=== PATIENT | female | born 1960 | race Caucasian/White ===

== ENCOUNTER 2019-10-27 13:19 | Outpatient (CLI) | payer MEDICARE, MEDICAID, SELFPAY ==
--- NOTE | ~2019-10-27 | XR_ITS ---
XR cervical spine 4-5V 10/27/2019 13:48 Indication: Radiculopathy Procedure: 4 view cervical spine Comparison: 03/01/2015 Findings: There is disc narrowing at C5-6 and C6-7. No fracture or traumatic malalignment. No prevert ebral soft tissue abnormality. Lung apices are unremarkable. There is uncinate degenerative changes a t C5-6 and C6-7. Impression: 1: Progression of mild-moderate cervical spondylosis. Reviewed, dictated and finalized at location B. Impression: 1: Progression of mild-moderate cervical spondylosis.
--- NOTE | ~2019-10-27 | XR_ITS ---
EXAMINATION: XR lumbar spine 2-3V DATE: 10/27/2019 13:48 INDICATION: Lumbar radiculopathy. TECHNIQUE: 3 views of lumbar spine were obtained. COMPARISON: Lumbar spine radiographs 11/06/2017 FINDINGS: There is 3 mm retrolisthesis of L4 on L5. There are changes of anterior fusion procedure at L5-S1 with interbody devices. Vertebral body heights are normal. There is moderately decreased disc height at L4-L5. There is multilevel mild facet joint osteoarthritis. Surgical clips overlie the pelv is. IMPRESSION: 1. Stable moderate lumbar spondylosis. 2. Anterior fusion procedure at L5-S1. Reviewed, dictated and finalized at location A.
== END 2019-10-27 13:20 | disposition home or self-care (01) ==
LOC: ANHIMG 13:25
PROVIDERS: PCP Internal Medicine; Visit Provider Pain Medicine Interventional Pain Medicine
DX: M47.26 Other spondylosis with radiculopathy, lumbar region (principal); Z98.1 Arthrodesis status; M47.22 Other spondylosis with radiculopathy, cervical region
CPT/HCPCS: 72050; 72100

== ENCOUNTER 2020-02-17 12:30 | Outpatient (RCR) | payer MEDICARE, MEDICAID, SELFPAY ==
--- NOTE | 2020-01-04 15:28 | PTOPEVAL ---
Thank you for referring Leslee Arreguin to [facility].? The patient is scheduled to be seen for therapy? 2 x/week for 4 weeks. Please review, sign, date and return this plan of care MARJORIE. I agree with and certify that the following plan of care is medically necessary. Referring Physician Date Admitting Provider: Attending Provider: José Miguel Turcios MD Referring Provider: *PT Outpatient Evaluation Start: 01/04/20 14:02 Freq: Status: Active Protocol: Document 01/04/20 14:02 TL (Rec: 01/04/20 15:09 [facility] [id number]) Therapy Assessment Status Assessment Status Assessment Status Evaluation Outpatient Past Medical History Past Medical History Source of Past Medical History None:Pt/Family Unable to Provide, No Data Recalled from Previous Visit Evaluation Information Problem Diagnosis Chronic pain syndrome Additional Evaluation Detail Takes care of grand daughter who has CP and 160 pounds. Grand kids help out with lifting grand daughter, doing laundry, etc. 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 Patient does not drive. Patient denies current or past knee pain. Subjective Information Low back: Query Text:As Reported By Patient/ Reports 20 years ago had Family spinal fusion. 3 years later they had to go back in for a revision. Her back pain has gotten rogressively worse the past few months. Has been using a heating pad to decrease pain, however it only helps while it 's on. Reports increased tightness with walking that prevents her from doing most activities. Bilateral LE radiculopathy down to all toes. Reports difficulty breathing when the pain is bad. Reports she only sleeps 2-3 hours per night
--- NOTE | 2020-01-19 13:04 | PCPTNOTE ---
Pt No-showed for appointment this date at 12:30. Called Pt to remind them of upcoming appointment on Saturday, however was unable to leave a message due to the voice mailbox being full.
--- NOTE | 2020-01-22 16:59 | PCPTNOTE ---
Patient called & cancelled scheduled appointment this date due to daughter still being in hospital
--- NOTE | 2020-02-01 11:14 | PCPTNOTE ---
Patient called & cancelled scheduled appointment this date due to hurting all over, and is unable to get out of bed.
--- NOTE | 2020-02-03 12:39 | PTOPEVAL ---
Thank you for referring Leslee Arreguin to [facility].? The patient is scheduled to be seen for therapy? 2x/week for 4-6 weeks. Please review, sign, date and return this plan of care MARJORIE. I agree with and certify that the following plan of care is medically necessary. Referring Physician Date Admitting Provider: Attending Provider: José Miguel Turcios MD Referring Provider: *PT Outpatient Evaluation Start: 01/04/20 14:02 Freq: Status: Active Protocol: Document 02/03/20 10:58 CAP (Rec: 02/03/20 11:50 CAP [id number]) Therapy Assessment Status Assessment Status Assessment Status Re-evaluation Outpatient Past Medical History Past Medical History Source of Past Medical History None:Pt/Family Unable to Provide, No Data Recalled from Previous Visit Evaluation Information Problem Diagnosis Chronic pain syndrome Additional Evaluation Detail Takes care of grand daughter who has CP and 160 pounds. She does not have to perform any lifting of her grand daughter. She will performing diaper changes. Has director personal that comes 5 days/week for 9-10 hours. 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 Patient does not drive. Subjective Information Low back: Query Text:As Reported By Patient/ Has been using a heating pad Family multiple times a day to decrease pain, however it only helps while it's on. She reports increased muscle pain with leaning forward to perform task. She questions the skin changes on her back. 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 Reports increased tightness with walking that prevents her from doing most activities. C/o Bilateral LE and UE radiculopathy down to all toes or hands. Cervical: She requires assistance with managing her hair, but is able
--- NOTE | 2020-02-08 12:42 | PCPTNOTE ---
Patient showed up early for appointment, unable to be seen at that time due to having another Pt. Pt then cancelled scheduled appointment this date and stated she would be at her Saturday appointment.
--- NOTE | 2020-02-15 12:34 | PCPTNOTE ---
Patient called & cancelled scheduled appointment this date but will plan to attend her appt on 02/16.
--- NOTE | 2020-02-22 10:40 | PCPTNOTE ---
Patient called & cancelled scheduled appointment this date due to pain and not sleeping over the weekend.
--- NOTE | 2020-02-24 10:43 | PCPTNOTE ---
Patient called & cancelled scheduled appointment this date due to no transportation.
--- NOTE | 2020-02-29 10:56 | PCPTNOTE ---
Patient called & cancelled scheduled appointment this date due to required isolation for possible COVID. Pt to reschedule her re-eval after the 2 wk period.
--- NOTE | 2020-03-16 11:12 | PCPTNOTE ---
Patient did not show up for scheduled appointment this date. Attempted to leave message on voicemail, but it was full. Will keep chart open for 2 wk then DC if re-eval is not rescheduled.
--- NOTE | 2020-03-28 11:37 | PCPTNOTE ---
Admitting Provider: Attending Provider: José Miguel Turcios MD Patient:Leslee Arreguin Date of :1960 Discharge Note Patient has not returned for any further treatments since 02/17/2020, therefore she will be discharged at this time. Patient?s initial visit was on 01/04/2020 14:00 and she had a total of 9 visits. She cancelled or was a show no for 9 visits. The goals have been partially met. Thank you for referring this patient to [facility]. Please review, sign, date and return this discharge summary MARJORIE. I have been updated about the patient's current status and I agree with discharge from the above service at this time. Referring Physician Date
== END 2020-03-28 13:43 | disposition home or self-care (01) ==
LOC: ANHPT 12:30
PROVIDERS: PCP Internal Medicine; Visit Provider Pain Medicine Interventional Pain Medicine
DX: M25.569 Pain in unspecified knee (principal); M17.9 Osteoarthritis of knee, unspecified; G89.4 Chronic pain syndrome
CPT/HCPCS: 97014; 97110; 97140; 97162; G0283

== ENCOUNTER 2020-03-14 10:41 | Outpatient (CLI) | payer MEDICARE, MEDICAID, SELFPAY ==
--- NOTE | ~2020-03-14 | XR_ITS ---
XR abdomen/kub 1V 03/14/2020 11:06 INDICATION: Abdomen pain TECHNIQUE: KUB COMPARISON: 03/13/2005 FINDINGS: Bowel gas pattern is normal. There are surgical changes at L5-S1. There is postoperative ch anges in the pelvis. No acute osseous abnormality. There is no evidence of free air, mass, organomega ly, ascites or obstruction. No abnormal calculi are seen. The bones appear intact. IMPRESSION: 1: No acute abdominal abnormality identified. Reviewed, dictated and finalized at location B. LE PRESS OPERATOR
== END 2020-03-14 10:42 | disposition home or self-care (01) ==
PROVIDERS: PCP Internal Medicine; Visit Provider Internal Medicine
DX: R10.9 Unspecified abdominal pain (principal)
CPT/HCPCS: 74018

== ENCOUNTER 2020-05-23 15:02 | Outpatient (CLI) | payer MEDICARE, MEDICAID, SELFPAY ==
--- NOTE | ~2020-05-23 | CT_ITS ---
EXAMINATION: CT lung screening DATE: 05/23/2020 15:33 INDICATION: Personal history of nicotine dependence, current smoker with 90 pack year history TECHNIQUE: Computed tomography (CT) of the chest was performed without intravenous contrast. The dose -length product (DLP) was 71.24 mGy-cm. Automated exposure control and iterative reconstruction techn [employer] were employed. COMPARISON: 03/31/2019 FINDINGS: There is mild emphysema. There are scattered 1 to 2 mm nodules in the upper lobes without s ignificant change. No new or suspicious pulmonary nodule is identified. No pathologically enlarged th oracic lymph nodes are identified. The heart size is normal. There is no pleural effusion or pneumoth orax. A stone is present in the nondistended gallbladder. Calcified coronary artery atherosclerosis i s noted. IMPRESSION: 1. Lung-RADS category 2: Benign appearance or behavior. Continue annual screening with noncontrast lo w-dose chest CT in 12 months. Reviewed, dictated and finalized at location A. UMER CREDIT COUNSELOR IMPRESSION: 1. Lung-RADS category 2: Benign appearance or behavior. Continue annual screeni ng with noncontrast low-dose chest CT in 12 months.
--- NOTE | ~2020-05-23 | MM_ITS ---
EXAMINATION: MM screening dieudonne BI w neyda HISTORY: Screening mammogram TECHNIQUE: Craniocaudal and mediolateral oblique 3-D tomosynthesis images were obtained and synthetic 2-D images were generated. CAD analysis was submitted and interpreted. COMPARISON: No prior mammogram is available for comparison at this institution. BREAST PARENCHYMAL COMPOSITION: The breasts are almost entirely fatty. FINDINGS: There is no evidence of suspicious mass, calcification, or architectural distortion to sugg est malignancy in either breast. There has been no suspicious interval change. IMPRESSION: 1. No mammographic evidence of malignancy. 2. Recommend routine screening mammography in one year. BI-RADS Category 1: Negative Reviewed, dictated and finalized at location A. T ROLLER WINDER
== END 2020-05-23 15:03 | disposition home or self-care (01) ==
PROVIDERS: PCP Internal Medicine; Visit Provider Nurse Practitioner
DX: Z12.2 Encounter for screening for malignant neoplasm of respiratory organs (principal); Z87.891 Personal history of nicotine dependence; Z12.31 Encounter for screening mammogram for malignant neoplasm of breast
CPT/HCPCS: 71271; 77063; 77067

== ENCOUNTER 2020-08-15 11:59 | Outpatient (CLI) | payer MEDICARE, MEDICAID, SELFPAY ==
--- NOTE | ~2020-08-15 | XR_ITS ---
EXAMINATION: XR chest 2V 08/15/2020 12:14 INDICATION: Dyspnea. Cough. Shortness of breath. PROCEDURE: 2 view chest COMPARISON: Comparison to multiple prior studies sequentially, with oldest reviewed study dated 12/26. FINDINGS: The lungs are clear. The cardiomediastinal silhouette is within normal limits. There are no pleural effusions. There is no pneumothorax suspected. IMPRESSION: 1: NO ACUTE CARDIOPULMONARY DISEASE. Reviewed, dictated and finalized at location A.
== END 2020-08-15 12:00 | disposition home or self-care (01) ==
LOC: ANHIMG 12:02
PROVIDERS: PCP Internal Medicine; Visit Provider Internal Medicine
DX: R06.00 Dyspnea, unspecified (principal)
CPT/HCPCS: 71046

== ENCOUNTER 2020-09-05 09:25 | Outpatient (CLI) | payer MEDICARE, MEDICAID, SELFPAY ==
--- NOTE | ~2020-09-05 | NM_ITS ---
EXAMINATION: NM chandler stress w perfusion DATE: 09/05/2020 11:55 INDICATION: Dyspnea TECHNIQUE: Rest images were obtained following intravenous administration of 10.4 mCi Tc99m tetrofosm in (Myoview). The patient was infused intravenously with Lexiscan (Regadenoson). Then, 32.7 mCi Tc99m tetrofosmin (Myoview) was administered intravenously, and stress images were obtained. Data was wade nstructed into short axis and horizontal and vertical long axis SPECT images. Gated SPECT images were also obtained. COMPARISON: None. FINDINGS: Moderate-sized region of mild decreased perfusion along the septal and inferior fernandez on th e supine stress and rest images which normalizes on the prone images. No definitive reversible or fix ed perfusion abnormality to suggest ischemia or infarction. There is normal left ventricular chamber size, wall motion and ejection fraction. Left ventricular ejection fraction measures >70%. IMPRESSION: 1. Normal myocardial perfusion at rest and during stress. 2. Left ventricular ejection fraction measuring >70%. Reviewed, dictated and finalized at location A.
--- NOTE | 2020-09-05 10:02 | EST_ITS ---
Patient Info Name: Leslee Arreguin Age: 59 years : 1960 Gender: Female Ht: 69 in Wt: 159 lbs BSA: 1.88 m2 Exam Date: 09/05/2020 10:15 AM Exam Location: [facility] Stress Patient Status: Outpatient Admit Date: 09/05/2020 Staff Ordering Physician: Saul Fitch DO Attending Provider: Saul Fitch DO Exercise Technologist: Shelli Goldsmith RDCS Exercise Physician: Thomas Stevens DO Exam Type: CA stress chandler w NM Study Info A regadenoson stress test was performed. Summary 1. 1. Negative lexiscan stress test for ischemic ST changes by ECG criteria. 2. 2. Stable hemodynamics throughout the test. 3. 3. Nuclear scan to follow and will be reported separately. Please correlate with it. 4. 4. Patient informed of the above results. Protocol: Lexiscan Stress ECG Details Stage: REST Duration (min): 7 min : 50 sec HR (bpm): 73 SBP (mmHg): 125 DBP (mmHg): 75 Stage: REST Duration (min): 16 min : 2 sec HR (bpm): 73 SBP (mmHg): 125 DBP (mmHg): 75 Stage: STAGE 1 Duration (min): 1 min : 0 sec HR (bpm): 92 SBP (mmHg): 121 DBP (mmHg): 45 Stage: RECOVERY Duration (min): 1 min : 0 sec HR (bpm): 91 SBP (mmHg): 116 DBP (mmHg): 52 Stage: RECOVERY Duration (min): 2 min : 0 sec HR (bpm): 81 SBP (mmHg): 116 DBP (mmHg): 52 Stage: RECOVERY Duration (min): 3 min : 0 sec HR (bpm): 88 SBP (mmHg): 102 DBP (mmHg): 57 Stage: RECOVERY Duration (min): 4 min : 0 sec HR (bpm): 84 SBP (mmHg): 102 DBP (mmHg): 57 Stage: RECOVERY Duration (min): 5 min : 0 sec HR (bpm): 78 SBP (mmHg): 109 DBP (mmHg): 62 Stage: RECOVERY Duration (min): 6 min : 0 sec HR (bpm): 78 SBP (mmHg): 109 DBP (mmHg): 62 Stage: RECOVERY Duration (min): 7 min : 0 sec HR (bpm): 76 SBP (mmHg): 106 DBP (mmHg): 64 Stage: RECOVERY Duration (min): 8 min : 0 sec HR (bpm): 78 SBP (mmHg): 106 DBP (mmHg): 64 Stage: RECOVERY Duration (min): 9 min : 0 sec HR (bpm): 74 SBP (mmHg): 110 DBP (mmHg): 70 Stage: RECOVERY Duration (min): 10 min : 0 sec HR (bpm): 70 SBP (mmHg): 110 DBP (mmHg): 70 Stage: RECOVERY Duration (min): 11 min : 0 sec HR (bpm): 74 SBP (mmHg): 108 DBP (mmHg): 71 Stage: RECOVERY Duration (min): 11 min : 20 sec HR (bpm): 78 SBP (mmHg): 108 DBP (mmHg): 71 Rest HR: 73 bpm Peak HR: 101 bpm Rest Sys BP: 125 mmHg Peak Sys BP: 121 mmHg Max Pred HR: 162 bpm % Max Pred HR: 62 % Target HR: 138 bpm Max RPP: 12,221 bpm*mmHg Termination Reason: Completed protocol Cardiac Symptoms: Shortness of breath, Dizziness Total Time: 1 min : 0 sec Rest Oconnor BP: 75 mmHg Peak Oconnor BP: 45 mmHg Total Dose: 0.4 mg Resting ECG Sinus rhythm, IRBBB. Stress ECG No ST changes.
--- NOTE | 2020-09-05 14:35 | WPDPFTINT ---
PFT Procedure Performed PFT Procedure Performed Spirometry with Pre/Post Bronchodilator Plethysmography (Lung Vol) Diffusing Cap (DLCO) Flow Vol Loop PFT Interpretation This is a pulmonary function test with pre and post-bronchodilator spirometry, plethysmography and diffusing capacity. The test was performed and results interpreted in accordance with the 2019 and 2005 ATS/ERS Task Force guidelines respectively using the Global Lung Function Initiative-2012 reference equations. Patient demonstrated good effort and cooperation. Reproducibility criteria were met. The quality of the pre bronchodilator spirometry maneuver was Grade A and post bronchodilator spirometry maneuver was Grade A. Findings: Spirometry: There is decreased maximal expiratory airflow at all lung volumes with concave expiratory flow tracing. The pre bronchodilator FVC is 3.22 L, 84% predicted. The pre bronchodilator FEV1 is 1.83 L, 61% predicted. The FEV1: FVC ratio is 57%. The post bronchodilator FVC is 3.71 L, representing a 15% increase. The post bronchodilator FEV1 is 2.16 L, representing an 18% increase. Plethysmography: Total lung capacity is 6.91 L, 119% predicted. The functional residual capacity is 4.23 L, 128% predicted. The residual volume is 3.59 L, 164% predicted. Diffusing capacity: The absolute diffusion capacity is 17.6, 74% predicted. The diffusing capacity corrected for alveolar volume is 3.29, 78% predicted. Impression: There is a moderate obstructive abnormality with significant improvement after inhaling a single dose of albuterol. The increase in residual volume is consistent with air trapping from an obstructive abnormality. Hyperinflation is present is demonstrated by the increase in total lung capacity and is consistent with an obstructive abnormality. The diffusing capacity is normal. There are no prior studies for comparison
== END 2020-09-05 09:26 | disposition home or self-care (01) ==
PROVIDERS: PCP Internal Medicine; Visit Provider Internal Medicine
DX: R06.00 Dyspnea, unspecified (principal); J44.9 Chronic obstructive pulmonary disease, unspecified
CPT/HCPCS: 78452; 93017; 94060; 94726; 94729; A9502; J2785

== ENCOUNTER 2021-01-02 12:31 | Outpatient (CLI) | payer MEDICARE, MEDICAID, SELFPAY ==
--- NOTE | ~2021-01-02 | XR_ITS ---
EXAMINATION: XR lumbar spine 2-3V EXAM DATE: 01/02/2021 13:05 INDICATION: Lumbar radiculopathy. TECHNIQUE: Lumber spine frontal, lateral, lateral L5-S1 projections for interpretation. Comparison is made to prior examination from 10/27/2019. FINDINGS: Interbody devices L5-S1 without subsidence. L5 laminectomies. There is moderate loss of th e L4-5 disc height with 3 mm retrolisthesis. The vertebral bodies are otherwise aligned. The vertebra l body and disc heights are otherwise well maintained. There is mild to moderate lumbar facet arthrop athy, lower levels more affected. No spondylolysis suspected. There is aortic arteriosclerosis. Sacru m, sacroiliac joints, sacral arcuate lines are intact. Paraspinal soft tissue is unremarkable. Accoun ting for differences in technique, there is no significant interval change. IMPRESSION: 1. L5-S1 interbody fusion. 2. L4-5 grade 1 retrolisthesis, moderate disc disease. 3. Mild to moderate facet arthropathy. Reviewed, dictated and finalized at location B.
--- NOTE | ~2021-01-02 | XR_ITS ---
EXAMINATION: XR cervical spine 4-5V EXAM DATE: 01/02/2021 13:05 INDICATION: Cervical radiculopathy. TECHNIQUE: Cervical spine frontal, lateral, lateral swimmers, and open-mouth odontoid projections. C omparison is made to prior examination from 10/27/2019. FINDINGS: Moderate disc disease C5-6 and 6-7. There is 2 to 3 mm retrolisthesis C5 on C6. The verteb ral bodies are otherwise aligned. The odontoid process is intact. The lateral masses of C1 line up w ith C2. Prevertebral soft tissue and pre-dens space are within normal limits. Overall moderate cervic al arthropathy. There is aortic arteriosclerosis. Lung apices are clear. Accounting for differences i n technique, there is no significant interval change. IMPRESSION: 1. Moderate cervical spondylosis unchanged. Reviewed, dictated and finalized at location B.
== END 2021-01-02 12:32 | disposition home or self-care (01) ==
LOC: ANHIMG 12:36
PROVIDERS: PCP Internal Medicine
DX: Z79.891 Long term (current) use of opiate analgesic (principal); Z13.89 Encounter for screening for other disorder; M47.22 Other spondylosis with radiculopathy, cervical region; M51.36 Other intervertebral disc degeneration, lumbar region; Z98.1 Arthrodesis status
CPT/HCPCS: 72050; 72100

== ENCOUNTER 2021-03-15 08:47 | Outpatient (CLI) | payer MEDICARE, MEDICAID, SELFPAY ==
--- NOTE | ~2021-03-15 | DEXA_ITS ---
Bone Density Report Name: Leslee Arreguin Age: 60 Sex: Female Ethnicity: White Date of : 1960 Indication: postmenopausal; height loss; prior fracture; asthma or emphysema; Referring Provider: FLORENCIO GRAYSON Study: Bone densitometry was performed. Exam Date: March 15, 2021 Accession number: [id number] Bone Density: Region BMD T-score Z-score Classification AP Spine (L1, L2, L3) 0.935 -0.8 0.6 Normal Femoral Neck (Left) 0.704 -1.3 -0.1 Osteopenia Total Hip (Left) 0.913 -0.2 0.7 Normal Total Hip Bilateral Avg 0.890 -0.4 0.5 Normal Femoral Neck (Right) 0.736 -1.0 0.2 Normal Total Hip (Right) 0.867 -0.6 0.3 Normal World Health Organization criteria for BMD impression classify patients as: Normal (T-score at or above -1.0), Osteopenia (T-score between -1.0 and -2.5), or Osteoporosis (T-score at or below -2.5). 10-year Fracture Risk: FRAX not reported because: Prior hip or vertebral fracture Previous Exams: Region Exam Age BMD T-score BMD Change BMD Change Date g/cm2 vs Baseline vs Previous AP Spine(L1, L2, L3) 03/15/2021 60 0.935 -0.8 -0.223(-19.2%) -0.223(-19.2%) 01/29/2005 44 1.157 1.3 Total Hip(Left) 03/15/2021 60 0.913 -0.2 -0.100(-9.8%)# -0.100(-9.8%)# 01/29/2005 44 1.012 0.6 Total Hip(Right) 03/15/2021 60 0.867 -0.6 -0.143(-14.2%) -0.143(-14.2%) 01/29/2005 44 1.011 0.6 *Denotes significance at 95% confidence level, LSC for AP Spine = 0.022 g/cm2, LSC for Total Hip = 0.027 g/cm2 Clinical Information Provided by Patient: Have had a previous hip or vertebral fracture Has had a low trauma fracture Smokes Has the following medical conditions: Asthma or Emphysema Patient maximum height was 71 Menopause Age: 43 No regular weight bearing exercise Drinks caffeinated beverages Onset of menses at age 14 Number of children 3 Impression: The patient has low bone mass, based on the Left Femoral Neck T-score. The patient has risk factors, including: smoking, previous fracture. No significant bone loss was observed. Discussion: INCREASED RISK OF FRACTURE DUE TO HISTORY OF FRACTURE. The patient's previous fracture puts the patient at high risk of a future fracture. In untreated patients, the risk of osteoporotic fracture increases approximately two-fold for each 1.0 SD decrease in T-score. Low bone density is not the only risk factor for fracture; also consider factors such as patient's age, frailty or poor health, risk of fal
== END 2021-03-15 08:48 | disposition home or self-care (01) ==
LOC: ANHIMG 08:49
PROVIDERS: PCP Internal Medicine; Visit Provider Internal Medicine
DX: Z78.0 Asymptomatic menopausal state (principal); M85.852 Other specified disorders of bone density and structure, left thigh
CPT/HCPCS: 77080

== ENCOUNTER 2021-03-17 12:20 | Outpatient (CLI) | payer MEDICARE, MEDICAID, SELFPAY ==
--- NOTE | 2021-03-20 09:59 | WPDSIXMINUTE ---
Six Minute Walk Procedure Procedure Performed Pulmonary Stress Test (6 min walk) Six Minute Walk This 6 minute walk test was carried out with the patient breathing ambient air. The pre walk oxyhemoglobin saturation was 97%. The patient was able to walk over 365 m with no stops during the testing. During the walk the oxyhemoglobin saturation remained over 95%. Impression: No evidence of oxyhemoglobin desaturation on this testing.
== END 2021-03-17 12:21 | disposition home or self-care (01) ==
PROVIDERS: PCP Internal Medicine; Visit Provider Internal Medicine Pulmonary Disease
DX: J40 Bronchitis, not specified as acute or chronic (principal); Z72.0 Tobacco use
CPT/HCPCS: 94618

== ENCOUNTER 2021-08-12 10:12 | Outpatient (CLI) | payer MEDICARE, MEDICAID, SELFPAY ==
--- NOTE | ~2021-08-12 | MR_ITS ---
EXAMINATION: MR lumbar spine wo con DATE: 08/12/2021 11:23 INDICATION: Lumbar radiculopathy. TECHNIQUE: Magnetic resonance imaging (MRI) of the lumbar spine was performed without intravenous con trast. Sequences included sagittal T2-weighted FSE, sagittal T2-weighted FS FSE, sagittal T1-weighted FSE, and axial T2-weighted FSE. COMPARISON: Lumbar spine MRI 01/12/2016 FINDINGS: There is 4 mm retrolisthesis of L4 on L5. There are changes of anterior fusion procedure at L5-S1 with interbody devices. Vertebral body heights are normal. There is moderately decreased disc height at L4-L5 with endplate remodeling. The distal spinal cord signal intensity is normal. The conu s medullaris is at L1-L2. The following disc levels are specifically discussed: L1-L2: The disc does not extend beyond the endplate margin. There is mild bilateral facet joint osteo arthritis. There is no neural foraminal stenosis. There is no central canal stenosis. L2-L3: The disc is bulging and has an annular fissure. There is severe bilateral facet joint osteoart hritis. There is mild right and moderate left neural foraminal stenosis. There is mild central canal stenosis. L3-L4: The disc is bulging. There is severe bilateral facet joint osteoarthritis. There is mild bilat eral neural foraminal stenosis. There is no central canal stenosis. L4-L5: The disc is bulging with superimposed left central extrusion. There is mild bilateral facet zahra int osteoarthritis. There is moderate bilateral neural foraminal stenosis. There is mild central bernard l stenosis. L5-S1: There is no facet joint hypertrophy. There is mild left neural foraminal stenosis. There is no central canal stenosis. There is posterior decompression. IMPRESSION: 1. Moderate lumbar spondylosis with mild worsening. 2. Anterior fusion procedure at L5-S1. Reviewed, dictated and finalized at location B.
--- NOTE | ~2021-08-12 | MR_ITS ---
EXAMINATION: MR cervical spine wo con DATE: 08/12/2021 11:23 INDICATION: Cervical radiculopathy. TECHNIQUE: Magnetic resonance imaging (MRI) of the cervical spine was performed without intravenous c ontrast. Sequences included sagittal T2-weighted FSE, sagittal T2-weighted FS FSE, sagittal T1-weight ed FSE, axial MERGE, and axial T2-weighted FSE. COMPARISON: Cervical spine MRI 12/02/2018 FINDINGS: There is 2 mm retrolisthesis of C5 and C6 and C6 on C7. Vertebral body heights are normal. There is severely decreased disc height at C5-C6 and C6-C7 with endplate remodeling. There is mildly decreased disc height at C4-C5. The spinal cord signal intensity is normal. The following disc levels are specifically discussed: C2-C3: There is a central extrusion. There is no uncovertebral joint osteoarthritis. There is mild bi lateral facet joint osteoarthritis. There is no neural foraminal stenosis. There is mild central bernard l stenosis. C3-C4: There is a central protrusion. There is mild bilateral uncovertebral joint osteoarthritis. The re is no facet joint osteoarthritis. There is no neural foraminal stenosis. There is no central canal stenosis. C4-C5: There is a central protrusion. There is mild bilateral uncovertebral joint osteoarthritis. The re is no facet joint osteoarthritis. There is no neural foraminal stenosis. There is no central canal stenosis. C5-C6: The disc is bulging. There is severe bilateral uncovertebral joint osteoarthritis. There is mo derate bilateral facet joint osteoarthritis. There is severe bilateral neural foraminal stenosis. The re is mild central canal stenosis. C6-C7: The disc is bulging. There is severe bilateral uncovertebral joint osteoarthritis. There is mi ld bilateral facet joint osteoarthritis. There is moderate bilateral neural foraminal stenosis. There is mild central canal stenosis. C7-T1: The disc does not extend beyond the endplate margin. There is no uncovertebral joint osteoarth ritis. There is moderate right and mild left facet joint osteoarthritis. There is no neural foraminal stenosis. There is no central canal stenosis. IMPRESSION: 1. Severe cervical spondylosis, stable from 12/02/2018. Reviewed, dictated and finalized at location B.
== END 2021-08-12 10:13 | disposition home or self-care (01) ==
PROVIDERS: PCP Internal Medicine; Visit Provider Pain Medicine Interventional Pain Medicine
DX: M47.22 Other spondylosis with radiculopathy, cervical region (principal); M47.26 Other spondylosis with radiculopathy, lumbar region; Z98.1 Arthrodesis status
CPT/HCPCS: 72141; 72148

== ENCOUNTER 2021-08-25 07:46 | Outpatient (CLI) | payer MEDICARE, MEDICAID, SELFPAY ==
--- NOTE | 2021-09-04 13:00 | WPDSLEEPSTUD ---
Sleep Study Date of Study: 08/25/21 Ordering Provider: Eb Cardoso MD Interpreting Physician: Felisa Clay DO Sleep Study Type: Polysomnogram Height: 1.75 m Weight: 68.946 kg Body Mass Index: 22.4 Neck Circumference (inches): 14 [place]: 3 Reason for Sleep Study Snoring, daytime hypersomnia. Previous diagnosis of JOSE and used to be on CPAP. Sleep History The patient is a 60-year-old female with COPD hypertension, hyperlipidemia, hypothyroidism, chronic back pain, tobacco use disorder, restless leg syndrome and previously diagnosed sleep apnea that had a sleep study ordered by her lye bath operator for evaluation sleep apnea. The patient moved to the area 3 years ago and she lost her CPAP machine at this time. She occasionally awakens from sleep short of breath. She rarely awakens at night with heartburn, belching or cough. She frequently snores loud enough that others complain. She occasionally has trouble sleeping when she has a cold. She rarely wakes up gasping for air throughout the night. She occasionally has breathing problems at night observed by herself or others. She occasionally sweats excessively at night. She rarely notices heart palpitations or irregular heartbeats during the night. She occasionally falls asleep during the day but never while driving. She occasionally experiences loss of muscle tone when extremely emotional. She denies sleep paralysis. She rarely experiences vivid dreamlike scenes upon awakening or falling asleep. She denies having nightmares. She denies remembering her dreams. She occasionally has thoughts racing through her mind. She occasionally feels sad or depressed. She frequently has anxiety. She frequently has muscular tension. He denies noticing parts of her body jerk. She denies kicking during the night. She frequently has crawling and aching feelings in her legs and occasionally has leg pain during the night. She denies grinding her teeth during sleep and awakening with morning jaw pain. She is constantly bothered by pain during the day and constantly awakened by pain during the night. She constantly wakes up feeling stiff in the morning. She constantly wakes up with sore achy muscles. She constantly wakes up with pain in the neck, spine and other joints. She goes to bed at 10:30 p.m. on weekdays and between 11:00 p.m. and 2:00 a.m. on the weekends. She is unsure how long it takes her to fall asleep. She wakes up a few times throughout the night. When she awakens, she will toss and turn. He can take her up to an hour to fall back asleep. She wakes up at 6:00 a.m. on weekdays and between 6 and 7:00 a.m. on the weekends. She typically gets 5 hours of sleep per night. The patient will go back to bed after waking up for an hour. She currently lives with her 14-year-old special needs child, 16-year-old and 20-year-old. she not consume any caffeinated beverages within 2 hours of med. She does not engage in physical exercise before bedtime. She denies reading falling asleep. She will occasionally take a nap in the afternoon or evening but it isn't refreshening. She drinks 2 cups of coffee day. She smokes 3/4 pack of cigarettes per day. She will smoke marijuana in the evenings. She denies alcohol use. FORMERLY [facility] Past Medical History Medical History Adult hypothyroidism Anxiety Benign essential hypertension Chronic low back pain Chronic obstructive pulmonary disease, unspecified Tobacco abuse Family History Family History Grandparent Family history of malignant neoplasm Other Cerebrovascular accident Family history of arthritis Social History Social History Years smoked: 45 Smoking status: Current every day smoker Second hand tobacco smoke exposure: Yes Alcohol intake: never Substance use: c
[2021-09-04 15:52] VITALS: BMI 22.4
== END 2021-08-26 06:56 | disposition home or self-care (01) ==
LOC: ANHCSM 07:52
PROVIDERS: PCP Internal Medicine; Visit Provider Internal Medicine Pulmonary Disease
DX: G47.10 Hypersomnia, unspecified (principal)
CPT/HCPCS: 95810

== ENCOUNTER 2021-10-09 13:59 | Outpatient (CLI) | payer MEDICARE, MEDICAID, SELFPAY ==
--- NOTE | ~2021-10-09 | CT_ITS ---
EXAMINATION: CT lung screening DATE: 10/09/2021 14:16 INDICATION: Personal history of nicotine dependence, current smoker with 90 pack year history TECHNIQUE: Computed tomography (CT) of the chest was performed without intravenous contrast. The dose -length product (DLP) was 81.58 mGy-cm. Automated exposure control and iterative reconstruction techn ique were employed. COMPARISON: 05/23/2020 FINDINGS: There is a 2.8 x 2.1 perihilar nodule of the left lower lobe. There are scattered 1 to 2 mm nodules throughout the lungs. There is mild dependent atelectasis. No pleural effusion or pneumothor ax. Calcified thyroid nodules are noted. No pathologically enlarged thoracic lymph nodes are identifi ed. The heart size is normal. There is calcified coronary artery atherosclerosis is noted is present in the nondistended gallbladder. There is mild thoracic spondylosis. IMPRESSION: 1. Lung-RADS category 4B: Very suspicious. Findings for which additional diagnostic testing and/or ti ssue sampling is recommended. Bronchoscopy and/or PET/CT are recommended for evaluation of the left p erihilar lower lobe nodule. Reviewed, dictated and finalized at location A. IMPRESSION: 1. Lung-RADS category 4B: Very suspicious. Findings for which additional diagno stic testing and/or tissue sampling is recommended. Bronchoscopy and/or PET/CT are recommended for evaluation of the left perihilar lower lobe nodule.
== END 2021-10-09 14:00 | disposition home or self-care (01) ==
PROVIDERS: PCP Internal Medicine; Visit Provider Internal Medicine Pulmonary Disease
DX: Z12.2 Encounter for screening for malignant neoplasm of respiratory organs (principal); Z87.891 Personal history of nicotine dependence; R91.8 Other nonspecific abnormal finding of lung field
CPT/HCPCS: 71271

== ENCOUNTER 2021-10-19 08:56 | Outpatient (CLI) | payer MEDICARE, MEDICAID, SELFPAY ==
--- NOTE | ~2021-10-19 | PE_ITS ---
EXAMINATION: PET skull to mid thigh DATE: 10/19/2021 10:39 INDICATION: Lung nodule TECHNIQUE: Blood glucose level was 121 mg/dL. 10.12 mCi of 18-fluorodeoxyglucose (18-FDG) was adminis tered i.v. Low dose computed tomography (CT) images were acquired from the base of the brain to the p roximal thighs for attenuation correction and anatomic localization. Positron emission tomography (PE T) images were acquired in the same distribution beginning 50 minutes after injection. The dose-lengt h product (DLP) was 371.92 mGy-cm. COMPARISON: CT, 10/09/2021 FINDINGS: Head/neck: No abnormal FDG uptake is identified. FDG uptake in the oral cavity and vocal cords withou t suspicious CT correlate is likely physiologic. Chest: There is a 2.8 x 2.3 cm perihilar nodule of the left lower lobe with abnormal FDG uptake and S UV max of 12.5. Additional 1 to 2 mm nodule scattered throughout the lungs are stable and below thres hold for metabolic assessment. No pathologically enlarged thoracic lymph nodes are identified. The he art size is normal. There is mild atelectasis. No pleural effusion or pneumothorax. Abdomen/pelvis/proximal thighs: Physiologic FDG activity is present in the bowel and urinary tract. N o abnormal FDG uptake is identified. The liver, spleen, pancreas, and adrenal glands are normal. A st one is present in the nondistended gallbladder. The kidneys are unremarkable. No pathologically enlar ged abdominal or pelvic lymph nodes are identified. There is no free intraperitoneal gas or evidence of bowel obstruction. Colonic diverticulosis is present without evidence of diverticulitis. Musculoskeletal: No abnormal FDG uptake is identified. There is moderate cervical spondylosis. There are changes of anterior fusion at L5-S1. A sclerotic focus in the left proximal humerus likely repres ents an enchondroma. IMPRESSION: 1. Left perihilar lower lobe nodule with abnormal FDG uptake, consistent with primary bronchogenic ca rcinoma. No evidence of metastatic disease. Reviewed, dictated and finalized at location B. IMPRESSION: 1. Left perihilar lower lobe nodule with abnormal FDG uptake, consistent with p rimary bronchogenic carcinoma. No evidence of metastatic disease.
[2021-10-19 09:17] LABS: Glucose Point of Care 121 mg/dl (65-105)
== END 2021-10-19 08:57 | disposition home or self-care (01) ==
PROVIDERS: PCP Internal Medicine; Visit Provider Internal Medicine Pulmonary Disease
DX: R91.8 Other nonspecific abnormal finding of lung field (principal)
CPT/HCPCS: 78815; A9552

== ENCOUNTER 2021-11-13 07:39 | Outpatient (CLI) | payer MEDICARE, MEDICAID, SELFPAY ==
--- NOTE | ~2021-11-13 | CT_ITS ---
EXAMINATION: CT brain w con DATE: 11/13/2021 08:12 INDICATION: Episodic headaches TECHNIQUE: Computed tomography (CT) of the head was performed with 100 CC Omnipaque 350 intravenous c ontrast. The mA was adjusted according to patient size. Iterative reconstruction technique was employ ed. Exam dose: 529.67 mGy-cm total exam DLP. COMPARISON: 10/15/2012 MRI brain, reported normal CT brain of 12/26/2009 FINDINGS: There is atherosclerotic calcification of the carotid siphon internal carotid arteries. No intracranial mass lesion or hemorrhage or cerebrovascular accident, midline shift or mass effect e ffect. Normal ventricular size. No subdural or epidural hematoma is detected. The included mastoid air cells and paranasal sinuses are normally developed and aerated. No fracture or bone destruction of the cranial vault. IMPRESSION: Cerebral atherosclerosis; no acute intracranial finding Reviewed, dictated and finalized at Location A. Reviewed, dictated and finalized at location B.
[2021-11-13 08:05] LABS: Estimated Glomerular Filt Rate > 60
== END 2021-11-13 07:40 | disposition home or self-care (01) ==
PROVIDERS: PCP Internal Medicine; Visit Provider Internal Medicine Hematology & Oncology
DX: R51.9 Headache, unspecified (principal); I67.2 Cerebral atherosclerosis
CPT/HCPCS: 70460; Q9967

== ENCOUNTER 2021-11-21 14:07 | Outpatient (CLI) | payer MEDICARE, MEDICAID, SELFPAY ==
[2021-11-21 14:25] LABS: Basophils Percent Auto 0.5 % (0.2-1.2); Eosinophils Absolute Auto 0.1 K/mm3 (0-0.3); Hematocrit 41.3 % (37.0-47.0); Hemoglobin 13.1 g/dL (12.0-15.0); Immature Granulocyte Absolute 0.02 K/mm3 (0.00-0.031); Immature Granulocyte Percent A 0.3 % (0-0.5); Lymphocytes Absolute Auto 2.59 K/mm3 (0.9-3.2); Lymphocytes Percent Auto 32.4 % (18.3-44.2); Mean Corpuscular HGB Conc 31.7 g/dl (32-36); Mean Corpuscular Hemoglobin 30.8 pg (26-34); Mean Corpuscular Volume 97.2 fl (80-100); Mean Platelet Volume 11.4 fl (7.4-10.4); Monocytes Absolute Auto 0.6 K/mm3 (0.1-0.6); Monocytes Percent Auto 7.1 % (2.6-8.5); Neutrophils Absolute Auto 4.7 K/mm3 (1.3-6.7); Neutrophils Percent Auto 58.7 % (45.5-73.1); Platelet Count Result 193 k/mm3 (150-375); Red Blood Count 4.25 M/mm3 (4.2-5.4)
[2021-11-21 16:15] LABS: INR 1.1; Partial Thromboplastin Time 30.4 SECONDS (22.3-36.8); Prothrombin Time 13.4 Seconds (11.1-14.7)
== END 2021-11-21 14:08 | disposition home or self-care (01) ==
LOC: ANHLAB 14:08
PROVIDERS: PCP Internal Medicine; Visit Provider Internal Medicine Hematology & Oncology
DX: C34.92 Malignant neoplasm of unspecified part of left bronchus or lung (principal); R04.2 Hemoptysis
CPT/HCPCS: 36415; 85025; 85610; 85730

== ENCOUNTER 2021-11-23 10:24 | Outpatient (CLI) | payer MEDICARE, MEDICAID, SELFPAY ==
--- NOTE | 2021-11-23 14:21 | P.PCNPFT_ITS ---
PFT Procedure Performed PFT Procedure Performed Plethysmography (Lung Vol) Diffusing Cap (DLCO) Flow Vol Loop Spirometry w/o Bronchodil PFT Interpretation Lung volumes were measured with the body plethysmography method. Lung volumes are unremarkable. Spirometry showed normal FVC and FEV1 but diminished mid e xpiratory flow rates at 45% predicted. No post bronchodilator study was carried out. Lung diffusion capacity is within the normal range at 99% predicted. The flow volume loop is consistent with obstructive airway disease. In comparison to previous study in August of 2020, the forced vital capacity is now greater by approximately 1.1 L and the FEV1 is also greater by approximately 0.7 L. Impression: Mild obstructive airway disease significantly improved from previous study in August of 2020. Lung diffusion capacity within the normal range.
== END 2021-11-23 10:25 | disposition home or self-care (01) ==
PROVIDERS: PCP Internal Medicine; Visit Provider Internal Medicine Hematology & Oncology
DX: C34.32 Malignant neoplasm of lower lobe, left bronchus or lung (principal); R94.2 Abnormal results of pulmonary function studies
CPT/HCPCS: 94375; 94726; 94729

== ENCOUNTER 2021-12-03 20:01 | Emergency (ER) | payer MEDICARE, MEDICAID, SELFPAY ==
[2021-12-03 20:10] VITALS: BP 157/89; PULSE 85; RESP 16; TEMP 37.1; O2SAT 98
[2021-12-03 20:13] VITALS: BP 157/89; PULSE 85; RESP 16; TEMP 37.1; O2SAT 98
--- NOTE | 2021-12-03 20:15 | ED.EAR ---
HPI - Ear Problem General Chief complaint: Ear Stated complaint: left ear pressure, ringing Time Seen by Provider: 12/03/21 20:02 Source: patient, RN notes reviewed and old records reviewed Mode of arrival: ambulatory Limitations: no limitations History of Present Illness HPI Narrative: 61 year old female who presents to [facility] care with complaints of 3 day history of left ear pain with increased symptoms today.. She reports that she thinks she got water in her ear. Patient reports that she has decreased hearing to her left ear and also some ringing in her ear, denies any drainage from her lef ear. Patient rates her pain 6/10 with feelings of pressure and ache to left ear MD Complaint: ear pain and decreased hearing Location: left ear Duration: constant Severity: moderate Discharge from ear: Reports no Treatment prior to arrival: none Related Data Home Medications Medication Instructions Recorded Confirmed morphine 15 mg tablet,extended 15 mg PO Q12H 03/06/19 12/03/21 release oxycodone-acetaminophen 10 mg-325 1 tablet PO Q4H PRN Pain 03/06/19 12/03/21 mg tablet (Percocet) tizanidine 4 mg tablet 4 mg PO DAILY PRN Pain 01/26/21 12/03/21 multivitamin-ferrous 1 tablet PO DAILY 02/28/21 12/03/21 fumarate-folic acid 18 mg-400 mcg tablet (Centrum Women) celecoxib 100 mg capsule 100 mg PO DAILY 12/03/21 12/03/21 Allergies Allergy/AdvReac Type Severity Reaction Status Date / Time Sulfa (Sulfonamide Allergy Unknown Hives Verified 12/03/21 20:08 Antibiotics) sulfamethoxazole AdvReac Hives Verified 12/03/21 20:08 [From Bactrim] trimethoprim [From Bactrim] AdvReac Hives Verified 12/03/21 20:08 Review of Systems Review of Systems: CONSTITUTIONAL: Denies fever, chills, or sweats. EYES: Denies visual changes, redness, or discharge. ENT: Denies rhinorrhea, congestion, sore throat, positive for left ear otalgia. CARDIOVASCULAR: Denies chest pain, palpitations, or edema. RESPIRATORY: Dry cough noted denies acute dyspnea. GASTROINTESTINAL: Denies abdominal pain, nausea, vomiting, or diarrhea. GENITOURINARY: Denies dysuria or hematuria. SKIN: Denies rash or itching. MUSCULOSKELETAL: Chronic neck and back pain, joint pain, or myalgia. NEUROLOGIC: Denies headache, numbness, or weakness. PSYCHIATRIC: Positive for history of anxiety and depression. All systems reviewed & are unremarkable except as noted in HPI and below PMFSH Past Medical History Medical History (Updated 12/04/21 @ 01:24 by Radha Ball NP) Adenocarcinoma, lung Adult hypothyroidism Anxiety Benign essential hypertension Chronic constipation Chronic low back pain Chronic obstructive pulmonary disease, unspecified JOSE on CPAP Tobacco abuse Surgical History Surgical History (Updated 12/04/21 @ 01:22 by Radha Ball NP) H/O Spinal surgery x2 H/O: hysterectomy History of bladder surgery sling tie up Family History Family History Grandparent Family history of malignant neoplasm Other Cerebrovascular accident Family history of arthritis Social History Social History (Updated 12/04/21 @ 01:18 by Radha Ball NP) Smoking packs per day: 1 Smoking cigarettes per day: 20.0 Years smoked: 45 Smoking pack-years: 45.00 Smoking status: Current every day smoker Second hand tobacco smoke exposure: Yes Alcohol intake: never Substance use: current Substance use type: marijuana and opiates Other substance usage details: opiates for pain mangement of chronic neck and back pain Comments At time of signature, agree with nursing past medical, surgical, social and family history. There is no relevant family history pertinent to the presenting complaint Exam Narrative: GENERAL: Frail appearing, adequate-nourished, and in no acute distress. HEAD: Normocephalic, atraumatic. EYES: PERRLA and EOMI. ENT: Nares clear, no rhinorrhea or epistaxis. Mucous
== END 2021-12-03 20:25 | disposition home or self-care (01) ==
PROVIDERS: Emergency Provider Registered Nurse
DX: H60.92 Unspecified otitis externa, left ear (principal); F17.210 Nicotine dependence, cigarettes, uncomplicated; I10 Essential (primary) hypertension; J44.9 Chronic obstructive pulmonary disease, unspecified; G47.33 Obstructive sleep apnea (adult) (pediatric); E03.9 Hypothyroidism, unspecified; Z85.118 Personal history of other malignant neoplasm of bronchus and lung
CPT/HCPCS: 99213; G0463

== ENCOUNTER 2022-01-12 11:10 | Outpatient (CLI) | payer MEDICARE, MEDICAID, SELFPAY ==
--- NOTE | ~2022-01-12 | XR_ITS ---
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 Small left pleural effusion versus pleural thicke cheryl. Heart size normal. There is atherosclerosis. Right lung clear. No acute osseous abnormality. No edema or pneumothorax. Impression: 1: No acute cardiopulmonary disease identified. Postsurgical changes consistent with partial left low er lobectomy. Reviewed, dictated and finalized at location B. Impression: 1: No acute cardiopulmonary disease identified. Postsurgical changes consistent with partial left lower lobectomy.
== END 2022-01-12 11:11 | disposition home or self-care (01) ==
PROVIDERS: PCP Internal Medicine
DX: C34.92 Malignant neoplasm of unspecified part of left bronchus or lung (principal); Z98.890 Other specified postprocedural states
CPT/HCPCS: 71046

== ENCOUNTER 2022-01-25 09:51 | Outpatient (CLI) | payer MEDICARE, MEDICAID, SELFPAY ==
[2022-01-25 10:24] LABS: Basophils Percent Auto 0.5 % (0.2-1.2); Eosinophils Absolute Auto 0.2 K/mm3 (0-0.3); Eosinophils Percent Auto 2.3 % (0-4.4); Hematocrit 43.5 % (37.0-47.0); Hemoglobin 13.8 g/dL (12.0-15.0); Immature Granulocyte Absolute 0.04 K/mm3 (0.00-0.031); Immature Granulocyte Percent A 0.5 % (0-0.5); Lymphocytes Absolute Auto 1.81 K/mm3 (0.9-3.2); Lymphocytes Percent Auto 24.5 % (18.3-44.2); Mean Corpuscular HGB Conc 31.7 g/dl (32-36); Mean Corpuscular Hemoglobin 31.1 pg (26-34); Mean Platelet Volume 10.5 fl (7.4-10.4); Monocytes Absolute Auto 0.6 K/mm3 (0.1-0.6); Monocytes Percent Auto 7.8 % (2.6-8.5); Neutrophils Absolute Auto 4.8 K/mm3 (1.3-6.7); Neutrophils Percent Auto 64.4 % (45.5-73.1); Platelet Count Result 340 k/mm3 (150-375); Red Blood Count 4.44 M/mm3 (4.2-5.4); Red Cell Distribution Width 13.8 % (11.5-14.5); White Blood Count 7.4 K/mm3 (4.5-10.0)
[2022-01-25 10:35] LABS: Prothrombin Time 12.7 Seconds (11.1-14.7)
[2022-01-25 10:36] LABS: Partial Thromboplastin Time 27.8 SECONDS (22.3-36.8)
[2022-01-25 11:00] LABS: Anion Gap 9 mmol/L (8-16); Blood Urea Nitrogen 16 mg/dL (7-17); Calcium 9.5 mg/dL (8.4-10.2); Carbon Dioxide 33 mmol/L (22-30); Chloride 100 mmol/L (98-107); Estimated Glomerular Filt Rate > 60; Glucose 82 mg/dL (65-110); Potassium 4.4 mmol/L (3.4-5.0); Sodium 142 mmol/L (137-145)
== END 2022-01-25 09:52 | disposition home or self-care (01) ==
LOC: ANHSURGERY 09:56
PROVIDERS: Anesthesiology; PCP Internal Medicine; Visit Provider Surgery
DX: C34.92 Malignant neoplasm of unspecified part of left bronchus or lung (principal); Z51.81 Encounter for therapeutic drug level monitoring; Z79.899 Other long term (current) drug therapy
CPT/HCPCS: 36415; 80048; 85025; 85610; 85730

== ENCOUNTER 2022-02-01 11:23 | Emergency (ER) | payer MEDICARE, MEDICAID, SELFPAY ==
--- NOTE | ~2022-02-01 | XR_ITS ---
EXAMINATION: XR chest 2V DATE: 02/01/2022 11:48 INDICATION: Shortness of breath and chest pain TECHNIQUE: PA and lateral views of the chest are obtained. COMPARISON: 01/12/2022 FINDINGS: The lungs are free of acute opacities. No pleural effusion or pneumothorax. The cardiomedia stinal silhouette is normal. There is mild thoracic spondylosis. There is volume loss in the left hem ithorax, consistent with partial pneumonectomy. IMPRESSION: 1. No acute cardiopulmonary abnormality. Reviewed, dictated and finalized at location B.
--- NOTE | ~2022-02-01 | US_ITS ---
EXAMINATION: US right upper quadrant DATE: 02/01/2022 13:47 INDICATION: Right upper quadrant abdominal pain. TECHNIQUE: Multiple grayscale and Doppler ultrasound images of the abdomen were obtained. COMPARISON: Chest CT 02/01/2022 FINDINGS: The visualized portions of the head and body of the pancreas are normal. The liver is helen l without focal lesion. There is antegrade flow in main portal vein. The gallbladder is normal in siz e and contains a gallstone. No gallbladder wall thickening or sonographic Osorio sign. The common veronica t is normal and measures 6 mm. IMPRESSION: 1. Cholelithiasis. No evidence of acute cholecystitis. Reviewed, dictated and finalized at location A.
--- NOTE | ~2022-02-01 | CT_ITS ---
EXAMINATION: CTA chest PE protocol DATE: 02/01/2022 13:31 INDICATION: Shortness of breath. Right abdominal pain. TECHNIQUE: Computed tomography angiography (CTA) of the chest was performed with 100 mL Omnipaque-350 intravenous contrast timed to evaluate the pulmonary arteries. Coronal maximum intensity projection 3D-reconstructions were created by the technologist. Automated exposure control and iterative reconst ruction technique were employed. The dose-length product was 177.37 mGy-cm. COMPARISON: Chest CT 10/09/2021 FINDINGS: There is mild emphysema. There is mild atelectasis bilaterally. There are changes of left l ower lobectomy. There is a 6 mm nodule in left upper lobe. Again seen are multiple scattered pulmonar y nodules measuring up to 3 mm. There is a trace left pleural effusion. There is a new 11 mm nodule i n right thyroid lobe, likely not clinically significant. The heart size is normal. No pericardial eff usion. There is no pulmonary embolus. There is a gallstone in the gallbladder, which is distended. Th ere is moderate thoracic spondylosis and severe cervical spondylosis. IMPRESSION: 1. No pulmonary embolus. 2. New 6 mm pulmonary nodule, which is indeterminate for metastatic disease. 3. Mild emphysema. 4. Distended gallbladder with gallstone suspicious for acute cholecystitis. Correlation with ultrasou nd is recommended. Reviewed, dictated and finalized at location A. IMPRESSION: 1. No pulmonary embolus. 2. New 6 mm pulmonary nodule, which is indeterminate for metastatic disease. 3. Mild emphysema. 4. Distended gallbladder with gallstone suspicious for acute cholecystitis. Cor relation with ultrasound is recommended.
[2022-02-01 11:26] VITALS: BP 153/78; PULSE 90; RESP 20; TEMP 36.5; O2SAT 97
--- NOTE | 2022-02-01 11:30 | ECG_ITS ---
Measurements Intervals [place] Rate: 85 P: 81 AL: 125 QRS: 51 QRSD: 85 T: 53 QT: 354 QTc: 423 Interpretive Statements SINUS RHYTHM NORMAL ECG NO PREVIOUS ECG AVAILABLE FOR COMPARISON Electronically Signed On 02-01-2022 14:59:12 CDT by Evans Gallegos M.D.
[2022-02-01 11:53] LABS: Basophils Percent Auto 0.4 % (0.2-1.2); Eosinophils Absolute Auto 0.2 K/mm3 (0-0.3); Hematocrit 42.6 % (37.0-47.0); Hemoglobin 13.9 g/dL (12.0-15.0); Immature Granulocyte Absolute 0.04 K/mm3 (0.00-0.031); Immature Granulocyte Percent A 0.4 % (0-0.5); Lymphocytes Absolute Auto 2.07 K/mm3 (0.9-3.2); Lymphocytes Percent Auto 18.5 % (18.3-44.2); Mean Corpuscular HGB Conc 32.6 g/dl (32-36); Mean Corpuscular Hemoglobin 31.4 pg (26-34); Mean Corpuscular Volume 96.4 fl (80-100); Mean Platelet Volume 10.5 fl (7.4-10.4); Monocytes Absolute Auto 0.7 K/mm3 (0.1-0.6); Monocytes Percent Auto 6.4 % (2.6-8.5); Neutrophils Absolute Auto 8.1 K/mm3 (1.3-6.7); Neutrophils Percent Auto 72.3 % (45.5-73.1); Platelet Count Result 326 k/mm3 (150-375); Red Blood Count 4.42 M/mm3 (4.2-5.4); Red Cell Distribution Width 13.6 % (11.5-14.5); White Blood Count 11.2 K/mm3 (4.5-10.0)
[2022-02-01 12:04] LABS: Prothrombin Time 12.6 Seconds (11.1-14.7)
[2022-02-01 12:05] LABS: Partial Thromboplastin Time 28.1 SECONDS (22.3-36.8)
[2022-02-01 12:08] LABS: Alanine Aminotransferase 16 U/L (6-35); Albumin Level 4.6 g/dL (3.5-5.1); Alkaline Phosphatase 90 U/L (38-126); Anion Gap 13 mmol/L (8-16); Aspartate Amino Transferase 19 U/L (14-36); Bilirubin,Total 0.4 mg/dL (0.2-1.3); Blood Urea Nitrogen 20 mg/dL (7-17); Calcium 9.3 mg/dL (8.4-10.2); Carbon Dioxide 27 mmol/L (22-30); Chloride 100 mmol/L (98-107); Estimated CRCL calculation 77 ml/min; Estimated Glomerular Filt Rate > 60; Glucose 138 mg/dL (65-110); Lipase 25 U/L (23-300); Potassium 4.2 mmol/L (3.4-5.0); Sodium 140 mmol/L (137-145)
[2022-02-01 12:19] LABS: Troponin I < 0.012 ng/mL (0.000-0.034)
[2022-02-01 12:49] VITALS: BP 105/78; PULSE 76; RESP 18; O2SAT 98
--- NOTE | 2022-02-01 13:44 | ED.ABDPAIN ---
HPI - Abdominal Pain General Chief Complaint: Abdominal Pain Stated Complaint: R abd pain radiates to neck Time Seen by Provider: 02/01/22 12:32 History of Present Illness HPI narrative: Patient is a 61-year-old female who presents ER with abdominal pain. Right upper quadrant. Worse with deep breath. Radiates into her back and upper neck. No dyspnea. No associated with eating and drinking. No fevers or chills or sweats. Recently diagnosed with lung cancer and partial pneumonectomy. She is scheduled to start radiation and chemotherapy at [facility]. No hemoptysis. No productive cough. No dyspnea. Related Data Home Medications Medication Instructions Recorded Confirmed morphine 15 mg tablet,extended 15 mg PO Q12H 03/06/19 01/24/22 release oxycodone-acetaminophen 10 mg-325 1 tablet PO Q4H PRN Pain 03/06/19 01/24/22 mg tablet (Percocet) tizanidine 4 mg tablet 4 mg PO DAILY PRN Pain 01/26/21 01/24/22 multivitamin-ferrous 1 tablet PO DAILY 02/28/21 01/24/22 fumarate-folic acid 18 mg-400 mcg tablet (Centrum Women) gabapentin 100 mg tablet 200 mg PO TID 01/23/22 01/24/22 prochlorperazine maleate 5 mg 5 mg PO BID 01/24/22 01/24/22 tablet sennosides 8.6 mg tablet (senna) 8.6 mg PO HS 01/24/22 01/24/22 Allergies Allergy/AdvReac Type Severity Reaction Status Date / Time Sulfa (Sulfonamide Allergy Unknown Hives Verified 02/01/22 11:31 Antibiotics) sulfamethoxazole AdvReac Hives Verified 02/01/22 11:31 [From Bactrim] trimethoprim [From Bactrim] AdvReac Hives Verified 02/01/22 11:31 Review of Systems Review of Systems: All systems reviewed & are unremarkable except as noted in HPI and below Constitutional: Constitutional: Denies chills, Denies fatigue and Denies fever(s) ENT: Denies nasal congestion and Denies sore throat Cardiovascular: Cardiovascular: Denies chest pain, Denies rapid heart rate and Denies radiating jaw, neck or arm pain Respiratory: Respiratory: Denies cough and Denies dyspnea Comments: Pain with inspiration Gastrointestinal: Gastrointestinal: Reports abdominal pain, Denies nausea and Denies vomiting Integumentary/Breasts: Skin/Breast: Denies erythema and Denies rash Neurologic: Denies syncope, Denies numbness and Denies weakness PMFSH Past Medical History Medical History Adenocarcinoma, lung Adult hypothyroidism Anxiety Benign essential hypertension Chronic constipation Chronic low back pain Chronic obstructive pulmonary disease, unspecified JOSE on CPAP Tobacco abuse Surgical History Surgical History H/O Spinal surgery x2 H/O: hysterectomy History of bladder surgery sling tie up S/P lobectomy of lung Family History Family History Grandparent Family history of malignant neoplasm Other Cerebrovascular accident Family history of arthritis Social History Social History Smoking packs per day: 2 Smoking cigarettes per day: 40.0 Years smoked: 47 Smoking pack-years: 94.00 Smoking status: Current every day smoker Tobacco type: cigarettes Second hand tobacco smoke exposure: Yes Additional smoking assessment comments: 2 PPD X 20 YRS, DOWN TO 10 CIGARETTES/DAY NOW Alcohol intake: current Alcohol use details: 1-2/YEAR Substance use: current Substance use type: marijuana Other substance usage details: SMOKE AND GUMMIES Spiritual care concerns: No Exam Narrative: GENERAL: Well-appearing, well-nourished, and in no acute distress. HEAD: Normocephalic, atraumatic. EYES: PERRL and EOMI. CHEST: Clear to auscultation. No respiratory distress. Well-healing scars from previous surgery left chest wall. HEART: Regular rate and rhythm. Normal peripheral pulses. ABDOMEN: Soft, mildly tender right upper quadrant without guarding
[2022-02-01 14:03] LABS: Add Urine Microscopic? YES; Appearance Urine Cloudy (Clear); Bilirubin Urine Negative (Negative); Blood Urine Negative (Negative); Color Urine Yellow (Yellow); Glucose Urine UA Negative (Negative); Ketones Urine Negative (Negative); Leukocyte Esterase Ur Trace LEU/UL (Negative); Mucus Urine Rare /lpf; Nitrate Urine Negative (Negative); Protein Urine Negative (Negative); Specific Grav Ur 1.021 (1.001-1.035); Squamous Epithelial Cell Urine Moderate /hpf (Few); Urobilinogen Urine Negative mg/dL (<2.0)
[2022-02-01 14:30] VITALS: BP 122/74; PULSE 84; RESP 16; O2SAT 98
[2022-02-01] MEDS: MORPHINE SULFATE (*CRX) 2 MG/ML INJ IV PUSH (15:58)
[2022-02-01 16:03] VITALS: BP 142/86; PULSE 80; RESP 16; O2SAT 98
--- NOTE | 2022-02-01 16:49 | PM.CNGS ---
Assessment and Plan Assessment and plan (1) Biliary colic: Code(s): K80.50 - Calculus of bile duct without cholangitis or cholecystitis without obstruction Status: Acute Assessment and Plan: Exam benign, feels better after IV analgesia, home with p.o. antibiotics and analgesia, low-fat diet, follow-up as outpatient, may be candidate for interval cholecystectomy dependent on oncology and Pulmonary clearance (2) Adenocarcinoma of left lung: Code(s): C34.92 - Malignant neoplasm of unspecified part of left bronchus or lung Status: Acute Assessment and Plan: plan for adjuvant radiation, timing of possible cholecystectomy will be discussed as outpatient History of Present Illness Consult details Consult date: 02/01/22 Reason for consult: gallstones Requesting physician: Evan Bonner MD Narrative: The patient is a 61-year-old female presenting to the emergency department complaining of severe upper abdominal pain. Patient reports the pain is mostly in her right upper quadrant and radiates to her back and right chest /neck. The patient reports associated nausea, bloating, and poor appetite. The patient reports that the pain has been present over the last day or so. The patient does describe intermittent symptoms in the past, however, not as severe. Of note, the patient has a history of left lung cancer status post left lower lobe lobectomy. Patient is currently being set up for radiation therapy. Review of Systems Constitutional: Constitutional: Reports as per HPI, Denies anorexia, Denies chills, Reports fatigue, Denies fever(s), Reports lethargy, Reports malaise, Reports poor appetite, Denies weakness, Denies weight gain and Denies weight loss Eyes: Eyes: Reports no additional eye complaints ENT: Reports system reviewed and no additional complaints, except as documented Cardiovascular: Cardiovascular: Reports no additional cardiovascular complaints Respiratory: Respiratory: Reports pain on inspiration, Reports dyspnea and Reports dyspnea on exertion Gastrointestinal: Gastrointestinal: Reports as per HPI, Reports abdominal pain, Reports bloating, Reports GI cramping, Reports early satiety, Reports nausea and Denies vomiting Genitourinary: Genitourinary: Reports no additional female genitourinary complaints Musculoskeletal: Musculoskeletal: Reports no additional musculoskeletal complaints Integumentary/Breasts: Skin/Breast: Reports system reviewed and no additional complaints, except as docu Neurologic: Reports system reviewed and no additional complaints, except as documented Psychiatric: Psychiatric: Reports no additional psychiatric complaints Endocrine: Endocrine: Reports no additional endocrine complaints Hematologic/Lymphatic: Hematologic/Lymphatic: Reports no additional hematologic/lymphatic complaints Allergic/Immunologic: Allergic/Immunologic: Reports no additional allergic/immunologic complaints [facility] Past Medical History Medical History Adenocarcinoma, lung Adult hypothyroidism Anxiety Benign essential hypertension Chronic constipation Chronic low back pain Chronic obstructive pulmonary disease, unspecified JOSE on CPAP Tobacco abuse Surgical History Surgical History H/O Spinal surgery x2 H/O: hysterectomy History of bladder surgery sling tie up S/P lobectomy of lung Family History Family History Grandparent Family history of malignant neoplasm Other Cerebrovascular accident Family history of arthritis Social History Social History Smoking packs per day: 2 Smoking cigarettes per day: 40.0 Years smoked: 47 Smoking pack-years: 94.00 Smoking status: Current every day smoker Tobacco type: cigarettes Second hand tobacco smoke exposur
== END 2022-02-01 16:50 | disposition home or self-care (01) ==
PROVIDERS: Emergency Medicine; Emergency Provider Emergency Medicine; PCP Internal Medicine
DX: K80.20 Calculus of gallbladder without cholecystitis without obstruction (principal); R91.1 Solitary pulmonary nodule; C34.90 Malignant neoplasm of unspecified part of unspecified bronchus or lung; E03.9 Hypothyroidism, unspecified; I10 Essential (primary) hypertension; J44.9 Chronic obstructive pulmonary disease, unspecified; G47.33 Obstructive sleep apnea (adult) (pediatric); F41.9 Anxiety disorder, unspecified; F17.210 Nicotine dependence, cigarettes, uncomplicated; Z90.2 Acquired absence of lung [part of]; Z90.710 Acquired absence of both cervix and uterus
CPT/HCPCS: 36415; 71046; 71275; 76705; 80053; 81001; 83690; 84484; 85025; 85610; 85730; 93005; 96374; 99284; J2270; Q9967

== ENCOUNTER 2022-06-04 09:27 | Outpatient (CLI) | payer MEDICARE, MEDICAID, SELFPAY ==
[2022-06-06 12:27] LABS: PCP NEGATIVE ng/mL (<25)
[2022-06-08 08:20] LABS: Amphetamines Positive; Benzodiazepines Positive; Marijuana Metabolites Positive
[2022-06-08 08:21] LABS: Barbiturates Negative; Cocaine Metabolites Negative
== END 2022-06-04 09:28 | disposition home or self-care (01) ==
LOC: ANHLAB 09:29
PROVIDERS: PCP Internal Medicine; Visit Provider Internal Medicine
DX: Z51.81 Encounter for therapeutic drug level monitoring (principal); Z79.899 Other long term (current) drug therapy
CPT/HCPCS: 80307

== ENCOUNTER 2022-09-24 14:47 | Outpatient (CLI) | payer MEDICARE, MEDICAID, SELFPAY ==
--- NOTE | ~2022-09-24 | XR_ITS ---
XR lumbar spine 2-3V 09/24/2022 15:28 Indication: Low back pain Procedure: 3 views lumbar spine Comparison: 01/02/2021 Findings: There is severe disc narrowing at L4-5. There are are prosthetic disc devices at L5-S1. The re is multilevel facet hypertrophy. No acute fracture, subluxation or spondylolisthesis. Normal lumba r lordosis. Pedicles intact. Sacral foramen are symmetric. Bowel pattern nonobstructive. There are becerra rgical clips in the pelvis. Impression: 1: Progression of moderate lumbar spondylosis with interval loss of disc height at L4-5. Reviewed, dictated and finalized at location L. Impression: 1: Progression of moderate lumbar spondylosis with interval loss of disc height at L4-5.
--- NOTE | ~2022-09-24 | XR_ITS ---
EXAM: XR shoulder LT min 2V, XR shoulder RT min 2V DATE: 09/24/2022 15:29 (accession [id number]), 09/24/2022 15:28 (accession [id number]) HISTORY: Pain in unspecified shoulder, radiculopathy Lumbar, Cervical . COMPARISON: None available. FINDINGS: Normal mineralization. No fracture or dislocation. No lytic or blastic lesion. Large bone island in the left humeral head. Bilateral AC joint and glenohumeral joint degenerative change, moder ate in the right AC joint, mild in the left AC joint and bilateral glenohumeral joints. No erosion or periosteal change. Soft tissues within normal limits. IMPRESSION: Mild-moderate polyarticular osteoarthritis. Reviewed, dictated and finalized at location K. IMPRESSION: Mild-moderate polyarticular osteoarthritis.
--- NOTE | ~2022-09-24 | XR_ITS ---
XR_CERV2-3V_CR 09/24/2022 15:29 Indication: Neck pain Procedure: 3 views cervical spine Comparison: Comparison to multiple prior studies sequentially, with oldest reviewed study dated 02/13. Findings: There is disc narrowing at C5-6 and C6-7. No prevertebral soft tissue swelling. There is mi ld multilevel uncinate hypertrophy. Lung apices are normal. Odontoid process is unremarkable. Lateral masses normally aligned. No fracture or traumatic malalignment. There are subtle retrolisthesis at C 5-6, unchanged. There is carotid atherosclerosis. Impression: 1: Stable moderate cervical spondylosis. Reviewed, dictated and finalized at location L. Impression: 1: Stable moderate cervical spondylosis.
== END 2022-09-24 14:48 | disposition home or self-care (01) ==
PROVIDERS: PCP Internal Medicine; Visit Provider Pain Medicine Interventional Pain Medicine
DX: M25.569 Pain in unspecified knee (principal); M48.062 Spinal stenosis, lumbar region with neurogenic claudication; Z13.89 Encounter for screening for other disorder; G89.4 Chronic pain syndrome; M47.26 Other spondylosis with radiculopathy, lumbar region; M47.22 Other spondylosis with radiculopathy, cervical region; M19.011 Primary osteoarthritis, right shoulder; M19.012 Primary osteoarthritis, left shoulder
CPT/HCPCS: 72040; 72100; 73030

== ENCOUNTER 2022-12-03 01:01 | Day surgery (SDC) | payer MEDICARE, MEDICAID, SELFPAY ==
[2022-11-26 10:26] VITALS: BMI 23.4
[2022-12-03 09:02] VITALS: BP 125/61; PULSE 72; RESP 18; TEMP 36.2; O2SAT 98
[2022-12-03] MEDS: LACTATED RINGERS 1,000 ML 150 ML IV CONT (09:16)
--- NOTE | 2022-12-03 09:29 | WPDANESEPPF ---
Anes - Initial Pre Proc Eval Procedure: Operation Date: 12/03/22 10:00 Proposed Procedures p Colonoscopy - Alverto Biggs MD Date/Time: 12/03/22 09:29 Surgeon: Alverto Biggs MD Pre Op Diagnosis: hx colon polyps, constipation Patient Data Age: 62 Gender: F Height: 1.75 m Weight: 70.14 kg Last Vital Signs Temp 36.2 C L 12/03/22 09:02 Pulse 72 12/03/22 09:02 Resp 18 12/03/22 09:02 BP 125/61 12/03/22 09:02 Pulse Ox 98 12/03/22 09:02 O2 Del Method Room Air 12/03/22 09:02 Allergies Allergy/AdvReac Type Severity Reaction Status Date / Time Sulfa (Sulfonamide Allergy Unknown Hives Verified 12/03/22 09:00 Antibiotics) sulfamethoxazole AdvReac Hives Verified 12/03/22 09:00 [From Bactrim] trimethoprim [From Bactrim] AdvReac Hives Verified 12/03/22 09:00 Home Medications Medication Instructions Recorded Confirmed Type morphine 15 mg tablet,extended 15 mg PO Q12H 03/06/19 11/26/22 History release oxycodone-acetaminophen 10 mg-325 1 tablet PO Q4H PRN Pain 03/06/19 11/26/22 History mg tablet (Percocet) tizanidine 4 mg tablet 4 mg PO BID PRN Pain 01/26/21 11/26/22 History ondansetron 4 mg disintegrating 4 mg PO Q6H PRN nausea and 02/01/22 11/26/22 Rx tablet vomiting #10 tabs budesonide 160 mcg-glycopyr 9 See Rx Instructions .Route 04/23/22 11/26/22 Rx mcg-formot 4.8 mcg/actuation HFA .COMPLEX #10.7 grams inhaler (Breztri Aerosphere) levothyroxine 50 mcg tablet See Rx Instructions .Route 05/28/22 11/26/22 Rx .COMPLEX #90 tabs linaclotide 145 mcg capsule 145 mcg PO DAILY #30 caps 06/06/22 11/26/22 Rx (Linzess) lisinopril 10 See Rx Instructions .Route 06/18/22 11/26/22 Rx mg-hydrochlorothiazide 12.5 mg .COMPLEX #90 tabs tablet potassium chloride 20 mEq See Rx Instructions .Route 06/18/22 11/26/22 Rx tablet,extended release .COMPLEX #90 tabs rosuvastatin 10 mg tablet See Rx Instructions .Route 06/18/22 11/26/22 Rx .COMPLEX #90 tabs ropinirole 2 mg tablet See Rx Instructions .Route 06/26/22 11/26/22 Rx .COMPLEX #180 tabs albuterol sulfate 0.63 mg/3 mL See Rx Instructions .Route 08/29/22 11/26/22 Rx solution for nebulization .COMPLEX #75 mL albuterol sulfate 90 mcg/actuation See Rx Instructions .Route 08/29/22 11/26/22 Rx aerosol inhaler .COMPLEX #51 grams prochlorperazine maleate 5 mg 5 mg PO BID PRN Nausea 09/18/22 11/26/22 History tablet naloxone 4 mg/actuation nasal 4 mg intranasal Q2-3M PRN opioid 10/04/22 11/26/22 Rx spray (Narcan) overdose #2 ea zolpidem 10 mg tablet (Ambien) 10 mg PO QHS PRN insomnia #30 tabs 10/15/22 11/26/22 Rx sodium,potassium,mag sulfates 17.5 See Rx Instructions PO .COMPLEX 10/18/22 11/26/22 Rx gram-3.13 gram-1.6 gram oral soln #354 mL (Suprep Bowel Prep Kit) dextroamphetamine-amphetamine ER 30 mg PO QAM #30 caps 10/31/22 11/26/22 Rx 30 mg 24hr capsule,extend release (Adderall XR) alprazolam 1 mg tablet 1 mg PO TID PRN anxiety #80 tabs 11/09/22 11/26/22 Rx Patient hx anesthesia problems: none Family hx anesthesia problems: none Results Review: All pre-operative results and documents have been reviewed as part of the pre-operative evaluation. [facility] Past Medical History Medical History ADD (attention deficit disorder) Adenocarcinoma, lung Adult hypothyroidism Anxiety Benign essential hypertension Chronic constipation Chronic low back pain Chronic obstructive pulmonary disease, unspecified Degenerative lumbar disc JOSE on CPAP Tobacco abuse Surgical History Surgical History H/O Spinal surgery x2 H/O: hysterectomy History of bladder surgery sling tie up S/P lobectomy of lung Family History Family History Grandparent Family history of malignant neoplasm Other Cerebrovascular accident Family history of arthriti
--- NOTE | 2022-12-03 09:35 | PM.HPGS ---
History of Present Illness History of Present Illness Consent: Risks, benefits, and alternatives have been discussed and questions answered. Patient agrees to proceed with procedure. Chief complaint: hx colon polyps, constipation Narrative: Leslee Arreguin is a 62 year old female Presents for screening colonoscopy. Patient reports her current weight appetite bowel movements are normal. She denies abdominal pain. She has had no bleeding. Patient has a history of adenomatous colon polyp in 2005. Most recent colonoscopy 2018 revealed hyperplastic colon polyps. Patient states 1 year ago she had left lung lobectomy for lung cancer. Patient presents today for screening colonoscopy. Review of Systems Review of Systems: Review of systems noncontributory. [facility] Past Medical History Medical History ADD (attention deficit disorder) Adenocarcinoma, lung Adult hypothyroidism Anxiety Benign essential hypertension Chronic constipation Chronic low back pain Chronic obstructive pulmonary disease, unspecified Degenerative lumbar disc JOSE on CPAP Tobacco abuse Surgical History Surgical History H/O Spinal surgery x2 H/O: hysterectomy History of bladder surgery sling tie up S/P lobectomy of lung Family History Family History Grandparent Family history of malignant neoplasm Other Cerebrovascular accident Family history of arthritis Social History Social History Smoking packs per day: 1 Smoking cigarettes per day: 20.0 Years smoked: 48 Smoking pack-years: 48.00 Smoking status: Current every day smoker Tobacco type: cigarettes Second hand tobacco smoke exposure: Yes Additional smoking assessment comments: 2 PPD X 20 YRS, DOWN TO 10 CIGARETTES/DAY NOW Alcohol intake: former Substance use: current Substance use type: marijuana Other substance usage details: Daily Lack of Transportation: No Lack of Food: Never True Current Housing: I Do Not Have Housing Concerned About Future Housing: No Difficulty Paying Gas/Electric Bills: No Difficulty Paying for Meds: No Currently Unemployed: No Education: High School Diploma/GED Difficulty w/ Childcare or Family Care: YES Living arrangements: with family Spiritual care concerns: No Meds Home Medications and Allergies Home Medications Medication Instructions Recorded Confirmed Type morphine 15 mg tablet,extended 15 mg PO Q12H 03/06/19 11/26/22 History release oxycodone-acetaminophen 10 mg-325 1 tablet PO Q4H PRN Pain 03/06/19 11/26/22 History mg tablet (Percocet) tizanidine 4 mg tablet 4 mg PO BID PRN Pain 01/26/21 11/26/22 History ondansetron 4 mg disintegrating 4 mg PO Q6H PRN nausea and 02/01/22 11/26/22 Rx tablet vomiting #10 tabs budesonide 160 mcg-glycopyr 9 See Rx Instructions .Route 04/23/22 11/26/22 Rx mcg-formot 4.8 mcg/actuation HFA .COMPLEX #10.7 grams inhaler (Breztri Aerosphere) levothyroxine 50 mcg tablet See Rx Instructions .Route 05/28/22 11/26/22 Rx .COMPLEX #90 tabs linaclotide 145 mcg capsule 145 mcg PO DAILY #30 caps 06/06/22 11/26/22 Rx (Linzess) lisinopril 10 See Rx Instructions .Route 06/18/22 11/26/22 Rx mg-hydrochlorothiazide 12.5 mg .COMPLEX #90 tabs tablet potassium chloride 20 mEq See Rx Instructions .Route 06/18/22 11/26/22 Rx tablet,extended release .COMPLEX #90 tabs rosuvastatin 10 mg tablet See Rx Instructions .Route 06/18/22 11/26/22 Rx .COMPLEX #90 tabs ropinirole 2 mg tablet See Rx Instructions .Route 06/26/22 11/26/22 Rx .COMPLEX #180 tabs albuterol sulfate 0.63 mg/3 mL See Rx Instructions .Route 08/29/22 11/26/22 Rx solution for nebulization .COMPLEX #75 mL albuterol sulfate 90 mcg/actuation See Rx Instructions .Route 08/29/22
[2022-12-03 10:07] VITALS: BP 86/52; PULSE 61; RESP 19; O2SAT 100
[2022-12-03 10:17] VITALS: BP 107/64; PULSE 63; RESP 18; O2SAT 100
[2022-12-03 10:27] VITALS: BP 132/81; PULSE 60; RESP 22; O2SAT 99
== END 2022-12-03 10:35 | disposition home or self-care (01) ==
PROVIDERS: PCP Family Medicine; Visit Provider Internal Medicine Gastroenterology
PROC: 0DJD8ZZ Inspection of Lower Intestinal Tract, Via Natural or Artificial Opening Endoscopic (ICD-10-PCS; CPT 45378; principal; 2022-12-03 10:00)
DX: Z12.11 Encounter for screening for malignant neoplasm of colon (principal); K64.8 Other hemorrhoids; K57.30 Diverticulosis of large intestine without perforation or abscess without bleeding; K59.09 Other constipation; Z86.010 Personal history of colon polyps; F98.8 Other specified behavioral and emotional disorders with onset usually occurring in childhood and adolescence; I10 Essential (primary) hypertension; E03.9 Hypothyroidism, unspecified; G47.33 Obstructive sleep apnea (adult) (pediatric); F41.9 Anxiety disorder, unspecified; Z79.51 Long term (current) use of inhaled steroids; Z85.118 Personal history of other malignant neoplasm of bronchus and lung; Z90.2 Acquired absence of lung [part of]; Z87.891 Personal history of nicotine dependence
CPT/HCPCS: G0105; J2704; J7120

== ENCOUNTER 2023-01-03 16:56 | Emergency (ER) | payer MEDICARE, MEDICAID, SELFPAY ==
[2023-01-03 17:19] VITALS: BP 127/88; PULSE 84; RESP 14; TEMP 36.9; O2SAT 97
--- NOTE | 2023-01-03 17:52 | ED.URI ---
HPI - URI/Sore Throat General Chief Complaint: Upper Respiratory Infection Stated Complaint: Cough/Sinus Time Seen by Provider: 01/03/23 17:40 Source: patient, RN notes reviewed and old records reviewed Mode of arrival: ambulatory Limitations: no limitations History of Present Illness HPI Narrative: 62 year old female accompanied by friend with complaints of dry cough since last night, reports dry hacking cough, history of COPD, lobectomy left lower lobe 1 year ago for cancer with chemo and radiation treatment. Patient reports that she was told she was cancer free in April and is to see them again in January. Patient had been caring for boyfriend who just passed on hospice recently. Patient states that she has had 2 hour long coughing fits X2 today has used her inhaler with not much improvement. Patient reports mac she has some sinus congestion also, denies any fevers or any body aches, reports that she is fatigued. Patient continues to use tobacco daily. MD elicited complaint: cough, rhinorrhea and nasal congestion Onset (ago): day(s) (since last evening) Severity: mild Able to tolerate fluids by mouth: Yes Treatments prior to arrival: other (inhaler) Related Data Home Medications Medication Instructions Recorded Confirmed morphine 15 mg tablet,extended 15 mg PO Q12H 03/06/19 01/03/23 release oxycodone-acetaminophen 10 mg-325 1 tablet PO Q4H PRN Pain 03/06/19 01/03/23 mg tablet (Percocet) tizanidine 4 mg tablet 4 mg PO BID PRN Pain 01/26/21 01/03/23 prochlorperazine maleate 5 mg 5 mg PO BID PRN Nausea 09/18/22 01/03/23 tablet Allergies Allergy/AdvReac Type Severity Reaction Status Date / Time Sulfa (Sulfonamide Allergy Unknown Hives Verified 01/03/23 17:25 Antibiotics) sulfamethoxazole AdvReac Hives Verified 01/03/23 17:25 [From Bactrim] trimethoprim [From Bactrim] AdvReac Hives Verified 01/03/23 17:25 Review of Systems Review of Systems: CONSTITUTIONAL: Denies malaise, chills, sweats, or fever.reports fatigue EYES: Denies visual changes, redness, or discharge. ENT: Reports rhinorrhea, congestion, sinus pain, no otalgia and sore throat. CARDIOVASCULAR: Denies chest pain, palpitations, or edema. RESPIRATORY: Reports cough.? Denies acute dyspnea. GASTROINTESTINAL: Denies abdominal pain, nausea, vomiting, diarrhea SKIN: Denies rash or itching. MUSCULOSKELETAL: Denies myalgia. NEUROLOGIC: Denies headache. All systems reviewed & are unremarkable except as noted in HPI and below PMFSH Past Medical History Medical History ADD (attention deficit disorder) Adenocarcinoma, lung Adult hypothyroidism Anxiety Benign essential hypertension Chronic constipation Chronic low back pain Chronic obstructive pulmonary disease, unspecified Degenerative lumbar disc JOSE on CPAP Tobacco abuse Surgical History Surgical History H/O Spinal surgery x2 H/O: hysterectomy History of bladder surgery sling tie up S/P lobectomy of lung Family History Family History Grandparent Family history of malignant neoplasm Other Cerebrovascular accident Family history of arthritis Social History Social History Smoking packs per day: 1 Smoking cigarettes per day: 20.0 Years smoked: 48 Smoking pack-years: 48.00 Smoking status: Current every day smoker Tobacco type: cigarettes Second hand tobacco smoke exposure: Yes Additional smoking assessment comments: 2 PPD X 20 YRS, DOWN TO 10 CIGARETTES/DAY NOW Alcohol intake: former Substance use: current Substance use type: marijuana Other substance usage details: Daily Lack of Transportation: No Lack of Food: Never True Current Housing: I Do Not Have Housing Concerned About Future Housing: No Difficulty P
== END 2023-01-03 18:10 | disposition home or self-care (01) ==
PROVIDERS: Emergency Provider Registered Nurse; PCP Family Medicine
DX: J06.9 Acute upper respiratory infection, unspecified (principal); E03.9 Hypothyroidism, unspecified; J44.9 Chronic obstructive pulmonary disease, unspecified; I10 Essential (primary) hypertension; F17.210 Nicotine dependence, cigarettes, uncomplicated; Z79.891 Long term (current) use of opiate analgesic; Z79.899 Other long term (current) drug therapy
CPT/HCPCS: 99213; G0463

== ENCOUNTER 2023-05-24 12:45 | Outpatient (CLI) | payer MEDICARE, MEDICAID, SELFPAY ==
--- NOTE | ~2023-05-24 | XR_ITS ---
XR shoulder LT min 2V DATE: 05/24/2023 13:21 INDICATION: Bilateral shoulder pain. History of surgery. TECHNIQUE: 4 views COMPARISON: 09/24/2022 left shoulder FINDINGS: There is right glenohumeral joint space narrowing and mild spurring of the right humeral he ad, consistent with mild to moderate osteoarthritis. No fracture, dislocation, periosteal reaction or bone destruction. Again noted is a stable bone island of the humeral head, unchanged since 09/24/2022 IMPRESSION: Left glenohumeral osteoarthritis Reviewed, dictated and finalized at location A. KJACK PIT BOSS
--- NOTE | ~2023-05-24 | XR_ITS ---
XR shoulder RT min 2V DATE: 05/24/2023 13:21 INDICATION: Bilateral shoulder pain. No injury. TECHNIQUE: 4 views COMPARISON: 09/24/2022 right shoulder FINDINGS: There is minimal glenohumeral osteoarthritic spurring. No fracture or dislocation, perioste al reaction or bone destruction or abnormal soft tissue calcification of the right shoulder. IMPRESSION: Mild right glenohumeral osteoarthritis Reviewed, dictated and finalized at location A. E COMPOSITE TECHNICIAN
--- NOTE | ~2023-05-24 | XR_ITS ---
EXAMINATION: XR lumbar spine 2-3V DATE: 05/24/2023 13:21 INDICATION: Low back pain, lumbar radiculopathy TECHNIQUE: Anteroposterior and lateral views of the lumbar spine, and cone-down lateral view of the l umbosacral junction were obtained. COMPARISON: 09/24/2022 FINDINGS: There are changes of anterior fusion procedure at L5-S1 with interbody devices. There are 4 mm of unchanged retrolisthesis of L4 on L5. The vertebral body heights are maintained. There is no f racture. There is moderate loss of intervertebral disc space height at L4-5. There is severe bilatera l facet joint osteoarthritis at L3-4 calcified atherosclerosis is noted. IMPRESSION: 1. Moderate lumbar spondylosis without acute findings or significant interval change. Reviewed, dictated and finalized at location B. CAL CHEMIST IMPRESSION: 1. Moderate lumbar spondylosis without acute findings or significant interval rishabh mcdonough
--- NOTE | ~2023-05-24 | XR_ITS ---
EXAMINATION:XR_CERV2-3V_CR DATE: 05/24/2023 13:20 INDICATION: Cervical radiculopathy TECHNIQUE: AP, lateral, and odontoid views of the cervical spine are provided. COMPARISON: 09/24/2022 FINDINGS: There are 3 mm of retrolisthesis of C5 on C6. The odontoid process is intact. No fracture i s identified. There is unchanged moderate to severe loss of intervertebral disc space height at C5-6 and C6-7. The prevertebral soft tissues are normal. There is severe facet and uncovertebral joint ost eoarthritis at C5-6 and C6-7. IMPRESSION: 1. Moderate cervical spondylosis at C5-6 and C6-7 without acute findings or significant interval flores ge. Reviewed, dictated and finalized at location B. SPRING CUTTER IMPRESSION: 1. Moderate cervical spondylosis at C5-6 and C6-7 without acute findings or sig nificant interval change.
== END 2023-05-24 12:46 | disposition home or self-care (01) ==
PROVIDERS: PCP Family Medicine
DX: M48.062 Spinal stenosis, lumbar region with neurogenic claudication (principal); Z13.89 Encounter for screening for other disorder; M17.9 Osteoarthritis of knee, unspecified; M47.26 Other spondylosis with radiculopathy, lumbar region; M47.22 Other spondylosis with radiculopathy, cervical region; M19.011 Primary osteoarthritis, right shoulder; M19.012 Primary osteoarthritis, left shoulder
CPT/HCPCS: 72040; 72100; 73030

== ENCOUNTER 2023-07-26 11:24 | Outpatient (CLI) | payer MEDICARE, MEDICAID, SELFPAY | END 2023-07-26 11:25 | disposition home or self-care (01) | LOC: ANHLAB 11:28 | PROVIDERS: PCP Family Medicine; Visit Provider Family Medicine | DX: R25.2 Cramp and spasm (principal) | CPT/HCPCS: 36415; 86038; 86039 ==

== ENCOUNTER 2023-09-20 09:19 | Outpatient (CLI) | payer MEDICARE, MEDICAID, SELFPAY ==
[2023-09-20 09:55] LABS: Hematocrit 42.2 % (37.0-47.0); Hemoglobin 13.6 g/dL (12.0-15.0); Mean Corpuscular HGB Conc 32.2 g/dl (32-36); Mean Corpuscular Hemoglobin 31.9 pg (26-34); Mean Corpuscular Volume 98.8 fl (80-100); Mean Platelet Volume 10.5 fl (7.4-10.4); Platelet Count Result 311 k/mm3 (150-375); Red Blood Count 4.27 M/mm3 (4.2-5.4); Red Cell Distribution Width 13.2 % (11.5-14.5); White Blood Count 7.6 K/mm3 (4.5-10.0)
[2023-09-20 11:04] LABS: Erythrocyte Sedimentation Rate 13 mm/hr (0-20)
[2023-09-20 11:33] LABS: Alanine Aminotransferase 14 U/L (6-35); Albumin Level 4.5 g/dL (3.5-5.1); Alkaline Phosphatase 71 U/L (38-126); Anion Gap 6 mmol/L (4-12); Aspartate Amino Transferase 20 U/L (14-36); Bilirubin,Total 0.4 mg/dL (0.2-1.3); Blood Urea Nitrogen 17 mg/dL (7-17); CRP 0.5 mg/dL (<1.0); Calcium 9.3 mg/dL (8.4-10.2); Carbon Dioxide 28 mmol/L (22-30); Chloride 106 mmol/L (98-107); Cholesterol 179 mg/dL (0-200); Estimated Glomerular Filt Rate > 60; Glucose 96 mg/dL (65-110); HDL Direct 68 mg/dL; Potassium 4.7 mmol/L (3.4-5.0); Sodium 140 mmol/L (137-145); Triglycerides 110 mg/dL (<150)
[2023-09-20 11:42] LABS: Rheumatoid Factor < 12.0 IU/ML (<12)
[2023-09-20 11:43] LABS: LDL Cholesterol Direct 90 mg/dL
[2023-09-23 13:14] LABS: Anti Cyclic Citrullinated Pept <16 UNITS
[2023-09-26 13:47] LABS: ANA Cascade Screen NEGATIVE (NEGATIVE)
== END 2023-09-20 09:20 | disposition home or self-care (01) ==
LOC: ANHLAB 09:25
PROVIDERS: PCP Family Medicine; Visit Provider Family Medicine
DX: R76.8 Other specified abnormal immunological findings in serum (principal); G89.29 Other chronic pain; C34.92 Malignant neoplasm of unspecified part of left bronchus or lung; E03.9 Hypothyroidism, unspecified; F41.9 Anxiety disorder, unspecified; F98.8 Other specified behavioral and emotional disorders with onset usually occurring in childhood and adolescence; G25.81 Restless legs syndrome; I10 Essential (primary) hypertension; J44.9 Chronic obstructive pulmonary disease, unspecified; K59.09 Other constipation; R53.83 Other fatigue; Z86.010 Personal history of colon polyps; M54.50 Low back pain, unspecified
CPT/HCPCS: 36415; 80053; 80061; 84443; 85027; 85652; 86038; 86140; 86200; 86225; 86235; 86364; 86430

== ENCOUNTER 2023-11-25 15:10 | Outpatient (CLI) | payer MEDICARE, MEDICAID, SELFPAY ==
--- NOTE | ~2023-11-25 | MM_ITS ---
EXAMINATION: MM screening dieudonne BI w neyda HISTORY: Screening TECHNIQUE: Craniocaudal and mediolateral oblique 3-D tomosynthesis images were obtained and synthetic 2-D images were generated. CAD analysis was submitted and interpreted. COMPARISON: Comparison to multiple prior studies sequentially, with oldest reviewed study dated 07/24. BREAST PARENCHYMAL COMPOSITION: Not dense: There are scattered areas of fibroglandular density. FINDINGS: There is no evidence of suspicious mass, calcification, or architectural distortion to sugg est malignancy in either breast. There has been no suspicious interval change. IMPRESSION: 1. No mammographic evidence of malignancy. 2. Recommend routine screening mammography in one year. BI-RADS Category 1: Negative Reviewed, dictated and finalized at location B.
== END 2023-11-25 15:11 | disposition home or self-care (01) ==
LOC: ANHIMG 15:11
PROVIDERS: PCP Family Medicine; Visit Provider Family Medicine
DX: Z12.31 Encounter for screening mammogram for malignant neoplasm of breast (principal)
CPT/HCPCS: 77063; 77067

== ENCOUNTER 2024-02-25 12:53 | Outpatient (CLI) | payer MEDICARE, OTHER, SELFPAY ==
[2024-02-25 13:24] LABS: Hemoglobin 13.5 g/dL (12.0-15.0); Mean Corpuscular HGB Conc 32.9 g/dl (32-36); Mean Corpuscular Hemoglobin 32.1 pg (26-34); Mean Corpuscular Volume 97.4 fl (80-100); Mean Platelet Volume 10.4 fl (7.4-10.4); Platelet Count Result 330 k/mm3 (150-375); Red Blood Count 4.21 M/mm3 (4.2-5.4); Red Cell Distribution Width 13.2 % (11.5-14.5); White Blood Count 7.4 K/mm3 (4.5-10.0)
[2024-02-25 13:36] LABS: Alanine Aminotransferase 19 U/L (6-35); Albumin Level 4.5 g/dL (3.5-5.1); Alkaline Phosphatase 71 U/L (38-126); Anion Gap 6 mmol/L (4-12); Aspartate Amino Transferase 26 U/L (14-36); Bilirubin,Total 0.5 mg/dL (0.2-1.3); Blood Urea Nitrogen 18 mg/dL (7-17); Calcium 9.3 mg/dL (8.4-10.2); Carbon Dioxide 29 mmol/L (22-30); Chloride 101 mmol/L (98-107); Estimated Glomerular Filt Rate > 60; Glucose 88 mg/dL (65-110); Potassium 4.4 mmol/L (3.4-5.0); Sodium 136 mmol/L (137-145)
== END 2024-02-25 12:54 | disposition home or self-care (01) ==
PROVIDERS: PCP Family Medicine; Visit Provider Family Medicine
DX: E03.9 Hypothyroidism, unspecified (principal); F41.9 Anxiety disorder, unspecified; I10 Essential (primary) hypertension; R53.83 Other fatigue; Z86.39 Personal history of other endocrine, nutritional and metabolic disease
CPT/HCPCS: 36415; 80053; 82607; 84443; 85027

== ENCOUNTER 2024-05-14 09:42 | Emergency (ER) | payer MEDICARE, MEDICAID, SELFPAY ==
--- NOTE | ~2024-05-14 | XR_ITS ---
EXAMINATION: XR chest 2V DATE: 05/14/2024 11:26 INDICATION: Cough. Pleuritic chest pain. TECHNIQUE: Frontal and lateral views of the chest were obtained. COMPARISON: Chest 2 view 02/01/22 FINDINGS: There is no pneumonia, pleural effusion, or pneumothorax. The heart size is normal. There i s a chronic sclerotic lesion in proximal left humerus, likely a benign bone island. IMPRESSION: 1. No acute cardiopulmonary disease. Reviewed, dictated and finalized at location A. [facility]
[2024-05-14 09:43] VITALS: BP 156/97; PULSE 93; RESP 17; TEMP 36.8; O2SAT 98
--- OUTSIDE RECORDS SUMMARY | 2024-05-14 10:18 | XMS_ITS | Encounter Summary ---
Author Organization [facility] Address [address] 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 Name Role Phone Dieudonne Maxwell MD Primary Care Provider [phone] Reason for Visit * Reason Comments Medication Refill Encounter Details Date Type Department Care Team (Late st Contact Info) Description 05/24/2019 Refill [facility] - Gastroenterology [facility] [address] [place] [address] Alexia Roper, FOUNDRY TECHNICIAN, AFFIRMATIVE ACTION SPECIALIST [address] [place] [address] Medication Refill Social History Tobacco Use Types Packs/Day Years Used Date Smoking Tobacco: Every Day Cigarettes 1 40 Smokeless Tobacco: Never Alcohol Use Standard Drinks/Week Comments Not Currently 0 (1 standard drink = 0.6 oz pur e alcohol) Comments Unknown Sex and Gender Information Value Date Recorded Sex Assigned at Not on file Legal Sex Female 10:21 PM CDT Gender Identity Not on file Sexual Orientation Not on file Occupation Industry Job Start Date Job End Date disabled Not on file Not on file Not on file documented as of this encounter Miscellaneous Notes * Telephone Encounter - Wily Sanchez CMA - 05/25/2019 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 LINZESS 145 MCG Capsule [Pharmacy Med Name: LINZESS 145MCG CAPSULES] 30 Cap 3 Sig: TAKE 1 CAPSULE BY MOUTH EVERY MORNING BEFORE BREAKFAST Last fill: 05/24/2019 Patients last OV with GI: 09/16/18 Next Office Visit with GI: None scheduled FITTER SOFT COPPER documented in this encounter Plan of Treatment Not on file documented as of this encounter Visit Diagnoses Not on filedocumented in this encounter Care Teams Agriculture Laborer Relationship Specialty Start Date End Date Dieudonne Maxwell MD [address] [place] [address] PCP - General Internal Medicine 11/19/17 documented as of this encounter
--- OUTSIDE RECORDS SUMMARY | 2024-05-14 10:18 | XMS_ITS | Clinical Summary ---
Author Organization [facility] Address [address], [facility] [address] [place] [address] Phone Care Team Providers Care Quality Review Specialist Name Role Phone Dieudonne Maxwell MD Primary Care Provider [phone] Allergies Active Allergy Reactions Criticality Noted Date Comments Sulfamethoxazole-Trimethoprim Unknown 2018 Sulfa Antibiotics Unknown 09/16/2018 Medications VENTOLIN HFA 108 (90 Base) MCG/ACT Aerosol Solution 9 Active ALPRAZolam (XANAX) 1 MG Tablet 9 Active amphetamine-dex troamphetamine (ADDERALL XR) 30 MG CAPSULE SR 24 HR 9 Active fluticasone (FLONASE) 50 MCG/ACT Suspension 9 Active ADVAIR DISKUS 100-50 MCG/DOSE AEROSOL POWDER, BREATH ACTIVATED INL 1 PUFF PO BID 12 H APART 0 9 Active levothyroxine (SYNTHROID) 50 MCG Tablet 9 Active lisinopril-hydr oCHLOROthiazide (PRINZIDE, ZESTORETIC) 10-12.5 MG Tablet 9 Active morphine IMMEDIATE RELEASE (MS IR) 15 MG Tablet 9 Active PERCOCET 10-325 MG Tablet 9 Active potassium chloride SA (KLORCON M) 20 MEQ Tablet Controlled Release 9 Active rOPINIRole (REQUIP) 2 MG Tablet TK 1 T PO BID 1 9 Active rosuvastatin (CRESTOR) 10 MG Tablet 9 Active tiZANidine (ZANAFLEX) 4 MG Tablet 9 Active zolpidem (AMBIEN) 10 MG Tablet 9 Active SENNA CO by Combination route. Active Linzess 145 MCG Capsule TAKE 1 CAPSULE BY MOUTH EVERY MORNING BEFORE BREAKFAST 90 Capsule 3 1 Active Family History Medical History Relation Name Comments Heart Attack Father Heart Attack Sister fatal MD Heart Disease Sister Relation Name Status Comments Father Sister Social History Tobacco Use Types Packs/Day Years Used Date Smoking Tobacco: Every Day Cigarettes 1 40 Smokeless Tobacco: Never Tobacco Cessation:Ready to Q uit: No; Counseling Given: Yes Alcohol Use Standard Drinks/Week Comments Not Currently [...] file Not on file Not on file Last Filed Vital Signs Vital Sign Reading Time Taken Comments Blood Pressure 114/80 09/16/2018 2:44 PM CDT Pulse 81 09/16/2018 2:44 PM CDT Temperature 37.1 ??C (98.7 ??F) 09/16/2018 2:44 PM CD T Respiratory Rate 16 09/16/2018 2:44 PM CDT Oxygen Saturation 96% 09/16/2018 2:44 PM CDT Inhaled Oxygen Concentration - - Weight 66.5 kg (146 lb 9.6 oz) 09/16/2018 2:44 P M CDT Height 175.3 cm (5' 9 ) 09/16/2018 2:44 PM CDT Body Mass Index 21.65 09/16/2018 2:44 PM CDT Plan of Treatment Health Maintenance Due Date Last Done Comments Hepatitis C Virus (HCV) Screening 1961 TdaP Immunization 1961 Pap Smear 1982 Cervical Cancer Screening (CCS) 09/28/1991 HPV/Cotest 09/28/1991 Cologuard 09/28/2011 Immunochemical Fecal Occult Blood 09/28/2011 Mammogram 09/28/2011 Pneumococcal Immunization (5 0+ years) (1 of 1 - PCV) 09/28/2011 Zoster Immunization (1 of 2) 09/28/2011 Colonoscopy 05/15/2023 05/15/2018 Colorectal Cancer Screening 05/15/2023 Influenza Immunization (#1) 12/15/202305/2013, 02/24/2014 SARS-COV-2 Immunization ( season) 2023 11/18/2020, 10/28/2020 Respiratory Syncytial Virus (RSV) Immunization (Adult) (1 - 1-dose 75+ series) 2036 05/15/2018 Hepatitis B Immunization Aged Out No longer eligible based on patient's age to complete this topic Meningococcal Immunization (ACWY) Aged Out No longer eligible b ased on patient's age to complete this topic Pneumococcal Immunization Combined Aged Out No longer eligible b ased on patient's age to complete this topic Rotavirus Immunization Aged Out No lo nger eligible based on patient's age to complete this topic Procedures Procedure Name Priority Date/Time Associated Diagnosis Comments COLONOSCOPY Routine 05/15/2018 from Last 3 Months or Most Recently Relevant to Health Maintenance Results * COLONOSCOPY (05/15/2018) Alverto Perry DO PROCEDURE/MINOR SURGICAL ORDERA BLES Final Result from Last 3 Months or Most Recently Relevant to Health Maintenance Insurance MEDICARE Care Teams Quality Review Specialist Relationship Specialty Start Date End Date Dieudonne Maxwell MD [address] [place], [place] [id number] PCP - General Internal Medicine 11/19/17
--- OUTSIDE RECORDS SUMMARY | 2024-05-14 10:18 | XMS_ITS | Encounter Summary ---
Author Organization [facility] Address [address] [place] [address] Phone Care Team Providers Care Etl Consultant Name Role Phone Saul Fitch Primary Care Provider [phone] Harvey Wilson MD Unavailable [phone] Wily Bassett MD Unavailable [phone] Paulie Lai MD Unavailable Eb Cardoso MD Unavailable [phone] Ernesto Reddy MD Unavailable [phone] Naomi Bay MD Unavailable [phone] Paula Jarvis NP Unavailable [phone] Unknown, Notinfile Primary Care Provider Unavail able Encounter Details Date Type Department Care Team (Latest Contact Info) Description 11/13/2021 Orders Only [facility] Scanning, Provider Social History Tobacco Use Types Packs/Day Years Used Date Smoking Tobacco: Never Assessed Comments Unknown Sex and Gender Information Value Date Recorded Sex Assigned at Not on file Legal Sex Female 2:06 PM CUT OUT STITCHER Gender Identity Not on file Sexual Orientation Not on file documented as of this encounter Plan of Treatment Not on file documented as of this encounter Procedures Procedure Name Priority Date/Time Associated Diagnosis Comments SCAN - LABS 11/13/2021 documented in this encounter Results * SCAN - LABS (11/13/2021) us Provider Scanning Final Result documented in this encounter Visit Diagnoses Not on filedocumented in this encounter Care Teams Etl Consultant Relationship Specialty Start Date End Date Saul Fitch DO PCP - General Internal Medicine 01/18/22 01/21/24 Unknown, Notinfile PCP - General 01/22/24 Harvey Wilson MD Medical Oncologist Hematology 01/25/22 Wily Bassett MD [address] [facility] [address] [place] [address] Surgeon Cardiothoracic Surgery 01/25/22 Paulie Lai MD [address] [facility] [address] [place] [address] Bulk Sugar Handler Critical Care Med 01/25/22 Eb Cardoso MD [address] [place] [address] Bulk Sugar Handler Critical Care Med 01/25/22 Ernesto Reddy MD [address] DIV MEDICAL ONCOLOGY, [address], [address] [place] [address] Medical Oncologist/Nail Kegger Medical Oncology 01/25/22 Naomi Bay MD [address] [place] [address] Radiation Oncologist Radiation Oncology 01/31/22 Paula Jarvis NP [address] [facility] [address] [place] [address] Nurse Practitioner Radiation Oncology 07/18/22 documented as of this encounter
--- OUTSIDE RECORDS SUMMARY | 2024-05-14 10:18 | XMS_ITS | Encounter Summary ---
Author Organization [facility] Address [address] [place] [address] Phone Care Team Providers Care Milk Route Supervisor Name Role Phone Saul Ficth Primary Care Provider [phone] Harvey Wilson MD Unavailable [phone] Wily Bassett MD Unavailable [phone] Paulie Lai MD Unavailable [phone] Eb Cardoso MD Unavailable Ernesto Reddy MD Unavailable [phone] Naomi Bya MD Unavailable [phone] Paula Jarvis NP Unavailable [phone] Unknown, Notinfile Primary Care Provider Unavail able Encounter Details Date Type Department Care Team (Latest Contact Info) Description 11/22/2021 Orders Only [facility] Scanning, Provider Social History Tobacco Use Types Packs/Day Years Used Date Smoking Tobacco: Never Assessed Comments Unknown Sex and Gender Information Value Date Recorded Sex Assigned at Not on file Legal Sex Female 2:06 PM MANAGER STRATEGY & ACCOUNT Gender Identity Not on file Sexual Orientation Not on file documented as of this encounter Plan of Treatment Not on file documented as of this encounter Procedures Procedure Name Priority Date/Time Associated Diagnosis Comments SCAN - LABS 11/22/2021 documented in this encounter Results * SCAN - LABS (11/22/2021) us Provider Scanning Final Result documented in this encounter Visit Diagnoses Not on filedocumented in this encounter Care Teams Milk Route Supervisor Relationship Specialty Start Date End Date Saul Fitch DO PCP - General Internal Medicine 01/18/22 01/21/24 Unknown, Notinfile PCP - General 01/22/24 Harvey Wilson MD Medical Oncologist Hematology 01/25/22 Wily Bassett MD [address] [facility] [address] [place] [address] Surgeon Cardiothoracic Surgery 01/25/22 Paulie Lai MD [address] [facility] [address] [place] [address] X Ray Electronics Wiring Technician Critical Care Med 01/25/22 Eb Cardoso MD [address] [place] [address] X Ray Electronics Wiring Technician Critical Care Med 01/25/22 Ernesto Reddy MD [address] DIV MEDICAL ONCOLOGY, [address]A, [address] [place] [address] Medical Oncologist/Hammer Mill Operator Medical Oncology 01/25/22 Naomi Bay MD [address] [place] [address] Radiation Oncologist Radiation Oncology 01/31/22 Paula Jarvis NP [address] [facility] [address] [place] [address] Nurse Practitioner Radiation Oncology 07/18/22 documented as of this encounter
--- OUTSIDE RECORDS SUMMARY | 2024-05-14 10:18 | XMS_ITS | Encounter Summary ---
Author Organization [facility] Address [address] [place] [address] Phone Care Team Providers Care Pie Bakery Laborer Name Role Phone Saul Fitch Primary Care Provider [phone] Harvey Wilson MD Unavailable [phone] Wily Bassett MD Unavailable [phone] Paulie Lai MD Unavailable [phone] Eb Cardoso MD Unavailable [phone] Ernesto Reddy MD Unavailable [phone] Naomi Bay MD Unavailable [phone] Paula Jarvis NP Unavailable [phone] Unknown, Notinfile Primary Care Provider Unavail able Encounter Details Date Type Department Care Team (Latest Contact Info) Description 10/26/2021 Orders Only [facility] Scanning, Provider Social History Tobacco Use Types Packs/Day Years Used Date Smoking Tobacco: Never Assessed Comments Unknown Sex and Gender Information Value Date Recorded Sex Assigned at Not on file Legal Sex Female 2:06 PM AUCTIONEER TOBACCO Gender Identity Not on file Sexual Orientation Not on file documented as of this encounter Plan of Treatment Not on file documented as of this encounter Procedures Procedure Name Priority Date/Time Associated Diagnosis Comments SCAN - LABS 10/26/2021 documented in this encounter Results * SCAN - LABS (10/26/2021) us Provider Scanning Final Result documented in this encounter Visit Diagnoses Not on filedocumented in this encounter Care Teams Pie Bakery Laborer Relationship Specialty Start Date End Date Saul Fitch DO PCP - General Internal Medicine 01/18/22 01/21/24 Unknown, Notinfile PCP - General 01/22/24 Harvey Wilson MD Medical Oncologist Hematology 01/25/22 Wily Bassett MD [address] [facility] [address] [place] [address] Surgeon Cardiothoracic Surgery 01/25/22 Paulie Lai MD [address] [facility] [address] [place] [address] Junior Web Designer Critical Care Med 01/25/22 Eb Cardoso MD [address] [place] [address] Junior Web Designer Critical Care Med 01/25/22 Ernesto Reddy MD [address] DIV MEDICAL ONCOLOGY, [address]A, [address] [place] [address] Medical Oncologist/Embossing Toolsetter Medical Oncology 01/25/22 Naomi Bay MD [address] [place] [address] Radiation Oncologist Radiation Oncology 01/31/22 Paula Jarvis NP [address] [facility] [address] [place] [address] Nurse Practitioner Radiation Oncology 07/18/22 documented as of this encounter
--- OUTSIDE RECORDS SUMMARY | 2024-05-14 10:18 | XMS_ITS | Encounter Summary ---
Author Organization [facility] Address [address] [place] [address] Phone Care Team Providers Care Toe Former Name Role Phone Saul Fitch Primary Care Provider [phone] Harvey Wilson MD Unavailable [phone] Wily Bassett MD Unavailable [phone] Paulie Lai MD Unavailable [phone] Eb Cardoso MD Unavailable [phone] Ernesto Reddy MD Unavailable [phone] Naomi Bay MD Unavailable [phone] Paula Jarvis NP Unavailable [phone] Unknown, Notinfile Primary Care Provider Unavail able Encounter Details Date Type Department Care Team (Latest Contact Info) Description 12/14/2021 Orders Only [facility] Scanning, Provider Social History Tobacco Use Types Packs/Day Years Used Date Smoking Tobacco: Never Assessed Comments Unknown Sex and Gender Information Value Date Recorded Sex Assigned at Not on file Legal Sex Female 2:06 PM FLAT LOCK OPERATOR Gender Identity Not on file Sexual Orientation Not on file documented as of this encounter Plan of Treatment Not on file documented as of this encounter Procedures Procedure Name Priority Date/Time Associated Diagnosis Comments SCAN - LABS 12/14/2021 documented in this encounter Results * SCAN - LABS (12/14/2021) us Provider Scanning Final Result documented in this encounter Visit Diagnoses Not on filedocumented in this encounter Care Teams Toe Former Relationship Specialty Start Date End Date Saul Fitch DO PCP - General Internal Medicine 01/18/22 01/21/24 Unknown, Notinfile PCP - General 01/22/24 Harvey Wilson MD Medical Oncologist Hematology 01/25/22 Wily Bassett MD [address] [facility] [address] [place] [address] Surgeon Cardiothoracic Surgery 01/25/22 Paulie Lai MD [address] [facility] [address] [place] [address] Tissue Recovery Technician Critical Care Med 01/25/22 Eb Cardoso MD [address] [place] [address] Tissue Recovery Technician Critical Care Med 01/25/22 Ernesto Reddy MD [address] DIV MEDICAL ONCOLOGY, [address]A, [address]B, [address] [place] [address] Medical Oncologist/Figurine Maker Medical Oncology 01/25/22 Naomi Bay MD [address] [place] [address] Radiation Oncologist Radiation Oncology 01/31/22 Paula Jarvis NP [address] [facility] [address] [place] [address] Nurse Practitioner Radiation Oncology 07/18/22 documented as of this encounter
--- OUTSIDE RECORDS SUMMARY | 2024-05-14 10:19 | XMS_ITS | Continuity of Care Document ---
Author Organization [facility] Address [address] [place] [address] [address] [place] [address] Phone Care Team Providers Care Diffusion Furnace Operator Name Role Phone Sanford OD, Alverto Unavailable Unavailable Advance Directives Directive Yes / No Effective Date File Name No Information Encounters Encounter Description Practice Location Reason(s) For Visit Diagnoses Date Provider Providers Copied on Encounter [facility], [address], [place], [place], [id number], [place] tel:[phone] [facility] No Information Apr-1 5-200 5 Sanford OD Alverto. [address], [place], [address], [place]. tel:[phone] Family History Family Member Type Diagnosis Age At Onset No Information Payers Payer name Insurance type Covered constitution party ID Authoriza tion(s) No Information Social History Type Description Quantity Date Captured Comments Sex Female Smoking Status No Information Chief Complaint And Reason For Visit No Information Reason For Referral Reason For Referral No Information History Of Present Illness Encounter Date Complaint History Of Prese nt Illness No Information Functional Status Date Functional Assessmen t No Information Instructions Date Instruction Additional Infor mation No Information Assessments Type Assessment Date No Information Patient Care Teams Name Effective Dates (start - stop) Status Members No Information
--- OUTSIDE RECORDS SUMMARY | 2024-05-14 10:19 | XMS_ITS | Clinical Summary ---
Author Organization [facility] Address [address] [place] [address] Care Team Providers Care Apprenticeship Training Representative Name Role Phone Dieudonne Maxwell MD Primary Care Provider [phone] Source Comments [facility],non-[facility] Affiliates and Associated Physician Practices is amultiple site organization consisting of ambulatory clinics and hospital sitesin [place], [place], [place] and [place]. This disclosure is being madepursuant to the Care Everywhere program and may not contain all information available regarding this patient. Last updated 18.[facility] Social History Tobacco Use Types Packs/Day Years Used Date Smoking Tobacco: Never Assessed Sex and Gender Information Value Date Recorded Sex Assigned at Not on file Gender Identity Not on file Sexual Orientation Not on file Last Filed Vital Signs Vital Sign Reading Time Taken Comments Blood Pressure 110/69 06/10/2015 12:31 PM STEAM TURBINE ASSEMBLER Pulse 84 06/10/2015 12:31 PM STEAM TURBINE ASSEMBLER Temperature 36.9 ??C (98.4 ??F) 06/10/2015 12:[address] Respiratory Rate 14 06/10/2015 12:31 PM STEAM TURBINE ASSEMBLER Oxygen Saturation 97% 06/10/2015 12:31 PM STEAM TURBINE ASSEMBLER Inhaled Oxygen Concentration - - Weight 65.8 kg (145 lb) 06/10/2015 12:31 PM STEAM TURBINE ASSEMBLER Height 175.3 cm (5' 9 ) 06/10/2015 12:31 PM STEAM TURBINE ASSEMBLER Body Mass Index 21.41 06/10/2015 12:31 PM STEAM TURBINE ASSEMBLER Plan of Treatment Health Maintenance Due Date Last Done Comments COLOGUARD (AGES 45-75) - COL ON CA SCREENING 1961 COLON MONITORING 1961 COLONOSCOPY - COLON CA SCREENING 1961 CT COLONOGRAPHY - COLON CA SCREENING 1961 Colorectal Cancer Screening 1961 FIT - COLON CA SCREENING 1961 FLEX SIG - COLON CA SCREENING 1961 LIPID TESTING 1961 MAMMOGRAM 1961 MEDICARE AWV ? 12 MONTHS 1961 PAP SMEAR 1961 HIV SCREENING 1976 HEPATITIS C SCREENING 09/23/1979 DTAP/TDAP/TD VACCINES (1 - Tdap) 1980 PNEUMOCOCCAL VACCINE 50+ (1 of 1 - PCV) 09/28/2011 ZOSTER VACCINE (1 of 2) 09/28/2011 COVID-19 VACCINE (1 - 2023-2 5 season) 2023 INFLUENZA VACCINE (#1) 2023 DEPRESSION SCREENING 04/15/2024 Respiratory Syncytial Virus (RSV) Vaccine Pt: or over 60 yrs (1 - 1-dose 75+ series) 2036 HEPATITIS B VACCINE Aged Out No longe r eligible based on patient's age to complete this topic HIB VACCINE Aged Out No longer eligi ble based on patient's age to complete this topic HPV VACCINE Aged Out No longer eligi ble based on patient's age to complete this topic MENINGOCOCCAL (Group B) VACCINE Aged Out No longer eligible based on patient's age to complete this topic MENINGOCOCCAL VACCINE Aged Out No zana veronica eligible based on patient's age to complete this topic PNEUMOCOCCAL VACCINE Aged Out No long er eligible based on patient's age to complete this topic Care Teams Apprenticeship Training Representative Relationship Specialty Start Date End Date Dieudonne Maxwell MD [address] [place] [address] PCP - General 05/20/18
--- OUTSIDE RECORDS SUMMARY | 2024-05-14 10:19 | XMS_ITS | Clinical Summary ---
Author Organization [facility] Address [address] [place] [address] Phone Care Team Providers Care Ssas Developer Name Role Phone Saul Fitch Primary Care Provider [phone] Allergies Active Allergy Reactions Criticality Noted Date Comments Iodine Unknown 11/03/2021 Patient denies Sulfa (Sulfonamide Antibiotics) Unknown 07/2018 Sulfamethoxazole-Trimethoprim Unknown 2021 Medications ALPRAZolam (XANAX) 1 mg tablet Take 1 mg by mouth 3 times daily. Active levothyroxine 50 mcg tablet Take 50 mcg by mouth daily in the morning. Active lisinopril-hydr oCHLOROthiazide (ZESTORETIC) 10-12.5 mg tablet Take 1 Tablet by mouth daily. Active amphetamine-dex troamphetamine (ADDERALL XR) 30 mg Extended Release 24 hour capsule Take 30 mg by mouth daily in the morning. Active rosuvastatin (CRESTOR) 10 mg tablet Take 10 mg by mouth daily. Active zolpidem (AMBIEN) 10 mg tablet Take 10 mg by mouth nightly as needed for Insomnia. Active linaCLOtide (LINZESS) 145 mcg capsule Take 145 mcg by mouth daily before breakfast. Active morphine (MS CONTIN) 15 mg Controlled Release tablet Take 15 mg by mouth every 12 hours. Active Breztri Aerosphere 160-9-4.8 mcg/actuation HFA Aerosol Inhaler Take 2 Puffs by inhalation 2 times daily. 2 Active FeroSuL 325 mg (65 mg iron) tablet Take 325 mg by mouth daily. 2 Active rOPINIRole (REQUIP) 2 mg Tablet Take 2 mg by mouth 2 times daily. 2 Active potassium chloride (K-TAB) 20 mEq Extended Release tablet Take 20 mEq by mouth daily. 2 Active Stimulant Laxative Plus 8.6-50 mg tablet TAKE 1 TO 2 TABLETS BY MOUTH DAILY NEEDED 2 Active tiZANidine (ZANAFLEX) 4 mg Tablet TAKE 1 TABLET BY MOUTH EVERY 8 TO 12 HOURS NEEDED 2 Active ofloxacin (FLOXIN) 0.3 % Drops PLACE 5 DROPS INTO LEFT EAR TWICE A DAY FOR 7 DAYS 2 Active oxyCODONE-aceta minophen (PERCOCET) 5-325 mg tabletIndicatio ns:Post-op pain Take 1-2 Tablets by mouth every 4 hours as needed for Pain, Moderate. Max Daily Amount: 12 Tablets 40 Tablet 2 Active naloxone (NARCAN) 4 mg/spray [place], Non-Aerosol EMERGENCY USE ONLY: Administer 1 spray (4 mg) in one nostril one time. May repeat in alternating nostrils every 2-3 min until responsive or EMS arrives. 2 Each 3 2 Active gabapentin (NEURONTIN) 100 mg capsule Take 2 Capsules (200 mg) by mouth 3 times daily. 180 Capsule 2 Active prochlorperazin e maleate (COMPAZINE) 5 mg tablet Take 1 Tablet (5 mg) by mouth every 6 hours as needed for Nausea/Emesis. 20 Tablet 2 Active Active Problems Problem Noted Date Diagnosed Date Chronic obstructive pulmonary disease 12/17/2021 Acute respiratory failure with hypoxia 2 Pneumothorax on left 12/16/2021 Atelectasis of left lung 12/16/2021 Non-small cell cancer of left lung 11/03/2021 Immunizations Immunization Administration Dates Next Due ([employer])(12 YR UP) COVID-19 VACCINE - EMERGENCY USE AUTHORIZATION, MRNA, [id number]) 30 MCG/0.3 ML IM SUSP 11/18/2020,10/27/2020 Influenza Seasonal Unspecified Formulation IM Family History Medical History Relation Name Comments Heart Disease Father Cancer Mother Heart Disease Sister Relation Name Status Comments Father Mother Alive Sister Alive Social History Tobacco Use Types Packs/Day Years Used Date Smoking Tobacco: Every Day Cigarettes 1 47 Smokeless Tobacco: Never Tobacco Cessation:Ready to Q uit: Not Asked; Counseling Given: Not Answered Alcohol Use Standard Drinks/Week Comments Yes 0 (1 standard drink = 0.6 oz pur e alcohol) Comments No Sex and Gender Information Value Date Recorded Sex Assigned at Not on file Legal Sex Female 1:51 PM CDT Gender Identity Not on file Sexual Orientation Not on file Last Filed Vital Signs Vital Sign Reading Time Taken Comments Blood Pressure 109/77 01/16/2022 3:13 PM CDT Pulse 89 01/16/2022 3:13 PM CDT Temperature 36.6 ??C (97.8 ??F) 01/16/2022 3:13 PM CD T Respiratory Rate 16 12/21/2021 12:45 PM CDT Oxygen Saturation 97% 01/16/2022 3:13 PM CDT Inhaled Oxygen Concentration - - Weight 68.5 kg (151 lb) 01/16/2022 3:13 PM CDT Height 175.3 cm (5' 9 ) 01/16/2022 3:13 PM CDT Body Mass Index 22.3 01/16/2022 3:13 PM CDT Plan of Treatment Health Maintenance Due Date Last Done Comments Pre-Diabetes and Diabetes Screening 1961 DTAP/TDAP/TD VACCINES (1 - Tdap) 1980 CERVICAL CANCER SCREENING 09/28/1991 BREAST CANCER SCREENING 2001 FIT-DNA Q 3 years 2006 FIT/FOBT Q 1 year 2006 Flex Sig/CT Colonography Q 5 years 2006 ZOSTER VACCINE (1 of 2) 09/28/2011 RSV VACCINE (60+ or ) (1 - Risk 60-74 years 1-dose series) 2021 COLORECTAL SCREENING 12/03/2022 12/03/2012 Colorectal Cancer Screening 12/03/2022 INFLUENZA VACCINE (#1) 2023 , 02/20/2022, 04/24/2021, Additional history exists COVID-19 Vaccine (3 - 2023-2 5 season) 2023 11/18/2020, 10/27/2020 Medical Devices Implanted Type Area Head Sulfide Operator Device Identifier Shelf Expiration Date Model / Serial / Lot Sealant Progel Pleural 4ml [id number] - [id number] Implanted:Qty: 1 on 12/14/2021 by Wily Bassett MD at [facility] Tissue Left: Chest BARD DAVOL [id number] 06/16/2023 [id number] / / [id number] Lumbar Fusion Hardware Insurance MEDICARE PART A AND B [place] Paradigm Spine [facility] MEDICAID MEDICARE PART A AND B [employer] [facility] MEDICAID Advance Directives For more information, please contact: [phone] * Full Code (Latest Code Status on File) Date Activated Date Inactivated Comments 12/14/2021 5:21 PM 12/21/2021 6:25 PM * Full Code Date Activated Date Inactivated Comments 12/14/2021 8:36 AM 12/14/2021 5:21 PM Care Teams Ssas Developer Relationship Specialty Start Date End Date Saul Fitch DO [address] [facility] [address] [place] [address] PCP - General Internal Medicine 10/26/21
--- OUTSIDE RECORDS SUMMARY | 2024-05-14 10:19 | XMS_ITS | Encounter Summary ---
Author Organization [facility] Address [address] [place] [address] Care Team Providers Care Automotive Light Mechanic Name Role Phone Saul Fitch DO Primary Care Provider [phone] Harvey Wilson MD Unavailable [phone] Wily Bassett MD Unavailable [phone] Paulie Lai MD Unavailable [phone] Eb Cardoso MD Unavailable [phone] Ernesto Reddy MD Unavailable [phone] Naomi Bay MD Unavailable [phone] Paula Jarvis NP Unavailable [phone] Unknown, Notinfile Primary Care Provider Unavail able Encounter Details Date Type Department Care Team (Late st Contact Info) Description 01/23/2023 Telephone [facility] [address] [place] [address] Shaina Huynh RN Social History Tobacco Use Types Packs/Day Years Used Date Smoking Tobacco: Every Day Cigarettes AUDIT-C Answer Date Recorded Q1: How often do you have a drink containing alc ohol? Monthly or less 01/26/2022 Average Number of Drinks Not on file 022 Frequency of Binge Drinking Not on file 01/13 [facility] - Occupational Stress Questionnaire Answer Date Recorded Do you feel stress - tense, restless, nervous, or anxious, or unable to sleep at night because your mind is troubled all the time - these days? 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 Gender Identity Not on file Sexual Orientation Not on file documented as of this encounter Plan of Treatment Not on file documented as of this encounter Visit Diagnoses Not on filedocumented in this encounter Care Teams Automotive Light Mechanic Relationship Specialty Start Date End Date Saul Fitch DO PCP - General Internal Medicine 01/18/22 01/21/24 Unknown, Notinfile PCP - General 01/22/24 Harvey Wilson MD Medical Oncologist Hematology 01/25/22 Wily Bassett MD [address] [facility] [address] [place] [address] Surgeon Cardiothoracic Surgery 01/25/22 Paulie Lai MD [address] [facility] [address] [place] [address] Network Field Engineer Critical Care Med 01/25/22 Eb Cardoso MD [address] [place] [address] Network Field Engineer Critical Care Med 01/25/22 Ernesto Reddy MD [address] [facility] [place] [address] Medical Oncologist/Press Service Reader Medical Oncology 01/25/22 Naomi Bay MD [address] [facility] [address] [place] [address] Radiation Oncologist Radiation Oncology 01/31/22 Paula Jarvis NP [address] [facility] [address] [place] [address] Nurse Practitioner Radiation Oncology 07/18/22 documented as of this encounter
--- OUTSIDE RECORDS SUMMARY | 2024-05-14 10:19 | XMS_ITS | Referral Summary ---
Author Organization [facility] [address] Address [address] [place] [address] Care Team Providers Care Backend Java Developer Name Role Phone Harvey Wilson MD Unavailable [phone] Wily Bassett MD Unavailable [phone] Paulie Lai MD Unavailable [phone] Eb Cardoso MD Unavailable [phone] Ernesto eRddy MD Unavailable [phone] Naomi Bay MD Unavailable [phone] Paula Jarvis NP Unavailable [phone] Unknown, Notinfile Primary Care Provider Unavail able Encounters Date Type Department Care Team Description 05/01/2024 Documentation [facility] Oncology [address] [facility] Floor 1, [address] [place] [address] Karen Sylvester 05/01/2024 11:05 AM COACH PROFESSIONAL ATHLETES - 05/01/2024 11:59 PM COACH PROFESSIONAL ATHLETES Hospital Encounter [facility]) [address] [place] [address] Ernesto Reddy MD Primary cancer of left lower lobe of lung (HCC); 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) Discharge Disposition: Discharge to home or self care from Last 3 Months Allergies Active Allergy Reactions Criticality Noted Date Comments Sulfa (Sulfonamide Antibiotics) Unknown,Swelling Medium 10/31/2013 Swelling Sulfamethoxazole-Tri methoprim Flushing (skin),Unknown,Hives Medium 10/31/2013 Eyes close and well, 104 fever, welts and bumps all bulk pigment reducer Hives Medications ALPRAZolam (XANAX) 1 mg tablet as needed 2 01/20/20 22 Active budesonide-glycop yr-formoterol (Breztri Aerosphere) 160-9-4.8 mcg/actuation HFA aerosol inhaler Inhale 2 puffs 2 (two) times a day 10/28/19 22 Active dextroamphetamine -amphetamine XR (ADDERALL XR) 30 mg 24 hr capsule every morning 0 01/16/20 22 Active zolpidem (AMBIEN) 10 mg tablet nightly as needed 2 12/27/19 22 Active tiZANidine (ZANAFLEX) 4 mg tablet TAKE 1 TABLET BY MOUTH EVERY 8 TO 12 HOURS NEEDED 09/06/19 19 Active rosuvastatin (CRESTOR) 10 mg tablet Take 1 tablet (10 mg total) by mouth daily 08/23/19 19 Active rOPINIRole (REQUIP) 2 mg tablet Take 1 tablet (2 mg total) by mouth 2 (two) times a day 06/25/19 19 Active potassium chloride ER (KLOR-CON) 20 mEq CR tablet Take 1 tablet (20 mEq total) by mouth daily 09/14/19 22 Active lisinopril-hydroC HLOROthiazide (ZESTORETIC) 10-12.5 mg per tablet Take 1 tablet by mouth daily 08/20/19 19 Active linaCLOtide (LINZESS) 145 mcg capsule Take 1 capsule (145 mcg total) by mouth daily before breakfast 07/23/19 21 Active levothyroxine (SYNTHROID) 50 mcg tablet Take 1 tablet (50 mcg total) by mouth 07/23/19 19 Active senna-docusate (PERICOLACE) 8.6-50 mg TAKE 1 TO 2 TABLETS BY MOUTH DAILY NEEDED 10/03/19 22 Active albuterol HFA (PROVENTIL HFA,VENTOLIN HFA,PROAIR HFA) 90 mcg/actuation inhaler Inhale 2 puffs every 6 (six) hours as needed for wheezing Active naloxone (NARCAN) 4 mg/actuation spray,non-aerosol 12/23/19 Active ondansetron ODT (ZOFRAN-ODT) 4 mg disintegrating tablet Take 2 tablets (8 mg total) by mouth every 8 (eight) hours as needed for nausea or vomiting 20 tablet 02/21/20 22 Active omeprazole (PriLOSEC) 20 mg capsuleIndication s:Cancer Chemotherapy-Avis myrna Nausea and Vomiting Take 1 capsule (20 mg total) by mouth daily 30 capsule 11 02/22/20 22 Active morphine (MSIR) 15 mg tablet every 4 (four) hours as needed 03/01/20 22 Active oxyCODONE-acetami nophen (PERCOCET) 10-325 mg per tablet TAKE 1 TABLET BY MOUTH EVERY 8-12 HOURS NEEDED 02/28/20 22 Active Relistor 150 mg tablet Take 1 tablet by mouth daily as needed 03/27/[address] (CYMBALTA) 30 mg capsule Take 1 capsule (30 mg total) by mouth daily 07/06/19 23 Active predniSONE (DELTASONE) 10 mg tablet TAKE 6 TABLETS BY MOUTH FOR 1 DAY THEN DECREASE BY 1 TABLET DAILY UNTIL ALL TAKEN 01/04/20 23 Active montelukast (SINGULAIR) 10 mg tablet Take 1 tablet (10 mg total) by mouth daily 09/12/19 24 Active fluticasone propionate (FLONASE) 50 mcg/actuation nasal spray 2 sprays daily 09/13/19 24 Active prochlorperazine (Compazine) 10 mg tabletIndications :Primary cancer of left lower lobe of lung (HCC) Take 1 tablet (10 mg total) by mouth every 6 (six) hours as needed for nausea or vomiting Use first for nausea 120 tablet 3 02/21/20 22 022 Discontinued Active Problems Problem Noted Date Diagnosed Date Need for prophylactic vaccin ation and inoculation against influenza 05/07/2023 Pain at surgical site 11/20/2022 Smoking history 10/30/[address] nodules [address] 10/30/2022 Chronic nonintractable headache 10/30/2022 Pruritus 05/23/2022 Other fatigue 05/23/2022 Dehydration 03/27/2022 Encounter for smoking cessation counseling 02/23 Malignant neoplasm metastatic to intrathoracic l ymph node 01/26/2022 Situational anxiety 01/26/2022 Primary cancer of left lower lobe of lung 2021 Cancer Staging:Pathologic stage from 12/14/2021:Stage IIIA(pT2b, pN2, cM0) - Unsigned Chronic obstructive pulmonary disease 12/17/2021 Acute respiratory failure with hypoxia (CMS/HCC) 12/16/2021 Atelectasis of left lung 12/16/2021 Pneumothorax on left 12/16/2021 Immunizations Name Administration Dates Next Due Influenza, Quadrivalent, Latrice l Culture-based MDCK, Preservative Free, Antibiotic Free, Intramuscular 05/07/2023,02/20/2022,06/30/2019 Influenza, Quadrivalent, Spl it, Preservative Free, Intramuscular 03/15/2021 Influenza, Trivalent, IM (MDV) 04/24/2021 Influenza, Trivalent, Preser vative Free, Intramuscular 03/16/2014 Influenza, Unspecified 02/24/2014 Pneumococcal Polysaccharide PPV23 06/30/2019 Social History Tobacco Use Types Packs/Day Years Used Date Smoking Tobacco: Every Day Cigarettes Tobacco Cessation:Ready to Q uit: Yes; Counseling Given: Yes AUDIT-C Answer Date Recorded Q1: How often do you have a drink containing alc ohol? Monthly or less 01/26/2022 Average Number of Drinks Not on file 022 Frequency of Binge Drinking Not on file 01/13 [facility] of Occupat ional Health - Occupational Stress Questionnaire Answer Date Recorded Do you feel stress - tense, restless, nervous, or anxious, or unable to sleep at night because your mind is troubled all the time - these days? 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 Gender Identity Not on file Sexual Orientation Not on file Last Filed Vital Signs Vital Sign Reading Time Taken Comments Blood Pressure 137/84 01/28/2024 9:49 AM CDT Pulse 71 01/28/2024 9:49 AM CDT Temperature 36.8 ??C (98.3 ??F) 01/28/2024 9:49 AM CD T Respiratory Rate 17 01/28/2024 9:49 AM CDT Oxygen Saturation 97% 01/28/2024 9:49 AM CDT Inhaled Oxygen Concentration - - Weight 76.8 kg (169 lb 6.4 oz) 01/28/2024 9:49 A M CDT Height 171 cm (5' 7.32 ) 11/20/2022 1:26 PM CDT Body Mass Index 26.28 11/20/2022 1:26 PM CDT Plan of Treatment Not on file Procedures Procedure Name Priority Date/Time Associated Diagnosis Comments CT CHEST ABDOMEN W CONTRAST Schedule Routine, Read Routine (OP Routine) 05/01/2024 11:42 AM COACH PROFESSIONAL ATHLETES Primary cancer of left lower lobe of lung (HCC) 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 ??Postoperative changes of left lower lobectomy. ??Stable subcentimeter pulmonary nodules. 2. ??No evidence of disease progression in the chest and abdomen. Electronically signed by: Anna Urena M.D. Narrative 05/01/2024 12:17 PM COACH PROFESSIONAL ATHLETES EXAMINATION: ??Computed tomography of the chest and abdomen with intravenous contrast HISTORY: Lung cancer. TECHNIQUE: ??Transaxial computed tomographic images of the chest and abdomen were obtained with intravenous contrast according to the standard protocol after the uneventful administration of 70 mL Opti-Ray 350 intravenous contrast. COMPARISON: 01/24/2024 FINDINGS: ?? Chest: There is no axillary, supraclavicular, mediastinal, or hilar enlarged lymph nodes. ??A few calcified mediastinal lymph nodes are seen. The heart is normal. ??There is no pericardial effusion. ??Mild atherosclerotic calcification of the coronary arteries are seen. Thoracic aorta is normal in caliber. Redemonstrated postoperative changes of left lower lobectomy. ??There is background of lung emphysema. Multiple small subcentimeter groundglass nodules are not significantly changed compared to the prior study predominates in the upper lobes for reference a 3 mm nodule in the left upper lobe (series 3 image 55) and a 2 mm nodule in the right upper lobe (image 48). ??There is no suspicious new nodule. ??There is no pleural effusion or pneumothorax. Abdomen: The liver is normal without suspicious hepatic lesion. ??Gallstone is seen without evidence of acute cholecystitis. ??There is no intra or extrahepatic biliary dilatation. The spleen, pancreas, and both adrenal glands are normal. ??There is no hydronephrosis or nephrolithiasis. The stomach is normal. ??There is no evidence of bowel obstruction. Partially imaged colon diverticulosis without evidence of diverticulitis. There is no abdominal enlarged lymph node. ??There is no free fluid or free air. Abdominal aorta is normal in caliber with scattered atherosclerotic ossifications. There is no suspicious osseous lesion. ??Partially imaged posterior decompression with viscous pacer device is seen at L5-S1. ??A sclerotic lesion in the proximal left humerus is likely a bone island. Procedure Note Anna Quintanilla MD - 05/01/2024 EXAMINATION: Computed tomography of the chest and abdomen with intravenous contrast HISTORY: Lung cancer. TECHNIQUE: Transaxial computed tomographic images of the chest and abdomen were obtained with intravenous contrast according to the standard protocol after the uneventful administration of 70 mL Opti-Ray 350 intravenous contrast. COMPARISON: 01/24/2024 FINDINGS: Chest: There is no axillary, supraclavicular, mediastinal, or hilar enlarged lymph nodes. A few calcified mediastinal lymph nodes are seen. The heart is normal. There is no pericardial effusion. Mild atherosclerotic calcification of the coronary arteries are seen. Thoracic aorta is normal in caliber. Redemonstrated postoperative changes of left lower lobectomy. There is background of lung emphysema. Multiple small subcentimeter groundglass nodules are not significantly changed compared to the prior study predominates in the upper lobes for reference a 3 mm nodule in the left upper lobe (series 3 image 55) and a 2 mm nodule in the right upper lobe (image 48). There is no suspicious new nodule. There is no pleural effusion or pneumothorax. Abdomen: The liver is normal without suspicious hepatic lesion. Gallstone is seen without evidence of acute cholecystitis. There is no intra or extrahepatic biliary dilatation. The spleen, pancreas, and both adrenal glands are normal. There is no hydronephrosis or nephrolithiasis. The stomach is normal. There is no evidence of bowel obstruction. Partially imaged colon diverticulosis without evidence of diverticulitis. There is no abdominal enlarged lymph node. There is no free fluid or free air. Abdominal aorta is normal in caliber with scattered atherosclerotic ossifications. There is no suspicious osseous lesion. Partially imaged posterior decompression with viscous pacer device is seen at L5-S1. A sclerotic lesion in the proximal left humerus is likely a bone island. IMPRESSION: 1. Postoperative changes of left lower lobectomy. Stable subcentimeter pulmonary nodules. 2. No evidence of disease progression in the chest and abdomen. Electronically signed by: Anna Urena M.D. Ernesto Reddy MD IMG CT PROCEDURES Final R esult * POCT creatinine (05/01/2024 11:20 AM COACH PROFESSIONAL ATHLETES) Creatinine POC 0.7 0.6 - 1.1 mg/dL Blood 05/01/2024 11:2 0 AM COACH PROFESSIONAL ATHLETES 05/01/2024 11:20 AM COACH PROFESSIONAL ATHLETES Ernesto Reddy MD LAB POCT ORDERABLES - DEV ICE Final Result [facility] Department of Laboratories [place], [place] [id number] * COLONOSCOPY (12/03/2012 12:00 AM CDT) Anatomical Region Laterality Modality Other Narrative 12/03/2012 12:00 AM CDT Ordered by an unspecified provider. Procedure Note ProviderReginaldo MD - 12/03/2012 12:00 AM CDT PROCEDURE REPORT Patient: LESLEE OLIVIER Account: [id number] Room No: : 1960 Patient Type: SDS Attend.: Alverto Perry D.O. Admit Date: Dict.: Alverto Perry D.O. Disch. Date: 12/03/2012 DATE 12/03/2012 HISTORY This very pleasant lady is being evaluated for colon cancer and polyp surveillance. She has a history of polyps. POSTOPERATIVE DIAGNOSIS 1. Polyp at the proximal descending colon. 2. Left-sided diverticulitis coli. 3. Polys x 2 of the sigmoid colon. 4. Internal hemorrhoidal tissue. ANESTHESIA MAC. COMPLICATIONS None. PROCEDURE PERFORMED Colonoscopy with biopsy x 3. INSTRUMENT Olympus video colonoscopy. REFERRING PHYSICIAN Dr. Maxwell ENDOSCOPIST Alverto Perry D.O. RECOMMENDATIONS 1. Postop sedation. 2. Fiber. 3. Would recheck colonoscopy in five years with preparation. If thepatient would develop any significant symptoms, would certainly check herearlier. PROCEDURE The benefits, risks, complications and alternatives were explained indetail to the patient. These were understood and written consent was obtained. Therisks and complications included but were not limited to hemorrhage,perforation, infection, blood transfusion, surgery or missed lesion. We explained therisk of sedation including allergic reaction, cardiopulmonary arrest, heartattack, stroke, and pneumonia. The patient understood the procedure, and allquestions were answered. The patient was placed in the left lateral decubitus position, sedated bythe Department of Anesthesiology. Digital rectal examination was performed andwas unremarkable. Using the Olympus videocolonoscope, it was inserted intothe rectum and advanced to the cecum with extreme ease. The cecum wasidentified by the appendiceal opening and the ileocecal valve. On withdrawal of the colonoscope, the mucosa was examined in acircumferential manner. The preparation was fair. Solid and liquid debris obscuredmucosal detail. No ulcers, masses or inflammation were visualized. A polyp inthe descending colon and two small ones in the sigmoid colon were biopsiedto extension. Left-sided diverticulosis coli was noted. The rectum wasexamined in forward and retroflexed views. Internal hemorrhoidal tissue was noted. The scope was withdrawn from the patient. The patient tolerated theprocedure well without any immediate complications. Lexii Stuart TD: 12/04/2012 03:42 CC: Dr. Maxwell Authenticated by Alverto Perry DO On 12/06/2012 09:56:26 AM Historical Provider ENDOSCOPY PROCEDURES Cyndi l Result from Last 3 Months or Most Recently Relevant to Health Maintenance Insurance MEDICARE [facility] MEDICARE [employer] Care Teams Backend Java Developer Relationship Specialty Start Date End Date Unknown, Notinfile PCP - General 01/22/24 Harvey Wilson MD Medical Oncologist Hematology 01/25/22 Wily Bassett MD [id number] [place] [address] Surgeon Cardiothoracic Surgery 01/25/22 Paulie Lai MD [address] 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 [address] [place] [address] Construction Trades Contractor Critical Care Med 01/25/22 Eb Cardoso MD [address] [place] [address] Construction Trades Contractor Critical Care Med 01/25/22 Ernesto Reddy MD [address] [facility] MEDICAL ONCOLOGY, [address] [place] [address] Medical Oncologist/Test Cell Technician Medical Oncology 01/25/22 Naomi Bay MD [address] [facility] [address] [place] [address] Radiation Oncologist Radiation Oncology 01/31/22 Paula Jarvis NP [address] [facility] [address] [place] [address] Nurse Practitioner Radiation Oncology 07/18/22
--- OUTSIDE RECORDS SUMMARY | 2024-05-14 10:19 | XMS_ITS | Clinical Summary ---
Author Organization [facility] 2 Address [address] [facility] [place] [address] Care Team Providers Care Ticker Maintainer Name Role Phone Harvey Wilson MD Unavailable [phone] Wily Bassett MD Unavailable [phone] Paulie Lai MD Unavailable [phone] Eb Cardoso MD Unavailable [phone] BarryErnesto hernandez MD Unavailable [phone] Naomi Bay MD Unavailable [phone] Paula Jarvis NP Unavailable [phone] Unknown, Notinfile Primary Care Provider Unavail able Allergies Active Allergy Reactions Criticality Noted Date Comments Sulfa (Sulfonamide Antibiotics) Unknown,Swelling Medium 10/31/2013 Swelling Sulfamethoxazole-Tri methoprim Flushing (skin),Unknown,Hives Medium 10/31/2013 Eyes close and well, 104 fever, welts and bumps all 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 bi developer Hives Medications ALPRAZolam (XANAX) 1 mg tablet [...] Active naloxone (NARCAN) 4 mg/actuation spray,non-aerosol 12/23/19 22 Active ondansetron ODT (ZOFRAN-ODT) 4 mg disintegrating [...] left lung 12/16/2021 Pneumothorax on left 12/16/2021 Encounters Date Type Department Care Team Description 05/01/2024 11:05 AM SENIOR GAMEMASTER - 05/01/2024 11:59 PM SENIOR GAMEMASTER Hospital Encounter [facility]) [address] [place] [address] Ernesto Reddy MD Primary cancer of left lower lobe of lung (HCC); 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) Discharge Disposition: Discharge to home or self care 05/01/2024 Documentation [facility] Oncology [address] [facility] Floor 1, [address] [place] [id number] Karen Sylvester from Last 3 Months Immunizations Name Administration Dates Next Due Influenza, Quadrivalent, Latrice l Culture-based MDCK, Preservative Free, Antibiotic Free, Intramuscular 05/07/2023,02/20/2022,06/30/2019 Influenza, Quadrivalent, Spl it, Preservative Free, Intramuscular 03/15/2021 Influenza, Trivalent, IM (MDV) 04/24/2021 Influenza, Trivalent, Preser vative Free, Intramuscular 03/16/2014 Influenza, Unspecified 02/24/2014 Pneumococcal Polysaccharide PPV23 06/30/2019 Surgical History Surgery Date Site/Laterality Comments BACK SURGERY BRONCHOSCOPY LUNG SURGERY COLONOSCOPY TUBAL LIGATION UPPER GASTROINTESTINAL ENDOSCOPY MULTIPLE TOOTH EXTRACTIONS Bilateral all removed Medical History Medical History Date Comments Colon cancer (CMS/HCC) (HCC) Family History Medical History Relation Name Comments Breast cancer Maternal Grandmother Skin cancer Maternal Grandmother Skin cancer Mother Lung cancer Mother's Brother 1 Colon cancer Mother's Brother 2 Colon cancer Paternal Grandmother Relation Name Status Comments Maternal Grandmother Alive Mother Alive Mother's Brother 1 Mother's Brother 2 Alive Paternal Grandmother Social History Tobacco Use Types Packs/Day Years Used Date Smoking Tobacco: Every Day Cigarettes Tobacco Cessation:Ready to Q uit: Yes; Counseling Given: Yes AUDIT-C Answer Date Recorded Q1: How often do you have a drink containing alc ohol? Monthly or less 01/26/2022 Average Number of Drinks Not on file 022 Frequency of Binge Drinking Not on file 01/13 [place] of Occupat ional Health - Occupational Stress Questionnaire Answer Date Recorded Do you feel stress - tense, restless, nervous, or anxious, or unable to sleep at night because your mind is troubled all the time - these days? Very much 01/26/2022 Comments No Sex and Gender Information Value Date Recorded Sex Assigned at Not on file Legal Sex Female 2:06 PM SENIOR GAMEMASTER Gender Identity Not on file Sexual Orientation Not on file Obstetrics History Last Filed Vital Signs Vital Sign Reading [...] 11/20/2022 1:26 PM CDT Plan of Treatment Health Maintenance Due Date Last Done Comments Breast Cancer Screening-Mammogram 1960 Cervical Cancer Screening 1960 Depression Screening 1960 Hepatitis C Screening 1960 DTaP/Tdap/Td Vaccine (1 - Tdap) 1972 Hepatitis B Screening 09/28/1979 Regular Well Visit/Exam 18-64 09/28/1979 Zoster Vaccine (1 of 2) 1980 Pneumococcal vaccine <65 (2 of 2 - PCV) 06/29/2020 06/30/2019 Covid-19 Vaccine (3 - Pfizer risk series) 12/16/2020 11/18/2020, 10/28/2020 Colon Cancer Screening-Colonoscopy 12/03/20222012 Influenza Vaccine (#1) 2023 4, 02/20/2022, 04/24/2021, Additional history exists Procedures Procedure Name Priority Date/Time Associated Diagnosis Comments CT CHEST ABDOMEN W CONTRAST Schedule Routine, Read Routine (OP Routine) 05/01/2024 11:42 AM SENIOR GAMEMASTER Primary cancer of left lower lobe of lung (HCC) 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 ??Postoperative changes of left lower lobectomy. ??Stable subcentimeter pulmonary nodules. 2. ??No evidence of disease progression in the chest and abdomen. Electronically signed by: Anna Urena M.D. Narrative 05/01/2024 12:17 PM SENIOR GAMEMASTER EXAMINATION: ??Computed tomography of the chest and [...] abdomen. Electronically signed by: Anna Urena M.D. us Ernesto Reddy MD IMG CT PROCEDURES Final R esult * POCT creatinine (05/01/2024 11:20 AM SENIOR GAMEMASTER) Creatinine POC 0.7 0.6 - 1.1 mg/dL Blood 05/01/2024 11:2 0 AM SENIOR GAMEMASTER 05/01/2024 11:20 AM SENIOR GAMEMASTER us Ernesto Reddy MD LAB POCT ORDERABLES - DEV ICE Final Result [facility] Department [place] [address] * COLONOSCOPY (12/03/2012 12:00 AM CDT) Anatomical Region Laterality Modality Other Narrative 12/03/2012 12:00 AM CDT Ordered by an unspecified provider. Procedure Note ProviderReginaldo MD - 12/03/2012 12:00 AM CDT PROCEDURE REPORT Patient: LESLEE OLIVIER Account: [id number] Room No: : 1960 Patient Type: [facility] Attend.: Alverto Perry D.O. Admit Date: Dict.: [...] in the left lateral decubitus position, [facility] Department of Anesthesiology. Digital rectal examination was [...] 09:56:26 AM Historical Provider ENDOSCOPY PROCEDURES Cyndi abad Result from Last 3 Months or Most Recently Relevant to Health Maintenance Insurance MEDICARE [employer] MEDICARE [facility] Care Teams Ticker Maintainer Relationship Specialty Start Date End Date Unknown, Notinfile PCP - General 01/22/24 Harvey Wilson MD Medical Oncologist Hematology 01/25/22 Wily Bassett MD [address] [facility] [address] [place] [address] Surgeon Cardiothoracic Surgery 01/25/22 Paulie Lai MD [address] [facility] [address] [place] [address] Lapping Machine Operator Critical Care Med 01/25/22 Eb Cardoso MD [address] [place] [address] Lapping Machine Operator Critical Care Med 01/25/22 Ernesto Reddy MD [address] MEDICAL ONCOLOGY, [address] [place] [address] Medical Oncologist/Contracts Attorney Medical Oncology 01/25/22 Naomi Bay MD [address] [place] [address] Radiation Oncologist Radiation Oncology 01/31/22 Paula Jarvis NP [address] [place] [address] Nurse Practitioner Radiation Oncology 07/18/22
--- OUTSIDE RECORDS SUMMARY | 2024-05-14 10:19 | XMS_ITS | Referral Summary ---
Author Organization [facility] Address [address] [place] [address] Care Team Providers Care Workers Compensation Claims Analyst Name Role Phone Dieudonne Maxwell MD Primary Care Provider [phone] Source Comments [facility],non-[facility] Affiliates and Associated Physician Practices is amultiple site organization consisting of ambulatory clinics and hospital sitesin [place], [place], [place] and [place]. This disclosure is being madepursuant to the Care Everywhere program and may not contain all information available regarding this patient. Last updated 18.[facility] [employer] Social History Tobacco Use Types Packs/Day Years Used Date Smoking Tobacco: Never Assessed Sex and Gender Information Value Date Recorded Sex Assigned at Not on file Gender Identity Not on file Sexual Orientation Not on file Last Filed Vital Signs Vital Sign Reading Time Taken Comments Blood Pressure 110/69 06/10/2015 12:31 PM [employer]ETING DIRECT[employer] Pulse 84 06/10/2015 12:31 PM [employer] MARKETING DIRECT[employer] Temperature 36.9 ??C (98.4 ??F) 06/10/2015 12:[address] Respiratory Rate 14 06/10/2015 12:31 PM [employer] MARKETING DIRECTOR Oxygen Saturation 97% 06/10/2015 12:31 PM [employer] MARKETING DIRECTOR Inhaled Oxygen Concentration - - Weight 65.8 kg (145 lb) 06/10/2015 12:31 PM [employer] MARKETING DIRECTOR Height 175.3 cm (5' 9 ) 06/10/2015 12:31 PM [employer] MARKETING DIRECT[employer] Body Mass Index 21.41 06/10/2015 12:31 PM [employer] MARKETING DIRECT[employer] Plan of Treatment Not on file Care Teams Workers Compensation Claims Analyst Relationship Specialty Start Date End Date Dieudonne Maxwell MD [address] [place] [id number] PCP - General 05/20/18
--- OUTSIDE RECORDS SUMMARY | 2024-05-14 10:19 | XMS_ITS | Patient Health Summary ---
Author Organization [facility] Address [address] [place] [address] Care Team Providers Care Command And Control Officer Name Role Phone Dieudonne Maxwell MD Primary Care Provider [phone] Note from [facility],non-owned Affiliates and Associated Physician Practices is amultiple site organization consisting of ambulatory clinics and hospital sitesin [place], [place], [place] and [place]. This disclosure is being madepursuant to the Care Everywhere program and may not contain all information available regarding this patient. Last updated 18.[facility] [email or web address] Social History Tobacco Use Types Packs/Day Years Used Date Smoking Tobacco: Never Assessed Sex and Gender Information Value Date Recorded Sex Assigned at Not on file Gender Identity Not on file Sexual Orientation Not on file Last Filed Vital Signs Vital Sign Reading Time Taken Comments Blood Pressure 110/69 06/10/2015 12:31 PM AGRONOMIST Pulse 84 06/10/2015 12:31 PM AGRONOMIST Temperature 36.9 ??C (98.4 ??F) 06/10/2015 12:[address] Respiratory Rate 14 06/10/2015 12:31 PM AGRONOMIST Oxygen Saturation 97% 06/10/2015 12:31 PM AGRONOMIST Inhaled Oxygen Concentration - - Weight 65.8 kg (145 lb) 06/10/2015 12:31 PM AGRONOMIST Height 175.3 cm (5' 9 ) 06/10/2015 12:31 PM AGRONOMIST Body Mass Index 21.41 06/10/2015 12:31 PM AGRONOMIST Procedures * BASIC METABOLIC PANEL (CALCIUM TOTAL)(Performed 04/12/2015) * CBC W AUTO DIFFERENTIAL(Performed 04/12/2015) * CBC W AUTO DIFFERENTIAL(Performed 04/12/2015) * BASIC METABOLIC PANEL (CALCIUM TOTAL)(Performed 04/11/2015) * CBC W AUTO DIFFERENTIAL(Performed 04/11/2015) * CBC W AUTO DIFFERENTIAL(Performed 04/11/2015) * BASIC METABOLIC PANEL (CALCIUM TOTAL)(Performed 04/10/2015) * CBC W AUTO DIFFERENTIAL(Performed 04/10/2015) * CBC W AUTO DIFFERENTIAL(Performed 04/10/2015) * CULTURE AFB+SMEAR(Performed 04/09/2015) * CULTURE FUNGUS OTHER+FUNGUS SMEAR(Performed 04/09/2015) * CULTURE AEROBIC(Performed 04/09/2015) * CULTURE AEROBIC(Performed 04/09/2015) * CULTURE ANAEROBE(Performed 04/09/2015) * CULTURE ANAEROBE(Performed 04/09/2015) * PATHOLOGY TISSUE(Performed 04/09/2015) * BASIC METABOLIC PANEL (CALCIUM TOTAL)(Performed 04/09/2015) * CBC W AUTO DIFFERENTIAL(Performed 04/09/2015) * CBC W AUTO DIFFERENTIAL(Performed 04/09/2015) * PATHOLOGY/GENETICS HISTORICAL-ONBASE(Performed 04/09/2015) * T3 FREE(Performed 04/08/2015) * VANCOMYCIN LEVEL TROUGH(Performed 04/08/2015) * BASIC METABOLIC PANEL (CALCIUM TOTAL)(Performed 04/08/2015) * CBC W AUTO DIFFERENTIAL(Performed 04/08/2015) * CBC W AUTO DIFFERENTIAL(Performed 04/08/2015) * XR PANOREX(Performed 04/07/2015) * THYROID PEROXIDASE ANTIBODY(Performed 04/07/2015) * ERYTHROCYTE SEDIMENTATION RATE(Performed 04/07/2015) * C-REACTIVE PROTEIN(Performed 04/07/2015) * BASIC METABOLIC PANEL (CALCIUM TOTAL)(Performed 04/07/2015) * CBC W AUTO DIFFERENTIAL(Performed 04/07/2015) * CBC W AUTO DIFFERENTIAL(Performed 04/07/2015) * MRI ORBITS OR FACE WWO CONTRAST(Performed 04/06/2015) * ERYTHROCYTE SEDIMENTATION RATE(Performed 04/06/2015) * C-REACTIVE PROTEIN(Performed 04/06/2015) * T4 FREE(Performed 04/06/2015) * TSH(Performed 04/06/2015) * BASIC METABOLIC PANEL (CALCIUM TOTAL)(Performed 04/06/2015) * CBC W AUTO DIFFERENTIAL(Performed 04/06/2015) * CBC W AUTO DIFFERENTIAL(Performed 04/06/2015) * DRUG ABUSE PANEL 10-20+ETHANOL URINE NO CONFIRM(Performed 04/06/2015) * EKG 12-LEAD(Performed 04/06/2015) * CULTURE BLOOD(Performed 04/05/2015) * COMPREHENSIVE METABOLIC PANEL(Performed 04/05/2015) * CBC W AUTO DIFFERENTIAL(Performed 04/05/2015) * CBC W AUTO DIFFERENTIAL(Performed 04/05/2015) * CULTURE BLOOD(Performed 04/05/2015) * XR CHEST 1VW PORTABLE(Performed 04/05/2015) Results * (ABNORMAL) CBC W AUTO DIFFERENTIAL (04/12/2015 2:53 AM AGRONOMIST) Only the most recent of16 resultswithin the time period is included. WBC 5.0 3.5 - 10.5 10? 3 /uL [facility] RBC 3.52(L) 3.90 - 5.00 10? 6 /uL [facility] Hemoglobin 11.4(L) 12.0 - 15.5 g/dL [facility] Hematocrit 33.7(L) 35.0 - 45.0 % [facility] MCV 95.7 81.0 - 97.0 fL [facility] MCH 32.4 28.0 - 34.0 pg [facility] MCHC 33.8 32.0 - 36.0 g/dL [facility] Platelet Count 275 150 - 400 10? 3 /uL [facility] RDW-SD 47.0 36.0 - 50.0 fL [facility] RDW-CV 13.4 11.2 - 14.8 % [facility] MPV 10.4 9.3 - 12.8 fL [facility] Neutrophils % 50.1 35.0 - 70.0 % [facility] Lymphocytes % 36.7 19.7 - 55.1 % [facility] Monocytes % 8.6 3.0 - 15.0 % [facility] Eosinophils % 4.2 0.0 - 6.0 % [facility] Basophil % 0.4 0.0 - 1.5 % [facility] Neutrophils Absolute 2.5 1.6 - 7.0 10? 3 /uL [facility] Lymphocyte Absolute 1.8 0.8 - 2.9 10? 3 /uL [facility] Monocytes Absolute 0.43 0.14 - 0.66 10? 3 /uL [facility] Eosinophils Absolute 0.21 0.00 - 0.22 10? 3 /uL [facility] Basophils Absolute 0.02 0.00 - 0.06 10? 3 /uL [facility] Immature Granulocytes % 0.0 0.0 - 1.0 % [facility] Blood specimen (specimen) BLOOD SPECIMEN / Unknown 04/12/2015 2:53 AM AGRONOMIST 04/12/2015 3:17 AM AGRONOMIST Eduardo Sin MD LAB - HEMATOLOGY ORD ERABLES Performing Organization Address City/[facility]/ZIP Co de Phone Number [address] [phone] * (ABNORMAL) BASIC METABOLIC PANEL (CALCIUM TOTAL) (04/12/2015 2:53 AM AGRONOMIST) Only the most recent of7 resultswithin the time period is included. BUN 7 7 - 26 mg/dL [facility] Creatinine 0.7 0.6 - 1.2 mg/dL [facility] Sodium 141 136 - 145 mmol/L [facility] Potassium 4.1 3.5 - 4.5 mmol/L [facility] Chloride 105 98 - 107 mmol/L [facility] CO2 29 22 - 29 mmol/L [facility] Glucose 139(H) 70 - 115 mg/dL [facility] Calcium 9.0 8.4 - 10.2 mg/dL [facility] Anion Gap 11 8 - 18 [facility] BUN/Creatinine Ratio 10 7 - 23 [facility] Osmolality Calculated 277 270 - 300 mOsm/kg [facility] eGFR >60 >60 mL/min/1.7 3 m2 [facility] Blood specimen (specimen) BLOOD SPECIMEN / Unknown 04/12/2015 2:53 AM AGRONOMIST 04/12/2015 3:17 AM AGRONOMIST Any Santos MD LAB - CHEMISTRY ORDERABLES Performing Organization Address [facility]/ZIP Co de Phone Number [address] [phone] * CULTURE AFB+SMEAR (04/09/2015 10:14 AM AGRONOMIST) Culture Acid Fast Bacilli No Growth of Acid Fast bacilli after 8 weeks. [facility] AFB Smear No Acid Fast bacilli seen on direct smear. [facility] Bone tissue specimen (specimen) 04/09/2015 10:14 AM AGRONOMIST 04/09/2015 10:14 AM AGRONOMIST Narrative [facility] - 06/06/2015 9:33 AM AGRONOMIST Right mandible tissue Specimen Type->Bone Any Santos MD LAB - MICROBIOLO GY ORDERABLES Performing Organization Address [facility] Co de Phone Number [address] [phone] * CULTURE FUNGUS OTHER+FUNGUS SMEAR (04/09/2015 10:14 AM AGRONOMIST) Culture Fungus-Other No Growth Fungi. [facility] Fungus Smear No Fungi seen. [facility] Bone tissue specimen (specimen) (Unspecified) 04/09/2015 10:14 AM AGRONOMIST 04/09/2015 10:14 AM AGRONOMIST Narrative [facility] - 05/10/2015 4:00 PM AGRONOMIST Right mandible tissue Specimen Type->Bone Any Santos MD LAB - MICROBIOLO GY ORDERABLES Performing Organization Address [facility] Co de Phone Number [address] [phone] * (ABNORMAL) CULTURE AEROBIC (04/09/2015 9:30 AM AGRONOMIST) Only the most recent of2 resultswithin the time period is included. Culture Aerobic STREPTOCOCCUS SALIVARIUS(A) [facility] Comment:Light Growth Strepto coccus Salivarius Culture Aerobic STREPTOCOCCUS MITIS/ORALIS(A) [facility] Comment:Light Growth STREPTO COCCUS MITIS/ORALIS Gram Stain Many Red Blood Cells [facility] Gram Stain Few Polymorphonuclear Cells [facility] Gram Stain Rare Gram positive cocci in pairs [facility] Comment:called and read back to Mandy 04/09/15 1153 Gram Stain [facility] Comment:called and read back to Dr. Deras 04/09/15 1215 Fluid specimen (specimen) 04/09/2015 9:30 AM AGRONOMIST 04/09/2015 9:40 AM AGRONOMIST Narrative [facility] - 04/13/2015 10:35 AM AGRONOMIST Right mandible body fluid Specimen Type->Body Fluid Gram Stains are routinely screened for the presence of Polymorphonuclear Cells. Organism Antibiotic Method Susceptibility Streptococcus salivarius Benzylpenicillin SUSCEPTIBILI TY 0.25: Intermediate Streptococcus salivarius Ceftriaxone SUSCEPTIBILITY 1: Sensitive Streptococcus salivarius Erythromycin SUSCEPTIBILITY 2: Resistant Streptococcus salivarius Vancomycin SUSCEPTIBILITY 0.5: Sensitive Streptococcus mitis/oralis Benzylpenicillin SUSCEPTIBI LITY <=0.06: Sensitive Streptococcus mitis/oralis Ceftriaxone SUSCEPTIBILITY <=0.12: Sensitive Streptococcus mitis/oralis Erythromycin SUSCEPTIBILITY 2: Resistant Streptococcus mitis/oralis Vancomycin SUSCEPTIBILITY 0.5: Sensitive Any Santos MD LAB - MICROBIOLO GY ORDERABLES Performing Organization Address [facility] Co de Phone Number [address] [phone] * CULTURE ANAEROBE (04/09/2015 9:30 AM AGRONOMIST) Only the most recent of2 resultswithin the time period is included. Culture Anaerobic No Growth Anaerobes. [facility] Culture Anaerobic AEROBIC GROWTH COMPATIBLE WITH ROUTINE CULTURE. [facility] Tissue 04/09/2015 9:30 AM AGRONOMIST 04/09/2015 9:40 AM AGRONOMIST Narrative [facility] - 04/17/2015 12:14 PM AGRONOMIST Right mandible tissue Specimen Type->Tissue Any Santos MD LAB - MICROBIOLO GY ORDERABLES Performing Organization Address [facility] Co de Phone Number [address] [phone] * PATHOLOGY TISSUE (04/09/2015 8:45 AM AGRONOMIST) Surgical Pathology Tissue CLINICAL HISTORY: Osteomyelitis of the mandible. PRE-OP DIAGNOSIS: ??Osteomyelitis of mandible. OPERATIVE PROCEDURE: ??Biopsy of right mandible. FINAL DIAGNOSIS: MANDIBLE BIOPSY: - ? CHANGES CONSISTENT WITH OSTEOMYELITIS - ? REPARATIVE TISSUES WITH ACUTE AND CHRONIC INFLAMMATION GROSS DESCRIPTION: The specimen is received fixed in formalin in one container, labeled with the patient's name Leslee Arreguin and right mandible bx , and consists of multiple fragments of soft, brown-centeno to centeno-white tissue fragments with an aggregate measurement of 1.6 x 1.2 x 0.3 cm. ??The specimen is filtered and submitted entirely in cassette A1. MNR/ls MICROSCOPIC DESCRIPTION: After initial inspection, surface decalcification of the block is performed with recutting of the material. ??In the latter slides, devitalized bone is noted with focal bacterial colonization and focal bordering by acute inflammatory cells. ??Fairly abundant reparative inflamed connective tissues are noted. ??No granulomata are identified. ??No overt malignant changes are appreciated. SB/edk The performance characteristics of all immunohistochemical and indirect immunofluorescence stains (if any) cited in this report were determined by the Histopathology Laboratory of [facility].?? Some of these tests were developed by our own laboratory and have not been cleared or approved by the US Food and Drug Administration.?The FDA does not require this test to go through premarket FDA review.?These tests are used for clinical purposes. They should not be regarded as investigational or for research.?? This laboratory is certified under the Clinical Laboratory Improvement Amendments (CLIA) as qualified to perform high complexity clinical laboratory testing. This case has been personally reviewed and interpreted by the attending (teaching) pathologist. Final Diagnosis performed by Gayle Browning MD. Electronically signed 04/12/2015 [facility] ([facility] Other (qualifier value) 04/09/2015 8:45 AM AGRONOMIST 04/09/2015 9:[address] [facility] ([place]) - 04/12/2015 4:36 PM AGRONOMIST PROBLEM LIST: Patient Active Problem List: ?? Osteomyelitis of mandible PRE-OP DIAGNOSIS: ??Osteomyelitis of the mandible . OPERATIVE PROCEDURE / FINDINGS: ??Procedure(s): BIOPSY OF THE RIGHT MANDIBLE POST-OP DIAGNOSIS: * No post-op diagnosis entered * Collection Date->04/09/15 Collection Time-> 8:45 AM Specimen A->Soft Tissue, Other Right mandible tissue Winston Barriga MD LAB - PATHOLOGY/CYTO LOGY ORDERABLES [facility] ([facility]) * PATHOLOGY/GENETICS HISTORICAL-ONBASE (04/09/2015) 04/09/2015 Narrative [facility] - 04/13/2015 11:10 AM AGRONOMIST Historical Provider LAB - CHEMISTRY O RDERABLES [facility] [address] * T3 FREE (04/08/2015 7:38 AM AGRONOMIST) T3 Free 2.8 1.7 - 3.7 pg/mL [facility] Blood specimen (specimen) BLOOD SPECIMEN / Unknown 04/08/2015 7:38 AM AGRONOMIST 04/08/2015 9:35 AM AGRONOMIST Any Santos MD LAB - CHEMISTRY ORDERABLES Performing Organization Address City/[facility]/ZIP Co de Phone Number [address] [phone] * (ABNORMAL) VANCOMYCIN LEVEL TROUGH (04/08/2015 7:38 AM AGRONOMIST) Vancomycin Trough 2.9(L) 10.0 - 20.0 mcg/mL [facility] Blood specimen (specimen) BLOOD SPECIMEN / Unknown 04/08/2015 7:38 AM AGRONOMIST 04/08/2015 7:46 AM AGRONOMIST Any Santos MD LAB - CHEMISTRY ORDERABLES Performing Organization Address [facility]/ZIP Co de Phone Number [address] [phone] * XR PANOREX (04/07/2015 12:46 PM AGRONOMIST) Anatomical Region Laterality Modality Head Other Impressions 04/08/2015 6:05 PM AGRONOMIST Impression: Lytic focus in the right mandibular body compatible with osteomyelitis. Dictated by Jordan Michaud MD (Commercial Reporter). Dr. SARAY Mccabe M.D. have personally reviewed and interpreted this examination/study. This report was electronically signed by SARAY COPPOLA M.D. ??on 04/08/2015 6:05 PM . Narrative 04/08/2015 6:05 PM AGRONOMIST EXAMINATION: Panorex HISTORY: mandibular osteomyelitis COMPARISON: No prior study is available for comparison. FINDINGS: The patient is edentulous. A 1.5 x 0.8 cm lucency in the right mandibular body is compatible with osteomyelitis. There is no fracture. The temporomandibular joints are intact. Generalized thinning of the mandible is seen. Procedure Note Saray Coppola MD - 07/13/2017 EXAMINATION: Panorex HISTORY: mandibular osteomyelitis COMPARISON: No prior study is available for comparison. FINDINGS: The patient is edentulous. A 1.5 x 0.8 cm lucency in the right mandibularbody is compatible with osteomyelitis. There is no fracture. Thetemporomandibular joints are intact. Generalized thinning of the mandibleis seen. IMPRESSION Impression: Lytic focus in the right mandibular body compatible with osteomyelitis. Dictated by Jordan Michaud MD (Commercial Reporter). Dr. SARAY Mccabe M.D. have personally reviewed and interpreted thisexamination/study. This report was electronically signed by SARAY COPPOLA M.D. on 04/08/20156:05 PM . Any Santos MD DIAGNOSTIC IMAGI NG ORDERABLES * (ABNORMAL) C-REACTIVE PROTEIN (04/07/2015 10:46 AM AGRONOMIST) Only the most recent of2 resultswithin the time period is included. C-Reactive Protein 1.9(H) <=0.5 mg/dL [facility] Blood specimen (specimen) BLOOD SPECIMEN / Unknown 04/07/2015 10:46 AM AGRONOMIST 04/07/2015 10:52 AM AGRONOMIST Any Santos MD LAB - CHEMISTRY ORDERABLES Performing Organization Address [facility]/ZIP Co de Phone Number [facility] [address] [phone] * (ABNORMAL) THYROID PEROXIDASE ANTIBODY (04/07/2015 10:46 AM AGRONOMIST) Thyroid Peroxidase TPO Antibody 62(H) 0 - 34 IU/mL [facility] ([facility]) Blood specimen (specimen) BLOOD SPECIMEN / Unknown 04/07/2015 10:46 AM AGRONOMIST 04/08/2015 9:[address] [facility] ([facility]) - 04/10/2015 6:39 AM AGRONOMIST Performed at: ?? - [address] ??[id number] Topographical Drafter: Adin Salazar PhD, Phone: ??[phone] Any Santos MD LAB - CHEMISTRY ORDERABLES Performing Organization Address [facility] de Phone Number [facility] ([place]) * (ABNORMAL) ERYTHROCYTE SEDIMENTATION RATE (04/07/2015 10:46 AM AGRONOMIST) Only the most recent of2 resultswithin the time period is included. Erythrocyte Sedimentation Rate Westergren 22(H) 0 - 20 MM/HR [facility] Comment: ########################################################################## # Please Note: ??New age specific reference ranges have been implemented. # ########################################################################## Blood specimen (specimen) BLOOD SPECIMEN / Unknown 04/07/2015 10:46 AM AGRONOMIST 04/07/2015 10:52 AM AGRONOMIST Any Santos MD LAB - HEMATOLOGY ORDERABLES [address] [phone] * MRI ORBITS OR FACE WWO CONTRAST (04/06/2015 9:02 PM AGRONOMIST) Anatomical Region Laterality Modality Head Other Impressions 04/07/2015 7:21 PM AGRONOMIST IMPRESSION: 1. Small abscess occupying a defect or socket in the edentulous right mandibular body complicated by acute right mandibular osteomyelitis superimposed upon subacute or chronic right mandibular osteomyelitis with associated overlying cellulitis as described above. No findings to suggest a neoplastic process involving the mandible. This report was electronically signed by SIMBA HAWTHORNE M.D. ??on 04/07/2015 7:21 PM . Narrative 04/07/2015 7:21 PM AGRONOMIST EXAMINATION: ??Magnetic resonance imaging (MRI) of the neck without and with contrast HISTORY: 54-year-old female presenting with progressively worsening right mandibular pain and swelling over the past several months. The patient has been edentulous since her 20s. TECHNIQUE: MRI of the neck was performed prior to and following the uneventful administration of Gadavist 6.5 mL according to standard protocol. FINDINGS: Comparison is made with a recent outside hospital CT study from 04/05/2015, and a prior MRI cervical spine study from 09/15/2010, and a prior CT cervical spine study from 09/14/2010. The patient is completely edentulous with absent maxillary and mandibular teeth. There is a round defect within the posterior body of the right mandible with irregular margins measuring approximately 1 cm which correlates with an extracted molar tooth socket seen on a prior CT study from 2010 and appears substantially increased in size on today's exam. There is a rim-enhancing collection occupying this socket which demonstrates diffusion restriction and foci of T2 hyperintensity consistent with a small abscess. Note that a recent CT study from 2 days earlier demonstrated punctate calcific densities within the socket likely representing bony sequestra. There has been interval development of sclerosis of the right mandibular body centered around this socket since 2010 indicative of subacute or chronic osteomyelitis. There is T1 hypointensity, edema and enhancement within the bone marrow of the nonsclerotic right mandibular ramus representing superimposed acute osteomyelitis. There is enhancement and edema in the superficial right mandibular and submandibular soft tissues with associated thickening of the platysma muscle and overlying skin representing cellulitis. No cervical lymphadenopathy is identified. Procedure Note Simba Hawthorne MD - 07/13/2017 EXAMINATION: Magnetic resonance imaging (MRI) of the neck without andwith contrast HISTORY: 54-year-old female presenting with progressively worsening rightmandibular pain and swelling over the past several months. The patient hasbeen edentulous since her 20s. TECHNIQUE: MRI of the neck was performed prior to and following theuneventful administration of Gadavist 6.5 mL according to standardprotocol. FINDINGS: Comparison is made with a recent outside hospital CT study from04/05/2015, and a prior MRI cervical spine study from 09/15/2010, and aprior CT cervical spine study from 09/14/2010. The patient is completely edentulous with absent maxillary and mandibularteeth. There is a round defect within the posterior body of the rightmandible with irregular margins measuring approximately 1 cm whichcorrelates with an extracted molar tooth socket seen on a prior CT study from 2010 and appears substantiallyincreased in size on today's exam. There is a rim-enhancing collectionoccupying this socket which demonstrates diffusion restriction and foci ofT2 hyperintensity consistent with a small abscess. Note that a recent CT study from 2 days earlierdemonstrated punctate calcific densities within the socket likelyrepresenting bony sequestra. There has been interval development ofsclerosis of the right mandibular body centered around this socket since 2010 indicative of subacute or chronic osteomyelitis.There is T1 hypointensity, edema and enhancement within the bone marrow ofthe nonsclerotic right mandibular ramus representing superimposed acuteosteomyelitis. There is enhancement and edema in the superficial right mandibular and submandibular softtissues with associated thickening of the platysma muscle and overlyingskin representing cellulitis. No cervical lymphadenopathy is identified. IMPRESSION IMPRESSION: 1. Small abscess occupying a defect or socket in the edentulous rightmandibular body complicated by acute right mandibular osteomyelitissuperimposed upon subacute or chronic right mandibular osteomyelitis withassociated overlying cellulitis as described above. No findings to suggest a neoplastic process involving themandible. This report was electronically signed by SIMBA HAWTHORNE M.D. on 04/07/20157:21 PM . Any Santos MD MR ORDERABLES * TSH (04/06/2015 2:44 AM AGRONOMIST) TSH 4.499 0.350 - 4.940 uIU/mL [facility] Blood specimen (specimen) BLOOD SPECIMEN / Unknown 04/06/2015 2:44 AM AGRONOMIST 04/06/2015 3:05 AM AGRONOMIST Eduardo Sin MD LAB - CHEMISTRY BENITA BULLARD Performing Organization Address [facility]/ZIP Co de Phone Number [address] [phone] * T4 FREE (04/06/2015 2:44 AM AGRONOMIST) Pathologist [facility] T4 Free 1.0 0.7 - 1.5 ng/dL [facility] Blood specimen (specimen) BLOOD SPECIMEN / Unknown 04/06/2015 2:44 AM AGRONOMIST 04/06/2015 6:27 AM AGRONOMIST Any Santos MD LAB - CHEMISTRY ORDERABLES Performing Organization Address [facility] Co de Phone Number [address] [phone] * (ABNORMAL) DRUG ABUSE PANEL 10-20+ETHANOL URINE NO CONFIRM (04/06/2015 1:38 AM AGRONOMIST) [facility] Amphetamines Screen Urine Negative Negative : < 1000 ng/mL [facility] Barbiturates Screen Urine Negative Negative : < 200 ng/mL [facility] Benzodiazepine Screen Urine Positive(A) Negative : < 200 ng/mL [facility] Comment: Positive urine benzodiazepine screening results should be confirmed by another generally accepted non-immunological method such as gas chromatography or mass spectrometry. ? Opiates Urine Positive(A) Negative : < 300 ng/mL [facility] Comment: Positive urine opiate screening results should be confirmed by another generally accepted non-immunological method such as gas chromatography or mass spectrometry. ? Cocaine Metabolites Urine Negative Negative : < 300 ng/mL [facility] Phencyclidine Screen Urine Negative Negative : < 25 ng/ml [facility] Cannabinoids Screen Urine Positive(A) Negative : <50 ng/mL [facility] Comment: Positive urine cannabinoids (THC) screening results should be confirmed by another generally accepted non-immunological method such as gas chromatography or mass spectrometry. ? Methadone Screen Urine Negative Negative : < 300 ng/mL [facility] Urine specimen (specimen) URINE / Unknown 04/06/2015 1:38 AM AGRONOMIST 04/06/2015 1:48 AM AGRONOMIST Narrative [facility] - 04/06/2015 2:05 AM AGRONOMIST The Urine Toxicology Screening Panel does not screen for Propoxyphene, Meprobamate, Carisoprodol, Trazodone, jmev-hyd-pnnndph medications and/or volatiles (Acetone, Isopropanol, Methanol or Ethylene Glycol). Ethanol, Salicylate, Acetaminophen, Tricyclic Antidepressants and several therapeutic drugs may be individually assayed in serum or plasma specimen. Toxicology testing by the [facility] is an aid to medical diagnosis and treatment of patients. No documented chain of custody was maintained. Results are intended to be used for clinical purposes only. ? Any Santos MD LAB - URINE CHEM ISTRY ORDERABLES Performing Organization Address [facility] [place] de Phone Number [address] [phone] * EKG 12-LEAD (04/06/2015 12:00 AM AGRONOMIST) EKG [facility] Comment: Exam Date/Time: ?? Apr 06 2015 01:33:03 Test Reason : Measure QT interval. Blood Pressure : / mmHG Vent. Rate : 057 BPM ? Atrial Rate : 057 BPM ?? P-R Int : 160 ms ?QRS Dur : 082 ms ?QT Int : 430 ms ? P-R-T Axes : 078 085 082 degrees ?? QTc Int : 418 ms Sinus bradycardia Otherwise normal ECG No previous ECGs available Confirmed by Ella TIPTON, EULALIA ([id number]), news assignment editor MAT EMERSON ([id number]) on 04/19/2015 12:44:17 PM Referred By: REFERRING NO ? Confirmed By:EULALIA TIPTON M.D. 04/06/2015 Any Santos MD ECG ORDERABLES Performing Organization Address [facility] [place] de Phone Number [facility] * CULTURE BLOOD (04/05/2015 10:45 PM AGRONOMIST) Only the most recent of2 resultswithin the time period is included. Culture Blood No Growth at 5 days [facility] Blood specimen (specimen) 04/05/2015 10:45 PM AGRONOMIST 04/05/2015 11:00 PM AGRONOMIST Eduardo Sin MD LAB - MICROBIOLOGY O RDERABLES Performing Organization Address [facility] [place] [address], [facility] [phone] * (ABNORMAL) COMPREHENSIVE METABOLIC PANEL (04/05/2015 10:30 PM AGRONOMIST) BUN 14 7 - 26 mg/dL [facility] Creatinine 0.6 0.6 - 1.2 mg/dL [facility] Sodium 138 136 - 145 mmol/L [facility] Potassium 3.5 3.5 - 4.5 mmol/L [facility] Chloride 100 98 - 107 mmol/L [facility] CO2 29 22 - 29 mmol/L [facility] Glucose 145(H) 70 - 115 mg/dL [facility] Calcium 9.0 8.4 - 10.2 mg/dL [facility] Protein Total 6.2 6.0 - 8.3 g/dL [facility] Albumin 3.4 3.4 - 5.0 g/dL [facility] Bilirubin Total 0.4 0.2 - 1.2 mg/dL [facility] Alkaline Phosphatase 84 40 - 150 Units/L [facility] ALT 8 0 - 55 Units/L [facility] AST 8 5 - 34 Units/L [facility] Anion Gap 13 8 - 18 [facility] BUN/Creatinine Ratio 23 7 - 23 [facility] Osmolality Calculated 275 270 - 300 mOsm/kg [facility] Albumin/Globulin Ratio 1.2 1.1 - 2.3 [facility] eGFR >60 >60 mL/min/1.7 3 m2 [facility] Blood specimen (specimen) BLOOD SPECIMEN / Unknown 04/05/2015 10:30 PM AGRONOMIST 04/05/2015 10:59 PM AGRONOMIST Eduardo Sin MD LAB - CHEMISTRY BENITA BULLRAD [facility] [address] [place] [address], [facility] [phone] * XR CHEST 1VW PORTABLE (04/05/2015 9:49 PM AGRONOMIST) Anatomical Region Laterality Modality Chest Other Impressions 04/06/2015 6:04 PM AGRONOMIST Impression: No acute pulmonary process. 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 This report has been dictated by Sandeep Alexandre M.D. (Resident). This report was approved ??by Sandeep Alexandre ?? on 04/06/2015 4:32 PM . Estelle, Dr. VIK VALLES MD have personally reviewed and interpreted this examination/study. This report was electronically signed by VIK VALLES MD ??on 04/06/2015 6:04 PM . Narrative 04/06/2015 6:04 PM AGRONOMIST Exam: Portable chest, one view. Date: 04/05/2015 History: Wheezing with a long history of smoking. Comparison: 09/13/2010. Findings: The lungs are clear. There is no pleural effusion or pneumothorax. The cardiomediastinal silhouette is normal. The aorta is atherosclerotic. The visible bony thorax is intact. There is a 1.8 cm sclerotic lesion in the left humeral head which was present previously and probably represents a bone infarct or a low-grade chondroid lesion such as enchondroma. Procedure Note Vik Valles MD - 07/13/2017 Exam: Portable chest, one view. Date: 04/05/2015 History: Wheezing with a long history of smoking. Comparison: 09/13/2010. Findings: The lungs are clear. There is no pleural effusion or pneumothorax. Thecardiomediastinal silhouette is normal. The aorta is atherosclerotic. Thevisible bony thorax is intact. There is a 1.8 cm sclerotic lesion in theleft humeral head which was present previously and probably represents a bone infarct or a low-grade chondroidlesion such as enchondroma. IMPRESSION Impression: No acute pulmonary process. There is a sclerotic lesion in the left humeral head which was presentpreviously and probably represents a bone infarct or a low-grade chondroidlesion such as enchondroma. This report has been dictated by Sandeep Alexandre M.D. (Resident). This report was approved by Sandeep Alexandre on 04/06/2015 4:32 PM . I, Dr. VIK VALLES MD have personally reviewed and interpreted thisexamination/study. This report was electronically signed by VIK VALLES MD on04/06/2015 6:04 PM . Eduardo Sin MD [facility] Care Teams Command And Control Officer Relationship Specialty Start Date End Date Dieudonne Maxwell MD [address] [place] [address] PCP - General 05/20/18
--- OUTSIDE RECORDS SUMMARY | 2024-05-14 10:19 | XMS_ITS | Clinical Summary ---
Author Organization [facility] Address [address] [place] [address]. [place], [place] [address] [place] [address] Care Team Providers Care Preform Machine Operator Name Role Phone Unavailable Primary Care Provider Unavailabl e Social History Tobacco Use Types Packs/Day Years Used Date Smoking Tobacco: Never Assessed Comments Unknown Sex and Gender Information Value Date Recorded Sex Assigned at Not on file Legal Sex Female 7:10 PM CDT Gender Identity Not on file Sexual Orientation Not on file Plan of Treatment Health Maintenance Due Date Last Done Comments Cervical Cancer Screening Pa p Smear (Age 30 to 64) Every 3 Years 1961 Colorectal Cancer Screening Colonoscopy (10 Years) 1961 Annual Physical 1964 Hepatitis C 09/28/1979 DTaP, Tdap and Td Vaccines ( 1 - Tdap) 1980 Cervical Cancer Screening Pa p with HPV Testing (Age 30 to 64) Every 5 Years 09/28/1991 Cervical Cancer Screening with HPV 09/28/1991 Mammogram Screening 2001 Zoster Vaccines (1 of 2) 09/28/2011 COVID-19 Vaccine (2023-2 5 season) 2023 Influenza Adult (#1) 2024 RSV Immunization or 60+ Years (1 - 1-dose 75+ series) 2036 Meningococcal B Vaccine Aged Out No l onger eligible based on patient's age to complete this topic Meningococcal Vaccine Aged Out No zana veronica eligible based on patient's age to complete this topic Pneumococcal Vaccine: Pediat rics (0 to 5 Years) and At-Risk Patients (6 to 64 Years) Aged Out No longer eligible b ased on patient's age to complete this topic RSV Immunizations Under 20 Months Aged Out No longer eligible based on patient's age to complete this topic
--- OUTSIDE RECORDS SUMMARY | 2024-05-14 10:19 | XMS_ITS ---
Author Organization [facility] Address [address] [facility] [place] [address] Care Team Providers Care Signal Intelligence/Electronic Warfare Name Role Phone Harvey Wilson MD Unavailable [phone] Wily Bassett MD Unavailable [phone] Paulie Lai MD Unavailable [phone] Eb Cardoso MD Unavailable [phone] Ernesto Reddy MD Unavailable [phone] Naomi Bay MD Unavailable Paula Jarvis NP Unavailable [phone] Unknown, Notinfile Primary Care Provider Unavail able Active Problems Problem Noted Date Diagnosed Date [...] left lung 12/16/2021 Pneumothorax on left 12/16/2021 Current Oncology Plans No current plan information found. Other Current Plans Hydration Therapy Plan* Plan Start Date:04/03/2022 Plan Provider:Ernesto Reddy MD Linked Problems Dehydration Treatment Medications No medications scheduled. Past Plans Oncology Chemotherapy Treatment Plan Name Start Date Discontinue Date Treatment Medications Discontinue Reason Plan Provider Cycles durvalumab consolidation 14 Day Cycles - Lung 3 05/23/2022 durvalumab (IMFINZI)durval umab (IMFINZI) IVPB in 100 mL solution Patient Preference Ernesto Reddy MD 1 of 26 cycles started PACLItaxel / CARBOplatin with Concurrent Radiation: Induction / Weekly - Non-Small Cell Lung 02/10/20 22 04/03/2022 CARBOplatin (PARAPLATIN)CAR BOplatin (PARAPLATIN) IVPB in 250 mLPACLitaxel (TAXOL)PACLItax el (TAXOL) 100 ml Therapy Complete Ernesto Reddy MD 1 of 1 cycle started Radiation Treatments * Plan Last Treated On Elapsed Days Fractions Treated Prescribed Fraction Dose Prescribed Total Dose MEDIASTINUM 04/04/2022 43 30 200 cGy 6,000 c Gy Reference Point Last Treated On Elapsed Days Session Dose Total Dose [id number] 04/04/2022 43 200 cGy 6,000 cGy Lifetime Dose Tracking * Chemical Lifetime Dose Automatic Entry Manual Entr y DLP 3,476 mGycm 3,476 mGycm 0 mGycm
--- OUTSIDE RECORDS SUMMARY | 2024-05-14 10:19 | XMS_ITS | Encounter Summary ---
Author Organization [facility] Healthcare Address [address] [place] [address] Care Team Providers Care Logistics Analytics Manager Name Role Phone Saul Fitch DO Primary Care Provider [phone] Harvey Wilson MD Unavailable [phone] Wily Bassett MD Unavailable [phone] Paulie Lai MD Unavailable [phone] Eb Cardoso MD Unavailable [phone] Ernesto Reddy MD Unavailable [phone] Naomi aBy MD Unavailable [phone] Paula Jarvis NP Unavailable [phone] Unknown, Notinfile Primary Care Provider Unavail able Encounter Details Date Type Department Care Team (Late st Contact Info) Description 10/23/2022 Telephone [facility] [address] [place] [address] Shaina Huynh RN Social History Tobacco Use Types Packs/Day Years Used Date Smoking Tobacco: Every Day Cigarettes AUDIT-C Answer Date Recorded Q1: How often do you have a drink containing alc ohol? Monthly or less 01/26/2022 Average Number of Drinks Not on file 022 Frequency of Binge Drinking Not on file 01/[address] [facility] [address] [facility] - Occupational Stress Questionnaire Answer Date Recorded Do you feel stress - tense, restless, nervous, or anxious, or unable to sleep at night because your mind is troubled all the time - these days? 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 Gender Identity Not on file Sexual Orientation Not on file documented as of this encounter Plan of Treatment Not on file documented as of this encounter Visit Diagnoses Not on filedocumented in this encounter Care Teams Logistics Analytics Manager Relationship Specialty Start Date End Date Saul Fitch DO PCP - General Internal Medicine 01/18/22 01/21/24 Unknown, Notinfile PCP - General 01/22/24 Harvey Wilson MD Medical Oncologist Hematology 01/25/22 Wily Bassett MD [address] [facility] [address] [place] [address] Surgeon Cardiothoracic Surgery 01/25/22 Paulie Lai MD [address] [facility] [address] [place] [address] Systems Architect Critical Care Med 01/25/22 Eb Cardoso MD [address] [place] [address] Systems Architect Critical Care Med 01/25/22 Ernesto Reddy MD [address] [facility] MEDICAL ONCOLOGY, [address]A, [address]B, [address] [place] [address] Medical Oncologist/Certified Medical Technician Assistant Medical Oncology 01/25/22 Naomi Bay MD [address] [facility] [address] [place] [address] Radiation Oncologist Radiation Oncology 01/31/22 Paula Jarvis NP [address] [facility] [address] [place] [address] Nurse Practitioner Radiation Oncology 07/18/22 documented as of this encounter
--- NOTE | 2024-05-14 11:02 | ECG_ITS ---
Test Date: 2024-05-14 11:16:21 Measurements Intervals [place] Rate: 82 P: 77 MO: 130 QRS: 65 QRSD: 88 T: 53 QT: 359 QTc: 420 Interpretive Statements SINUS RHYTHM POSSIBLE LEFT ATRIAL ENLARGEMENT [-0.1mV P WAVE IN V1/V2] No previous ECG available for comparison Electronically Signed On 05-14-2024 11:48:23 ASSOCIATE JAVA DEVELOPER by Fab Camejo M.D.
[2024-05-14 11:43] LABS: Basophils Percent Auto 0.4 % (0.2-1.2); Eosinophils Absolute Auto 0.1 K/mm3 (0-0.3); Eosinophils Percent Auto 0.5 % (0-4.4); Hematocrit 38.5 % (37.0-47.0); Hemoglobin 12.3 g/dL (12.0-15.0); Immature Granulocyte Absolute 0.04 K/mm3 (0.00-0.031); Immature Granulocyte Percent A 0.4 % (0-0.5); Lymphocytes Absolute Auto 1.68 K/mm3 (0.9-3.2); Lymphocytes Percent Auto 15.2 % (18.3-44.2); Mean Corpuscular HGB Conc 31.9 g/dl (32-36); Mean Corpuscular Hemoglobin 30.6 pg (26-34); Mean Corpuscular Volume 95.8 fl (80-100); Mean Platelet Volume 9.8 fl (7.4-10.4); Monocytes Absolute Auto 0.9 K/mm3 (0.1-0.6); Monocytes Percent Auto 8.2 % (2.6-8.5); Neutrophils Absolute Auto 8.4 K/mm3 (1.3-6.7); Neutrophils Percent Auto 75.3 % (45.5-73.1); Platelet Count Result 467 k/mm3 (150-375); Red Blood Count 4.02 M/mm3 (4.2-5.4); Red Cell Distribution Width 12.8 % (11.5-14.5); White Blood Count 11.1 K/mm3 (4.5-10.0)
[2024-05-14 11:53] LABS: Alanine Aminotransferase 12 U/L (6-35); Alkaline Phosphatase 81 U/L (38-126); Anion Gap 14 mmol/L (4-12); Aspartate Amino Transferase 16 U/L (14-36); Bilirubin,Total 0.4 mg/dL (0.2-1.3); Blood Urea Nitrogen 13 mg/dL (7-17); Calcium 9.4 mg/dL (8.4-10.2); Carbon Dioxide 26 mmol/L (22-30); Chloride 100 mmol/L (98-107); Estimated CRCL calculation 116 ml/min; Estimated Glomerular Filt Rate > 60; Glucose 140 mg/dL (65-110); Sodium 140 mmol/L (137-145)
[2024-05-14 11:59] LABS: Partial Thromboplastin Time 33.1 Seconds (22.3-36.8)
[2024-05-14 12:19] LABS: Influenza A QL RT-PCR Negative (Negative); Influenza B QL RT-PCR Negative (Negative); RSV RNA, RT-PCR Negative (Negative); SARS-CoV-2 RNA PCR Negative (Negative)
--- OUTSIDE RECORDS SUMMARY | 2024-05-14 12:58 | XMS_ITS | Clinical Summary ---
Author Organization [facility] Address [address], [facility] [address] [place] [address] Phone Care Team Providers Care Cleaner Housekeeping Name Role Phone Dieudonne Maxwell MD Primary Care Provider [phone] Allergies Active Allergy Reactions Criticality Noted Date [...] Heart Attack Father Heart Attack Sister fatal CA Heart Disease Sister Relation Name Status Comments [...] to Health Maintenance Insurance MEDICARE Care Teams Cleaner Housekeeping Relationship Specialty Start Date End Date Dieudonne Maxwell MD [address] [place], [place] [id number] PCP - General Internal Medicine 11/19/17
--- OUTSIDE RECORDS SUMMARY | 2024-05-14 12:58 | XMS_ITS | Clinical Summary ---
Author Organization [facility] Address [address] [place] [address]. [place], [place] [address] [place] [address] Care Team Providers Care Battery Technician Name Role Phone Unavailable Primary Care Provider [...]
--- OUTSIDE RECORDS SUMMARY | 2024-05-14 12:58 | XMS_ITS | Encounter Summary ---
Author Organization [facility] Address [address] [place] [address] Phone Care Team Providers Care Foundry Hand Name Role Phone Saul Fitch Primary Care Provider [phone] Harvey Wilson MD Unavailable [phone] Wily Bassett MD Unavailable [phone] Paulie Lai MD Unavailable [phone] Eb Cardoso MD Unavailable [phone] Ernesto Reddy MD Unavailable [phone] Naomi Bay MD Unavailable [phone] Paula Jarvis NP Unavailable [phone] Unknown, Notinfile Primary Care Provider Unavail able Encounter Details Date Type Department Care Team (Latest Contact Info) Description 12/14/2021 Orders Only [facility] Scanning, Provider Social History Tobacco Use Types Packs/Day Years Used Date Smoking Tobacco: Never Assessed Comments Unknown Sex and Gender Information Value Date Recorded Sex Assigned at Not on file Legal Sex Female 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 EMISSIONS Gender Identity Not on file Sexual Orientation [...] on filedocumented in this encounter Care Teams Foundry Hand Relationship Specialty Start Date End Date Saul Fitch DO PCP - General Internal Medicine 01/18/22 01/21/24 Unknown, Notinfile PCP - General 01/22/24 Harvey Wilson MD Medical Oncologist Hematology 01/25/22 Wily Bassett MD [address] [facility] [address] [place] [address] Surgeon Cardiothoracic Surgery 01/25/22 Paulie Lai MD [address] [facility] [address] [place] [address] Senior Sales Compensation Analyst Critical Care Med 01/25/22 Eb Cardoso MD [address] [place] [address] Senior Sales Compensation Analyst Critical Care Med 01/25/22 Ernesto Reddy MD [address] DIV MEDICAL ONCOLOGY, [address], [address]B, [address] [place] [address] Medical Oncologist/Collar Folder Operator Medical Oncology 01/25/22 Naomi Bay MD [address] [place] [address] Radiation Oncologist Radiation Oncology 01/31/22 Paula Jarvis NP [address] [facility] [address] [place] [address] Nurse Practitioner Radiation Oncology 07/18/22 documented as of this encounter
--- OUTSIDE RECORDS SUMMARY | 2024-05-14 12:58 | XMS_ITS | Encounter Summary ---
Author Organization [facility] Address [address] [place] [address] Phone Care Team Providers Care Apparel Pattern Maker Name Role Phone Dieudonne Maxwell MD Primary Care Provider [phone] Reason for Visit * Reason Comments Medication Refill Encounter Details Date Type Department Care Team (Late st Contact Info) Description 05/24/2019 Refill [facility] - Gastroenterology [facility] [address] [place] [address] Alexia Roper, RAILROADER, [place] [address] [place] [address] Medication Refill Social History Tobacco [...] Wily Sanchez CMA - 05/25/2019 7:55 AM MOUNTER SMOKING PIPE Patient calling requesting refill of: Requested Prescriptions Pending Prescriptions Disp Refills ??? LINZESS 145 MCG Capsule [Pharmacy Med Name: LINZESS 145MCG CAPSULES] 30 Cap 3 Sig: TAKE 1 CAPSULE BY MOUTH EVERY MORNING BEFORE BREAKFAST Last fill: 05/24/2019 Patients last OV with GI: 09/16/18 Next Office Visit with GI: None scheduled TER SMOKING PIPE documented in this encounter Plan of Treatment Not on file documented as of this encounter Visit Diagnoses Not on filedocumented in this encounter Care Teams Apparel Pattern Maker Relationship Specialty Start Date End Date Dieudonne Maxwell MD [address] [place] [address] PCP - General Internal Medicine 11/19/17 documented as of this encounter
--- OUTSIDE RECORDS SUMMARY | 2024-05-14 12:58 | XMS_ITS | Encounter Summary ---
Author Organization [facility] Address [address] [place] [address] Phone Care Team Providers Care Cafe Cook Name Role Phone Saul Fitch Primary Care Provider [phone] Harvey Wilson MD Unavailable [phone] Wily Bassett MD Unavailable [phone] Paulie Lai MD Unavailable [phone] Eb Cardoso MD Unavailable [phone] Ernesto Reddy MD Unavailable [phone] Naomi Bay MD Unavailable [phone] Paula Jarvis NP Unavailable [phone] Unknown, Notinfile Primary Care Provider Unavail able Encounter Details Date Type Department Care Team (Latest Contact Info) Description 11/22/2021 Orders Only [facility] Scanning, Provider Social History Tobacco Use Types Packs/Day Years Used Date Smoking Tobacco: Never Assessed Comments Unknown Sex and Gender Information Value Date Recorded Sex Assigned at Not on file Legal Sex Female 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 Gender Identity Not on file Sexual Orientation [...] on filedocumented in this encounter Care Teams Cafe Cook Relationship Specialty Start Date End Date Saul Fitch DO PCP - General Internal Medicine 01/18/22 01/21/24 Unknown, Notinfile PCP - General 01/22/24 Harvey Wilson MD Medical Oncologist Hematology 01/25/22 Wily Bassett MD [address] [facility] [address] [place] [address] Surgeon Cardiothoracic Surgery 01/25/22 Paulie Lai MD [address] [facility] [address] [place] [address] Virtual Assistant For Advertisers Critical Care Med 01/25/22 Eb Cardoso MD [address] [place] [address] Virtual Assistant For Advertisers Critical Care Med 01/25/22 Ernesto Reddy MD [address] DIV MEDICAL ONCOLOGY, [address], [address]B, [address] [place] [address] Medical Oncologist/Home Health Lpn Medical Oncology 01/25/22 Naomi Bay MD [address] [place] [address] Radiation Oncologist Radiation Oncology 01/31/22 Paula Jarvis NP [address] [facility] [address] [place] [address] Nurse Practitioner Radiation Oncology 07/18/22 documented as of this encounter
--- OUTSIDE RECORDS SUMMARY | 2024-05-14 12:58 | XMS_ITS | Continuity of Care Document ---
Author Organization [facility] Address [address] [place] [address] [address] [place] [address] Phone Care Team Providers Care Tenoner Operator Name Role Phone Sanford OD, Alverto Unavailable Unavailable Advance Directives Directive Yes / No Effective Date File Name No Information Encounters Encounter Description Practice Location Reason(s) For Visit Diagnoses Date Provider Providers Copied on Encounter [facility], [address], [place], [place], [address], [place] tel:[phone] [facility] No Information Apr-1 5-200 5 Sanford OD Alverto. [address] , [address], [place], [address], [place]. tel:[phone] Family History Family Member Type Diagnosis Age At Onset No Information Payers Payer name Insurance type Covered alliance party ID Authoriza tion(s) No Information Social [...]
--- OUTSIDE RECORDS SUMMARY | 2024-05-14 12:58 | XMS_ITS | Encounter Summary ---
Author Organization [facility] Address [address] [place] [address] Phone Care Team Providers Care Service Attendant Cafeteria Name Role Phone Saul Fitch Primary Care Provider [phone] Harvey Wilson MD Unavailable [phone] Wily Bassett MD Unavailable [phone] Paulie Lai MD Unavailable [phone] Eb Cardoso MD Unavailable [phone] Ernesto Reddy MD Unavailable [phone] Naomi Bay MD Unavailable [phone] Paula Jarvis NP Unavailable [phone] Unknown, Notinfile Primary Care Provider Unavail able Encounter Details Date Type Department Care Team (Latest Contact Info) Description 11/13/2021 Orders Only [facility] Scanning, Provider Social History Tobacco Use Types Packs/Day Years Used Date Smoking Tobacco: Never Assessed Comments Unknown Sex and Gender Information Value Date Recorded Sex Assigned at Not on file Legal Sex Female 2: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 Gender Identity Not on file Sexual Orientation [...] on filedocumented in this encounter Care Teams Service Attendant Cafeteria Relationship Specialty Start Date End Date Salu Fitch DO PCP - General Internal Medicine 01/18/22 01/21/24 Unknown, Notinfile PCP - General 01/22/24 Harvey Wilson MD Medical Oncologist Hematology 01/25/22 Wily Bassett MD [address] [facility] [address] [place] [address] Surgeon Cardiothoracic Surgery 01/25/22 Paulie Lai MD [address] [facility] [address] [place] [address] Nurse Staff Community Health Critical Care Med 01/25/22 Eb Cardoso MD [address] [place] [address] Nurse Staff Community Health Critical Care Med 01/25/22 Ernesto Reddy MD [address] DIV MEDICAL ONCOLOGY, [address], [address] [place] [address] Medical Oncologist/Spine Surgeon Medical Oncology 01/25/22 Naomi Bay MD [address] [place] [address] Radiation Oncologist Radiation Oncology 01/31/22 Paula Jarvis NP [address] [facility] [address] [place] [address] Nurse Practitioner Radiation Oncology 07/18/22 documented as of this encounter
--- OUTSIDE RECORDS SUMMARY | 2024-05-14 12:58 | XMS_ITS | Referral Summary ---
Author Organization [facility] 2 Address [address] [place] [address] Care Team Providers Care Ham Smoker Name Role Phone Harvey Wilson MD Unavailable [phone] Wily Bassett MD Unavailable [phone] Paulie Lai MD Unavailable [phone] Eb Cardoso MD Unavailable [phone] Ernesto Reddy MD Unavailable [phone] Naomi aBy MD Unavailable [phone] Paula Jarvis NP Unavailable [phone] Unknown, Notinfile Primary Care Provider Unavail able Encounters Date Type Department Care Team Description 05/01/2024 Documentation [facility] Oncology [address] [facility] Floor 1, [address] [place] [address] Karen Sylvester 05/01/2024 11:05 AM DESCRIPTIVE CATALOG LIBRARIAN - 05/01/2024 11:59 PM DESCRIPTIVE CATALOG LIBRARIAN Hospital Encounter [facility]) [address] [place] [address] Ernesto Reddy MD Primary cancer of left lower lobe of lung (HCC); 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) Discharge Disposition: Discharge to home or self care from Last 3 Months Allergies Active Allergy Reactions Criticality Noted Date Comments Sulfa (Sulfonamide Antibiotics) Unknown,Swelling Medium 10/31/2013 Swelling Sulfamethoxazole-Tri methoprim Flushing (skin),Unknown,Hives Medium 10/31/2013 Eyes close and well, 104 fever, welts and bumps 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 ??Postoperative changes of left lower lobectomy. ??Stable subcentimeter pulmonary nodules. 2. ??No evidence of disease progression in the chest and abdomen. Electronically signed by: Anna Urena M.D. Narrative 05/01/2024 12:17 PM DESCRIPTIVE CATALOG LIBRARIAN EXAMINATION: ??Computed tomography of the chest and [...] esult * POCT creatinine (05/01/2024 11:20 AM DESCRIPTIVE CATALOG LIBRARIAN) Creatinine POC 0.7 0.6 - 1.1 mg/dL Blood 05/01/2024 11:2 0 AM DESCRIPTIVE CATALOG LIBRARIAN 05/01/2024 11:20 AM DESCRIPTIVE CATALOG LIBRARIAN Ernesto Reddy MD LAB POCT ORDERABLES - DEV ICE Final Result [facility] Department of Laboratories [place], [place] [id number] * COLONOSCOPY (12/03/2012 12:00 AM CDT) Anatomical Region Laterality Modality Other Narrative 12/03/2012 12:00 AM CDT Ordered by an unspecified provider. Procedure Note ProviderReginaldo MD - 12/03/2012 12:00 AM CDT PROCEDURE REPORT Patient: LESLEE OLIVIER Account: [id number] Room No: : 1960 Patient Type: SDS [...] Recently Relevant to Health [place] [address] [facility] MEDICARE IDPA Care Teams Ham Smoker Relationship Specialty Start Date End Date Unknown, Notinfile PCP - General 01/22/24 Harvey Wilson MD Medical Oncologist Hematology 01/25/22 Wily Bassett MD [id number] [place] [address] Surgeon Cardiothoracic Surgery 01/25/22 Paulie Lai MD [address] 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 [address] [place] [address] General Machinist Critical Care Med 01/25/22 Eb Cardoso MD [address] [place] [address] General Machinist Critical Care Med 01/25/22 Ernesto Reddy MD [address] [facility] MEDICAL ONCOLOGY, [address] [place] [address] Medical Oncologist/Stock Clipper Medical Oncology 01/25/22 Naomi Bay MD [address] [facility] [address] [place] [address] Radiation Oncologist Radiation Oncology 01/31/22 Paula Jarvis NP [address] [facility] [address] [place] [address] Nurse Practitioner Radiation Oncology 07/18/22
--- OUTSIDE RECORDS SUMMARY | 2024-05-14 12:58 | XMS_ITS | Encounter Summary ---
Author Organization [facility] Address [address] [place] [address] Phone Care Team Providers Care Chucking Machine Set Up Operator Name Role Phone Saul Fitch Primary Care Provider [phone] Harvey Wilson MD Unavailable [phone] Wily Bassett MD Unavailable [phone] Paulie Lai MD Unavailable [phone] Eb Cardoso MD Unavailable [phone] Ernesto Reddy MD Unavailable [phone] Naomi Bay MD Unavailable [phone] Paula Jarvis NP Unavailable [phone] Unknown, Notinfile Primary Care Provider Unavail able Encounter Details Date Type Department Care Team (Latest Contact Info) Description 10/26/2021 Orders Only [facility] Scanning, Provider Social History Tobacco Use Types Packs/Day Years Used Date Smoking Tobacco: Never Assessed Comments Unknown Sex and Gender Information Value Date Recorded Sex Assigned at Not on file Legal Sex Female 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 Gender Identity Not on file Sexual Orientation [...] on filedocumented in this encounter Care Teams Chucking Machine Set Up Operator Relationship Specialty Start Date End Date Saul Fitch DO PCP - General Internal Medicine 01/18/22 01/21/24 Unknown, Notinfile PCP - General 01/22/24 Harvey Wilson MD Medical Oncologist Hematology 01/25/22 Wily Bassett MD [address] [facility] [address] [place] [address] Surgeon Cardiothoracic Surgery 01/25/22 Paulie Lai MD [address] [facility] [address] [place] [address] Food And Beverage Assistant Manager Critical Care Med 01/25/22 Eb Cardoso MD [address] [place] [address] Food And Beverage Assistant Manager Critical Care Med 01/25/22 Ernesto Reddy MD [address] MEDICAL ONCOLOGY, [address] [place] [address] Medical Oncologist/Pediatric Np Medical Oncology 01/25/22 Naomi Bay MD [address] [place] [address] Radiation Oncologist Radiation Oncology 01/31/22 Paula Jarvis NP [address] [facility] [address] [place] [address] Nurse Practitioner Radiation Oncology 07/18/22 documented as of this encounter
--- OUTSIDE RECORDS SUMMARY | 2024-05-14 12:59 | XMS_ITS ---
Author Organization [facility] 2 Address [address] [facility] [place] [address] Care Team Providers Care Diesel Powerplant Mechanic Helper Name Role Phone Harvey Wilson MD Unavailable [phone] Wily Bassett MD Unavailable [phone] Paulie Lai MD Unavailable [phone] Eb Cardoso MD Unavailable [phone] Ernesto Reddy MD Unavailable [phone] Naomi Bay MD Unavailable Paula Jarvis NP Unavailable [phone] Unknown, Notinfile Primary Care Provider Unavail able [...]
--- OUTSIDE RECORDS SUMMARY | 2024-05-14 12:59 | XMS_ITS | Encounter Summary ---
Author Organization [facility] Address [address] [place] [address] Care Team Providers Care Product Safety Test Engineer Name Role Phone Saul Fitch DO Primary Care Provider [phone] Harvey Wilson MD Unavailable [phone] Wily Bassett MD Unavailable [phone] Paulie Lai MD Unavailable [phone] Eb Cardoso MD Unavailable [phone] Ernesto Reddy MD Unavailable [phone] Naomi Bay MD Unavailable [phone] Paula Jarvis NP Unavailable [phone] Unknown, Notinfile Primary Care Provider Unavail able Encounter Details Date Type Department Care Team (Late st Contact Info) Description 01/23/2023 Telephone [facility] ([facility]) [address] [place] [address] Shaina Huynh RN Social History Tobacco Use Types Packs/Day Years Used Date Smoking Tobacco: Every Day Cigarettes AUDIT-C Answer Date Recorded Q1: How often do you have a drink containing alc ohol? Monthly or less 01/26/2022 Average Number of Drinks Not on file 022 Frequency of Binge Drinking Not on file 01/13 [facility] of Occupat ional Health - Occupational Stress Questionnaire Answer Date Recorded Do you feel stress - tense, restless, nervous, or anxious, or unable to sleep at night because your mind is troubled all the time - these days? 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 Gender Identity Not on file Sexual Orientation Not on file documented as of this encounter Plan of Treatment Not on file documented as of this encounter Visit Diagnoses Not on filedocumented in this encounter Care Teams Product Safety Test Engineer Relationship Specialty Start Date End Date Saul Fitch DO PCP - General Internal Medicine 01/18/22 01/21/24 Unknown, Notinfile PCP - General 01/22/24 Harvey Wilson MD Medical Oncologist Hematology 01/25/22 Wily Bassett MD [address] [facility] [address] [place] [address] Surgeon Cardiothoracic Surgery 01/25/22 Paulie Lai MD [address] [facility] [address] [place] [address] Commodities Clerk Critical Care Med 01/25/22 Eb Cardoso MD [address] [place] [address] Commodities Clerk Critical Care Med 01/25/22 Ernesto Reddy MD [address] [facility] MEDICAL ONCOLOGY, [address] [place] [address] Medical Oncologist/Children'S Choir Director Medical Oncology 01/25/22 Naomi Bay MD [address] [facility] [address] [place] [address] Radiation Oncologist Radiation Oncology 01/31/22 Paula Jarvis NP [address] [facility] [address] [place] [address] Nurse Practitioner Radiation Oncology 07/18/22 documented as of this encounter
--- OUTSIDE RECORDS SUMMARY | 2024-05-14 12:59 | XMS_ITS | Patient Health Summary ---
Author Organization [facility] Address [address] [place] [address] Care Team Providers Care Books Binder Name Role Phone Dieudonne Maxwell MD Primary Care Provider [phone] Note from [facility],non-owned Affiliates and Associated Physician Practices is amultiple site organization consisting of ambulatory clinics and hospital sitesin [place], [place], [place] and [place]. This disclosure is being madepursuant to the Care Everywhere program and may not contain all information available regarding this patient. Last updated 18.[facility] [employer] Social History Tobacco Use Types Packs/Day Years Used Date Smoking Tobacco: Never Assessed Sex and Gender Information Value Date Recorded Sex Assigned at Not on file Gender Identity Not on file Sexual Orientation Not on file Last Filed Vital Signs Vital Sign Reading Time Taken Comments Blood Pressure 110/69 06/10/2015 12:31 PM RN STAFFING Pulse 84 06/10/2015 12:31 PM RN STAFFING Temperature 36.9 ??C (98.4 ??F) 06/10/2015 12:[address] Respiratory Rate 14 06/10/2015 12:31 PM RN STAFFING Oxygen Saturation 97% 06/10/2015 12:31 PM RN STAFFING Inhaled Oxygen Concentration - - Weight 65.8 kg (145 lb) 06/10/2015 12:31 PM RN STAFFING Height 175.3 cm (5' 9 ) 06/10/2015 12:31 PM RN STAFFING Body Mass Index 21.41 06/10/2015 12:31 PM RN STAFFING Procedures * BASIC METABOLIC PANEL (CALCIUM TOTAL)(Performed [...] CBC W AUTO DIFFERENTIAL (04/12/2015 2:53 AM RN STAFFING) Only the most recent of16 resultswithin the time period is included. WBC 5.0 3.5 - 10.5 10? 3 /uL [facility] RBC 3.52(L) 3.90 - 5.00 10? 6 /uL [facility] Hemoglobin 11.4(L) 12.0 - 15.5 g/dL [facility] Hematocrit 33.7(L) 35.0 - 45.0 % [facility] MCV 95.7 81.0 - 97.0 fL [facility] MCH 32.4 28.0 - 34.0 pg [facility] MCHC 33.8 32.0 - 36.0 g/dL [facility] Platelet Count 275 150 - 400 10? 3 /uL [facility] RDW-SD 47.0 36.0 - 50.0 fL [facility] RDW-CV 13.4 11.2 - 14.8 % [facility] MPV 10.4 9.3 - 12.8 fL [facility] Neutrophils % 50.1 35.0 - 70.0 % [facility] Lymphocytes % 36.7 19.7 - 55.1 % [facility] Monocytes % 8.6 3.0 - 15.0 % [facility] Eosinophils % 4.2 0.0 - 6.0 % [facility] Basophil % 0.4 0.0 - 1.5 % [facility] Neutrophils Absolute 2.5 1.6 - 7.0 10? 3 /uL [facility] Lymphocyte Absolute 1.8 0.8 - 2.9 10? 3 /uL [facility] Monocytes Absolute 0.43 0.14 - 0.66 10? 3 /uL [facility] Eosinophils Absolute 0.21 0.00 - 0.22 10? 3 /uL [facility] Basophils Absolute 0.02 0.00 - 0.06 10? 3 /uL [facility] Immature Granulocytes % 0.0 0.0 - 1.0 % [facility] Blood specimen (specimen) BLOOD SPECIMEN / Unknown 04/12/2015 2:53 AM RN STAFFING 04/12/2015 3:17 AM RN STAFFING Eduardo Sin MD LAB - HEMATOLOGY ORD ERABLES Performing Organization Address City/[facility]/ZIP Co de Phone Number [address] [phone] * (ABNORMAL) BASIC METABOLIC PANEL (CALCIUM TOTAL) (04/12/2015 2:53 AM RN STAFFING) Only the most recent of7 resultswithin the time period is included. BUN 7 7 - 26 mg/dL [facility] Creatinine 0.7 0.6 - 1.2 mg/dL [facility] Sodium 141 136 - 145 mmol/L [facility] Potassium 4.1 3.5 - 4.5 mmol/L [facility] Chloride 105 98 - 107 mmol/L [facility] CO2 29 22 - 29 mmol/L [facility] Glucose 139(H) 70 - 115 mg/dL [facility] Calcium 9.0 8.4 - 10.2 mg/dL [facility] Anion Gap 11 8 - 18 [facility] BUN/Creatinine Ratio 10 7 - 23 [facility] Osmolality Calculated 277 270 - 300 mOsm/kg [facility] eGFR >60 >60 mL/min/1.7 3 m2 [facility] Blood specimen (specimen) BLOOD SPECIMEN / Unknown 04/12/2015 2:53 AM RN STAFFING 04/12/2015 3:17 AM RN STAFFING Any Santos MD LAB - CHEMISTRY ORDERABLES Performing Organization Address [facility]/ZIP Co de Phone Number [address] [phone] * CULTURE AFB+SMEAR (04/09/2015 10:14 AM RN STAFFING) Culture Acid Fast Bacilli No Growth of Acid Fast bacilli after 8 weeks. [facility] AFB Smear No Acid Fast bacilli seen on direct smear. [facility] Bone tissue specimen (specimen) 04/09/2015 10:14 AM RN STAFFING 04/09/2015 10:14 AM RN STAFFING Narrative [facility] - 06/06/2015 9:33 AM RN STAFFING Right mandible tissue Specimen Type->Bone Any Santos MD LAB - MICROBIOLO GY ORDERABLES Performing Organization Address [facility] Co de Phone Number [address] [phone] * CULTURE FUNGUS OTHER+FUNGUS SMEAR (04/09/2015 10:14 AM RN STAFFING) Culture Fungus-Other No Growth Fungi. [facility] Fungus Smear No Fungi seen. [facility] Bone tissue specimen (specimen) (Unspecified) 04/09/2015 10:14 AM RN STAFFING 04/09/2015 10:14 AM RN STAFFING Narrative [facility] - 05/10/2015 4:00 PM RN STAFFING Right mandible tissue Specimen Type->Bone Any Santos MD LAB - MICROBIOLO GY ORDERABLES Performing Organization Address [facility] Co de Phone Number [address] [phone] * (ABNORMAL) CULTURE AEROBIC (04/09/2015 9:30 AM RN STAFFING) Only the most recent of2 resultswithin the time period is included. Culture Aerobic STREPTOCOCCUS SALIVARIUS(A) [facility] Comment:Light Growth Strepto coccus Salivarius Culture Aerobic STREPTOCOCCUS MITIS/ORALIS(A) [facility] Comment:Light Growth STREPTO COCCUS MITIS/ORALIS Gram Stain Many Red Blood Cells [facility] Gram Stain Few Polymorphonuclear Cells [facility] Gram Stain Rare Gram positive cocci in pairs [facility] Comment:called and read back to Mandy 04/09/15 1153 Gram Stain [facility] Comment:called and read back to Dr. Deras 04/09/15 1215 Fluid specimen (specimen) 04/09/2015 9:30 AM RN STAFFING 04/09/2015 9:40 AM RN STAFFING Narrative [facility] - 04/13/2015 10:35 AM RN STAFFING Right mandible body fluid Specimen Type->Body Fluid [...] - MICROBIOLO GY ORDERABLES Performing Organization Address [facility] Co de Phone Number [address] [phone] * CULTURE ANAEROBE (04/09/2015 9:30 AM RN STAFFING) Only the most recent of2 resultswithin the time period is included. Culture Anaerobic No Growth Anaerobes. [facility] Culture Anaerobic AEROBIC GROWTH COMPATIBLE WITH ROUTINE CULTURE. [facility] Tissue 04/09/2015 9:30 AM RN STAFFING 04/09/2015 9:40 AM RN STAFFING Narrative [facility] - 04/17/2015 12:14 PM RN STAFFING Right mandible tissue Specimen Type->Tissue Any Santos MD LAB - MICROBIOLO GY ORDERABLES Performing Organization Address [facility] Co de Phone Number [address] [phone] * PATHOLOGY TISSUE (04/09/2015 8:45 AM RN STAFFING) Surgical Pathology Tissue CLINICAL HISTORY: Osteomyelitis of [...] were determined by the Histopathology Laboratory of [facility].?? Some of these tests were developed by [...] by Gayle Browning MD. Electronically signed 04/12/2015 [facility] ([facility]) Other (qualifier value) 04/09/2015 8:45 AM RN STAFFING 04/09/2015 9:40 AM RN STAFFING Narrative [facility] ([place]) - 04/12/2015 4:36 PM RN STAFFING PROBLEM LIST: Patient Active Problem List: ?? Osteomyelitis of mandible PRE-OP DIAGNOSIS: ??Osteomyelitis of the mandible . OPERATIVE PROCEDURE / FINDINGS: ??Procedure(s): BIOPSY OF THE RIGHT MANDIBLE POST-OP DIAGNOSIS: * No post-op diagnosis entered * Collection Date->04/09/15 Collection Time-> 8:45 AM Specimen A->Soft Tissue, Other Right mandible tissue Winston Barriga MD LAB - PATHOLOGY/CYTO LOGY ORDERABLES [facility] ([facility]) * PATHOLOGY/GENETICS HISTORICAL-ONBASE (04/09/2015) 04/09/2015 Narrative [facility] - 04/13/2015 11:10 AM RN STAFFING Historical Provider LAB - CHEMISTRY O RDERABLES [facility] [address] * T3 FREE (04/08/2015 7:38 AM RN STAFFING) T3 Free 2.8 1.7 - 3.7 pg/mL [facility] Blood specimen (specimen) BLOOD SPECIMEN / Unknown 04/08/2015 7:38 AM RN STAFFING 04/08/2015 9:35 AM RN STAFFING Any Santos MD LAB - CHEMISTRY ORDERABLES Performing Organization Address City/[facility]/ZIP Co de Phone Number [address] [phone] * (ABNORMAL) VANCOMYCIN LEVEL TROUGH (04/08/2015 7:38 AM RN STAFFING) Vancomycin Trough 2.9(L) 10.0 - 20.0 mcg/mL [facility] Blood specimen (specimen) BLOOD SPECIMEN / Unknown 04/08/2015 7:38 AM RN STAFFING 04/08/2015 7:46 AM RN STAFFING Any Santos MD LAB - CHEMISTRY ORDERABLES Performing Organization Address [facility]/ZIP Co de Phone Number [address] [phone] * XR PANOREX (04/07/2015 12:46 PM RN STAFFING) Anatomical Region Laterality Modality Head Other Impressions 04/08/2015 6:05 PM RN STAFFING Impression: Lytic focus in the right mandibular body compatible with osteomyelitis. Dictated by Jordan Michaud MD (Medical Liaison). Dr. SARAY Mccabe M.D. have personally reviewed and interpreted this examination/study. This report was electronically signed by SARAY COPPOLA M.D. ??on 04/08/2015 6:05 PM . Narrative 04/08/2015 6:05 PM RN STAFFING EXAMINATION: Panorex HISTORY: mandibular osteomyelitis COMPARISON: No [...] with osteomyelitis. Dictated by Jordan Michaud MD (Medical Liaison). Dr. SARAY Mccabe M.D. have personally reviewed and interpreted thisexamination/study. This report was electronically signed by SARAY COPPOLA M.D. on 04/08/20156:05 PM . Any Santos MD DIAGNOSTIC IMAGI NG ORDERABLES * (ABNORMAL) C-REACTIVE PROTEIN (04/07/2015 10:46 AM RN STAFFING) Only the most recent of2 resultswithin the time period is included. C-Reactive Protein 1.9(H) <=0.5 mg/dL [facility] Blood specimen (specimen) BLOOD SPECIMEN / Unknown 04/07/2015 10:46 AM RN STAFFING 04/07/2015 10:52 AM RN STAFFING Any Santos MD LAB - CHEMISTRY ORDERABLES Performing Organization Address [facility]/ZIP Co de Phone Number [facility] [address] [phone] * (ABNORMAL) THYROID PEROXIDASE ANTIBODY (04/07/2015 10:46 AM RN STAFFING) Thyroid Peroxidase TPO Antibody 62(H) 0 - 34 IU/mL [facility] ([facility]) Blood specimen (specimen) BLOOD SPECIMEN / Unknown 04/07/2015 10:46 AM RN STAFFING 04/08/2015 9:36 AM RN STAFFING Narrative [facility] ([facility]) - 04/10/2015 6:39 AM RN STAFFING Performed at: ?? - [address] ??[id number] Environmental Scientist: Adin Salazar PhD, Phone: ??[phone] Any Santos MD LAB - CHEMISTRY ORDERABLES Performing Organization Address [facility] de Phone Number [facility] ([facility]) * (ABNORMAL) ERYTHROCYTE SEDIMENTATION RATE (04/07/2015 10:46 AM RN STAFFING) Only the most recent of2 resultswithin the time period is included. Erythrocyte Sedimentation Rate Westergren 22(H) 0 - 20 MM/HR [facility] Comment: ########################################################################## # Please Note: ??New age specific reference ranges have been implemented. # ########################################################################## Blood specimen (specimen) BLOOD SPECIMEN / Unknown 04/07/2015 10:46 AM RN STAFFING 04/07/2015 10:52 AM RN STAFFING Any Santos MD LAB - HEMATOLOGY ORDERABLES [address] [phone] * MRI ORBITS OR FACE WWO CONTRAST (04/06/2015 9:02 PM RN STAFFING) Anatomical Region Laterality Modality Head Other Impressions 04/07/2015 7:21 PM RN STAFFING IMPRESSION: 1. Small abscess occupying a defect [...] 7:21 PM . Narrative 04/07/2015 7:21 PM RN STAFFING EXAMINATION: ??Magnetic resonance imaging (MRI) of the [...] MR ORDERABLES * TSH (04/06/2015 2:44 AM RN STAFFING) TSH 4.499 0.350 - 4.940 uIU/mL [facility] Blood specimen (specimen) BLOOD SPECIMEN / Unknown 04/06/2015 2:44 AM RN STAFFING 04/06/2015 3:05 AM RN STAFFING Eduardo Sin MD LAB - CHEMISTRY BENITA BULLARD Performing Organization Address [facility]/ZIP Co de Phone Number [address] [phone] * T4 FREE (04/06/2015 2:44 AM RN STAFFING) Pathologist [facility] T4 Free 1.0 0.7 - 1.5 ng/dL [facility] Blood specimen (specimen) BLOOD SPECIMEN / Unknown 04/06/2015 2:44 AM RN STAFFING 04/06/2015 6:27 AM RN STAFFING Any Santos MD LAB - CHEMISTRY ORDERABLES Performing Organization Address [facility] Co de Phone Number [address] [phone] * (ABNORMAL) DRUG ABUSE PANEL 10-20+ETHANOL URINE NO CONFIRM (04/06/2015 1:38 AM RN STAFFING) [facility] Amphetamines Screen Urine Negative Negative : < 1000 ng/mL [facility] Barbiturates Screen Urine Negative Negative : < 200 ng/mL [facility] Benzodiazepine Screen Urine Positive(A) Negative : < 200 ng/mL [facility] Comment: Positive urine benzodiazepine screening results should be confirmed by another generally accepted non-immunological method such as gas chromatography or mass spectrometry. ? Opiates Urine Positive(A) Negative : < 300 ng/mL [facility] Comment: Positive urine opiate screening results should be confirmed by another generally accepted non-immunological method such as gas chromatography or mass spectrometry. ? Cocaine Metabolites Urine Negative Negative : < 300 ng/mL [facility] Phencyclidine Screen Urine Negative Negative : < 25 ng/ml [facility] Cannabinoids Screen Urine Positive(A) Negative : <50 ng/mL [facility] Comment: Positive urine cannabinoids (THC) screening results should be confirmed by another generally accepted non-immunological method such as gas chromatography or mass spectrometry. ? Methadone Screen Urine Negative Negative : < 300 ng/mL [facility] Urine specimen (specimen) URINE / Unknown 04/06/2015 1:38 AM RN STAFFING 04/06/2015 1:48 AM RN STAFFING Narrative [facility] - 04/06/2015 2:05 AM RN STAFFING The Urine Toxicology Screening Panel does not screen for Propoxyphene, Meprobamate, Carisoprodol, Trazodone, hdwz-psc-rzmpcgb medications and/or volatiles (Acetone, Isopropanol, Methanol or Ethylene Glycol). Ethanol, Salicylate, Acetaminophen, Tricyclic Antidepressants and several therapeutic drugs may be individually assayed in serum or plasma specimen. Toxicology testing by the [facility] is an aid to medical diagnosis and treatment of patients. No documented chain of custody was maintained. Results are intended to be used for clinical purposes only. ? Any Santos MD LAB - URINE CHEM ISTRY ORDERABLES Performing Organization Address [facility] de Phone Number [address] [phone] * EKG 12-LEAD (04/06/2015 12:00 AM RN STAFFING) EKG [facility] Comment: Exam Date/Time: ?? Apr 06 [...] available Confirmed by Ella TIPTON, EULALIA ([id number]), avid editor MAT EMERSON ([id number]) on 04/19/2015 12:44:17 PM Referred By: REFERRING NO ? Confirmed By:EULALIA TIPTON M.D. 04/06/2015 Any Santos MD ECG ORDERABLES Performing Organization Address [facility] de Phone Number [facility] * CULTURE BLOOD (04/05/2015 10:45 PM RN STAFFING) Only the most recent of2 resultswithin the time period is included. Culture Blood No Growth at 5 days [facility] Blood specimen (specimen) 04/05/2015 10:45 PM RN STAFFING 04/05/2015 11:00 PM RN STAFFING Eduardo Sin MD LAB - MICROBIOLOGY O RDERABLES Performing Organization Address [facility] [place] [address], [facility] [phone] * (ABNORMAL) COMPREHENSIVE METABOLIC PANEL (04/05/2015 10:30 PM RN STAFFING) BUN 14 7 - 26 mg/dL [facility] Creatinine 0.6 0.6 - 1.2 mg/dL [facility] Sodium 138 136 - 145 mmol/L [facility] Potassium 3.5 3.5 - 4.5 mmol/L [facility] Chloride 100 98 - 107 mmol/L [facility] CO2 29 22 - 29 mmol/L [facility] Glucose 145(H) 70 - 115 mg/dL [facility] Calcium 9.0 8.4 - 10.2 mg/dL [facility] Protein Total 6.2 6.0 - 8.3 g/dL [facility] Albumin 3.4 3.4 - 5.0 g/dL [facility] Bilirubin Total 0.4 0.2 - 1.2 mg/dL [facility] Alkaline Phosphatase 84 40 - 150 Units/L [facility] ALT 8 0 - 55 Units/L [facility] AST 8 5 - 34 Units/L [facility] Anion Gap 13 8 - 18 [facility] BUN/Creatinine Ratio 23 7 - 23 [facility] Osmolality Calculated 275 270 - 300 mOsm/kg [facility] Albumin/Globulin Ratio 1.2 1.1 - 2.3 [facility] eGFR >60 >60 mL/min/1.7 3 m2 [facility] Blood specimen (specimen) BLOOD SPECIMEN / Unknown 04/05/2015 10:30 PM RN STAFFING 04/05/2015 10:59 PM RN STAFFING Eduardo Sin MD LAB - CHEMISTRY BENITA BULLARD [facility] [address] [place] [address], [facility] [phone] * XR CHEST 1VW PORTABLE (04/05/2015 9:49 PM RN STAFFING) Anatomical Region Laterality Modality Chest Other Impressions 04/06/2015 6:04 PM RN STAFFING Impression: No acute pulmonary process. There is [...] 6:04 PM . Narrative 04/06/2015 6:04 PM RN STAFFING Exam: Portable chest, one view. Date: 04/05/2015 [...] . Eduardo Sin MD [facility]NOSTIC IM[facility] Care Teams Books Binder Relationship Specialty Start Date End Date Dieudonne Maxwell MD [address] [place] [id number] PCP - General 05/20/18
--- OUTSIDE RECORDS SUMMARY | 2024-05-14 12:59 | XMS_ITS | Encounter Summary ---
Author Organization [facility] Healthcare Address [address] [place] [address] Care Team Providers Care Business Development Intern Name Role Phone Saul Fitch DO Primary Care Provider [phone] Harvey Wilson MD Unavailable [phone] Wily Bassett MD Unavailable [phone] Paulie Lai MD Unavailable [phone] Eb Cardoso MD Unavailable [phone] Ernesto Reddy MD Unavailable [phone] Naomi Bay MD Unavailable [phone] Paula Jarvis NP Unavailable [phone] Unknown, Notinfile Primary Care Provider Unavail able Encounter Details Date Type Department Care Team (Late st Contact Info) Description 10/23/2022 Telephone [facility] [address] [place] [address] Shaina Huynh RN Social History Tobacco Use Types Packs/Day Years Used Date Smoking Tobacco: Every Day Cigarettes AUDIT-C Answer Date Recorded Q1: How often do you have a drink containing alc ohol? Monthly or less 01/26/2022 Average Number of Drinks Not on file 022 Frequency of Binge Drinking Not on file 01/13 [facility] of Occupat ional Health - Occupational Stress Questionnaire Answer Date Recorded Do you feel stress - tense, restless, nervous, or anxious, or unable to sleep at night because your mind is troubled all the time - these days? Very much 01/26/2022 Comments No Sex and Gender Information Value Date Recorded Sex Assigned at Not on file Legal Sex Female 2:06 PM [employer] Gender Identity Not on file Sexual Orientation Not on file documented as of this encounter Plan of Treatment Not on file documented as of this encounter Visit Diagnoses Not on filedocumented in this encounter Care Teams Business Development Intern Relationship Specialty Start Date End Date Saul Fitch DO PCP - General Internal Medicine 01/18/22 01/21/24 Unknown, Notinfile PCP - General 01/22/24 Harvey Wilson MD Medical Oncologist Hematology 01/25/22 Wily Bassett MD [address] [facility] [address] [place] [address] Surgeon Cardiothoracic Surgery 01/25/22 Paulie Lai MD [address] [facility] [address] [place] [address] Assistant Professor Of Archaeology Critical Care Med 01/25/22 Eb Cardoso MD [address] [place] [address] Assistant Professor Of Archaeology Critical Care Med 01/25/22 Ernesto Reddy MD [address] [facility] MEDICAL ONCOLOGY, [address] [place] [address] Medical Oncologist/Heating And Ventilating Drafter Medical Oncology 01/25/22 Naomi Bay MD [address] [facility] [address] [place] [address] Radiation Oncologist Radiation Oncology 01/31/22 Paula Jarvis NP [address] [facility] [address] [place] [address] Nurse Practitioner Radiation Oncology 07/18/22 documented as of this encounter
--- OUTSIDE RECORDS SUMMARY | 2024-05-14 12:59 | XMS_ITS | Clinical Summary ---
Author Organization [facility] Address [address] [place] [address] Care Team Providers Care Deli Clerk Name Role Phone Dieudonne Maxwell MD Primary Care Provider [phone] Source Comments [facility],non-[facility] Affiliates and Associated Physician Practices is amultiple site organization consisting of ambulatory clinics and hospital sitesin [place], [place], [place] and [place]. This disclosure is being madepursuant to the Care Everywhere program and may not contain all information available regarding this patient. Last updated 18.[facility] Social History Tobacco Use Types Packs/Day Years Used Date Smoking Tobacco: Never Assessed Sex and Gender Information Value Date Recorded Sex Assigned at Not on file Gender Identity Not on file Sexual Orientation Not on file Last Filed Vital Signs Vital Sign Reading Time Taken Comments Blood Pressure 110/69 06/10/2015 12:31 PM TOOL CRIB ATTENDANT Pulse 84 06/10/2015 12:31 PM TOOL CRIB ATTENDANT Temperature 36.9 ??C (98.4 ??F) 06/10/2015 12:[address] Respiratory Rate 14 06/10/2015 12:31 PM TOOL CRIB ATTENDANT Oxygen Saturation 97% 06/10/2015 12:31 PM TOOL CRIB ATTENDANT Inhaled Oxygen Concentration - - Weight 65.8 kg (145 lb) 06/10/2015 12:31 PM TOOL CRIB ATTENDANT Height 175.3 cm (5' 9 ) 06/10/2015 12:31 PM TOOL CRIB ATTENDANT Body Mass Index 21.41 06/10/2015 12:31 PM TOOL CRIB ATTENDANT Plan of Treatment Health Maintenance Due Date [...] age to complete this topic Care Teams Deli Clerk Relationship Specialty Start Date End Date Dieudonne Maxwell MD [address] [place] [address] PCP - General 05/20/18
--- OUTSIDE RECORDS SUMMARY | 2024-05-14 12:59 | XMS_ITS | Clinical Summary ---
Author Organization [facility] Address [address] [place] [address] Phone Care Team Providers Care Squash Centre Manager Name Role Phone Saul Fitch Primary Care Provider [phone] Allergies Active Allergy Reactions Criticality Noted Date [...] Tablet 2 Active naloxone (NARCAN) 4 mg/spray [place], Non-Aerosol EMERGENCY USE ONLY: Administer 1 spray [...] 11/03/2021 Immunizations Immunization Administration Dates Next Due ([employer])(12 YR UP) COVID-19 VACCINE - EMERGENCY USE AUTHORIZATION, MRNA, [id number]) 30 MCG/0.3 ML IM SUSP 11/18/2020,10/27/2020 Influenza [...] 11/18/2020, 10/27/2020 Medical Devices Implanted Type Area Engineer Byproduct Device Identifier Shelf Expiration Date Model / Serial / Lot Sealant Progel Pleural 4ml [id number] - [id number] Implanted:Qty: 1 on 12/14/2021 by Wily Bassett MD at [facility] Tissue Left: Chest BARD DAVOL [id number] 06/16/2023 [id number] / / [id number] Lumbar Fusion Hardware Insurance MEDICARE PART A AND B [place] [employer] [facility] MEDICAID MEDICARE PART A AND B [id number] [employer] [facility] MEDICAID Advance Directives For more information, please contact: [phone] * Full Code (Latest Code Status on File) Date Activated Date Inactivated Comments 12/14/2021 5:21 PM 12/21/2021 6:25 PM * Full Code Date Activated Date Inactivated Comments 12/14/2021 8:36 AM 12/14/2021 5:21 PM Care Teams Squash Centre Manager Relationship Specialty Start Date End Date Saul Fitch DO [address] [place] [address] PCP - General Internal Medicine 10/26/21
--- OUTSIDE RECORDS SUMMARY | 2024-05-14 12:59 | XMS_ITS | Clinical Summary ---
Author Organization [facility] Address [address] [place] [address] Care Team Providers Care Band Top Maker Name Role Phone Harvey Wilson MD Unavailable [phone] Wily Bassett MD Unavailable [phone] Paulie Lai MD Unavailable [phone] Eb Cardoso MD Unavailable [phone] BarryErnesto hernandez MD Unavailable [phone] Naomi Bay MD Unavailable [phone] Paula Jarvis NP Unavailable Unknown, Notinfile Primary Care Provider Unavail able Allergies Active Allergy Reactions Criticality Noted Date Comments Sulfa (Sulfonamide Antibiotics) Unknown,Swelling Medium 10/31/2013 Swelling Sulfamethoxazole-Tri methoprim Flushing (skin),Unknown,Hives Medium 10/31/2013 Eyes close and well, 104 fever, welts and bumps all neuropsychology service director Hives Medications ALPRAZolam (XANAX) 1 mg tablet [...] Department Care Team Description 05/01/2024 11:05 AM REVIEW NURSE - 05/01/2024 11:59 PM REVIEW NURSE Hospital Encounter [facility] [address] [place] [address] Ernesto Reddy MD Primary cancer of left lower lobe of lung (HCC); 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 Oncology [address], [address] [place] [id number] Karen Sylvester from Last 3 Months Immunizations [...] of Binge Drinking Not on file 01/13 [employer] - Occupational Stress Questionnaire Answer Date Recorded Do you feel stress - tense, restless, nervous, or anxious, or unable to sleep at night because your mind is troubled all the time - these days? 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 ??Postoperative changes of left lower lobectomy. ??Stable subcentimeter pulmonary nodules. 2. ??No evidence of disease progression in the chest and abdomen. Electronically signed by: Anna Urena M.D. Narrative 05/01/2024 12:17 PM REVIEW NURSE EXAMINATION: ??Computed tomography of the chest and [...] esult * POCT creatinine (05/01/2024 11:20 AM REVIEW NURSE) Creatinine POC 0.7 0.6 - 1.1 mg/dL Blood 05/01/2024 11:2 0 AM REVIEW NURSE 05/01/2024 11:20 AM REVIEW NURSE us Ernesto Reddy MD LAB POCT ORDERABLES - DEV ICE Final Result [facility] [address] [facility] Department [place] [address] * COLONOSCOPY (12/03/2012 12:00 AM CDT) Anatomical Region Laterality Modality Other Narrative 12/03/2012 12:00 AM CDT Ordered by an unspecified provider. Procedure Note ProviderReginaldo MD - 12/03/2012 12:00 AM CDT PROCEDURE REPORT Patient: LESLEE OLIVIER Account: [id number] Room No: : 1960 Patient Type: [facility] Attend.: Alverto Perry D.O. Admit Date: Dict.: [...] in the left lateral decubitus [facility]. Digital rectal examination was [...] Recently Relevant to Health Maintenance Insurance MEDICARE [place] MEDICARE [facility] Care Teams Band Top Maker Relationship Specialty Start Date End Date Unknown, Notinfile PCP - General 01/22/24 Harvey Wilson MD Medical Oncologist Hematology 01/25/22 Wily Bassett MD [address] [facility] [address] [place] [address] Surgeon Cardiothoracic Surgery 01/25/22 Paulie Lai MD [address] [facility] [address] [place] [address] Grout Machine Operator Critical Care Med 01/25/22 Eb Cardoso MD [address] [place] [address] Grout Machine Operator Critical Care Med 01/25/22 Ernesto Reddy MD [address] DIV MEDICAL ONCOLOGY, [address] [place] [address] Medical Oncologist/Ocular Care Technician Medical Oncology 01/25/22 Naomi Bay MD [address] [place] [address] Radiation Oncologist Radiation Oncology 01/31/22 Paula Jarvis NP [address] [place] [address] Nurse Practitioner Radiation Oncology 07/18/22
--- OUTSIDE RECORDS SUMMARY | 2024-05-14 12:59 | XMS_ITS | Referral Summary ---
Author Organization [facility] Address [address] [place] [address] Care Team Providers Care Gas Turbine Powerplant Mechanic Name Role Phone Dieudonne Maxwell MD Primary Care Provider [phone] Source Comments [facility],non-[facility] Affiliates and Associated Physician Practices is amultiple site organization consisting of ambulatory clinics and hospital sitesin [place], [place], [place] and [place]. This disclosure is being madepursuant to the Care Everywhere program and may not contain all information available regarding this patient. Last updated 18.[facility] [employer] Social History Tobacco Use Types Packs/Day Years Used Date Smoking Tobacco: Never Assessed Sex and Gender Information Value Date Recorded Sex Assigned at Not on file Gender Identity Not on file Sexual Orientation Not on file Last Filed Vital Signs Vital Sign Reading Time Taken Comments Blood Pressure 110/69 06/10/2015 12:31 PM TELLER COORDINATOR Pulse 84 06/10/2015 12:31 PM TELLER COORDINATOR Temperature 36.9 ??C (98.4 ??F) 06/10/2015 12:[address] Respiratory Rate 14 06/10/2015 12:31 PM TELLER COORDINATOR Oxygen Saturation 97% 06/10/2015 12:31 PM TELLER COORDINATOR Inhaled Oxygen Concentration - - Weight 65.8 kg (145 lb) 06/10/2015 12:31 PM TELLER COORDINATOR Height 175.3 cm (5' 9 ) 06/10/2015 12:31 PM TELLER COORDINATOR Body Mass Index 21.41 06/10/2015 12:31 PM TELLER COORDINATOR Plan of Treatment Not on file Care Teams Gas Turbine Powerplant Mechanic Relationship Specialty Start Date End Date Dieudonne Maxwell MD [address] [place] [address] PCP - General 05/20/18
[2024-05-14 13:11] LABS: Creatine Kinase < 20 U/L (30-135)
[2024-05-14] MEDS: SODIUM CHLORIDE 0.9% IV CONT (13:26)
[2024-05-14] MEDS: KETAMINE HCL IV CONT (13:26)
[2024-05-14 13:30] VITALS: BP 151/84; PULSE 72; RESP 18; O2SAT 100
[2024-05-14 14:07] LABS: Add Urine Microscopic? YES; Appearance Urine Clear (Clear); Bacteria Urine None Seen /hpf; Bilirubin Urine Negative (Negative); Blood Urine Negative (Negative); Color Urine Yellow (Yellow); Glucose Urine UA Negative (Negative); Ketones Urine Negative (Negative); Leukocyte Esterase Ur Trace LEU/UL (Negative); Nitrate Urine Negative (Negative); Non Pathogenic Casts 0-2; Protein Urine Negative (Negative); RBC Urine 0-2 /hpf (0-2); Specific Grav Ur 1.016 (1.001-1.035); Squamous Epithelial Cell Urine None Seen /hpf (Few); pH Urine 6.5 (5.0-9.0)
--- NOTE | 2024-05-14 15:23 | ED.GENADULT ---
HPI - General Adult General Chief complaint: Unspecified Stated complaint: everything hurts x 3 weeks Time Seen by Provider: 05/14/24 12:02 History of Present Illness HPI narrative: This is a 63-year-old female with severe chronic pain presenting for total body pain. She says the pain started 3 weeks ago and is primarily in her neck shoulders arms and thighs. She is on high-dose Percocet and morphine. She sees a pain specialist. She denies any other complaints such as fevers chills nausea vomiting diarrhea chest pain difficulty breathing or abdominal pain. Related Data Home Medications ?Medication ?Instructions ?Recorded ?Confirmed ?Last Taken ?Type morphine 15 mg tablet,extended 15 mg PO Q12H 03/06/19 01/03/23 Unknown History release tizanidine 4 mg tablet 4 mg PO BID PRN Pain 01/26/21 01/03/23 Unknown History prochlorperazine maleate 5 mg 5 mg PO BID PRN Nausea 09/18/22 01/03/23 Unknown History tablet morphine 15 mg immediate release 15 mg PO 02/24/24 Unknown History tablet Allergies Allergy/AdvReac Type Severity Reaction Status Date / Time Sulfa (Sulfonamide Allergy Unknown Hives Verified 05/14/24 09:48 Antibiotics) sulfamethoxazole (From AdvReac Hives Verified 05/14/24 09:48 Bactrim) trimethoprim (From Bactrim) AdvReac Hives Verified 05/14/24 09:48 PMFSH Past Medical History Medical History Degenerative lumbar disc JOSE on CPAP Adenocarcinoma, lung Chronic constipation Tobacco abuse ADD (attention deficit disorder) Adult hypothyroidism Anxiety Benign essential hypertension Chronic low back pain Chronic obstructive pulmonary disease, unspecified Surgical History Surgical History S/P lobectomy of lung History of bladder surgery sling tie up H/O Spinal surgery x2 H/O: hysterectomy Family History Family History Grandparent Family history of malignant neoplasm Other Cerebrovascular accident Family history of arthritis Social History Social History Smoking packs per day: 1 Smoking cigarettes per day: 20.0 Years smoked: 48 Smoking pack-years: 48.00 Smoking status: Current every day smoker Tobacco type: cigarettes Second hand tobacco smoke exposure: Yes Additional smoking assessment comments: 2 PPD X 20 YRS, DOWN TO 10 CIGARETTES/DAY NOW Alcohol intake: former Substance use: current Substance use type: marijuana Other substance usage details: Daily Lack of Transportation: No Lack of Food: Never True Current Housing: I Do Not Have Housing Concerned About Future Housing: No Difficulty Paying Gas/Electric Bills: No Difficulty Paying for Meds: No Currently Unemployed: No Education: High School Diploma/GED Difficulty w/ Childcare or Family Care: YES Living arrangements: with family Spiritual care concerns: No Exam Narrative: APPEARANCE: No apparent distress. Head: atraumatic. EYES: EOMI, NOSE: Atraumatic NECK: Tenderness to palpation over the trapezius and paracervical muscles RESPIRATORY: No increased rate of breathing CTAB CARDIOVASCULAR: RRR, ABDOMINAL: Non-distended soft nontender MUSCULOSKELETAl: No obvious deformities NEURO: Alert. Cranial nerves 2-12 grossly intact. Sensation light touch, motor function cerebellar function intact for 4 extremities. Gait exam was normal. SKIN:: Warm, dry. Normal color PSYCHIATRIC: Normal affect Course Vital Signs Vital signs: Vital Signs Temperature 98.2 F 05/14/24 09:43 Pulse Rate 93 05/14/24 09:43 Respiratory Rate 17 05/14/24 09:43 Blood Pressure 156/97 H 05/14/24 09:43 Pulse Oximetry 98 05/14/24 09:43 Oxygen Delivery Room Air 05/14/24 09:43 Temperature 98.2 F 05/14/24 09:43 Pulse Rate 72 05/14/24 13:30 Respiratory Rate 18 05/14/24 13:30 Blood Pressure 151/84 H 05/14/24 13:30 Pulse Oximetry 100 05/14/24 13:30 Oxygen Delivery Room Air 05/14/24 09:43 Medical Decision Making MDM Narrative Medical decision making narrative: -Course: 63-year-old female with chronic pain presenting with total body pain. Vital signs are stable and her physical exam shows point tenderness over the paracervical and trapezius muscles. Patient has a large amount of opiates at home and I did not think that those would benefit more. We discussed other options such as ketamine @ pain dosing and she was agreeable. She was given 0.3 mg/kg. She noted significant improvement in her symptoms. She was then discharged to follow-up with her pain specialist. -DDX includes but is not limited to: Chronic pain syndrome, rhabdomyolysis, muscle spasms Vital Signs Vital Signs: Vital Signs Temperature 98.2 F 05/14/24 09:43 Pulse Rate 93 05/14/24 09:43 Respiratory Rate 17 05/14/24 09:43 Blood Pressure 156/97 H 05/14/24 09:43 Pulse Oximetry 98 05/14/24 09:43 Oxygen Delivery Room Air 05/14/24 09:43 Temperature 98.2 F 05/14/24 09:43 Pulse Rate 72 05/14/24 13:30 Respiratory Rate 18 05/14/24 13:30 Blood Pressure 151/84 H 05/14/24 13:30 Pulse Oximetry 100 05/14/24 13:30 Oxygen Delivery Room Air 05/14/24 09:43 Lab Data 05/14/24 11:32 05/14/24 11:32 Labs: Lab Results 05/14/24 05/14/24 Range/Units 11:32 13:17 WBC 11.1 H (4.5-10.0) K/mm3 RBC 4.02 L (4.2-5.4) M/mm3 Hgb 12.3 (12.0-15.0) g/dL Hct 38.5 (37.0-47.0) % MCV 95.8 (80-100) fl MCH 30.6 (26-34) pg MCHC 31.9 L (32-36) g/dl RDW 12.8 (11.5-14.5) % Plt Count 467 H (150-375) k/mm3 MPV 9.8 (7.4-10.4) fl Immature Gran % (Auto) 0.4 (0-0.5) % Neut % (Auto) 75.3 H (45.5-73.1) % Lymph % (Auto) 15.2 L (18.3-44.2) % Fannin % (Auto) 8.2 (2.6-8.5) % Eos % (Auto) 0.5 (0-4.4) % Baso % (Auto) 0.4 (0.2-1.2) % Lymph # (Auto) 1.68 (0.9-3.2) K/mm3 Fannin # (Auto) 0.9 H (0.1-0.6) K/mm3 Eos # (Auto) 0.1 (0-0.3) K/mm3 Baso # (Auto) 0.0 (0.0-0.1) K/mm3 Abs Immat Gran (auto) 0.04 H (0.00-0.031) K/mm3 Absolute Neuts (auto) 8.4 H (1.3-6.7) K/mm3 Absolute Nucleated RBC 0.000 (0.0-0.012) K/mm3 Nucleated RBC % 0.0 (0.0-0.2) % PT 14.0 (11.1-14.7) Seconds INR 1.0 APTT 33.1 (22.3-36.8) Seconds Sodium 140 (137-145) mmol/L Potassium 4.0 (3.4-5.0) mmol/L Chloride 100 (98-107) mmol/L Carbon Dioxide 26 (22-30) mmol/L Anion Gap 14 H (4-12) mmol/L BUN 13 D (7-17) mg/dL Creatinine 0.43 L (0.7-1.0) mg/dL Estim Creat Clear Calc 116 ml/min Estimated GFR > 60 (59 - ) Glucose 140 H (65-110) mg/dL Calcium 9.4 (8.4-10.2) mg/dL Total Bilirubin 0.4 (0.2-1.3) mg/dL AST 16 (14-36) U/L ALT 12 (6-35) U/L Alkaline Phosphatase 81 (38-126) U/L Total Creatine Kinase < 20 L (30-135) U/L Total Protein 7.0 (6.3-8.2) g/dL Albumin 4.0 (3.5-5.1) g/dL Urine Color Yellow (Yellow) Urine Appearance Clear (Clear) Urine pH 6.5 (5.0-9.0) Ur Specific [place] 1.016 (1.001-1.035) Urine Protein Negative (Negative) mg/dL Urine Glucose (UA) Negative (Negative) mg/dL Urine Ketones Negative (Negative) mg/dL Ur Blood (Man) Negative (Negative) Urine Nitrate Negative (Negative) Urine Bilirubin Negative (Negative) Urine Urobilinogen 1.0 (<2.0) mg/dL Leukocyte Esterase Rfl Trace H (Negative) CHEYANNE/UL Urine RBC 0-2 (0-2) /hpf Urine WBC 6-10 H (0-3) /hpf Ur Squamous Epith Cells None seen (Few) /hpf Urine Bacteria None seen /hpf Urine Casts 0-2 Influenza A (RT-PCR) Negative (Negative) Influenza B (RT-PCR) Negative (Negative) RSV (RT-PCR) Negative (Negative) SARS-CoV-2 RNA (RT-PCR) Negative (Negative) Discharge Plan Discharge Clinical Impression: Acute on chronic back pain Patient Disposition: Home, Self-Care Condition: Stable Instructions: Antibiotic Form, Chronic Pain (ED) Additional Instructions: Please follow-up with your primary care physician for further management. Return to ED if you develop any new worsening symptoms. Patient Language: Lithuanian Prescriptions: No Action morphine 15 mg tablet extended release 15 mg PO Q12H tizanidine 4 mg tablet 4 mg PO BID PRN (Reason: Pain) morphine 15 mg tablet 15 mg PO naloxone [Narcan] 4 mg/actuation spray,non-aerosol 4 mg intranasal Q2-3M PRN (Reason: opioid overdose) Qty: 2 1RF Rx Instructions: spray 1 dose into ONE nostril; alternate nostrils w each dose until help arrives albuterol sulfate 0.63 mg/3 mL solution for nebulization See Rx Instructions .ROUTE .COMPLEX Qty: 75 0RF Dose Instruction: INHALE 3MLS EVERY 4-6 HOURS NEEDED FOR SHORTNESS OF BREATH OR WHEEZING Rx Instructions: INHALE 3MLS EVERY 4-6 HOURS NEEDED FOR SHORTNESS OF BREATH OR WHEEZING albuterol sulfate 90 mcg/actuation HFA aerosol inhaler See Rx Instructions .ROUTE .COMPLEX Qty: 51 1RF Dose Instruction: INHALE 1 PUFF BY MOUTH EVERY 4 HOURS NEEDED FOR SHORTNESS OF BREATH OR WHEEZING. Rx Instructions: INHALE 1 PUFF BY MOUTH EVERY 4 HOURS NEEDED FOR SHORTNESS OF BREATH OR WHEEZING. prochlorperazine maleate 5 mg tablet 5 mg PO BID PRN (Reason: Nausea) ondansetron 4 mg tablet,disintegrating 4 mg PO Q6H PRN (Reason: nausea and vomiting) Qty: 10 0RF ropinirole 2 mg tablet See Rx Instructions .ROUTE .COMPLEX Qty: 180 1RF Dose Instruction: TAKE 1 TABLET BY MOUTH TWICE DAILY Rx Instructions: TAKE 1 TABLET BY MOUTH TWICE DAILY PRN Linzess 145 mcg capsule 145 mcg PO DAILY Qty: 30 4RF fluticasone propionate 50 mcg/actuation spray,suspension See Rx Instructions .ROUTE .COMPLEX Qty: 48 0RF Dose Instruction: SHAKE LIQUID AND USE 2 SPRAYS IN EACH NOSTRIL DAILY Rx Instructions: SHAKE LIQUID AND USE 2 SPRAYS IN EACH NOSTRIL DAILY prednisone 20 mg tablet 40 mg PO DAILY Qty: 10 0RF amoxicillin-pot clavulanate 875-125 mg tablet 1 tablet PO BID Qty: 14 0RF zolpidem [Ambien] 10 mg tablet 10 mg PO QHS PRN (Reason: insomnia) Qty: 30 1RF montelukast 10 mg tablet See Rx Instructions .ROUTE .COMPLEX Qty: 90 1RF Dose Instruction: TAKE 1 TABLET BY MOUTH DAILY Rx Instructions: TAKE 1 TABLET BY MOUTH DAILY Breztri Aerosphere 160-9-4.8 mcg/actuation HFA aerosol inhaler See Rx Instructions .ROUTE .COMPLEX Qty: 10.7 0RF Dose Instruction: INHALE 2 PUFFS BY MOUTH TWICE DAILY Rx Instructions: INHALE 2 PUFFS BY MOUTH TWICE DAILY lisinopril-hydrochlorothiazide 10-12.5 mg tablet See Rx Instructions .ROUTE .COMPLEX Qty: 90 1RF Dose Instruction: TAKE 1 TABLET BY MOUTH DAILY Rx Instructions: TAKE 1 TABLET BY MOUTH DAILY rosuvastatin 10 mg tablet See Rx Instructions .ROUTE .COMPLEX Qty: 90 1RF Dose Instruction: TAKE 1 TABLET BY MOUTH DAILY Rx Instructions: TAKE 1 TABLET BY MOUTH DAILY potassium chloride 20 mEq tablet extended release See Rx Instructions .ROUTE .COMPLEX Qty: 90 1RF Dose Instruction: TAKE 1 TABLET BY MOUTH DAILY Rx Instructions: TAKE 1 TABLET BY MOUTH DAILY levothyroxine 50 mcg tablet See Rx Instructions .ROUTE .COMPLEX Qty: 90 1RF Dose Instruction: TAKE 1 TABLET BY MOUTH DAILY Rx Instructions: TAKE 1 TABLET BY MOUTH DAILY alprazolam 1 mg tablet 1 mg PO TID PRN (Reason: anxiety) Qty: 80 0RF dextroamphetamine-amphetamine [Adderall XR] 30 mg capsule,extended release 24hr 30 mg PO QAM Qty: 30 0RF Follow-up/Referrals: Aldo Hanley MD [Primary Care Provider] -
== END 2024-05-14 15:38 | disposition home or self-care (01) ==
PROVIDERS: Physician Assistant; Emergency Provider Emergency Medicine; PCP Family Medicine
DX: M54.2 Cervicalgia (principal); M54.6 Pain in thoracic spine; M79.602 Pain in left arm; M79.601 Pain in right arm; G89.29 Other chronic pain; Z20.822 Contact with and (suspected) exposure to COVID-19; I10 Essential (primary) hypertension; J44.9 Chronic obstructive pulmonary disease, unspecified; E03.9 Hypothyroidism, unspecified; G47.33 Obstructive sleep apnea (adult) (pediatric); F41.9 Anxiety disorder, unspecified; F98.8 Other specified behavioral and emotional disorders with onset usually occurring in childhood and adolescence; F17.210 Nicotine dependence, cigarettes, uncomplicated; Z85.118 Personal history of other malignant neoplasm of bronchus and lung; Z90.2 Acquired absence of lung [part of]; Z90.710 Acquired absence of both cervix and uterus; Z79.899 Other long term (current) drug therapy; Z79.891 Long term (current) use of opiate analgesic
CPT/HCPCS: 36415; 71046; 80053; 81001; 82550; 85025; 85610; 85730; 87086; 87637; 93005; 96374; 99284

== ENCOUNTER 2024-06-01 15:30 | Outpatient (CLI) | payer MEDICARE, OTHER, SELFPAY ==
--- NOTE | ~2024-06-01 | XR_ITS ---
EXAM: XR lumbar spine 2-3V DATE: 06/01/2024 16:17 HISTORY: RADICULOPATHY . COMPARISON: 05/24/2023. FINDINGS: 5 nonrib-bearing lumbar-type vertebral bodies. Pedicles intact. 2 mm retrolisthesis at L4- 5, unchanged. Vertebral body heights preserved. Severe disc space narrowing at L4-5. Interbody device at L5-S1. Moderate mid and lower lumbar facet hypertrophy and sclerosis. No fracture or dislocation. Aortic calcifications without evident aneurysm. Surgical clips and joel over the pelvis. IMPRESSION: Stable grade 1 retrolisthesis at L4-5. Stable interbody device at L5-S1. Severe degenerat drew disc disease at L4-5. Multilevel mid and lower lumbar facet arthropathy. Reviewed, dictated and finalized at location K. FORMER IMPRESSION: Stable grade 1 retrolisthesis at L4-5. Stable interbody device at L 5-S1. Severe degenerative disc disease at L4-5. Multilevel mid and lower lumbar facet arthropathy.
--- NOTE | ~2024-06-01 | XR_ITS ---
EXAM: XR_CERV2-3V_CR DATE: 06/01/2024 16:17 HISTORY: RADICULOPATHY . COMPARISON: 05/24/2023. FINDINGS: Craniocervical association and atlantoaxial joint are aligned. Mild degenerative change at the atlantodental interval. No prevertebral soft tissue swelling. Stable grade 1 retrolisthesis at C 5-6. Vertebral body heights are maintained. Moderate disc space narrowing and marginal osteophytosis at C5-6 and C6-7. Mild multilevel facet hypertrophy/sclerosis and uncovertebral joint hypertrophy. Th e patient is edentulous. IMPRESSION: Stable grade 1 retrolisthesis at C5-6. Moderate cervical degenerative disc disease at C5- 6 and C6-7. Multilevel facet arthropathy Reviewed, dictated and finalized at location K. RNATIONAL FREIGHT FORWARDER IMPRESSION: Stable grade 1 retrolisthesis at C5-6. Moderate cervical degenerati ve disc disease at C5-6 and C6-7. Multilevel facet arthropathy
--- NOTE | ~2024-06-01 | XR_ITS ---
EXAM: XR thoracic spine 3V DATE: 06/01/2024 16:17 HISTORY: RADICULOPATHY . COMPARISON: 11/06/2017; x-ray chest 05/14/2024. FINDINGS: Vertebral body alignment intact. Vertebral body heights preserved. Mild multilevel disc sp amy narrowing and marginal osteophytosis. No traumatic malalignment or fracture. Visualized lung pare nchyma is clear. IMPRESSION: Mild multilevel thoracic degenerative disc disease. Reviewed, dictated and finalized at location K. T CONTROL OPERATOR
--- OUTSIDE RECORDS SUMMARY | 2024-06-01 18:08 | XMS_ITS | Encounter Summary ---
Author Organization [facility] Address [address] [place] [address] Phone Care Team Providers Care Board Of Education Secretary Name Role Phone Saul Fitch Primary Care Provider [phone] Harvey Wilson MD Unavailable [phone] Wily Bassett MD Unavailable [phone] Paulie Lai MD Unavailable [phone] Eb Cardoso MD Unavailable Ernesto Reddy MD Unavailable [phone] Naomi Bay MD Unavailable [phone] Paula Jarvis NP Unavailable [phone] Unknown, Notinfile Primary Care Provider Unavail able Encounter Details Date Type Department Care Team (Latest Contact Info) Description 11/22/2021 Orders Only [facility] Scanning, Provider Social History Tobacco Use Types Packs/Day Years Used Date Smoking Tobacco: Never Assessed Comments Unknown Sex and Gender Information Value Date Recorded Sex Assigned at Not on file Legal Sex Female 2:06 PM RECONCILIATION MACHINE OPERATOR Gender Identity Not on file [...] on filedocumented in this encounter Care Teams Board Of Education Secretary Relationship Specialty Start Date End Date Saul Fitch DO PCP - General Internal Medicine 01/18/22 01/21/24 Unknown, Notinfile PCP - General 01/22/24 Harvey Wilson MD Medical Oncologist Hematology 01/25/22 Wily Bassett MD [address] [facility] [address] [place] [address] Surgeon Cardiothoracic Surgery 01/25/22 Paulie Lai MD [address] [place] [address] Prick Stitcher Critical Care Med 01/25/22 Eb Cardoso MD [address] [place] [address] Prick Stitcher Critical Care Med 01/25/22 Ernesto Reddy MD [address] DIV MEDICAL ONCOLOGY, [address] [place] [address] Medical Oncologist/Data Typist Medical Oncology 01/25/22 Naomi Bay MD [address] [place] [address] Radiation Oncologist Radiation Oncology 01/31/22 Paula Jarvis NP [address] [facility] [address] [place] [address] Nurse Practitioner Radiation Oncology 07/18/22 documented as of this encounter
--- OUTSIDE RECORDS SUMMARY | 2024-06-01 18:08 | XMS_ITS | Encounter Summary ---
Author Organization [facility] Address [address] [place] [address] Phone Care Team Providers Care Appeals Reviewer Veteran Name Role Phone Saul Fitch Primary Care Provider [phone] Harvey Wilson MD Unavailable [phone] Wily Bassett MD Unavailable [phone] Paulie Lai MD Unavailable [phone] Eb Cardoso MD Unavailable [phone] Ernesto Reddy MD Unavailable [phone] Naomi Bya MD Unavailable [phone] Paula Jarvis NP Unavailable [phone] Unknown, Notinfile Primary Care Provider Unavail able Encounter Details Date Type Department Care Team (Latest Contact Info) Description 10/26/2021 Orders Only [facility] Scanning, Provider Social History Tobacco Use Types Packs/Day Years Used Date Smoking Tobacco: Never Assessed Comments Unknown Sex and Gender Information Value Date Recorded Sex Assigned at Not on file Legal Sex Female 2:06 PM MASTER COOK Gender Identity Not on file Sexual Orientation [...] on filedocumented in this encounter Care Teams Appeals Reviewer Veteran Relationship Specialty Start Date End Date Saul Fitch DO PCP - General Internal Medicine 01/18/22 01/21/24 Unknown, Notinfile PCP - General 01/22/24 Harvey Wilson MD Medical Oncologist Hematology 01/25/22 Wily Bassett MD [address] [facility] [address] [place] [address] Surgeon Cardiothoracic Surgery 01/25/22 Paulie Lai MD [address] [facility] [address] [place] [address] Regulatory Affairs Consultant Critical Care Med 01/25/22 Eb Cardoso MD [address] [place] [address] Regulatory Affairs Consultant Critical Care Med 01/25/22 Ernesto Reddy MD [address] DIV MEDICAL ONCOLOGY, JUN 7A, 7B, [address] [place] [address] Medical Oncologist/Financial Aid Manager Medical Oncology 01/25/22 Naomi Bay MD [address] [place] [address] Radiation Oncologist Radiation Oncology 01/31/22 Paula Jarvis NP [address] [facility] [address] [place] [address] Nurse Practitioner Radiation Oncology 07/18/22 documented as of this encounter
--- OUTSIDE RECORDS SUMMARY | 2024-06-01 18:08 | XMS_ITS | Clinical Summary ---
Author Organization [facility] Address [address] [place] [address] Care Team Providers Care Automation And Controls Instructor Name Role Phone Unavailable Primary Care Provider [...]
--- OUTSIDE RECORDS SUMMARY | 2024-06-01 18:08 | XMS_ITS | Encounter Summary ---
Author Organization [facility] Address [address] [place] [address] Phone Care Team Providers Care Child And Family Therapist Name Role Phone Saul Fitch Primary Care Provider [phone] Harvey Wilson MD Unavailable [phone] Wily Bassett MD Unavailable [phone] Paulie Lai MD Unavailable [phone] Eb Cardoso MD Unavailable [phone] Ernesto Reddy MD Unavailable [phone] Naomi Bay MD Unavailable [phone] Paula Jarvis NP Unavailable [phone] Unknown, Notinfile Primary Care Provider Unavail able Encounter Details Date Type Department Care Team (Latest Contact Info) Description 11/13/2021 Orders Only [facility] Scanning, Provider Social History Tobacco Use Types Packs/Day Years Used Date Smoking Tobacco: Never Assessed Comments Unknown Sex and Gender Information Value Date Recorded Sex Assigned at Not on file Legal Sex Female 2:06 PM 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 Gender Identity Not on file Sexual Orientation [...] on filedocumented in this encounter Care Teams Child And Family Therapist Relationship Specialty Start Date End Date Saul Fitch DO PCP - General Internal Medicine 01/18/22 01/21/24 Unknown, Notinfile PCP - General 01/22/24 Harvey Wilson MD Medical Oncologist Hematology 01/25/22 Wily Bassett MD [address] [facility] [address] [place] [address] Surgeon Cardiothoracic Surgery 01/25/22 Paulie Lai MD [address] [facility] [address] [place] [address] Warehouse Processor Critical Care Med 01/25/22 Eb Cardoso MD [address] [place] [address] Warehouse Processor Critical Care Med 01/25/22 Ernesto Reddy MD [address] DIV MEDICAL ONCOLOGY, JUN 7A, 7B, [address] [place] [address] Medical Oncologist/Land Leveler Medical Oncology 01/25/22 Naomi Bay MD [address] [place] [address] Radiation Oncologist Radiation Oncology 01/31/22 Paula Jarvis NP [address] [facility] [address] [place] [address] Nurse Practitioner Radiation Oncology 07/18/22 documented as of this encounter
--- OUTSIDE RECORDS SUMMARY | 2024-06-01 18:08 | XMS_ITS | Encounter Summary ---
Author Organization [facility] Address [address] [place] [address] Phone Care Team Providers Care Sales Developer Name Role Phone Saul Fitch Primary Care Provider [phone] Harvey Wilson MD Unavailable [phone] Wily Bassett MD Unavailable [phone] Paulie Lai MD Unavailable [phone] Eb Cardoso MD Unavailable [phone] Ernesto Reddy MD Unavailable [phone] Naomi Bay MD Unavailable [phone] Paula Jarvis NP Unavailable [phone] Unknown, Notinfile Primary Care Provider Unavail able Encounter Details Date Type Department Care Team (Latest Contact Info) Description 12/14/2021 Orders Only [facility] Scanning, Provider Social History Tobacco Use Types Packs/Day Years Used Date Smoking Tobacco: Never Assessed Comments Unknown Sex and Gender Information Value Date Recorded Sex Assigned at Not on file Legal Sex Female 2:06 PM COVER OPERATOR Gender Identity Not on file Sexual [...] on filedocumented in this encounter Care Teams Sales Developer Relationship Specialty Start Date End Date Saul Fitch DO PCP - General Internal Medicine 01/18/22 01/21/24 Unknown, Notinfile PCP - General 01/22/24 Harvey Wilson MD Medical Oncologist Hematology 01/25/22 Wily Bassett MD [address] [facility] [address] [place] [address] Surgeon Cardiothoracic Surgery 01/25/22 Paulie Lai MD [address] [facility] [address] [place] [address] Exhaust Emissions Inspector Critical Care Med 01/25/22 Eb Cardoso MD [address] [place] [address] Exhaust Emissions Inspector Critical Care Med 01/25/22 Ernesto Reddy MD [address] DIV MEDICAL ONCOLOGY, JUN 7A, 7B, [address] [place] [address] Medical Oncologist/Continuous Still Operator Medical Oncology 01/25/22 Naomi Bay MD [address] [place] [address] Radiation Oncologist Radiation Oncology 01/31/22 Paula Jarvis NP [address] [facility] [address] [place] [address] Nurse Practitioner Radiation Oncology 07/18/22 documented as of this encounter
--- OUTSIDE RECORDS SUMMARY | 2024-06-01 18:09 | XMS_ITS ---
Author Organization [facility] Address [address] [facility] [place] [address] Care Team Providers Care Marketing Development Manager Name Role Phone Harvey Wilson MD Unavailable [phone] Wily Bassett MD Unavailable Paulie Lai MD Unavailable [phone] Eb Cardoso MD Unavailable [phone] Ernesto Reddy MD Unavailable [phone] Naomi Bay MD Unavailable Paula Jarvis NP Unavailable [phone] Unknown, Notinfile Primary Care Provider Unavail able [...] lung 12/16/2021 Pneumothorax on left 12/16/2021 Current Treatment and Therapy Plans No current plan information found. Other Current Plans Hydration Therapy Plan* Plan Start Date:04/03/2022 Plan Provider:Ernesto Reddy MD Linked Problems Dehydration Treatment Medications No medications scheduled. Past Treatment and Therapy Plans Oncology Chemotherapy Treatment Plan Name Start [...] of 1 cycle started Radiation Treatments * Course [id number]/20/2022 - 04/04/2022 Treatment Period Energy Fraction Dose Fractions Total Dose Plans Planned MEDIASTINUM 02/20/2022 - 04/04/2022 200 30 / 6,000 Reference Points Delivered PTV_6000 02/20/2022 - 04/04/2022 6,000 Lifetime Dose Tracking * Chemical Lifetime Dose Automatic Entry Manual Entr y DLP 3,476 mGycm 3,476 mGycm 0 mGycm
--- OUTSIDE RECORDS SUMMARY | 2024-06-01 18:09 | XMS_ITS | Clinical Summary ---
Author Organization [facility] Address [address] [facility] [place] [address] Care Team Providers Care Staff Occupational Therapist Name Role Phone Harvey Wilson MD Unavailable [phone] Wily Bassett MD Unavailable [phone] Paulie Lai MD Unavailable [phone] Eb Cardoso MD Unavailable [phone] BarryErnesto hernandez MD Unavailable [phone] Naomi Bay MD Unavailable [phone] Paula Jarvis NP Unavailable [phone] Unknown, Notinfile Primary Care Provider Unavail able Allergies Active Allergy Reactions Criticality Noted Date Comments Sulfa (Sulfonamide Antibiotics) Unknown,Swelling Medium 10/31/2013 Swelling Sulfamethoxazole-Tri methoprim Flushing (skin),Unknown,Hives Medium 10/31/2013 Eyes close and well, 104 fever, welts and bumps all refrigerator mover Hives Medications ALPRAZolam (XANAX) 1 mg tablet [...] Encounters Date Type Department Care Team Description 05/26/2024 Orders Only [facility] Pulmonary [address] [facility] 8th [place] [address] [place] [address] Fletcher Espinal MD Chronic obstructive pulmonary disease, unspecified COPD type (HCC) (Primary Dx) 05/01/2024 11:05 AM MECHANICAL ENGINEERING TEACHER - 05/01/2024 11:59 PM MECHANICAL ENGINEERING TEACHER Hospital Encounter [facility] [address] [place] [address] Ernesto Reddy MD Primary cancer of left lower lobe of lung (HCC); 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) Discharge Disposition: Discharge to home or self care 05/01/2024 Documentation [facility] Oncology [address] [facility] Floor 1, [address] [place] [address] Karen Sylvester from Last 3 Months Immunizations Immunization Administration Dates Next Due Influenza, Quadrivalent, Latrice [...] of Binge Drinking Not on file 01/13 [place] of Occupat ional Health - Occupational Stress Questionnaire Answer Date Recorded Do you feel stress - tense, restless, nervous, or anxious, or unable to sleep at night because your mind is troubled all the time - these days? Very much 01/26/2022 Comments No Sex and Gender Information Value Date Recorded Sex Assigned at Not on file Legal Sex Female 2:06 PM MECHANICAL ENGINEERING TEACHER Gender Identity Not on file Sexual Orientation Not on file Obstetrics History Last Filed Vital Signs Vital Sign Reading Time Taken Comments Blood Pressure 137/84 01/28/2024 9:49 AM CDT Pulse 71 01/28/2024 9:49 AM CDT Temperature 36.8 C (98.3 F) 01/28/2024 9:49 AM CDT Respiratory Rate 17 01/28/2024 9:49 AM CDT [...] Read Routine (OP Routine) 05/01/2024 11:42 AM MECHANICAL ENGINEERING TEACHER Primary cancer of left lower lobe of lung (HCC) 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 Postoperative changes of left lower lobectomy. Stable subcentimeter pulmonary nodules. 2. No evidence of disease progression in the chest and abdomen. Electronically signed by: Anna Urena M.D. Narrative 05/01/2024 12:17 PM MECHANICAL ENGINEERING TEACHER EXAMINATION: Computed tomography of the chest and [...] esult * POCT creatinine (05/01/2024 11:20 AM MECHANICAL ENGINEERING TEACHER) Creatinine POC 0.7 0.6 - 1.1 mg/dL Blood 05/01/2024 11:2 0 AM MECHANICAL ENGINEERING TEACHER 05/01/2024 11:20 AM MECHANICAL ENGINEERING TEACHER us Ernesto Reddy MD LAB POCT ORDERABLES - DEV ICE Final Result [facility] Department [place] [address] * COLONOSCOPY (12/03/2012 12:00 AM CDT) Anatomical Region Laterality Modality Other Narrative 12/03/2012 12:00 AM CDT Ordered by an unspecified provider. Procedure Note ProviderReginaldo MD - 12/03/2012 12:00 AM CDT PROCEDURE REPORT Patient: LESLEE OLIVIER Account: [id number] Room No: : 1960 Patient Type: [facility] Attend.: Alverto Perry D.O. Admit Date: Dict.: [...] in the left lateral decubitus position, [facility] Anesthesiology. Digital rectal examination was [...] tolerated theprocedure well without any immediate complications. Alverto Perry D.O. MEENU/mariaelena TD: 12/04/2012 03:42 CC: Dr. Maxwell Authenticated by Alverto Perry DO On 12/06/2012 09:56:26 AM us Historical Provider ENDOSCOPY PROCEDURES Cyndi abad Result from Last 3 Months or Most Recently Relevant to Health Maintenance Insurance MEDICARE IDSD MEDICARE IDSD Care Teams Staff Occupational Therapist Relationship Specialty Start Date End Date Unknown, Notinfile PCP - General 01/22/24 Harvey Wilson MD Medical Oncologist Hematology 01/25/22 Wily Bassett MD [address] [facility] [address] [place] [address] Surgeon Cardiothoracic Surgery 01/25/22 Paulie Lai MD [address] [facility] [address] [place] [address] Cardiology Nurse Practitioner Critical Care Med 01/25/22 Eb Cardoso MD [address] [place] [address] Cardiology Nurse Practitioner Critical Care Med 01/25/22 Ernesto Reddy MD [address] IM MEDICAL ONCOLOGY, JUN 7A, 7B, [address] [place] [address] Medical Oncologist/Gas Cutter Medical Oncology 01/25/22 Naomi Bay MD [address] [place] [address] Radiation Oncologist Radiation Oncology 01/31/22 Paula Jravis NP [address] [place] [address] Nurse Practitioner Radiation Oncology 07/18/22
--- OUTSIDE RECORDS SUMMARY | 2024-06-01 18:09 | XMS_ITS | Encounter Summary ---
Author Organization [facility] Address [address] [place] [address] Care Team Providers Care Program Director/Morning Show Host Name Role Phone Saul Fitch DO Primary Care Provider [phone] Harvey Wilson MD Unavailable [phone] Wily Bassett MD Unavailable [phone] Paulie Lai MD Unavailable [phone] Eb Cardoso MD Unavailable [phone] Ernesto Reddy MD Unavailable [phone] Naomi Bay MD Unavailable [phone] Paula Jarvis NP Unavailable [phone] Unknown, Notinfile Primary Care Provider Unavail able Encounter Details Date Type Department Care Team (Late st Contact Info) Description 01/23/2023 Telephone [facility] [address] [place] [address] Shaina Huynh RN Social History Tobacco Use Types Packs/Day Years Used Date Smoking Tobacco: Every Day Cigarettes AUDIT-C Answer Date Recorded Q1: How often do you have a drink containing alc ohol? Monthly or less 01/26/2022 Average Number of Drinks Not on file 022 Frequency of Binge Drinking Not on file 01/13 [facility] [place] of Occupat ional Health - Occupational Stress Questionnaire Answer Date Recorded Do you feel stress - tense, restless, nervous, or anxious, or unable to sleep at night because your mind is troubled all the time - these days? 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 Gender Identity Not on file Sexual Orientation Not on file documented as of this encounter Plan of Treatment Not on file documented as of this encounter Visit Diagnoses Not on filedocumented in this encounter Care Teams Program Director/Morning Show Host Relationship Specialty Start Date End Date Saul Fitch DO PCP - General Internal Medicine 01/18/22 01/21/24 Unknown, Notinfile PCP - General 01/22/24 Harvey Wilson MD Medical Oncologist Hematology 01/25/22 Wily Bassett MD [address] [facility] [address] [place] [address] Surgeon Cardiothoracic Surgery 01/25/22 Paulie Lai MD [address] [facility] [address] [place] [address] Professor Of French Critical Care Med 01/25/22 Eb Cardoso MD [address] [place] [address] Professor Of French Critical Care Med 01/25/22 Ernesto Reddy MD [address] [facility] MEDICAL ONCOLOGY, JUN 7A, 7B, [address] [place] [address] Medical Oncologist/Plastics And Composites Inspector Medical Oncology 01/25/22 Naomi Bay MD [address] [facility] [address] [place] [address] Radiation Oncologist Radiation Oncology 01/31/22 Paula Jarvis NP [address] [facility] [address] [place] [address] Nurse Practitioner Radiation Oncology 07/18/22 documented as of this encounter
--- OUTSIDE RECORDS SUMMARY | 2024-06-01 18:09 | XMS_ITS | Encounter Summary ---
Author Organization [facility] Address [address] [place] [address] Care Team Providers Care Garbage Worker Name Role Phone Saul Fitch DO Primary Care Provider [phone] Harvey Wilson MD Unavailable [phone] Wily Bassett MD Unavailable [phone] Paulie Lai MD Unavailable [phone] Eb Cardoso MD Unavailable [phone] Ernesto Reddy MD Unavailable [phone] Naomi Bay MD Unavailable [phone] Paula Jarvis NP Unavailable [phone] Unknown, Notinfile Primary Care Provider Unavail able Encounter Details Date Type Department Care Team (Late st Contact Info) Description 10/23/2022 Telephone [facility] [address] [place] [address] Shaina Huynh RN Social History Tobacco Use Types Packs/Day Years Used Date Smoking Tobacco: Every Day Cigarettes AUDIT-C Answer Date Recorded Q1: How often do you have a drink containing alc ohol? Monthly or less 01/26/2022 Average Number of Drinks Not on file 022 Frequency of Binge Drinking Not on file 01/13 [facility] [place] of Occupat ional Health - Occupational Stress Questionnaire Answer Date Recorded Do you feel stress - tense, restless, nervous, or anxious, or unable to sleep at night because your mind is troubled all the time - these days? Very much 01/26/2022 Comments No Sex and Gender Information Value Date Recorded Sex Assigned at Not on file Legal Sex Female 2:06 PM PIPEFITTER WELDER Gender Identity Not on file Sexual Orientation Not on file documented as of this encounter Plan of Treatment Not on file documented as of this encounter Visit Diagnoses Not on filedocumented in this encounter Care Teams Garbage Worker Relationship Specialty Start Date End Date Saul Fitch DO PCP - General Internal Medicine 01/18/22 01/21/24 Unknown, Notinfile PCP - General 01/22/24 Harvey Wilson MD Medical Oncologist Hematology 01/25/22 Wily Bassett MD [address] [facility] [address] [place] [address] Surgeon Cardiothoracic Surgery 01/25/22 Paulie Lai MD [address] [facility] [address] [place] [address] Pad Machine Operator Critical Care Med 01/25/22 Eb Cardoso MD [address] [place] [address] Pad Machine Operator Critical Care Med 01/25/22 Ernesto Reddy MD [address] [facility] MEDICAL ONCOLOGY, JUN 7A, 7B, [address] [place] [address] Medical Oncologist/Graphic Editor Medical Oncology 01/25/22 Naomi Bay MD [address] [facility] [place] [address] [place] [address] Radiation Oncologist Radiation Oncology 01/31/22 Paula Jarvis NP [address] [facility] [address] [place] [address] Nurse Practitioner Radiation Oncology 07/18/22 documented as of this encounter
--- OUTSIDE RECORDS SUMMARY | 2024-06-01 18:09 | XMS_ITS | Continuity of Care Document ---
Author Organization [facility] Address [address] [place] [address] [address] [place] [address] Phone Care Team Providers Care Tie Maker Name Role Phone Sanford OD, Alverto Unavailable Unavailable Advance Directives Directive Yes / No Effective Date File Name No Information Encounters Encounter Description Practice Location Reason(s) For Visit Diagnoses Date Provider Providers Copied on Encounter [facility], [address], [place], [place], [id number], [place] tel:[phone] [facility] No Information Apr-1 5-200 5 Sanford OD Alverto. [address], [place], [address], [place]. tel:[phone] Family History Family Member Type Diagnosis Age [...]
--- OUTSIDE RECORDS SUMMARY | 2024-06-01 18:09 | XMS_ITS | Referral Summary ---
Author Organization [facility] [address] [place] [address] Care Team Providers Care Insurance Claims Specialist Name Role Phone Harvey Wilson MD Unavailable [phone] Wily Bassett MD Unavailable [phone] Paulie Lai MD Unavailable [phone] Eb Cardoso MD Unavailable [phone] Ernesto Reddy MD Unavailable [phone] Naomi Bay MD Unavailable [phone] Paula Jarvis NP Unavailable [phone] Unknown, Notinfile Primary Care Provider Unavail able Encounters Date Type Department Care Team Description 05/26/2024 Orders Only [facility] Pulmonary [address] [facility] [address] [place] [address] [place] [address] Fletcher Espinal MD Chronic obstructive pulmonary disease, unspecified COPD type (HCC) (Primary Dx) 05/01/2024 Documentation [facility] Oncology [address], [address] [place] [id number] Karen Sylvester 05/01/2024 11:05 AM EVENING ANCHOR - 05/01/2024 11:59 PM EVENING ANCHOR Hospital Encounter [facility] [address] [place] [address] Ernesto Reddy MD Primary cancer of left lower lobe of lung (HCC); 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) Discharge Disposition: Discharge to home or self care from Last 3 Months Allergies Active Allergy Reactions Criticality Noted Date Comments Sulfa (Sulfonamide Antibiotics) Unknown,Swelling Medium 10/31/2013 Swelling Sulfamethoxazole-Tri methoprim Flushing (skin),Unknown,Hives Medium 10/31/2013 Eyes close and well, 104 fever, welts and bumps all furniture mover helper Hives Medications ALPRAZolam (XANAX) 1 mg tablet [...] lung 12/16/2021 Pneumothorax on left 12/16/2021 Immunizations Immunization Administration Dates Next Due Influenza, [...] of Binge Drinking Not on file 01/13 [facility] - Occupational Stress Questionnaire Answer Date Recorded Do you feel stress - tense, restless, nervous, or anxious, or unable to sleep at night because your mind is troubled all the time - these days? 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 Postoperative changes of left lower lobectomy. Stable subcentimeter pulmonary nodules. 2. No evidence of disease progression in the chest and abdomen. Electronically signed by: Anna Urena M.D. Narrative 05/01/2024 12:17 PM EVENING ANCHOR EXAMINATION: Computed tomography of the chest and [...] esult * POCT creatinine (05/01/2024 11:20 AM EVENING ANCHOR) Creatinine POC 0.7 0.6 - 1.1 mg/dL Blood 05/01/2024 11:2 0 AM EVENING ANCHOR 05/01/2024 11:20 AM EVENING ANCHOR Ernesto Reddy MD LAB POCT ORDERABLES - DEV ICE Final Result [facility] [place] [address] * COLONOSCOPY (12/03/2012 12:00 AM CDT) Anatomical Region Laterality Modality Other Narrative 12/03/2012 12:00 AM CDT Ordered by an unspecified provider. Procedure Note Provider, MD Reginaldo - 12/03/2012 12:00 AM CDT PROCEDURE REPORT Patient: LESLEE OLIVIER Account: [id number] Room No: : 1960 Patient Type: SDS [...] Recently Relevant to Health Maintenance Insurance MEDICARE [facility] MEDICARE [facility] Address: [address] [address] [place] [address] IDPA Care Teams Insurance Claims Specialist Relationship Specialty Start Date End Date Unknown, Notinfile PCP - General 01/22/24 Harvey Wilson MD Medical Oncologist Hematology 01/25/22 Wily Bassett MD [address] [facility] [facility] [address] [place] [address] Surgeon Cardiothoracic Surgery 01/25/22 Paulie Lai MD [address] [facility] [address] [place] [address] Emotionally Impaired Teacher Critical Care Med 01/25/22 Eb Cardoso MD [address] [place] [address] Emotionally Impaired Teacher Critical Care Med 01/25/22 Ernesto Reddy MD [address] IM MEDICAL ONCOLOGY, [address] [place] [address] Medical Oncologist/Coater Operator Insulation Board Medical Oncology 01/25/22 Naomi Bay MD [address] [place] [address] Radiation Oncologist Radiation Oncology 01/31/22 Paula Jarvis NP [address] [place], [place] [id number] Nurse Practitioner Radiation Oncology 07/18/22
--- OUTSIDE RECORDS SUMMARY | 2024-06-01 18:09 | XMS_ITS | Patient Health Summary ---
Author Organization [facility] [employer] Address [address] [place] [address] Care Team Providers Care Telecommunications Operator Name Role Phone Dieudonne Maxwell MD Primary Care Provider [phone] Note from [facility],non-owned Affiliates and Associated Physician Practices is amultiple site organization consisting of ambulatory clinics and hospital sitesin [place], [place], [place] and [place]. This disclosure is being madepursuant to the Care Everywhere program and may not contain all information available regarding this patient. Last updated 18.[facility] [employer] Social History Tobacco Use Types Packs/Day Years Used Date Smoking Tobacco: Never Assessed Sex and Gender Information Value Date Recorded Sex Assigned at Not on file Gender Identity Not on file Sexual Orientation Not on file Last Filed Vital Signs Vital Sign Reading Time Taken Comments Blood Pressure 110/69 06/10/2015 12:31 PM PAPER TUBE GRADER Pulse 84 06/10/2015 12:31 PM PAPER TUBE GRADER Temperature 36.9 C (98.4 F) 06/10/2015 12:31 PM PAPER TUBE GRADER Respiratory Rate 14 06/10/2015 12:31 PM PAPER TUBE GRADER Oxygen Saturation 97% 06/10/2015 12:31 PM PAPER TUBE GRADER Inhaled Oxygen Concentration - - Weight 65.8 kg (145 lb) 06/10/2015 12:31 PM PAPER TUBE GRADER Height 175.3 cm (5' 9 ) 06/10/2015 12:31 PM PAPER TUBE GRADER Body Mass Index 21.41 06/10/2015 12:31 PM PAPER TUBE GRADER Procedures * BASIC METABOLIC PANEL (CALCIUM TOTAL)(Performed [...] CBC W AUTO DIFFERENTIAL (04/12/2015 2:53 AM PAPER TUBE GRADER) Only the most recent of16 resultswithin the time period is included. WBC 5.0 3.5 - 10.5 10 3/uL 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 RBC 3.52(L) 3.90 - 5.00 10 6/uL 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 Hemoglobin 11.4(L) 12.0 - 15.5 g/dL 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 Hematocrit 33.7(L) 35.0 - 45.0 % 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 MCV 95.7 81.0 - 97.0 fL 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 MCH 32.4 28.0 - 34.0 pg 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 MCHC 33.8 32.0 - 36.0 g/dL 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 Platelet Count 275 150 - 400 10 3/uL 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 RDW-SD 47.0 36.0 - 50.0 fL 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 RDW-CV 13.4 11.2 - 14.8 % 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 MPV 10.4 9.3 - 12.8 fL 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 Neutrophils % 50.1 35.0 - 70.0 % 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 Lymphocytes % 36.7 19.7 - 55.1 % 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 Monocytes % 8.6 3.0 - 15.0 % 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 Eosinophils % 4.2 0.0 - 6.0 % 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 Basophil % 0.4 0.0 - 1.5 % 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 Neutrophils Absolute 2.5 1.6 - 7.0 10 3/uL 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 Lymphocyte Absolute 1.8 0.8 - 2.9 10 3/uL 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 Monocytes Absolute 0.43 0.14 - 0.66 10 3/uL 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 Eosinophils Absolute 0.21 0.00 - 0.22 10 3/uL 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 Basophils Absolute 0.02 0.00 - 0.06 10 3/uL 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 Immature Granulocytes % 0.0 0.0 - 1.0 % 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 Blood specimen (specimen) BLOOD SPECIMEN / Unknown 04/12/2015 2:53 AM PAPER TUBE GRADER 04/12/2015 3:17 AM PAPER TUBE GRADER Eduardo Sin MD LAB - HEMATOLOGY ORD ERABLES Performing Organization Address [facility] Co de Phone Number [address] [phone] * (ABNORMAL) BASIC METABOLIC PANEL (CALCIUM TOTAL) (04/12/2015 2:53 AM PAPER TUBE GRADER) Only the most recent of7 resultswithin the time period is included. BUN 7 7 - 26 mg/dL 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 Creatinine 0.7 0.6 - 1.2 mg/dL 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 Sodium 141 136 - 145 mmol/L 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 Potassium 4.1 3.5 - 4.5 mmol/L 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 Chloride 105 98 - 107 mmol/L 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 CO2 29 22 - 29 mmol/L 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 Glucose 139(H) 70 - 115 mg/dL 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 Calcium 9.0 8.4 - 10.2 mg/dL 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 Anion Gap 11 8 - 18 [facility] BUN/Creatinine Ratio 10 7 - 23 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 Osmolality Calculated 277 270 - 300 mOsm/kg 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 eGFR >60 >60 mL/min/1.7 3 m2 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 Blood specimen (specimen) BLOOD SPECIMEN / Unknown 04/12/2015 2:53 AM PAPER TUBE GRADER 04/12/2015 3:17 AM PAPER TUBE GRADER Any Santos MD LAB - CHEMISTRY ORDERABLES Performing Organization Address [facility]/ZIP Co de Phone Number [address] [phone] * CULTURE AFB+SMEAR (04/09/2015 10:14 AM PAPER TUBE GRADER) Culture Acid Fast Bacilli No Growth of Acid Fast bacilli after 8 weeks. 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 AFB Smear No Acid Fast bacilli seen on direct smear. 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 Bone tissue specimen (specimen) 04/09/2015 10:14 AM PAPER TUBE GRADER 04/09/2015 10:14 AM PAPER TUBE GRADER Narrative 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 - 06/06/2015 9:33 AM PAPER TUBE GRADER Right mandible tissue Specimen Type->Bone Any Santos MD LAB - MICROBIOLO GY ORDERABLES Performing Organization Address [facility] de Phone Number [address] [phone] * CULTURE FUNGUS OTHER+FUNGUS SMEAR (04/09/2015 10:14 AM PAPER TUBE GRADER) Culture Fungus-Other No Growth Fungi. 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 Fungus Smear No Fungi seen. 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 Bone tissue specimen (specimen) (Unspecified) 04/09/2015 10:14 AM PAPER TUBE GRADER 04/09/2015 10:14 AM PAPER TUBE GRADER Narrative 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 - 05/10/2015 4:00 PM PAPER TUBE GRADER Right mandible tissue Specimen Type->Bone Any Santos MD LAB - MICROBIOLO GY ORDERABLES Performing Organization Address [facility] Co de Phone Number [address] [phone] * (ABNORMAL) CULTURE AEROBIC (04/09/2015 9:30 AM PAPER TUBE GRADER) Only the most recent of2 resultswithin the time period is included. Culture Aerobic STREPTOCOCCUS SALIVARIUS(A) 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 Comment:Light Growth Strepto coccus Salivarius Culture Aerobic STREPTOCOCCUS MITIS/ORALIS(A) 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 Comment:Light Growth STREPTO COCCUS MITIS/ORALIS Gram Stain Many Red Blood Cells 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 Gram Stain Few Polymorphonuclear Cells 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 Gram Stain Rare Gram positive cocci in pairs 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 Comment:called and read back to Mandy 04/09/15 1153 Gram Stain 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 Comment:called and read back to Dr. Deras 04/09/15 1215 Fluid specimen (specimen) 04/09/2015 9:30 AM PAPER TUBE GRADER 04/09/2015 9:40 AM PAPER TUBE GRADER Narrative 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 - 04/13/2015 10:35 AM PAPER TUBE GRADER Right mandible body fluid Specimen Type->Body Fluid [...] - MICROBIOLO GY ORDERABLES Performing Organization Address [facility] Co de Phone Number [address] [phone] * CULTURE ANAEROBE (04/09/2015 9:30 AM PAPER TUBE GRADER) Only the most recent of2 resultswithin the time period is included. Culture Anaerobic No Growth Anaerobes. 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 Culture Anaerobic AEROBIC GROWTH COMPATIBLE WITH ROUTINE CULTURE. 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 Tissue 04/09/2015 9:30 AM PAPER TUBE GRADER 04/09/2015 9:40 AM PAPER TUBE GRADER Narrative 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 - 04/17/2015 12:14 PM PAPER TUBE GRADER Right mandible tissue Specimen Type->Tissue Any Santos MD LAB - MICROBIOLO GY ORDERABLES Performing Organization Address [facility] Co de Phone Number [address] [phone] * PATHOLOGY TISSUE (04/09/2015 8:45 AM PAPER TUBE GRADER) Surgical Pathology Tissue CLINICAL HISTORY: Osteomyelitis of the mandible. PRE-OP DIAGNOSIS: Osteomyelitis of mandible. OPERATIVE PROCEDURE: Biopsy of right mandible. FINAL DIAGNOSIS: MANDIBLE BIOPSY: - CHANGES CONSISTENT WITH OSTEOMYELITIS - REPARATIVE TISSUES WITH ACUTE AND CHRONIC INFLAMMATION GROSS DESCRIPTION: The specimen is received fixed in formalin in one container, labeled with the patient's name Leslee Arreguin and right mandible bx , and consists of multiple fragments of soft, brown-centeno to centeno-white tissue fragments with an aggregate measurement of 1.6 x 1.2 x 0.3 cm. The specimen is filtered and submitted entirely in cassette A1. MNR/ls MICROSCOPIC DESCRIPTION: After initial inspection, surface decalcification of the block is performed with recutting of the material. In the latter slides, devitalized bone is noted with focal bacterial colonization and focal bordering by acute inflammatory cells. Fairly abundant reparative inflamed connective tissues are noted. No granulomata are identified. No overt malignant changes are appreciated. SB/edk The performance characteristics of all immunohistochemical and indirect immunofluorescence stains (if any) cited in this report were determined by the Histopathology Laboratory of [facility]. Some of these tests were developed by our own laboratory and have not been cleared or approved by the US Food and Drug Administration. The FDA does not require this test to go through premarket FDA review. These tests are used for clinical purposes. They should not be regarded as investigational or for research. This laboratory is certified under the Clinical Laboratory Improvement Amendments (CLIA) as qualified to perform high complexity clinical laboratory testing. This case has been personally reviewed and interpreted by the attending (teaching) pathologist. Final Diagnosis performed by Gayle Browning MD. Electronically signed 04/12/2015 [facility] ([facility]) Other (qualifier value) 04/09/2015 8:45 AM PAPER TUBE GRADER 04/09/2015 9:40 AM PAPER TUBE GRADER Narrative [facility] ([facility]) - 04/12/2015 4:36 PM PAPER TUBE GRADER PROBLEM LIST: Patient Active Problem List: Osteomyelitis of mandible PRE-OP DIAGNOSIS: Osteomyelitis of the mandible . OPERATIVE PROCEDURE / FINDINGS: Procedure(s): BIOPSY OF THE RIGHT MANDIBLE POST-OP DIAGNOSIS: * No post-op diagnosis entered * Collection Date->04/09/15 Collection Time-> 8:45 AM Specimen A->Soft Tissue, Other Right mandible tissue Winston Barriga MD LAB - PATHOLOGY/CYTO LOGY ORDERABLES [facility] ([facility]) * PATHOLOGY/GENETICS HISTORICAL-ONBASE (04/09/2015) 04/09/2015 Narrative [facility] - 04/13/2015 11:10 AM PAPER TUBE GRADER Historical Provider LAB - CHEMISTRY O RDERABLES Performing Organization Address [facility] Co de Phone Number [facility] [address] * T3 FREE (04/08/2015 7:38 AM PAPER TUBE GRADER) T3 Free 2.8 1.7 - 3.7 pg/mL 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 Blood specimen (specimen) BLOOD SPECIMEN / Unknown 04/08/2015 7:38 AM PAPER TUBE GRADER 04/08/2015 9:35 AM PAPER TUBE GRADER Any Santos MD LAB - CHEMISTRY ORDERABLES Performing Organization Address [facility] Co de Phone Number [address] [phone] * (ABNORMAL) VANCOMYCIN LEVEL TROUGH (04/08/2015 7:38 AM PAPER TUBE GRADER) Vancomycin Trough 2.9(L) 10.0 - 20.0 mcg/mL 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 Blood specimen (specimen) BLOOD SPECIMEN / Unknown 04/08/2015 7:38 AM PAPER TUBE GRADER 04/08/2015 7:46 AM PAPER TUBE GRADER Any Santos MD LAB - CHEMISTRY ORDERABLES Performing Organization Address [facility] Co de Phone Number [address] [phone] * XR PANOREX (04/07/2015 12:46 PM PAPER TUBE GRADER) Anatomical Region Laterality Modality Head Other Impressions 04/08/2015 6:05 PM PAPER TUBE GRADER Impression: Lytic focus in the right mandibular body compatible with osteomyelitis. Dictated by Jordan Michaud MD (Cad Manager). I, Dr. SARAY COPPOLA M.D. have personally reviewed and interpreted this examination/study. This report was electronically signed by SARAY COPPOLA M.D. on 04/08/2015 6:05 PM . Narrative 04/08/2015 6:05 PM PAPER TUBE GRADER EXAMINATION: Panorex HISTORY: mandibular osteomyelitis COMPARISON: No [...] with osteomyelitis. Dictated by Jordan Michaud MD (Cad Manager). I, Dr. SARAY COPPOLA M.D. have personally reviewed and interpreted thisexamination/study. This report was electronically signed by SARAY COPPOLA M.D. on 04/08/20156:05 PM . Any Santos MD DIAGNOSTIC IMAGI NG ORDERABLES * (ABNORMAL) C-REACTIVE PROTEIN (04/07/2015 10:46 AM PAPER TUBE GRADER) Only the most recent of2 resultswithin the time period is included. Pathologist [facility] C-Reactive Protein 1.9(H) <=0.5 mg/dL 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 Blood specimen (specimen) BLOOD SPECIMEN / Unknown 04/07/2015 10:46 AM PAPER TUBE GRADER 04/07/2015 10:52 AM PAPER TUBE GRADER Any Santos MD LAB - CHEMISTRY ORDERABLES [address] [phone] * (ABNORMAL) THYROID PEROXIDASE ANTIBODY (04/07/2015 10:46 AM PAPER TUBE GRADER) Thyroid Peroxidase TPO Antibody 62(H) 0 - 34 IU/mL [facility] ([facility]) Blood specimen (specimen) BLOOD SPECIMEN / Unknown 04/07/2015 10:46 AM PAPER TUBE GRADER 04/08/2015 9:36 AM PAPER TUBE GRADER Narrative [facility] - 04/10/2015 6:39 AM PAPER TUBE GRADER Performed at: - [address] [id number] Auto Tune Up Mechanic: Adin Salazar PhD, Phone: [phone] Any Santos MD LAB - CHEMISTRY ORDERABLES [facility] ([facility]) * (ABNORMAL) ERYTHROCYTE SEDIMENTATION RATE (04/07/2015 10:46 AM PAPER TUBE GRADER) Only the most recent of2 resultswithin the time period is included. Erythrocyte Sedimentation Rate Westergren 22(H) 0 - 20 MM/HR 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 Comment: ########################################################################## # Please Note: New age specific reference ranges have been implemented. # ########################################################################## Blood specimen (specimen) BLOOD SPECIMEN / Unknown 04/07/2015 10:46 AM PAPER TUBE GRADER 04/07/2015 10:52 AM PAPER TUBE GRADER Any Santos MD LAB - HEMATOLOGY ORDERABLES [address] [phone] * MRI ORBITS OR FACE WWO CONTRAST (04/06/2015 9:02 PM PAPER TUBE GRADER) Anatomical Region Laterality Modality Head Other Impressions 04/07/2015 7:21 PM PAPER TUBE GRADER IMPRESSION: 1. Small abscess occupying a defect or socket in the edentulous right mandibular body complicated by acute right mandibular osteomyelitis superimposed upon subacute or chronic right mandibular osteomyelitis with associated overlying cellulitis as described above. No findings to suggest a neoplastic process involving the mandible. This report was electronically signed by SIMBA HAWTHORNE M.D. on 04/07/2015 7:21 PM . Narrative 04/07/2015 7:21 PM PAPER TUBE GRADER EXAMINATION: Magnetic resonance imaging (MRI) of the [...] identified. Procedure Note Simba Hawthorne MD - 03/31/2018 EXAMINATION: Magnetic resonance imaging (MRI) of the [...] MR ORDERABLES * TSH (04/06/2015 2:44 AM PAPER TUBE GRADER) TSH 4.499 0.350 - 4.940 uIU/mL 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 Blood specimen (specimen) BLOOD SPECIMEN / Unknown 04/06/2015 2:44 AM PAPER TUBE GRADER 04/06/2015 3:05 AM PAPER TUBE GRADER Eduardo Sin MD LAB - CHEMISTRY ORDE JUAN MIGUEL Performing Organization Address [facility]/ZIP Co de Phone Number [address] [phone] * T4 FREE (04/06/2015 2:44 AM PAPER TUBE GRADER) T4 Free 1.0 0.7 - 1.5 ng/dL 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 Blood specimen (specimen) BLOOD SPECIMEN / Unknown 04/06/2015 2:44 AM PAPER TUBE GRADER 04/06/2015 6:27 AM PAPER TUBE GRADER Any Santos MD LAB - CHEMISTRY ORDERABLES Performing Organization Address [facility] Co de Phone Number [address] [phone] * (ABNORMAL) DRUG ABUSE PANEL 10-20+ETHANOL URINE NO CONFIRM (04/06/2015 1:38 AM PAPER TUBE GRADER) Pathologist [facility] Amphetamines Screen Urine Negative Negative : < 1000 ng/mL 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 Barbiturates Screen Urine Negative Negative : < 200 ng/mL 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 Benzodiazepine Screen Urine Positive(A) Negative : < 200 ng/mL 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 Comment: Positive urine benzodiazepine screening results should be confirmed by another generally accepted non-immunological method such as gas chromatography or mass spectrometry. Opiates Urine Positive(A) Negative : < 300 ng/mL 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 Comment: Positive urine opiate screening results should be confirmed by another generally accepted non-immunological method such as gas chromatography or mass spectrometry. Cocaine Metabolites Urine Negative Negative : < 300 ng/mL 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 Phencyclidine Screen Urine Negative Negative : < 25 ng/ml 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 Cannabinoids Screen Urine Positive(A) Negative : <50 ng/mL 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 Comment: Positive urine cannabinoids (THC) screening results should be confirmed by another generally accepted non-immunological method such as gas chromatography or mass spectrometry. Methadone Screen Urine Negative Negative : < 300 ng/mL 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 Urine specimen (specimen) URINE / Unknown 04/06/2015 1:38 AM PAPER TUBE GRADER 04/06/2015 1:48 AM PAPER TUBE GRADER Narrative 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 - 04/06/2015 2:05 AM PAPER TUBE GRADER The Urine Toxicology Screening Panel does not screen for Propoxyphene, Meprobamate, Carisoprodol, Trazodone, sxvd-rdx-ykzmfee medications and/or volatiles (Acetone, Isopropanol, Methanol or Ethylene Glycol). Ethanol, Salicylate, Acetaminophen, Tricyclic Antidepressants and several therapeutic drugs may be individually assayed in serum or plasma specimen. Toxicology testing by the [facility] is an aid to medical diagnosis and treatment of patients. No documented chain of custody was maintained. Results are intended to be used for clinical purposes only. Any Santos MD LAB - URINE CHEM ISTRY ORDERABLES Performing Organization Address [facility] Co de Phone Number [address] [phone] * EKG 12-LEAD (04/06/2015 12:00 AM PAPER TUBE GRADER) EKG [facility] Comment: Exam Date/Time: Apr 06 2015 01:33:03 Test Reason : Measure QT interval. Blood Pressure : / mmHG Vent. Rate : 057 BPM Atrial Rate : 057 BPM P-R Int : 160 ms QRS Dur : 082 ms QT Int : 430 ms P-R-T Axes : 078 085 082 degrees QTc Int : 418 ms Sinus bradycardia Otherwise normal ECG No previous ECGs available Confirmed by Ella TIPTON, EULALIA ([id number]), avid editor MAT EMERSON ([id number]) on 04/19/2015 12:44:17 PM Referred By: REFERRING NO Confirmed By:EULALIA TIPTON M.D. 04/06/2015 Any Santos MD ECG ORDERABLES Performing Organization Address [facility] Co de Phone Number [facility] * CULTURE BLOOD (04/05/2015 10:45 PM PAPER TUBE GRADER) Only the most recent of2 resultswithin the time period is included. Culture Blood No Growth at 5 days 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 Blood specimen (specimen) 04/05/2015 10:45 PM PAPER TUBE GRADER 04/05/2015 11:00 PM PAPER TUBE GRADER Eduardo Sin MD LAB - MICROBIOLOGY O RDERABLES Performing Organization Address City/State/[facility] Co de Phone Number 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 [address] [place] [address] * (ABNORMAL) COMPREHENSIVE METABOLIC PANEL (04/05/2015 10:30 PM PAPER TUBE GRADER) BUN 14 7 - 26 mg/dL 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 Creatinine 0.6 0.6 - 1.2 mg/dL 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 Sodium 138 136 - 145 mmol/L 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 Potassium 3.5 3.5 - 4.5 mmol/L 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 Chloride 100 98 - 107 mmol/L 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 CO2 29 22 - 29 mmol/L 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 Glucose 145(H) 70 - 115 mg/dL 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 Calcium 9.0 8.4 - 10.2 mg/dL 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 Protein Total 6.2 6.0 - 8.3 g/dL 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 Albumin 3.4 3.4 - 5.0 g/dL 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 Bilirubin Total 0.4 0.2 - 1.2 mg/dL 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 Alkaline Phosphatase 84 40 - 150 Units/L 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 ALT 8 0 - 55 Units/L 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 AST 8 5 - 34 Units/L 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 Anion Gap 13 8 - 18 [facility] BUN/Creatinine Ratio 23 7 - 23 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 Osmolality Calculated 275 270 - 300 mOsm/kg 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 Albumin/Globulin Ratio 1.2 1.1 - 2.3 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 eGFR >60 >60 mL/min/1.7 3 m2 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 Blood specimen (specimen) BLOOD SPECIMEN / Unknown 04/05/2015 10:30 PM PAPER TUBE GRADER 04/05/2015 10:59 PM PAPER TUBE GRADER Eduardo Sin MD LAB - CHEMISTRY BENITA BULL[facility] Organization Address City/State/ZIP Co de Phone Number [address] [phone] * XR CHEST 1VW PORTABLE (04/05/2015 9:49 PM PAPER TUBE GRADER) Anatomical Region Laterality Modality Chest Other Impressions 04/06/2015 6:04 PM PAPER TUBE GRADER Impression: No acute pulmonary process. There is [...] was electronically signed by VIK VALLES MD on 04/06/2015 6:04 PM . Narrative 04/06/2015 6:04 PM PAPER TUBE GRADER Exam: Portable chest, one view. Date: 04/05/2015 [...] . Eduardo Sin MD DIAGNOSTIC IMAGING O [facility] Care Teams Telecommunications Operator Relationship Specialty Start Date End Date Dieudonne Maxwell MD [address] [place] [id number] PCP - General 05/20/18
--- OUTSIDE RECORDS SUMMARY | 2024-06-01 18:09 | XMS_ITS | Clinical Summary ---
Author Organization [facility] Address [address] [place] [address] Phone Care Team Providers Care Integration Engineer Name Role Phone Saul Fitch Primary Care Provider [phone] Allergies Active Allergy Reactions Criticality Noted Date [...] Tablet 2 Active naloxone (NARCAN) 4 mg/spray [place], Non-Aerosol EMERGENCY USE ONLY: Administer 1 spray [...] 11/03/2021 Immunizations Immunization Administration Dates Next Due ([employer])(12 YR UP) COVID-19 VACCINE - EMERGENCY USE AUTHORIZATION, MRNA, [id number](PF) 30 MCG/0.3 ML IM SUSP 11/18/2020,10/27/2020 Influenza [...] 89 01/16/2022 3:13 PM CDT Temperature 36.6 C (97.8 F) 01/16/2022 3:13 PM CDT Respiratory Rate 16 12/21/2021 12:45 PM CDT [...] 11/18/2020, 10/27/2020 Medical Devices Implanted Type Area City [place] Device Identifier Shelf Expiration Date Model / Serial / Lot Sealant Progel Pleural 4ml [id number] - [id number] Implanted:Qty: 1 on 12/14/2021 by Wily Bassett MD at [facility] Tissue Left: Chest BARD DAVOL [id number] 06/16/2023 [id number] / / [id number] Lumbar Fusion Hardware Insurance MEDICARE PART A AND B [facility] MEDICAID MEDICARE PART A AND B [facility] MEDICAID Advance Directives For more information, please contact: [phone] * Full Code (Latest Code Status on File) Date Activated Date Inactivated Comments 12/14/2021 5:21 PM 12/21/2021 6:25 PM * Full Code Date Activated Date Inactivated Comments 12/14/2021 8:36 AM 12/14/2021 5:21 PM Care Teams Integration Engineer Relationship Specialty Start Date End Date Saul Fitch DO [address] [facility] [address] [place] [address] PCP - General Internal Medicine 10/26/21
--- OUTSIDE RECORDS SUMMARY | 2024-06-01 18:09 | XMS_ITS | Referral Summary ---
Author Organization [facility] Address [address] [place] [address] Care Team Providers Care Director Strategic Account Management Name Role Phone Dieudonne Maxwell MD Primary Care Provider Source Comments [facility],non-research medical center Affiliates and Associated Physician Practices is amultiple site organization consisting of ambulatory clinics and hospital sitesin [place], [place], [place] and [place]. This disclosure is being madepursuant to the Care Everywhere program and may not contain all information available regarding this patient. Last updated 18.[facility] [employer] Social History Tobacco Use Types Packs/Day Years Used Date Smoking Tobacco: Never Assessed Sex and Gender Information Value Date Recorded Sex Assigned at Not on file Gender Identity Not on file Sexual Orientation Not on file Last Filed Vital Signs Vital Sign Reading Time Taken Comments Blood Pressure 110/69 06/10/2015 12:31 PM HYPOID GEAR TESTER Pulse 84 06/10/2015 12:31 PM HYPOID GEAR TESTER Temperature 36.9 C (98.4 F) 06/10/2015 12:31 PM HYPOID GEAR TESTER Respiratory Rate 14 06/10/2015 12:31 PM HYPOID GEAR TESTER Oxygen Saturation 97% 06/10/2015 12:31 PM HYPOID GEAR TESTER Inhaled Oxygen Concentration - - Weight 65.8 kg (145 lb) 06/10/2015 12:31 PM HYPOID GEAR TESTER Height 175.3 cm (5' 9 ) 06/10/2015 12:31 PM HYPOID GEAR TESTER Body Mass Index 21.41 06/10/2015 12:31 PM HYPOID GEAR TESTER Plan of Treatment Not on file Care Teams Director Strategic Account Management Relationship Specialty Start Date End Date Dieudonne Maxwell MD [address] [place] [address] PCP - General 05/20/18
--- OUTSIDE RECORDS SUMMARY | 2024-06-01 18:09 | XMS_ITS | Clinical Summary ---
Author Organization [facility] Address [address] [place] [address] Care Team Providers Care Call Center Representative Name Role Phone Dieudonne Maxwell MD Primary Care Provider [phone] Source Comments [facility] Affiliates and Associated Physician Practices is amultiple site organization consisting of ambulatory clinics and hospital sitesin [place], [place]. This disclosure is being madepursuant to the Care Everywhere program and may not contain all information available regarding this patient. Last updated 18.[facility] Social History Tobacco Use Types Packs/Day Years Used Date Smoking Tobacco: Never Assessed Sex and Gender Information Value Date Recorded Sex Assigned at Not on file Gender Identity Not on file Sexual Orientation Not on file Last Filed Vital Signs Vital Sign Reading Time Taken Comments Blood Pressure 110/69 06/10/2015 12:31 PM BUSINESS RELATIONSHIP MANAGER Pulse 84 06/10/2015 12:31 PM BUSINESS RELATIONSHIP MANAGER Temperature 36.9 C (98.4 F) 06/10/2015 12:31 PM BUSINESS RELATIONSHIP MANAGER Respiratory Rate 14 06/10/2015 12:31 PM BUSINESS RELATIONSHIP MANAGER Oxygen Saturation 97% 06/10/2015 12:31 PM BUSINESS RELATIONSHIP MANAGER Inhaled Oxygen Concentration - - Weight 65.8 kg (145 lb) 06/10/2015 12:31 PM BUSINESS RELATIONSHIP MANAGER Height 175.3 cm (5' 9 ) 06/10/2015 12:31 PM BUSINESS RELATIONSHIP MANAGER Body Mass Index 21.41 06/10/2015 12:31 PM BUSINESS RELATIONSHIP MANAGER Plan of Treatment Health Maintenance Due Date Last Done Comments COLOGUARD (AGES 45-75) - COL ON CA SCREENING 1961 COLON MONITORING 1961 COLONOSCOPY - COLON CA SCREENING 1961 CT COLONOGRAPHY - COLON CA SCREENING 1961 Colorectal Cancer Screening 1961 FIT - COLON CA SCREENING 1961 FLEX SIG - COLON CA SCREENING 1961 LIPID TESTING 1960 MAMMOGRAM 1960 MEDICARE AWV 12 MONTHS 1961 PAP SMEAR 1961 HIV [...] age to complete this topic Care Teams Call Center Representative Relationship Specialty Start Date End Date Dieudonne Maxwell MD [address] [place] [address] PCP - General 05/20/18
== END 2024-06-01 15:31 | disposition home or self-care (01) ==
PROVIDERS: PCP Family Medicine
DX: M43.12 Spondylolisthesis, cervical region (principal); M50.322 Other cervical disc degeneration at C5-C6 level; M50.323 Other cervical disc degeneration at C6-C7 level; M47.892 Other spondylosis, cervical region; M51.34 Other intervertebral disc degeneration, thoracic region; M43.16 Spondylolisthesis, lumbar region; M51.369 Other intervertebral disc degeneration, lumbar region without mention of lumbar back pain or lower extremity pain; M47.896 Other spondylosis, lumbar region; Z98.1 Arthrodesis status
CPT/HCPCS: 72040; 72072; 72100

== ENCOUNTER 2024-06-04 13:01 | Outpatient (CLI) | payer MEDICARE, MEDICAID, SELFPAY ==
--- OUTSIDE RECORDS SUMMARY | 2024-06-04 13:21 | XMS_ITS | Continuity of Care Document ---
Author Organization [facility] Address [id number] [place] [address] [address] [place] [address] Phone Care Team Providers Care Dinkey Brakeman Name Role Phone Sanford OD, Alverto Unavailable Unavailable Advance Directives Directive Yes / No Effective Date File Name No Information Encounters Encounter Description Practice Location Reason(s) For Visit Diagnoses Date Provider Providers Copied on Encounter [facility], [address], [place], [place], [id number], [place] tel:[phone] [facility] No Information Apr-1 5-200 5 Sanford OD Alverto. [address], [place], [address], [place]. tel:[phone] Family History Family Member Type Diagnosis Age At Onset No Information Payers Payer name Insurance type Covered republican ID Authoriza tion(s) No Information Social History [...]
--- OUTSIDE RECORDS SUMMARY | 2024-06-04 13:21 | XMS_ITS | Clinical Summary ---
Author Organization [facility] Address [address], [facility] [address] [place] [address] Phone Care Team Providers Care Project Manager Industrial Name Role Phone Dieudonne Maxwell MD Primary Care Provider [phone] Allergies Active Allergy Reactions Criticality Noted Date [...] Heart Attack Father Heart Attack Sister fatal [place] Heart Disease Sister Relation Name Status Comments [...] 81 09/16/2018 2:44 PM CDT Temperature 37.1 C (98.7 F) 09/16/2018 2:44 PM CDT Respiratory Rate 16 09/16/2018 2:44 PM CDT [...] to Health Maintenance Insurance MEDICARE Care Teams Project Manager Industrial Relationship Specialty Start Date End Date Dieudonne Maxwell MD [address] [place], [place] [id number] PCP - General Internal Medicine 11/19/17
--- OUTSIDE RECORDS SUMMARY | 2024-06-04 13:22 | XMS_ITS | Clinical Summary ---
Author Organization [facility] Address [address] [place] [address] Care Team Providers Care Lever Tender Name Role Phone Unavailable Primary Care Provider [...]
--- OUTSIDE RECORDS SUMMARY | 2024-06-04 13:22 | XMS_ITS | Clinical Summary ---
Author Organization [facility] 2 Address [address] [facility] [place] [address] Care Team Providers Care Utility Operator Name Role Phone Harvey Wilson MD Unavailable [phone] Wily Bassett MD Unavailable [phone] Paulie Lai MD Unavailable [phone] Eb Cardoso MD Unavailable [phone] BarryErnesto hernandez MD Unavailable [phone] Naomi Bay MD Unavailable [phone] Paula Jarvis NP Unavailable [phone] Unknown, Notinfile Primary Care Provider Unavail able Allergies Active Allergy Reactions Criticality Noted Date Comments Sulfa (Sulfonamide Antibiotics) Unknown,Swelling Medium 10/31/2013 Swelling Sulfamethoxazole-Tri methoprim Flushing (skin),Unknown,Hives Medium 10/31/2013 Eyes close and well, 104 fever, welts and bumps all office mover Hives Medications ALPRAZolam (XANAX) 1 mg [...] Department Care Team Description 05/26/2024 Orders Only [facility] Pulmonary [address] [facility] 8th [place] [address] [place] [address] Fletcher Espinal MD Chronic obstructive pulmonary disease, unspecified COPD type (HCC) (Primary Dx) 05/01/2024 11:05 AM ASSEMBLY LINE ROBOT OPERATOR - 05/01/2024 11:59 PM ASSEMBLY LINE ROBOT OPERATOR Hospital Encounter [facility] [address] [place] [address] Ernesto Reddy MD Primary cancer of left lower lobe of lung (HCC); 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 Postoperative changes of left lower lobectomy. Stable subcentimeter pulmonary nodules. 2. No evidence of disease progression in the chest and abdomen. Electronically signed by: Anna Urena M.D. Narrative 05/01/2024 12:17 PM ASSEMBLY LINE ROBOT OPERATOR EXAMINATION: Computed tomography of the chest and [...] esult * POCT creatinine (05/01/2024 11:20 AM ASSEMBLY LINE ROBOT OPERATOR) Creatinine POC 0.7 0.6 - 1.1 mg/dL Blood 05/01/2024 11:2 0 AM ASSEMBLY LINE ROBOT OPERATOR 05/01/2024 11:20 AM ASSEMBLY LINE ROBOT OPERATOR us Ernesto Reddy MD LAB POCT ORDERABLES - DEV ICE Final Result [facility] Department [place] [address] * COLONOSCOPY (12/03/2012 12:00 AM CDT) Anatomical Region Laterality Modality Other Narrative 12/03/2012 12:00 AM CDT Ordered by an unspecified provider. Procedure Note ProviderReginaldo MD - 12/03/2012 12:00 AM CDT PROCEDURE REPORT Patient: LESLEE OLIVIER Account: [id number] Room No: : 1960 Patient Type: [facility] Attend.: Alverto Perry D.O. Admit Date: Dict.: [...] in the left lateral decubitus position[facility]. Digital rectal examination [...] Recently Relevant to Health Maintenance Insurance MEDICARE IDIL MEDICARE IDIL Care Teams Utility Operator Relationship Specialty Start Date End Date Unknown, Notinfile PCP - General 01/22/24 Harvey Wilson MD Medical Oncologist Hematology 01/25/22 Wily Bassett MD [address] [facility] [address] [place] [address] Surgeon Cardiothoracic Surgery 01/25/22 Paulie Lai MD [address] [facility] [address] [place] [address] Hospital Food Service Worker Critical Care Med 01/25/22 Eb Cardoso MD [address] [place] [address] Hospital Food Service Worker Critical Care Med 01/25/22 Ernesto Reddy MD [address] DIV IM MEDICAL ONCOLOGY, [address] [place] [address] Medical Oncologist/Weather Reporter Medical Oncology 01/25/22 Naomi Bay MD [address] [place] [address] Radiation Oncologist Radiation Oncology 01/31/22 Paula Jarvis NP [address] [place] [address] Nurse Practitioner Radiation Oncology 07/18/22
--- OUTSIDE RECORDS SUMMARY | 2024-06-04 13:22 | XMS_ITS ---
Author Organization [facility] [address] [facility] [facility] [place] [address] Care Team Providers Care Correspondence Section Supervisor Name Role Phone Harvey Wilson MD Unavailable [phone] Wily Bassett MD Unavailable [phone] Paulie Lai MD Unavailable [phone] Eb Cardoso MD Unavailable [phone] Ernesto Reddy MD Unavailable [phone] Naomi Bay MD Unavailable [phone] Paula Jarvis NP Unavailable Unknown, Notinfile Primary [...]
--- OUTSIDE RECORDS SUMMARY | 2024-06-04 13:22 | XMS_ITS | Encounter Summary ---
Author Organization [facility] Address [address] [place] [address] Phone Care Team Providers Care Dry Transfer Worker Name Role Phone Saul Fitch Primary Care Provider [phone] Harvey Wilson MD Unavailable [phone] Wily Bassett MD Unavailable [phone] Paulie Lai MD Unavailable [phone] Eb Cardoso MD Unavailable [phone] Ernesot Reddy MD Unavailable [phone] Naomi Bay MD Unavailable [phone] Paula Jarvis NP Unavailable [phone] Unknown, Notinfile Primary Care Provider Unavail able Encounter Details Date Type Department Care Team (Latest Contact Info) Description 12/14/2021 Orders Only [facility] Scanning, Provider Social History Tobacco Use Types Packs/Day Years Used Date Smoking Tobacco: Never Assessed Comments Unknown Sex and Gender Information Value Date Recorded Sex Assigned at Not on file Legal Sex Female 2:06 PM CIRCULAR RIPSAW OPERATOR Gender Identity Not on file Sexual [...] on filedocumented in this encounter Care Teams Dry Transfer Worker Relationship Specialty Start Date End Date Saul Fitch DO PCP - General Internal Medicine 01/18/22 01/21/24 Unknown, Notinfile PCP - General 01/22/24 Harvey Wilson MD Medical Oncologist Hematology 01/25/22 Wily Bassett MD [address] [facility] [address] [place] [address] Surgeon Cardiothoracic Surgery 01/25/22 Paulie Lai MD [address] [facility] [address] [place] [address] Concrete Engineering Technician Critical Care Med 01/25/22 Eb Cardoso MD [address] [place] [address] Concrete Engineering Technician Critical Care Med 01/25/22 Ernesto Reddy MD [address] DIV MEDICAL ONCOLOGY, [address] [place] [address] Medical Oncologist/Talent Recruiter Medical Oncology 01/25/22 Naomi Bay MD [address] [place] [address] Radiation Oncologist Radiation Oncology 01/31/22 Paula Jarvis NP [address] [facility] [address] [place] [address] Nurse Practitioner Radiation Oncology 07/18/22 documented as of this encounter
--- OUTSIDE RECORDS SUMMARY | 2024-06-04 13:22 | XMS_ITS | Patient Health Summary ---
Author Organization [facility] Address [address] [place] [address] Care Team Providers Care Hairspring I Inspector Name Role Phone Dieudonne Maxwell MD Primary Care Provider [phone] Note from [facility],non-owned Affiliates and Associated Physician Practices is amultiple site organization consisting of ambulatory clinics and hospital sitesin [place], [place], [place] and [place]. This disclosure is being madepursuant to the Care Everywhere program and may not contain all information available regarding this patient. Last updated 18.[facility] Social History Tobacco Use Types Packs/Day Years Used Date Smoking Tobacco: Never Assessed Sex and Gender Information Value Date Recorded Sex Assigned at Not on file Gender Identity Not on file Sexual Orientation Not on file Last Filed Vital Signs Vital Sign Reading Time Taken Comments Blood Pressure 110/69 06/10/2015 12:31 PM SWEEP MOLDER Pulse 84 06/10/2015 12:31 PM SWEEP MOLDER Temperature 36.9 C (98.4 F) 06/10/2015 12:31 PM SWEEP MOLDER Respiratory Rate 14 06/10/2015 12:31 PM SWEEP MOLDER Oxygen Saturation 97% 06/10/2015 12:31 PM SWEEP MOLDER Inhaled Oxygen Concentration - - Weight 65.8 kg (145 lb) 06/10/2015 12:31 PM SWEEP MOLDER Height 175.3 cm (5' 9 ) 06/10/2015 12:31 PM SWEEP MOLDER Body Mass Index 21.41 06/10/2015 12:31 PM SWEEP MOLDER Procedures * BASIC METABOLIC PANEL (CALCIUM TOTAL)(Performed [...] CBC W AUTO DIFFERENTIAL (04/12/2015 2:53 AM SWEEP MOLDER) Only the most recent of16 resultswithin the time period is included. WBC 5.0 3.5 - 10.5 10 3/uL [facility] RBC 3.52(L) 3.90 - 5.00 10 6/uL [facility] Hemoglobin 11.4(L) 12.0 - 15.5 g/dL [facility] Hematocrit 33.7(L) 35.0 - 45.0 % [facility] MCV 95.7 81.0 - 97.0 fL [facility] MCH 32.4 28.0 - 34.0 pg [facility] MCHC 33.8 32.0 - 36.0 g/dL [facility] Platelet Count 275 150 - 400 10 3/uL [facility] RDW-SD 47.0 36.0 - 50.0 fL [facility] RDW-CV 13.4 11.2 - 14.8 % [facility] MPV 10.4 9.3 - 12.8 fL [facility] Neutrophils % 50.1 35.0 - 70.0 % [facility] Lymphocytes % 36.7 19.7 - 55.1 % [facility] Monocytes % 8.6 3.0 - 15.0 % [facility] Eosinophils % 4.2 0.0 - 6.0 % [facility] Basophil % 0.4 0.0 - 1.5 % [facility] Neutrophils Absolute 2.5 1.6 - 7.0 10 3/uL [facility] Lymphocyte Absolute 1.8 0.8 - 2.9 10 3/uL [facility] Monocytes Absolute 0.43 0.14 - 0.66 10 3/uL [facility] Eosinophils Absolute 0.21 0.00 - 0.22 10 3/uL [facility] Basophils Absolute 0.02 0.00 - 0.06 10 3/uL [facility] Immature Granulocytes % 0.0 0.0 - 1.0 % [facility] Blood specimen (specimen) BLOOD SPECIMEN / Unknown 04/12/2015 2:53 AM SWEEP MOLDER 04/12/2015 3:17 AM SWEEP MOLDER Eduardo Sin MD LAB - HEMATOLOGY ORD ERABLES Performing Organization Address [facility]/[place] [facility] Co de Phone Number [address] [phone] * (ABNORMAL) BASIC METABOLIC PANEL (CALCIUM TOTAL) (04/12/2015 2:53 AM SWEEP MOLDER) Only the most recent of7 resultswithin the time period is included. BUN 7 7 - 26 mg/dL [facility] Creatinine 0.7 0.6 - 1.2 mg/dL [facility] Sodium 141 136 - 145 mmol/L [facility] Potassium 4.1 3.5 - 4.5 mmol/L [facility] Chloride 105 98 - 107 mmol/L [facility] CO2 29 22 - 29 mmol/L [facility] Glucose 139(H) 70 - 115 mg/dL [facility] Calcium 9.0 8.4 - 10.2 mg/dL [facility] Anion Gap 11 8 - 18 [facility] BUN/Creatinine Ratio 10 7 - 23 [facility] Osmolality Calculated 277 270 - 300 mOsm/kg [facility] eGFR >60 >60 mL/min/1.7 3 m2 [facility] Blood specimen (specimen) BLOOD SPECIMEN / Unknown 04/12/2015 2:53 AM SWEEP MOLDER 04/12/2015 3:17 AM SWEEP MOLDER Any Santos MD LAB - CHEMISTRY ORDERABLES Performing Organization Address [facility]/ZIP Co de Phone Number [address] [phone] * CULTURE AFB+SMEAR (04/09/2015 10:14 AM SWEEP MOLDER) Culture Acid Fast Bacilli No Growth of Acid Fast bacilli after 8 weeks. [facility] AFB Smear No Acid Fast bacilli seen on direct smear. [facility] Bone tissue specimen (specimen) 04/09/2015 10:14 AM SWEEP MOLDER 04/09/2015 10:14 AM SWEEP MOLDER Narrative [facility] - 06/06/2015 9:33 AM SWEEP MOLDER Right mandible tissue Specimen Type->Bone Any Santos MD LAB - MICROBIOLO GY ORDERABLES Performing Organization Address [facility] de Phone Number [address] [phone] * CULTURE FUNGUS OTHER+FUNGUS SMEAR (04/09/2015 10:14 AM SWEEP MOLDER) Culture Fungus-Other No Growth Fungi. [facility] Fungus Smear No Fungi seen. [facility] Bone tissue specimen (specimen) (Unspecified) 04/09/2015 10:14 AM SWEEP MOLDER 04/09/2015 10:14 AM SWEEP MOLDER Narrative [facility] - 05/10/2015 4:00 PM SWEEP MOLDER Right mandible tissue Specimen Type->Bone Any Santos MD LAB - MICROBIOLO GY ORDERABLES Performing Organization Address [facility] [facility] Co de Phone Number [address] [phone] * (ABNORMAL) CULTURE AEROBIC (04/09/2015 9:30 AM SWEEP MOLDER) Only the most recent of2 resultswithin the time period is included. Culture Aerobic STREPTOCOCCUS SALIVARIUS(A) [facility] Comment:Light Growth Strepto coccus Salivarius Culture Aerobic STREPTOCOCCUS MITIS/ORALIS(A) [facility] Comment:Light Growth STREPTO COCCUS MITIS/ORALIS Gram Stain Many Red Blood Cells [facility] Gram Stain Few Polymorphonuclear Cells [facility] Gram Stain Rare Gram positive cocci in pairs [facility] Comment:called and read back to Mandy 04/09/15 1153 Gram Stain [facility] Comment:called and read back to Dr. Deras 04/09/15 1215 Fluid specimen (specimen) 04/09/2015 9:30 AM SWEEP MOLDER 04/09/2015 9:40 AM SWEEP MOLDER Narrative [facility] - 04/13/2015 10:35 AM SWEEP MOLDER Right mandible body fluid Specimen Type->Body Fluid [...] - MICROBIOLO GY ORDERABLES Performing Organization Address [facility] [facility] Co de Phone Number [address] [phone] * CULTURE ANAEROBE (04/09/2015 9:30 AM SWEEP MOLDER) Only the most recent of2 resultswithin the time period is included. Culture Anaerobic No Growth Anaerobes. [facility] Culture Anaerobic AEROBIC GROWTH COMPATIBLE WITH ROUTINE CULTURE. [facility] Tissue 04/09/2015 9:30 AM SWEEP MOLDER 04/09/2015 9:40 AM SWEEP MOLDER Narrative [facility] - 04/17/2015 12:14 PM SWEEP MOLDER Right mandible tissue Specimen Type->Tissue Any Santos MD LAB - MICROBIOLO GY ORDERABLES Performing Organization Address [facility] Co de Phone Number [address] [phone] * PATHOLOGY TISSUE (04/09/2015 8:45 AM SWEEP MOLDER) Surgical Pathology Tissue CLINICAL HISTORY: Osteomyelitis of [...] were determined by the Histopathology Laboratory of [facility]. Some of these tests were developed by [...] by Gayle Browning MD. Electronically signed 04/12/2015 [facility] ([facility]) Other (qualifier value) 04/09/2015 8:45 AM SWEEP MOLDER 04/09/2015 9:40 AM SWEEP MOLDER Narrative [facility] ([facility]) - 04/12/2015 4:36 PM SWEEP MOLDER PROBLEM LIST: Patient Active Problem List: Osteomyelitis of mandible PRE-OP DIAGNOSIS: Osteomyelitis of the mandible . OPERATIVE PROCEDURE / FINDINGS: Procedure(s): BIOPSY OF THE RIGHT MANDIBLE POST-OP DIAGNOSIS: * No post-op diagnosis entered * Collection Date->04/09/15 Collection Time-> 8:45 AM Specimen A->Soft Tissue, Other Right mandible tissue Winston Barriga MD LAB - PATHOLOGY/CYTO LOGY ORDERABLES [facility] ([facility]) * PATHOLOGY/GENETICS HISTORICAL-ONBASE (04/09/2015) 04/09/[address] [facility] - 04/13/2015 11:10 AM SWEEP MOLDER Historical Provider LAB - CHEMISTRY O RDERABLES Performing Organization Address [facility] Co de Phone Number [facility] [address] * T3 FREE (04/08/2015 7:38 AM SWEEP MOLDER) T3 Free 2.8 1.7 - 3.7 pg/mL [facility] Blood specimen (specimen) BLOOD SPECIMEN / Unknown 04/08/2015 7:38 AM SWEEP MOLDER 04/08/2015 9:35 AM SWEEP MOLDER Any Santos MD LAB - CHEMISTRY ORDERABLES Performing Organization Address [facility] Co de Phone Number [address] [phone] * (ABNORMAL) VANCOMYCIN LEVEL TROUGH (04/08/2015 7:38 AM SWEEP MOLDER) Vancomycin Trough 2.9(L) 10.0 - 20.0 mcg/mL [facility] Blood specimen (specimen) BLOOD SPECIMEN / Unknown 04/08/2015 7:38 AM SWEEP MOLDER 04/08/2015 7:46 AM SWEEP MOLDER Any Santos MD LAB - CHEMISTRY ORDERABLES Performing Organization Address [facility] Co de Phone Number [address] [phone] * XR PANOREX (04/07/2015 12:46 PM SWEEP MOLDER) Anatomical Region Laterality Modality Head Other Impressions 04/08/2015 6:05 PM SWEEP MOLDER Impression: Lytic focus in the right mandibular body compatible with osteomyelitis. Dictated by Jordan Michaud MD (Curriculum Development Coordinator). I, Dr. SARAY COPPOLA M.D. have personally reviewed and interpreted this examination/study. This report was electronically signed by SARAY COPPOLA M.D. on 04/08/2015 6:05 PM . Narrative 04/08/2015 6:05 PM SWEEP MOLDER EXAMINATION: Panorex HISTORY: mandibular osteomyelitis COMPARISON: No [...] with osteomyelitis. Dictated by Jordan Michaud MD (Curriculum Development Coordinator). I, Dr. SARAY COPPOLA M.D. have personally reviewed and interpreted thisexamination/study. This report was electronically signed by SARAY COPPOLA M.D. on 04/08/20156:05 PM . Any Santos MD DIAGNOSTIC IMAGI NG ORDERABLES * (ABNORMAL) C-REACTIVE PROTEIN (04/07/2015 10:46 AM SWEEP MOLDER) Only the most recent of2 resultswithin the time period is included. Pathologist [facility] C-Reactive Protein 1.9(H) <=0.5 mg/dL [facility] Blood specimen (specimen) BLOOD SPECIMEN / Unknown 04/07/2015 10:46 AM SWEEP MOLDER 04/07/2015 10:52 AM SWEEP MOLDER Any Santos MD LAB - CHEMISTRY ORDERABLES [address] [phone] * (ABNORMAL) THYROID PEROXIDASE ANTIBODY (04/07/2015 10:46 AM SWEEP MOLDER) Thyroid Peroxidase TPO Antibody 62(H) 0 - 34 IU/mL [facility] ([facility]) Blood specimen (specimen) BLOOD SPECIMEN / Unknown 04/07/2015 10:46 AM SWEEP MOLDER 04/08/2015 9:36 AM SWEEP MOLDER Narrative [facility]) - 04/10/2015 6:39 AM SWEEP MOLDER Performed at: - [address] [id number] Swahili Teacher: Adin Salazar PhD, Phone: [phone] Any Santos MD LAB - CHEMISTRY ORDERABLES [facility] ([facility]) * (ABNORMAL) ERYTHROCYTE SEDIMENTATION RATE (04/07/2015 10:46 AM SWEEP MOLDER) Only the most recent of2 resultswithin the time period is included. Erythrocyte Sedimentation Rate Westergren 22(H) 0 - 20 MM/HR [facility] Comment: ########################################################################## # Please Note: New age specific reference ranges have been implemented. # ########################################################################## Blood specimen (specimen) BLOOD SPECIMEN / Unknown 04/07/2015 10:46 AM SWEEP MOLDER 04/07/2015 10:52 AM SWEEP MOLDER Any Santos MD LAB - HEMATOLOGY ORDERABLES [address] [phone] * MRI ORBITS OR FACE WWO CONTRAST (04/06/2015 9:02 PM SWEEP MOLDER) Anatomical Region Laterality Modality Head Other Impressions 04/07/2015 7:21 PM SWEEP MOLDER IMPRESSION: 1. Small abscess occupying a defect [...] 7:21 PM . Narrative 04/07/2015 7:21 PM SWEEP MOLDER EXAMINATION: Magnetic resonance imaging (MRI) of the [...] MR ORDERABLES * TSH (04/06/2015 2:44 AM SWEEP MOLDER) TSH 4.499 0.350 - 4.940 uIU/mL [facility] Blood specimen (specimen) BLOOD SPECIMEN / Unknown 04/06/2015 2:44 AM SWEEP MOLDER 04/06/2015 3:05 AM SWEEP MOLDER Eduardo Sin MD LAB - CHEMISTRY ORDE JUAN MIGUEL Performing Organization Address [facility]/ZIP Co de Phone Number [address] [phone] * T4 FREE (04/06/2015 2:44 AM SWEEP MOLDER) T4 Free 1.0 0.7 - 1.5 ng/dL [facility] Blood specimen (specimen) BLOOD SPECIMEN / Unknown 04/06/2015 2:44 AM SWEEP MOLDER 04/06/2015 6:27 AM SWEEP MOLDER Any Santos MD LAB - CHEMISTRY ORDERABLES Performing Organization Address [facility] Co de Phone Number [address] [phone] * (ABNORMAL) DRUG ABUSE PANEL 10-20+ETHANOL URINE NO CONFIRM (04/06/2015 1:38 AM SWEEP MOLDER) Pathologist [facility] Amphetamines Screen Urine Negative Negative : < 1000 ng/mL [facility] Barbiturates Screen Urine Negative Negative : < 200 ng/mL [facility] Benzodiazepine Screen Urine Positive(A) Negative : < 200 ng/mL [facility] Comment: Positive urine benzodiazepine screening results should be confirmed by another generally accepted non-immunological method such as gas chromatography or mass spectrometry. Opiates Urine Positive(A) Negative : < 300 ng/mL [facility] Comment: Positive urine opiate screening results should be confirmed by another generally accepted non-immunological method such as gas chromatography or mass spectrometry. Cocaine Metabolites Urine Negative Negative : < 300 ng/mL [facility] Phencyclidine Screen Urine Negative Negative : < 25 ng/ml [facility] Cannabinoids Screen Urine Positive(A) Negative : <50 ng/mL [facility] Comment: Positive urine cannabinoids (THC) screening results should be confirmed by another generally accepted non-immunological method such as gas chromatography or mass spectrometry. Methadone Screen Urine Negative Negative : < 300 ng/mL [facility] Urine specimen (specimen) URINE / Unknown 04/06/2015 1:38 AM SWEEP MOLDER 04/06/2015 1:48 AM SWEEP MOLDER Narrative [facility] - 04/06/2015 2:05 AM SWEEP MOLDER The Urine Toxicology Screening Panel does not screen for Propoxyphene, Meprobamate, Carisoprodol, Trazodone, wnkq-uof-bexsctm medications and/or volatiles (Acetone, Isopropanol, Methanol or Ethylene Glycol). Ethanol, Salicylate, Acetaminophen, Tricyclic Antidepressants and several therapeutic drugs may be individually assayed in serum or plasma specimen. Toxicology testing by the [facility] is an aid to medical diagnosis and treatment of patients. No documented chain of custody was maintained. Results are intended to be used for clinical purposes only. Any Santos MD LAB - URINE CHEM ISTRY ORDERABLES Performing Organization Address [facility] Co de Phone Number [address] [phone] * EKG 12-LEAD (04/06/2015 12:00 AM SWEEP MOLDER) EKG [facility] Comment: Exam Date/Time: Apr 06 [...] available Confirmed by Ella TIPTON, EULALIA ([id number]), acquisitions editor MAT EMERSON ([id number]) on 04/19/2015 12:44:17 PM Referred By: REFERRING NO Confirmed By:EULALIA TIPTON M.D. 04/06/2015 Any Santos MD ECG ORDERABLES Performing Organization Address [facility] Co de Phone Number [facility] * CULTURE BLOOD (04/05/2015 10:45 PM SWEEP MOLDER) Only the most recent of2 resultswithin the time period is included. Culture Blood No Growth at 5 days [facility] Blood specimen (specimen) 04/05/2015 10:45 PM SWEEP MOLDER 04/05/2015 11:00 PM SWEEP MOLDER Eduardo Sin MD LAB - MICROBIOLOGY O RDERABLES Performing Organization Address City/State/[facility] Co de Phone Number [facility] [address] [place] [address] * (ABNORMAL) COMPREHENSIVE METABOLIC PANEL (04/05/2015 10:30 PM SWEEP MOLDER) BUN 14 7 - 26 mg/dL [facility] Creatinine 0.6 0.6 - 1.2 mg/dL [facility] Sodium 138 136 - 145 mmol/L [facility] Potassium 3.5 3.5 - 4.5 mmol/L [facility] Chloride 100 98 - 107 mmol/L [facility] CO2 29 22 - 29 mmol/L [facility] Glucose 145(H) 70 - 115 mg/dL [facility] Calcium 9.0 8.4 - 10.2 mg/dL [facility] Protein Total 6.2 6.0 - 8.3 g/dL [facility] Albumin 3.4 3.4 - 5.0 g/dL [facility] Bilirubin Total 0.4 0.2 - 1.2 mg/dL [facility] Alkaline Phosphatase 84 40 - 150 Units/L [facility] ALT 8 0 - 55 Units/L [facility] AST 8 5 - 34 Units/L [facility] Anion Gap 13 8 - 18 [facility] BUN/Creatinine Ratio 23 7 - 23 [facility] Osmolality Calculated 275 270 - 300 mOsm/kg [facility] Albumin/Globulin Ratio 1.2 1.1 - 2.3 [facility] eGFR >60 >60 mL/min/1.7 3 m2 [facility] Blood specimen (specimen) BLOOD SPECIMEN / Unknown 04/05/2015 10:30 PM SWEEP MOLDER 04/05/2015 10:59 PM SWEEP MOLDER Eduardo Sin MD LAB - CHEMISTRY [facility] Organization Address City/State/ZIP Co de Phone Number [address] [phone] * XR CHEST 1VW PORTABLE (04/05/2015 9:49 PM SWEEP MOLDER) Anatomical Region Laterality Modality Chest Other Impressions 04/06/2015 6:04 PM SWEEP MOLDER Impression: No acute pulmonary process. There is [...] 6:04 PM . Narrative 04/06/2015 6:04 PM SWEEP MOLDER Exam: Portable chest, one view. Date: 04/05/2015 [...] . Eduardo Sin MD DIAGNOSTIC IMAGING O [facility] Care Teams Hairspring I Inspector Relationship Specialty Start Date End Date Dieudonne Maxwell MD [address] [place] [phone] PCP - General 05/20/18
--- OUTSIDE RECORDS SUMMARY | 2024-06-04 13:22 | XMS_ITS | Clinical Summary ---
Author Organization [facility] Address [address] [place] [address] Care Team Providers Care Newspaper Photo Editor Name Role Phone Dieudonne Maxwell MD Primary Care Provider [phone] Source Comments [facility] Affiliates and Associated Physician Practices is amultiple site organization consisting of ambulatory clinics and hospital sitesin [place], [place], [place] and [place]. This disclosure is being madepursuant to the Care Everywhere program and may not contain all information available regarding this patient. Last updated 18.[facility] Social History Tobacco Use Types Packs/Day Years Used Date Smoking Tobacco: Never Assessed Sex and Gender Information Value Date Recorded Sex Assigned at Not on file Gender Identity Not on file Sexual Orientation Not on file Last Filed Vital Signs Vital Sign Reading Time Taken Comments Blood Pressure 110/69 06/10/2015 12:31 PM DINING ROOM ATTENDANT [place] Pulse 84 06/10/2015 12:31 PM DINING ROOM ATTENDANT [place] Temperature 36.9 C (98.4 F) 06/10/2015 12:31 PM DINING ROOM ATTENDANT [place] Respiratory Rate 14 06/10/2015 12:31 PM DINING ROOM ATTENDANT [place] Oxygen Saturation 97% 06/10/2015 12:31 PM DINING ROOM ATTENDANT [place] Inhaled Oxygen Concentration - - Weight 65.8 kg (145 lb) 06/10/2015 12:31 PM DINING ROOM ATTENDANT [place] Height 175.3 cm (5' 9 ) 06/10/2015 12:31 PM DINING ROOM ATTENDANT [place] Body Mass Index 21.41 06/10/2015 12:31 PM DINING ROOM ATTENDANT [place] Plan of Treatment Health Maintenance Due Date [...] age to complete this topic Care Teams Newspaper Photo Editor Relationship Specialty Start Date End Date Dieudonne Maxwell MD [address] [place] [address] PCP - General 05/20/18
--- OUTSIDE RECORDS SUMMARY | 2024-06-04 13:22 | XMS_ITS | Encounter Summary ---
Author Organization [facility] Healthcare Address [address] [place] [address] Care Team Providers Care Drop Hammer Pile Driver Operator Name Role Phone Saul Fitch DO Primary Care Provider [phone] Harvey Wilson MD Unavailable [phone] Wily Bassett MD Unavailable [phone] Paulie Lai MD Unavailable [phone] Eb Cardoso MD Unavailable [phone] Ernesto Reddy MD Unavailable [phone] Naomi Bay MD Unavailable [phone] Paula Jarvis NP Unavailable [phone] Unknown, Notinfile Primary Care Provider Unavail able Encounter Details Date Type Department Care Team (Late st Contact Info) Description 01/23/2023 Telephone [facility] [address] [place] [address] Shaina Huynh RN Social History Tobacco Use Types Packs/Day Years Used Date Smoking Tobacco: Every Day Cigarettes AUDIT-C Answer Date Recorded Q1: How often do you have a drink containing alc ohol? Monthly or less 01/26/2022 Average Number of Drinks Not on file 022 Frequency of Binge Drinking Not on file 01/13 [facility] [place] [facility] - Occupational Stress Questionnaire Answer Date Recorded Do you feel stress - tense, restless, nervous, or anxious, or unable to sleep at night because your mind is troubled all the time - these days? Very much 01/26/2022 Comments No Sex and Gender Information Value Date Recorded Sex Assigned at Not on file Legal Sex Female 2:06 PM TOOLROOM CHECKER Gender Identity Not on file Sexual Orientation Not on file documented as of this encounter Plan of Treatment Not on file documented as of this encounter Visit Diagnoses Not on filedocumented in this encounter Care Teams Drop Hammer Pile Driver Operator Relationship Specialty Start Date End Date Saul Fitch DO PCP - General Internal Medicine 01/18/22 01/21/24 Unknown, Notinfile PCP - General 01/22/24 Harvey Wilson MD Medical Oncologist Hematology 01/25/22 Wily Bassett MD [address] [place] [address] Surgeon Cardiothoracic Surgery 01/25/22 Paulie Lai MD [address] [address] [place] [address] Plastic Surgery Assistant Critical Care Med 01/25/22 Eb Cardoso MD [address] [place] [address] Plastic Surgery Assistant Critical Care Med 01/25/22 Ernesto Reddy MD [address] [facility] [facility]] MEDICAL ONCOLOGY, [address] [place] [address] Medical Oncologist/Director Global Medical Oncology 01/25/22 Naomi Bay MD [address] [facility] [facility] [address] [place] [address] Radiation Oncologist Radiation Oncology 01/31/22 Paula Jarvis NP [address] [facility] [address] [place] [address] Nurse Practitioner Radiation Oncology 07/18/22 documented as of this encounter
--- OUTSIDE RECORDS SUMMARY | 2024-06-04 13:22 | XMS_ITS | Encounter Summary ---
Author Organization [facility] Address [address] [place] [address] Phone Care Team Providers Care Drupal Php Developer Name Role Phone Saul Fitch Primary Care Provider [phone] Harvey Wilson MD Unavailable [phone] Wily Bassett MD Unavailable [phone] Paulie Lai MD Unavailable [phone] Eb Cardoso MD Unavailable [phone] Ernesto Reddy MD Unavailable [phone] Naomi Bay MD Unavailable [phone] Paula Jarvis NP Unavailable [phone] Unknown, Notinfile Primary Care Provider Unavail able Encounter Details Date Type Department Care Team (Latest Contact Info) Description 11/13/2021 Orders Only [facility] Scanning, Provider Social History Tobacco Use Types Packs/Day Years Used Date Smoking Tobacco: Never Assessed Comments Unknown Sex and Gender Information Value Date Recorded Sex Assigned at Not on file Legal Sex Female 2:06 PM SMOKING TOBACCO PACKER HAND Gender Identity Not on file Sexual Orientation [...] on filedocumented in this encounter Care Teams Drupal Php Developer Relationship Specialty Start Date End Date Saul Fitch DO PCP - General Internal Medicine 01/18/22 01/21/24 Unknown, Notinfile PCP - General 01/22/24 Harvey Wilson MD Medical Oncologist Hematology 01/25/22 Wily Bassett MD [address] [facility] [address] [place] [address] Surgeon Cardiothoracic Surgery 01/25/22 Paulie Lai MD [address] [facility] [address] [place] [address] Director Of Application Development Critical Care Med 01/25/22 Eb Cardoso MD [address] [place] [address] Director Of Application Development Critical Care Med 01/25/22 Ernesto Reddy MD [address] DIV MEDICAL ONCOLOGY, [address]A, 7B, [address] [place] [address] Medical Oncologist/Carpet Sewing Machine Operator Medical Oncology 01/25/22 Naomi Bay MD [address] [place] [address] Radiation Oncologist Radiation Oncology 01/31/22 Paula Jarvis NP [address] [facility] [address] [place] [address] Nurse Practitioner Radiation Oncology 07/18/22 documented as of this encounter
--- OUTSIDE RECORDS SUMMARY | 2024-06-04 13:22 | XMS_ITS | Clinical Summary ---
Author Organization [facility] Address [address] [place] [address] Phone Care Team Providers Care Tractor Trailer Moving Van Driver Name Role Phone Saul Fitch Primary Care Provider [phone] Allergies Active Allergy Reactions Criticality Noted Date [...] Tablet 2 Active naloxone (NARCAN) 4 mg/spray [place], Non-Aerosol EMERGENCY USE ONLY: Administer 1 spray [...] 11/03/2021 Immunizations Immunization Administration Dates Next Due ([facility])(12 YR UP) COVID-19 VACCINE - EMERGENCY USE AUTHORIZATION, MRNA, [id number]) 30 MCG/0.3 ML IM SUSP 11/18/2020,10/27/2020 Influenza [...] 11/18/2020, 10/27/2020 Medical Devices Implanted Type Area Technical Marketing Engineer Device Identifier Shelf Expiration Date Model / Serial / Lot Sealant Progel Pleural 4ml [id number] - [id number] Implanted:Qty: 1 on 12/14/2021 by Wily Bassett MD at [facility] Tissue Left: Chest BARD DAVOL [id number] 06/16/2023 [id number] / / [id number] Lumbar Fusion Hardware Insurance MEDICARE PART A AND B [facility] MEDICAID MEDICARE PART A AND B [facility] MEDICAID Advance Directives For more information, please contact: [phone] * Full Code (Latest Code Status on File) Date Activated Date Inactivated Comments 12/14/2021 5:21 PM 12/21/2021 6:25 PM * Full Code Date Activated Date Inactivated Comments 12/14/2021 8:36 AM 12/14/2021 5:21 PM Care Teams Tractor Trailer Moving Van Driver Relationship Specialty Start Date End Date Saul Fitch DO [address] [facility] [address] [place] [address] PCP - General Internal Medicine 10/26/21
--- OUTSIDE RECORDS SUMMARY | 2024-06-04 13:22 | XMS_ITS | Referral Summary ---
Author Organization [facility] Address [address] [place] [address] Care Team Providers Care Waiter/Waitress Buffet Name Role Phone Dieudonne Maxwell MD Primary Care Provider [phone] Source Comments [facility] Affiliates and Associated Physician Practices is amultiple site organization consisting of ambulatory clinics and hospital sitesin [place], [place], [place] and [place]. This disclosure is being madepursuant to the Care Everywhere program and may not contain all information available regarding this patient. Last updated 18.[facility] Social History Tobacco Use Types Packs/Day Years Used Date Smoking Tobacco: Never Assessed Sex and Gender Information Value Date Recorded Sex Assigned at Not on file Gender Identity Not on file Sexual Orientation Not on file Last Filed Vital Signs Vital Sign Reading Time Taken Comments Blood Pressure 110/69 06/10/2015 12:31 PM TELEPHONE APPOINTMENT CLERK Pulse 84 06/10/2015 12:31 PM TELEPHONE APPOINTMENT CLERK Temperature 36.9 C (98.4 F) 06/10/2015 12:31 PM TELEPHONE APPOINTMENT CLERK Respiratory Rate 14 06/10/2015 12:31 PM TELEPHONE APPOINTMENT CLERK Oxygen Saturation 97% 06/10/2015 12:31 PM TELEPHONE APPOINTMENT CLERK Inhaled Oxygen Concentration - - Weight 65.8 kg (145 lb) 06/10/2015 12:31 PM TELEPHONE APPOINTMENT CLERK Height 175.3 cm (5' 9 ) 06/10/2015 12:31 PM TELEPHONE APPOINTMENT CLERK Body Mass Index 21.41 06/10/2015 12:31 PM TELEPHONE APPOINTMENT CLERK Plan of Treatment Not on file Care Teams Waiter/Waitress Buffet Relationship Specialty Start Date End Date Dieudonne Maxwell MD [address] [place] [address] PCP - General 05/20/18
--- OUTSIDE RECORDS SUMMARY | 2024-06-04 13:22 | XMS_ITS | Encounter Summary ---
Author Organization [facility] Address [address] [place] [address] Care Team Providers Care Baton Teacher Name Role Phone Saul Fitch DO Primary Care Provider Harvey Wilson MD Unavailable [phone] Wily Bassett MD Unavailable [phone] Paulie Lai MD Unavailable [phone] Eb Cardoso MD Unavailable [phone] Ernesto Reddy MD Unavailable [phone] Naomi Bay MD Unavailable [phone] Paula Jarvis NP Unavailable [phone] Unknown, Notinfile Primary Care Provider Unavail able Encounter Details Date Type Department Care Team (Late st Contact Info) Description 10/23/2022 Telephone [facility] [address] [place] [address] Shaina Huynh RN Social History Tobacco Use Types Packs/Day Years Used Date Smoking Tobacco: Every Day Cigarettes AUDIT-C Answer Date Recorded Q1: How often do you have a drink containing alc ohol? Monthly or less 01/26/2022 Average Number of Drinks Not on file 022 Frequency of Binge Drinking Not on file 01/13 [facility] of Occupat ional Health - Occupational Stress Questionnaire Answer Date Recorded Do you feel stress - tense, restless, nervous, or anxious, or unable to sleep at night because your mind is troubled all the time - these days? Very much 01/26/2022 Comments No Sex and Gender Information Value Date Recorded Sex Assigned at Not on file Legal Sex Female 2:06 PM MANAGER FOOD Gender Identity Not on file Sexual Orientation Not on file documented as of this encounter Plan of Treatment Not on file documented as of this encounter Visit Diagnoses Not on filedocumented in this encounter Care Teams Baton Teacher Relationship Specialty Start Date End Date Saul Fitch DO PCP - General Internal Medicine 01/18/22 01/21/24 Unknown, Notinfile PCP - General 01/22/24 Harvey Wilson MD Medical Oncologist Hematology 01/25/22 Wily Bassett MD [address] [facility] [address] [place] [address] Surgeon Cardiothoracic Surgery 01/25/22 Paulie Lai MD [address] [facility] [address] [place] [address] Infant Caregiver Critical Care Med 01/25/22 Eb Cardoso MD [address] [place] [address] Infant Caregiver Critical Care Med 01/25/22 Ernesto Reddy MD [address] [facility] MEDICAL ONCOLOGY, JUN 7A, 7B, [address] [place] [address] Medical Oncologist/Furniture Restorer Medical Oncology 01/25/22 Naomi Bay MD [address] [facility] [address] [place] [address] Radiation Oncologist Radiation Oncology 01/31/22 Paula Jarvis NP [address] [facility] [address] [place] [address] Nurse Practitioner Radiation Oncology 07/18/22 documented as of this encounter
--- OUTSIDE RECORDS SUMMARY | 2024-06-04 13:22 | XMS_ITS | Encounter Summary ---
Author Organization [facility] Address [address] [place] [address] Phone Care Team Providers Care Newspaper Carrier Name Role Phone Saul Fitch Primary Care Provider [phone] Harvey Wilson MD Unavailable [phone] Wily Bassett MD Unavailable [phone] Paulie Lai MD Unavailable [phone] Eb Cardoso MD Unavailable [phone] Ernesto Reddy MD Unavailable [phone] Naomi Bay MD Unavailable [phone] Paula Jarvis NP Unavailable [phone] Unknown, Notinfile Primary Care Provider Unavail able Encounter Details Date Type Department Care Team (Latest Contact Info) Description 11/22/2021 Orders Only [facility] Scanning, Provider Social History Tobacco Use Types Packs/Day Years Used Date Smoking Tobacco: Never Assessed Comments Unknown Sex and Gender Information Value Date Recorded Sex Assigned at Not on file Legal Sex Female 2:06 PM SENIOR ANALYSIS SPECIALIST Gender Identity Not on file Sexual Orientation [...] on filedocumented in this encounter Care Teams Newspaper Carrier Relationship Specialty Start Date End Date Saul Fitch DO PCP - General Internal Medicine 01/18/22 01/21/24 Unknown, Notinfile PCP - General 01/22/24 Harvey Wilson MD Medical Oncologist Hematology 01/25/22 Wily Bassett MD [address] [facility] [address] [place] [address] Surgeon Cardiothoracic Surgery 01/25/22 Paulie Lai MD [address] [facility] [address] [place] [address] Dovetailer Critical Care Med 01/25/22 Eb Cardoso MD [address] [place] [address] Dovetailer Critical Care Med 01/25/22 Ernesto Reddy MD [address] DIV MEDICAL ONCOLOGY, J[address] 7A, 7B, [address] [place] [address] Medical Oncologist/Regroover Medical Oncology 01/25/22 Naomi Bay MD [address] [place] [address] Radiation Oncologist Radiation Oncology 01/31/22 Paula Jarvis NP [address] [facility] [address] [place] [address] Nurse Practitioner Radiation Oncology 07/18/22 documented as of this encounter
--- OUTSIDE RECORDS SUMMARY | 2024-06-04 13:22 | XMS_ITS | Referral Summary ---
Author Organization [facility] Address [address] [place] [address] Care Team Providers Care Platform Consultant Name Role Phone Harvey Wilson MD Unavailable [phone] Wily Bassett MD Unavailable [phone] Paulie Lai MD Unavailable [phone] Eb Cardoso MD Unavailable [phone] Ernesto Reddy MD Unavailable [phone] Naomi Bay MD Unavailable [phone] Paula Jarvis NP Unavailable [phone] Unknown, Notinfile Primary Care Provider Unavail able Encounters Date Type Department Care Team Description 05/26/2024 Orders Only [facility] Pulmonary [address] [facility] 8th [place] [address] Fletcher Espinal MD Chronic obstructive pulmonary disease, unspecified COPD type (HCC) (Primary Dx) 05/01/2024 Documentation [facility] Oncology [address] [facility] [address], [address] [place] [address] Karen Sylvester 05/01/2024 11:05 AM HOSPICE EDUCATOR - 05/01/2024 11:59 PM HOSPICE EDUCATOR Hospital Encounter [facility] [address] [place] [address] Ernesto Reddy MD Primary cancer of left lower lobe of lung (HCC); 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) Discharge Disposition: Discharge to home or self care from Last 3 Months Allergies Active Allergy Reactions Criticality Noted Date Comments Sulfa (Sulfonamide Antibiotics) Unknown,Swelling Medium 10/31/2013 Swelling Sulfamethoxazole-Tri methoprim Flushing (skin),Unknown,Hives Medium 10/31/2013 Eyes close and well, 104 fever, welts and bumps all bilingual speech language pathologist Hives Medications ALPRAZolam (XANAX) 1 mg tablet [...] omeprazole (PriLOSEC) 20 mg capsuleIndication s:Cancer Chemotherapy-Avis ymrna Nausea and Vomiting Take 1 capsule (20 [...] of Binge Drinking Not on file 01/13 [facility] [employer] of Occupat ional Health - Occupational Stress Questionnaire Answer Date Recorded Do you feel stress - tense, restless, nervous, or anxious, or unable to sleep at night because your mind is troubled all the time - these days? 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 Postoperative changes of left lower lobectomy. Stable subcentimeter pulmonary nodules. 2. No evidence of disease progression in the chest and abdomen. Electronically signed by: Anna Urena M.D. Narrative 05/01/2024 12:17 PM HOSPICE EDUCATOR EXAMINATION: Computed tomography of the chest and [...] is likely a bone island. Procedure Note nAna Quintanilla MD - 05/01/2024 EXAMINATION: Computed tomography [...] esult * POCT creatinine (05/01/2024 11:20 AM HOSPICE EDUCATOR) Creatinine POC 0.7 0.6 - 1.1 mg/dL Blood 05/01/2024 11:2 0 AM HOSPICE EDUCATOR 05/01/2024 11:20 AM HOSPICE EDUCATOR Ernesto Reddy MD LAB POCT ORDERABLES - DEV ICE Final Result [facility] Department [place] [address] * COLONOSCOPY (12/03/2012 12:00 AM CDT) Anatomical Region Laterality Modality Other Narrative 12/03/2012 12:00 AM CDT Ordered by an unspecified provider. Procedure Note Provider, MD Reginaldo - 12/03/2012 12:00 AM CDT PROCEDURE REPORT Patient: LESLEE OLIVIER Account: [id number] Room No: : 1960 Patient Type: SDS [...] Recently Relevant to Health Maintenance Insurance MEDICARE [facility] MEDICARE [employer] Care Teams Platform Consultant Relationship Specialty Start Date End Date Unknown, Notinfile PCP - General 01/22/24 Harvey Wilson MD Medical Oncologist Hematology 01/25/22 Wily Bassett MD [address] [facility] [address] [place] [address] Surgeon Cardiothoracic Surgery 01/25/22 Paulie Lai MD [address] [facility] [address] [place] [address] Jet Wiper Critical Care Med 01/25/22 Eb Cardoso MD [address] [place] [address] Jet Wiper Critical Care Med 01/25/22 Ernesto Reddy MD [address] [facility] [address] IM MEDICAL ONCOLOGY, JUN 7A, 7B, [address] [place] [address] Medical Oncologist/Wellfield Technician Medical Oncology 01/25/22 Naomi Bay MD [address] [facility] [address] [place] [address] Radiation Oncologist Radiation Oncology 01/31/22 Paula Jarvis NP [address] [facility] [address] [place], [place] [address] Nurse Practitioner Radiation Oncology 07/18/22
--- OUTSIDE RECORDS SUMMARY | 2024-06-04 13:22 | XMS_ITS | Encounter Summary ---
Author Organization [facility] Address [address] [place] [address] Phone Care Team Providers Care Polymer Tester Name Role Phone Saul Fitch Primary Care Provider [phone] Harvey Wilson MD Unavailable [phone] Wily Bassett MD Unavailable [phone] Paulie Lai MD Unavailable [phone] Eb Cardoso MD Unavailable [phone] Ernesto Reddy MD Unavailable [phone] Naomi Bay MD Unavailable [phone] Paula Jarvis NP Unavailable [phone] Unknown, Notinfile Primary Care Provider Unavail able Encounter Details Date Type Department Care Team (Latest Contact Info) Description 10/26/2021 Orders Only [facility] Scanning, Provider Social History Tobacco Use Types Packs/Day Years Used Date Smoking Tobacco: Never Assessed Comments Unknown Sex and Gender Information Value Date Recorded Sex Assigned at Not on file Legal Sex Female 2:06 PM FALL INTERN Gender Identity Not on file Sexual Orientation [...] on filedocumented in this encounter Care Teams Polymer Tester Relationship Specialty Start Date End Date Salu Fitch DO PCP - General Internal Medicine 01/18/22 01/21/24 Unknown, Notinfile PCP - General 01/22/24 Harvey Wilson MD Medical Oncologist Hematology 01/25/22 Wily Bassett MD [address] [facility] [address] [place] [address] Surgeon Cardiothoracic Surgery 01/25/22 Paulie Lai MD [address] [facility] [address] [place] [address] Repairer Hairspring Critical Care Med 01/25/22 Eb Cardoso MD [address] [place] [address] Repairer Hairspring Critical Care Med 01/25/22 Ernesto Reddy MD [address] DIV MEDICAL ONCOLOGY, JUN 7A, 7B, [address] [place] [address] Medical Oncologist/Ice Cream Vendor Medical Oncology 01/25/22 Naomi Bay MD [address] [place] [address] Radiation Oncologist Radiation Oncology 01/31/22 Paula Jarvis NP [address] [facility] [address] [place] [address] Nurse Practitioner Radiation Oncology 07/18/22 documented as of this encounter
[2024-06-04 14:01] LABS: Hematocrit 37.1 % (37.0-47.0); Hemoglobin 11.9 g/dL (12.0-15.0); Mean Corpuscular HGB Conc 32.1 g/dl (32-36); Mean Corpuscular Hemoglobin 30.2 pg (26-34); Mean Corpuscular Volume 94.2 fl (80-100); Mean Platelet Volume 9.3 fl (7.4-10.4); Platelet Count Result 684 k/mm3 (150-375); Red Blood Count 3.94 M/mm3 (4.2-5.4); Red Cell Distribution Width 12.8 % (11.5-14.5); White Blood Count 11.7 K/mm3 (4.5-10.0)
[2024-06-04 14:15] LABS: Alanine Aminotransferase 17 U/L (6-35); Albumin Level 3.9 g/dL (3.5-5.1); Alkaline Phosphatase 106 U/L (38-126); Anion Gap 12 mmol/L (4-12); Aspartate Amino Transferase 17 U/L (14-36); Bilirubin,Total 0.5 mg/dL (0.2-1.3); Blood Urea Nitrogen 13 mg/dL (7-17); Calcium 9.5 mg/dL (8.4-10.2); Carbon Dioxide 27 mmol/L (22-30); Chloride 97 mmol/L (98-107); Estimated Glomerular Filt Rate > 60; Glucose 163 mg/dL (65-110); Potassium 4.3 mmol/L (3.4-5.0); Sodium 136 mmol/L (137-145)
== END 2024-06-04 13:02 | disposition home or self-care (01) ==
PROVIDERS: PCP Family Medicine
DX: M54.12 Radiculopathy, cervical region (principal); M25.569 Pain in unspecified knee; G89.4 Chronic pain syndrome; M17.9 Osteoarthritis of knee, unspecified; M48.062 Spinal stenosis, lumbar region with neurogenic claudication; Z79.891 Long term (current) use of opiate analgesic; Z71.6 Tobacco abuse counseling; Z51.81 Encounter for therapeutic drug level monitoring; Z13.89 Encounter for screening for other disorder
CPT/HCPCS: 36415; 80053; 85027

== ENCOUNTER 2024-06-10 13:43 | Outpatient (CLI) | payer MEDICARE, OTHER, SELFPAY ==
--- NOTE | ~2024-06-10 | XR_ITS ---
EXAM: [id number], XR hip LT min 2V DATE: 06/10/2024 15:21 HISTORY: Multiple joint pain . COMPARISON: 11/13/2013, 01/04/2014 images only. FINDINGS: Normal mineralization. No fracture or dislocation. No lytic or blastic lesion. Mild left a nd moderate right medial joint space narrowing. Moderate osteophytosis in the lateral compartment of the right knee, mild osteophytosis in the remaining bilateral knee compartments. Mild spurring at the bilateral tibial spines. Moderate bilateral knee joint fluid collections. Bilateral quadriceps enthe sopathy, with enthesophytes along the superior margin of the bilateral patella. No erosion or periost eal change. Soft tissues within normal limits. IMPRESSION: Moderate right and mild left knee osteoarthritis. Moderate bilateral knee joint effusions . Reviewed, dictated and finalized at location K. AS WORKER IMPRESSION: Moderate right and mild left knee osteoarthritis. Moderate bilatera l knee joint effusions.
--- NOTE | ~2024-06-10 | XR_ITS ---
EXAMINATION: XR elbow LT 2V DATE: 06/10/2024 15:21 INDICATION: Multiple joint pain TECHNIQUE: Anteroposterior and lateral views of the left elbow were obtained. COMPARISON: None. FINDINGS: Alignment is normal. No fracture or joint effusion. Joint spaces are normal. Soft tissues are unremar kable. IMPRESSION: 1. Negative left elbow radiographs. Reviewed, dictated and finalized at location B. Y CLEANER
--- NOTE | ~2024-06-10 | XR_ITS ---
EXAMINATION: XR hip RT min 2V DATE: 06/10/2024 15:21 INDICATION: Multiple joint pain. TECHNIQUE: 2 views of right hip were obtained. COMPARISON: Pelvis radiograph 06/16/2013 FINDINGS: Alignment is normal. No fracture. There is moderate right hip osteoarthritis. Osteitis pubi s is noted. Surgical clips overlie the pelvis. There are changes of anterior fusion procedure at L5-S 1. IMPRESSION: 1. Moderate right hip osteoarthritis. Reviewed, dictated and finalized at location A. PICKER
--- NOTE | ~2024-06-10 | XR_ITS ---
EXAMINATION: XR ankle RT 2V, XR foot LT 2V, XR foot RT 2V, XR ankle LT 2V DATE: 06/10/2024 15:21 INDICATION: Joint pain TECHNIQUE: 1. Anteroposterior and lateral view of the right ankle were obtained. 2. Dorsoplantar and lateral views of the right foot were obtained. 3. Anteroposterior and lateral view of the left ankle were obtained. 4. Dorsoplantar and lateral views of the left foot were obtained. COMPARISON: None. FINDINGS: Right foot and ankle: Mild hallux valgus. Alignment of the foot and ankle is otherwise normal. No fracture or osteochondral lesion. Mild polyarticular osteoarthritis throughout the left foot and ankle most prominent at the t arsometatarsal and interphalangeal joints. No erosions to suggest inflammatory arthritis. Small Achil les calcaneal spur. No ankle joint effusion. The soft tissues are unremarkable. Left foot and ankle: Borderline hallux valgus. Alignment of the foot and ankle is otherwise normal. No fracture or osteoch ondral lesion. Symmetric mild polyarticular osteoarthritis at the joints of the right foot and ankle. No erosions to suggest inflammatory arthritis. No ankle joint effusion. The soft tissues are unremar kable. IMPRESSION: 1. Relatively symmetric mild polyarticular osteoarthritis throughout the bilateral feet and ankles. Reviewed, dictated and finalized at location B. LYTIC CONVERTER OPERATOR IMPRESSION: 1. Relatively symmetric mild polyarticular osteoarthritis throughout the bilate ral feet and ankles. IMPRESSION: 1. Relatively symmetric mild polyarticular osteoarthritis throughout the bilate ral feet and ankles. IMPRESSION: 1. Relatively symmetric mild polyarticular osteoarthritis throughout the bilate ral feet and ankles.
--- NOTE | ~2024-06-10 | XR_ITS ---
EXAMINATION: XR_KNEE1-2VLT_CR DATE: 06/10/2024 15:21 INDICATION: Multiple joint pain. TECHNIQUE: 2 views of left knee were obtained. COMPARISON: None. FINDINGS: Alignment is normal. No fracture. There is mild osteoarthritis of lateral and patellofemora l compartments. There is a small knee joint effusion. IMPRESSION: 1. Mild left knee osteoarthritis. 2. Small left knee joint effusion. Reviewed, dictated and finalized at location A. LES ASSEMBLER
--- NOTE | ~2024-06-10 | XR_ITS ---
EXAMINATION: XR hand LT 2V, XR wrist RT 2V, XR hand RT 2V, XR wrist LT 2V DATE: 06/10/2024 15:21 INDICATION: Joint pain TECHNIQUE: 1. Posteroanterior and lateral views of the left wrist were obtained. 2. Dorsal palmar and lateral views of the left hand were obtained. 3. Posteroanterior and lateral views of the right wrist were obtained. 4. Dorsal palmar and lateral views of the affected hand were obtained. COMPARISON: None. FINDINGS: Left hand and wrist: 1-2 mm ulnar minus variance. Alignment of the left hand and wrist is otherwise normal. No fracture i dentified. Polyarticular osteoarthritis, moderate severity at the second proximal and distal interpha langeal joints and mild at the remaining interphalangeal joints and and minimal to mild at many of th e remaining joints at the left hand and wrist. No erosions to suggest inflammatory arthritis. Periart icular soft tissue swelling at a few of the interphalangeal joints. Right hand and wrist: 1-2 mm ulnar minus variance. Alignment of the hand and wrist is otherwise normal. No fracture identi fied. Mild polyarticular osteoarthritis at the triscaphe, first carpometacarpal, first metacarpophala ngeal and multiple interphalangeal joints. There is slight widening of the third proximal interphalan geal joint which may be secondary to prominent hypertrophic osteophyte at the dorsal margin of the he ad of the proximal phalanx. No erosions to suggest inflammatory arthritis. Likely loose osteochondral body at the ulnar side of the wrist possibly within the triquetral recess. There is periarticular so ft tissue swelling at a few of the interphalangeal joints. IMPRESSION: 1. Polyarticular osteoarthritis, moderate severity at the left second proximal and distal interphalan geal joints and otherwise mild at the bilateral hands and wrists. Reviewed, dictated and finalized at location B. Y LEVEL DRAFTER IMPRESSION: 1. Polyarticular osteoarthritis, moderate severity at the left second proximal and distal interphalangeal joints and otherwise mild at the bilateral hands and wrists. IMPRESSION: 1. Polyarticular osteoarthritis, moderate severity at the left second proximal and distal interphalangeal joints and otherwise mild at the bilateral hands and wrists. IMPRESSION: 1. Polyarticular osteoarthritis, moderate severity at the left second proximal and distal interphalangeal joints and otherwise mild at the bilateral hands and wrists.
--- NOTE | ~2024-06-10 | XR_ITS ---
EXAMINATION: XR elbow RT 2V DATE: 06/10/2024 15:21 INDICATION: Multiple joint pain TECHNIQUE: Anteroposterior and lateral views of the right elbow were obtained. COMPARISON: None. FINDINGS: Alignment is normal. No fracture or joint effusion. Joint spaces are normal. Soft tissues are unremar kable. IMPRESSION: 1. Normal right elbow radiographs. Reviewed, dictated and finalized at location B. CT CARE SPECIALIST
--- NOTE | ~2024-06-10 | XR_ITS ---
EXAM: XR shoulder RT min 2V, XR shoulder LT min 2V DATE: 06/10/2024 15:21 HISTORY: Multiple joint pain . COMPARISON: 05/24/2023. FINDINGS: Normal mineralization. No fracture or dislocation. Bone island in the left humeral head. N o suspicious lytic or blastic lesion. Mild degenerative changes in the bilateral AC joints and glenoh umeral joints. No erosion or periosteal change. Aortic arch calcification. Left medial basilar atelec tasis/scar. 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 Reviewed, dictated and finalized at location K. 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
--- OUTSIDE RECORDS SUMMARY | 2024-06-10 16:01 | XMS_ITS | Clinical Summary ---
Author Organization [facility] Address [address], [facility] [address] [place] [address] Phone Care Team Providers Care Credit Card Associate Name Role Phone Dieudonne Maxwell MD Primary Care Provider [phone] Allergies Active Allergy Reactions Criticality Noted Date [...] Heart Attack Father Heart Attack Sister fatal [place] Heart Disease Sister Relation Name Status Comments [...] to Health Maintenance Insurance MEDICARE Care Teams Credit Card Associate Relationship Specialty Start Date End Date Dieudonne Maxwell MD [address] [place], [place] [id number] PCP - General Internal Medicine 11/19/17
--- OUTSIDE RECORDS SUMMARY | 2024-06-10 16:01 | XMS_ITS | Encounter Summary ---
Author Organization [facility] Address [address] [place] [address] Phone Care Team Providers Care User Support Analyst Name Role Phone Saul Fitch Primary Care Provider [phone] Harvey Wilson MD Unavailable [phone] Wily Bassett MD Unavailable [phone] Paulie Lai MD Unavailable [phone] Eb Cardoso MD Unavailable [phone] Ernesto Reddy MD Unavailable [phone] Naomi Bay MD Unavailable [phone] Paula Jarvis NP Unavailable [phone] Unknown, Notinfile Primary Care Provider Unavail able Encounter Details Date Type Department Care Team (Latest Contact Info) Description 10/26/2021 Orders Only [facility] Scanning, Provider Social History Tobacco Use Types Packs/Day Years Used Date Smoking Tobacco: Never Assessed Comments Unknown Sex and Gender Information Value Date Recorded Sex Assigned at Not on file Legal Sex Female 2:06 PM WIND TURBINE CONTROLS ENGINEER Gender Identity Not on file Sexual Orientation [...] on filedocumented in this encounter Care Teams User Support Analyst Relationship Specialty Start Date End Date Saul Fitch DO PCP - General Internal Medicine 01/18/22 01/21/24 Unknown, Notinfile PCP - General 01/22/24 Harvey Wilson MD Medical Oncologist Hematology 01/25/22 Wily Bassett MD [address] 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 [address] [place] [address] Surgeon Cardiothoracic Surgery 01/25/22 Paulie Lai MD [address] 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 [address] [place] [address] Security Shift Supervisor Critical Care Med 01/25/22 Eb Cardoso MD [address] [place] [address] Security Shift Supervisor Critical Care Med 01/25/22 Ernesto Reddy MD [address] DIV MEDICAL ONCOLOGY, J[address] 7A, 7B, [address] [place] [address] Medical Oncologist/Director Mobile Medical Oncology 01/25/22 Naomi Bay MD [address] [place] [address] Radiation Oncologist Radiation Oncology 01/31/22 Paula Jarvis NP [address] [facility] [address] [place] [address] Nurse Practitioner Radiation Oncology 07/18/22 documented as of this encounter
--- OUTSIDE RECORDS SUMMARY | 2024-06-10 16:01 | XMS_ITS | Encounter Summary ---
Author Organization [facility] Address [address] [place] [address] Phone Care Team Providers Care Subway Train Driver Name Role Phone Saul Fitch Primary Care Provider [phone] Harvey Wilson MD Unavailable [phone] Wily Bassett MD Unavailable [phone] Paulie Lai MD Unavailable [phone] Eb Cardoso MD Unavailable [phone] Ernesto Reddy MD Unavailable [phone] Naomi Bay MD Unavailable [phone] Paula Jarvis NP Unavailable [phone] Unknown, Notinfile Primary Care Provider Unavail able Encounter Details Date Type Department Care Team (Latest Contact Info) Description 11/13/2021 Orders Only [facility] Scanning, Provider Social History Tobacco Use Types Packs/Day Years Used Date Smoking Tobacco: Never Assessed Comments Unknown Sex and Gender Information Value Date Recorded Sex Assigned at Not on file Legal Sex Female 2:06 PM CHEMICAL DEPENDENCY PROFESSIONAL Gender Identity Not on file Sexual Orientation [...] on filedocumented in this encounter Care Teams Subway Train Driver Relationship Specialty Start Date End Date Saul Fitch DO PCP - General Internal Medicine 01/18/22 01/21/24 Unknown, Notinfile PCP - General 01/22/24 Harvey Wilson MD Medical Oncologist Hematology 01/25/22 Wily Bassett MD [address] [facility] [address] [place] [address] Surgeon Cardiothoracic Surgery 01/25/22 Paulie Lai MD [address] [facility] [address] [place] [address] Property Analyst Critical Care Med 01/25/22 Eb Cardoso MD [address] [place] [address] Property Analyst Critical Care Med 01/25/22 Ernesto Reddy MD [address] DIV MEDICAL ONCOLOGY, JUN 7A, 7B, [address] [place] [address] Medical Oncologist/Naval Aircrewman Tactical Helicopter Medical Oncology 01/25/22 Naomi Bay MD [address] [place] [address] Radiation Oncologist Radiation Oncology 01/31/22 Paula Jarvis NP [address] [facility] [address] [place] [address] Nurse Practitioner Radiation Oncology 07/18/22 documented as of this encounter
--- OUTSIDE RECORDS SUMMARY | 2024-06-10 16:01 | XMS_ITS | Continuity of Care Document ---
Author Organization [facility] Address [id number] [place] [address] [address] [place] [address] Phone Care Team Providers Care Siding Mechanic Name Role Phone Sanford OD, Alverto Unavailable Unavailable Advance Directives Directive Yes / No Effective Date File Name No Information Encounters Encounter Description Practice Location Reason(s) For Visit Diagnoses Date Provider Providers Copied on Encounter [facility], [address], [place], [place], [id number], [place] tel:[phone] [facility] No Information Apr-1 5-200 5 Sanford OD Alverto. [address] , [address], [place], [address], [place]. tel:[phone] Family History Family Member Type Diagnosis Age At Onset No Information Payers Payer name Insurance type Covered green party ID Authoriza tion(s) No Information Social [...]
--- OUTSIDE RECORDS SUMMARY | 2024-06-10 16:02 | XMS_ITS | Encounter Summary ---
Author Organization [facility] Healthcare Address [address] [place] [address] Care Team Providers Care Dependency Director Name Role Phone Saul Fitch DO Primary Care Provider Harvey Wilson MD Unavailable [phone] Wily Bassett MD Unavailable [phone] Paulie Lai MD Unavailable [phone] Eb Cardoso MD Unavailable [phone] Ernesto Reddy MD Unavailable [phone] Noami Bay MD Unavailable [phone] Paula Jarvis NP Unavailable [phone] Unknown, Notinfile Primary Care Provider Unavail able Encounter Details Date Type Department Care Team (Late st Contact Info) Description 01/23/2023 Telephone [facility] [address] [place] [address] Shaina Huynh RN Social History Tobacco Use Types Packs/Day Years Used Date Smoking Tobacco: Every Day Cigarettes AUDIT-C Answer Date Recorded Q1: How often do you have a drink containing alc ohol? Monthly or less 01/26/2022 Average Number of Drinks Not on file 022 Frequency of Binge Drinking Not on file 01/13 [facility] [place] of Occupat ional Health - Occupational Stress Questionnaire Answer Date Recorded Do you feel stress - tense, restless, nervous, or anxious, or unable to sleep at night because your mind is troubled all the time - these days? Very much 01/26/2022 Comments No Sex and Gender Information Value Date Recorded Sex Assigned at Not on file Legal Sex Female 2:06 PM SUPERVISOR SEWER SYSTEM Gender Identity Not on file Sexual Orientation Not on file documented as of this encounter Plan of Treatment Not on file documented as of this encounter Visit Diagnoses Not on filedocumented in this encounter Care Teams Dependency Director Relationship Specialty Start Date End Date Saul Fitch DO PCP - General Internal Medicine 01/18/22 01/21/24 Unknown, Notinfile PCP - General 01/22/24 Harvey Wilson MD Medical Oncologist Hematology 01/25/22 Wily Bassett MD [address] [facility] [address] [place] [address] Surgeon Cardiothoracic Surgery 01/25/22 Paulie Lai MD [address] [facility] [address] [place] [address] Sandwich Counter Attendant Critical Care Med 01/25/22 Eb Cardoso MD [address] [place] [address] Sandwich Counter Attendant Critical Care Med 01/25/22 Ernesto Reddy MD [address] [facility] [place] [facility], [address], [address]B, [address] [place] [address] Medical Oncologist/Recycling Worker Medical Oncology 01/25/22 Naomi Bay MD [address] [facility] [address] [place] [address] Radiation Oncologist Radiation Oncology 01/31/22 Paula Jarvis NP [address] [facility] [address] [place] [address] Nurse Practitioner Radiation Oncology 07/18/22 documented as of this encounter
--- OUTSIDE RECORDS SUMMARY | 2024-06-10 16:02 | XMS_ITS | Clinical Summary ---
Author Organization [facility] [address] [place] [address] Care Team Providers Care Commissary Production Supervisor Name Role Phone Harvey Wilson MD Unavailable [phone] Wily Bassett MD Unavailable [phone] Paulie Lai MD Unavailable [phone] Eb Cardoso MD Unavailable [phone] BarryErnesto hernandez MD Unavailable [phone] Naomi Bay MD Unavailable [phone] Paula Jarvis NP Unavailable [phone] Unknown, Notinfile Primary Care Provider Unavail able Allergies Active Allergy Reactions Criticality Noted Date Comments Sulfa (Sulfonamide Antibiotics) Unknown,Swelling Medium 10/31/2013 Swelling Sulfamethoxazole-Tri methoprim Flushing (skin),Unknown,Hives Medium 10/31/2013 Eyes close and well, 104 fever, welts and bumps all screw remover Hives Medications ALPRAZolam (XANAX) 1 mg tablet [...] Department Care Team Description 05/26/2024 Orders Only [facility] Pulmonary [address] [facility] 8th [place] [address] [place] [address] Fletcher Espinal MD Chronic obstructive pulmonary disease, unspecified COPD type (HCC) (Primary Dx) 05/01/2024 11:05 AM SILK SCREEN PAINTER - 05/01/2024 11:59 PM SILK SCREEN PAINTER Hospital Encounter [facility]) [address] [place] [address] Ernesto Reddy MD Primary cancer of left lower lobe of lung (HCC); 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 Postoperative changes of left lower lobectomy. Stable subcentimeter pulmonary nodules. 2. No evidence of disease progression in the chest and abdomen. Electronically signed by: Anna Urena M.D. Narrative 05/01/2024 12:17 PM SILK SCREEN PAINTER EXAMINATION: Computed tomography of the chest and [...] esult * POCT creatinine (05/01/2024 11:20 AM SILK SCREEN PAINTER) Creatinine POC 0.7 0.6 - 1.1 mg/dL Blood 05/01/2024 11:2 0 AM SILK SCREEN PAINTER 05/01/2024 11:20 AM SILK SCREEN PAINTER us Ernesto Reddy MD LAB POCT ORDERABLES - DEV ICE Final Result [facility] Department [place] [address] * COLONOSCOPY (12/03/2012 12:00 AM CDT) Anatomical Region Laterality Modality Other Narrative 12/03/2012 12:00 AM CDT Ordered by an unspecified provider. Procedure Note ProviderReginaldo MD - 12/03/2012 12:00 AM CDT PROCEDURE REPORT Patient: LESLEE OLIVIER Account: [id number] Room No: : 1960 Patient Type: [facility] Attend.: Alverto Perry D.O. Admit Date: [...] in the left lateral decubitus position[facility]. Digital rectal examination [...] Insurance MEDICARE IDIL MEDICARE IDIL Care Teams Commissary Production Supervisor Relationship Specialty Start Date End Date Unknown, Notinfile PCP - General 01/22/24 Harvey Wilson MD Medical Oncologist Hematology 01/25/22 Wily Bassett MD [address] [facility] [address] [place] [address] Surgeon Cardiothoracic Surgery 01/25/22 Paulie Lai MD [address] [facility] [address] [place] [address] Scientific Glass Blower Critical Care Med 01/25/22 Eb Cardoso MD [address] [place] [address] Scientific Glass Blower Critical Care Med 01/25/22 Ernesto Reddy MD [address] DIV IM MEDICAL ONCOLOGY, [address]A, [address]B, [address] [place] [address] Medical Oncologist/Conference Coordinator Medical Oncology 01/25/22 Naomi Bay MD [address] [place] [address] Radiation Oncologist Radiation Oncology 01/31/22 Paula Jarvis NP [address] [place] [address] Nurse Practitioner Radiation Oncology 07/18/22
--- OUTSIDE RECORDS SUMMARY | 2024-06-10 16:02 | XMS_ITS | Clinical Summary ---
Author Organization [facility] Address [address] [place] [address] Care Team Providers Care Food Tray Assembler Name Role Phone Unavailable Primary Care Provider [...]
--- OUTSIDE RECORDS SUMMARY | 2024-06-10 16:02 | XMS_ITS ---
Author Organization [facility] 2 Address [address] [facility] [place] [address] Care Team Providers Care Customer Quality Specialist Name Role Phone Harvey Wilson MD Unavailable [phone] Wily Bassett MD Unavailable [phone] Paulie Lai MD Unavailable [phone] Eb Cardoso MD Unavailable [phone] Ernesto Reddy MD Unavailable Naomi Bay MD Unavailable Paula Jarvis NP Unavailable [phone] Unknown, Notinfile Primary Care Provider Unavail able [...]
--- OUTSIDE RECORDS SUMMARY | 2024-06-10 16:02 | XMS_ITS | Encounter Summary ---
Author Organization [facility] Address [address] [place] [address] Phone Care Team Providers Care Finance Specialist Name Role Phone Saul Fitch Primary Care Provider [phone] Harvey Wilson MD Unavailable [phone] Wily Bassett MD Unavailable [phone] Paulie Lai MD Unavailable [phone] Eb Cardoso MD Unavailable [phone] Ernesto Reddy MD Unavailable [phone] Naomi Bay MD Unavailable [phone] Paula Jarvis NP Unavailable Unknown, Notinfile Primary Care Provider Unavail able Encounter Details Date Type Department Care Team (Latest Contact Info) Description 12/14/2021 Orders Only [facility] Scanning, Provider Social History Tobacco Use Types Packs/Day Years Used Date Smoking Tobacco: Never Assessed Comments Unknown Sex and Gender Information Value Date Recorded Sex Assigned at Not on file Legal Sex Female 2:06 PM CLEAN ROOM OPERATOR Gender Identity Not on file Sexual [...] on filedocumented in this encounter Care Teams Finance Specialist Relationship Specialty Start Date End Date Saul Fitch DO PCP - General Internal Medicine 01/18/22 01/21/24 Unknown, Notinfile PCP - General 01/22/24 Harvey Wilson MD Medical Oncologist Hematology 01/25/22 Wily Bassett MD [address] [facility] [address] [place] [address] Surgeon Cardiothoracic Surgery 01/25/22 Paulie Lai MD [address] [facility] [address] [place] [address] Retail Service Representative Critical Care Med 01/25/22 Eb Cardoso MD [address] [place] [address] Retail Service Representative Critical Care Med 01/25/22 Ernesto Reddy MD [address] DIV MEDICAL ONCOLOGY, [address]A, [address]B, [address] [place] [address] Medical Oncologist/Merchandise Carrier Medical Oncology 01/25/22 Naomi Bay MD [address] [place] [address] Radiation Oncologist Radiation Oncology 01/31/22 Paula Jarvis NP [address] [facility] [address] [place] [address] Nurse Practitioner Radiation Oncology 07/18/22 documented as of this encounter
--- OUTSIDE RECORDS SUMMARY | 2024-06-10 16:02 | XMS_ITS | Encounter Summary ---
Author Organization [facility] Healthcare Address [address] [place] [address] Care Team Providers Care Auto Service Station Attendant Name Role Phone Saul Fitch DO Primary Care Provider Harvey Wilson MD Unavailable [phone] Wily Bassett MD Unavailable [phone] Paulie Lai MD Unavailable [phone] Eb Cardoso MD Unavailable [phone] Ernesto Reddy MD Unavailable [phone] Naomi Bay MD Unavailable [phone] Paula Jarvis NP Unavailable [phone] Unknown, Notinfile Primary Care Provider Unavail able Encounter Details Date Type Department Care Team (Late st Contact Info) Description 10/23/2022 Telephone [facility]) [address] [place] [address] Shaina Huynh RN Social History Tobacco Use Types Packs/Day Years Used Date Smoking Tobacco: Every Day Cigarettes AUDIT-C Answer Date Recorded Q1: How often do you have a drink containing alc ohol? Monthly or less 01/26/2022 Average Number of Drinks Not on file 022 Frequency of Binge Drinking Not on file 01/13 [facility] [place] of Occupat ional Health - Occupational Stress Questionnaire Answer Date Recorded Do you feel stress - tense, restless, nervous, or anxious, or unable to sleep at night because your mind is troubled all the time - these days? Very much 01/26/2022 Comments No Sex and Gender Information Value Date Recorded Sex Assigned at Not on file Legal Sex Female 2:06 PM MONEY ROOM SUPERVISOR Gender Identity Not on file Sexual Orientation Not on file documented as of this encounter Plan of Treatment Not on file documented as of this encounter Visit Diagnoses Not on filedocumented in this encounter Care Teams Auto Service Station Attendant Relationship Specialty Start Date End Date Saul Fitch DO PCP - General Internal Medicine 01/18/22 01/21/24 Unknown, Notinfile PCP - General 01/22/24 Harvey Wilson MD Medical Oncologist Hematology 01/25/22 Wily Bassett MD [address] [facility] [address] [place] [address] Surgeon Cardiothoracic Surgery 01/25/22 Paulie Lai MD [address] [facility] [address] [place] [address] Production Honing Machine Operator Critical Care Med 01/25/22 Eb Cardoso MD [address] [place] [address] Production Honing Machine Operator Critical Care Med 01/25/22 Ernesto Reddy MD [address] [facility] MEDICAL ONCOLOGY, [address]A, [address]B, [address] [place] [address] Medical Oncologist/Barrel Burner Medical Oncology 01/25/22 Naomi Bay MD [address] [facility] [place] [address] [place] [address] Radiation Oncologist Radiation Oncology 01/31/22 Paula Jarvis NP [address] [facility] [address] [place] [address] Nurse Practitioner Radiation Oncology 07/18/22 documented as of this encounter
--- OUTSIDE RECORDS SUMMARY | 2024-06-10 16:02 | XMS_ITS | Encounter Summary ---
Author Organization [facility] Address [address] [place] [address] Phone Care Team Providers Care Test Desk Supervisor Name Role Phone Saul Fitch Primary Care Provider [phone] Harvey Wilson MD Unavailable [phone] Wily Bassett MD Unavailable [phone] Paulie Lai MD Unavailable [phone] Eb Cardoso MD Unavailable [phone] Ernesto Reddy MD Unavailable [phone] Naomi Bay MD Unavailable [phone] Paula Jarvis NP Unavailable [phone] Unknown, Notinfile Primary Care Provider Unavail able Encounter Details Date Type Department Care Team (Latest Contact Info) Description 11/22/2021 Orders Only [facility] Scanning, Provider Social History Tobacco Use Types Packs/Day Years Used Date Smoking Tobacco: Never Assessed Comments Unknown Sex and Gender Information Value Date Recorded Sex Assigned at Not on file Legal Sex Female 2:06 PM SECTION CUTTER Gender Identity Not on file Sexual Orientation [...] on filedocumented in this encounter Care Teams Test Desk Supervisor Relationship Specialty Start Date End Date Saul Fitch DO PCP - General Internal Medicine 01/18/22 01/21/24 Unknown, Notinfile PCP - General 01/22/24 Harvey Wilson MD Medical Oncologist Hematology 01/25/22 Wily Bassett MD [address] [facility] [address] [place] [address] Surgeon Cardiothoracic Surgery 01/25/22 Paulie Lai MD [address] [facility] [address] [place] [address] Automotive Technology Instructor Critical Care Med 01/25/22 Eb Cardoso MD [address] [place] [address] Automotive Technology Instructor Critical Care Med 01/25/22 Ernesto Reddy MD [address] DIV MEDICAL ONCOLOGY, [address]A, [address]B, [address] [place] [address] Medical Oncologist/Student Assistant Medical Oncology 01/25/22 Naomi Bay MD [address] [place] [address] Radiation Oncologist Radiation Oncology 01/31/22 Paula Jarvis NP [address] [facility] [address] [place] [address] Nurse Practitioner Radiation Oncology 07/18/22 documented as of this encounter
--- OUTSIDE RECORDS SUMMARY | 2024-06-10 16:02 | XMS_ITS | Referral Summary ---
Author Organization [facility] 2 Address [address] [place] [address] Care Team Providers Care Professional Architect Name Role Phone Harvey Wilson MD Unavailable [phone] Wily Bassett MD Unavailable [phone] Paulie Lai MD Unavailable [phone] Eb Cardoso MD Unavailable [phone] Ernesto Reddy MD Unavailable [phone] Naomi Bay MD Unavailable [phone] Paula Jarvis NP Unavailable [phone] Unknown, Notinfile Primary Care Provider Unavail able Encounters Date Type Department Care Team Description 05/26/2024 Orders Only [facility] Pulmonary [address] [facility] 8th [place] [address] [place] [address] Fletcher Espinal MD Chronic obstructive pulmonary disease, unspecified COPD type (HCC) (Primary Dx) 05/01/2024 Documentation [facility] Oncology [address] [facility] [address] 1, [address] [place] [address] Karen Sylvester 05/01/2024 11:05 AM FRAMING MECHANIC - 05/01/2024 11:59 PM FRAMING MECHANIC Hospital Encounter [facility]) [address] [place] [address] Ernesto Reddy MD Primary cancer of left lower lobe of lung (HCC); 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) Discharge Disposition: Discharge to home or self care from Last 3 Months Allergies Active Allergy Reactions Criticality Noted Date Comments Sulfa (Sulfonamide Antibiotics) Unknown,Swelling Medium 10/31/2013 Swelling Sulfamethoxazole-Tri methoprim Flushing (skin),Unknown,Hives Medium 10/31/2013 Eyes close and well, 104 fever, welts and bumps all supervisor hand silvering Hives Medications ALPRAZolam (XANAX) 1 mg tablet [...] of Binge Drinking Not on file 01/13 [facility] [place] of Occupat ional Health - Occupational Stress Questionnaire Answer Date Recorded Do you feel stress - tense, restless, nervous, or anxious, or unable to sleep at night because your mind is troubled all the time - these days? 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 Postoperative changes of left lower lobectomy. Stable subcentimeter pulmonary nodules. 2. No evidence of disease progression in the chest and abdomen. Electronically signed by: Anna Urena M.D. Narrative 05/01/2024 12:17 PM FRAMING MECHANIC EXAMINATION: Computed tomography of the chest and [...] esult * POCT creatinine (05/01/2024 11:20 AM FRAMING MECHANIC) Creatinine POC 0.7 0.6 - 1.1 mg/dL Blood 05/01/2024 11:2 0 AM FRAMING MECHANIC 05/01/2024 11:20 AM FRAMING MECHANIC Ernesto Reddy MD LAB POCT ORDERABLES - DEV ICE Final Result [facility] Department [place] [address] * COLONOSCOPY (12/03/2012 12:00 AM CDT) Anatomical Region Laterality Modality Other Narrative 12/03/2012 12:00 AM CDT Ordered by an unspecified provider. Procedure Note Provider, MD Reginaldo - 12/03/2012 12:00 AM CDT PROCEDURE REPORT Patient: LESLEE OLIVIER Account: [id number] Room No: : 1960 Patient Type: SDS [...] Recently Relevant to Health Maintenance Insurance MEDICARE [facility] MEDICARE IDPA Care Teams Professional Architect Relationship Specialty Start Date End Date Unknown, Notinfile PCP - General 01/22/24 Harvey Wilson MD Medical Oncologist Hematology 01/25/22 Wily Bassett MD [address] [facility] [address] [place] [address] Surgeon Cardiothoracic Surgery 01/25/22 Paulie Lai MD [address] [facility] [address] [place] [address] Ragman Critical Care Med 01/25/22 Eb Cardoso MD [address] [place] [address] Ragman Critical Care Med 01/25/22 Ernesto Reddy MD [address] [facility] [address] DIV IM MEDICAL ONCOLOGY, [address] 7A, 7B, [address] [place] [address] Medical Oncologist/Web Assistant Medical Oncology 01/25/22 Naomi Bay MD [address] [facility] [address] [place] [address] Radiation Oncologist Radiation Oncology 01/31/22 Paula Jarvis NP [address] [facility] [address] [place], [place] [address] Nurse Practitioner Radiation Oncology 07/18/22
--- OUTSIDE RECORDS SUMMARY | 2024-06-10 16:02 | XMS_ITS | Clinical Summary ---
Author Organization [facility] Address [address] [facility] [address] [place] [address] Care Team Providers Care It Support Analyst Name Role Phone Dieudonne Maxwell MD Primary Care Provider [phone] Source Comments [facility],non-[facility] Affiliates and Associated Physician Practices is amultiple site organization consisting of ambulatory clinics and hospital sitesin [place], [place], [place] and [place]. This disclosure is being madepursuant to the Care Everywhere program and may not contain all information available regarding this patient. Last updated 18.[facility] Social History Tobacco Use Types Packs/Day Years Used Date Smoking Tobacco: Never Assessed Sex and Gender Information Value Date Recorded Sex Assigned at Not on file Gender Identity Not on file Sexual Orientation Not on file Last Filed Vital Signs Vital Sign Reading Time Taken Comments Blood Pressure 110/69 06/10/2015 12:31 PM HELICOPTER TECHNICIAN Pulse 84 06/10/2015 12:31 PM HELICOPTER TECHNICIAN Temperature 36.9 C (98.4 F) 06/10/2015 12:31 PM HELICOPTER TECHNICIAN Respiratory Rate 14 06/10/2015 12:31 PM HELICOPTER TECHNICIAN Oxygen Saturation 97% 06/10/2015 12:31 PM HELICOPTER TECHNICIAN Inhaled Oxygen Concentration - - Weight 65.8 kg (145 lb) 06/10/2015 12:31 PM HELICOPTER TECHNICIAN Height 175.3 cm (5' 9 ) 06/10/2015 12:31 PM HELICOPTER TECHNICIAN Body Mass Index 21.41 06/10/2015 12:31 PM HELICOPTER TECHNICIAN Plan of Treatment Health Maintenance Due Date [...] age to complete this topic Care Teams It Support Analyst Relationship Specialty Start Date End Date Dieudonne Maxwell MD [address] [place] [address] PCP - General 05/20/18
--- OUTSIDE RECORDS SUMMARY | 2024-06-10 16:02 | XMS_ITS | Clinical Summary ---
Author Organization [facility] Address [address] [place] [address] Phone Care Team Providers Care Dress Designer Name Role Phone Saul Fitch Primary Care Provider Allergies Active Allergy Reactions Criticality Noted Date [...] Tablet 2 Active naloxone (NARCAN) 4 mg/spray [place], Non-Aerosol EMERGENCY USE ONLY: Administer 1 spray [...] 11/03/2021 Immunizations Immunization Administration Dates Next Due (IntelliGeneScan)(12 YR UP) COVID-19 VACCINE - EMERGENCY USE AUTHORIZATION, MRNA, [id number]) 30 MCG/0.3 ML IM SUSP 11/18/2020,10/27/2020 Influenza [...] 11/18/2020, 10/27/2020 Medical Devices Implanted Type Area Flour Tester Device Identifier Shelf Expiration Date Model / Serial / Lot Sealant Progel Pleural 4ml [id number] - [id number] Implanted:Qty: 1 on 12/14/2021 by Wily Bassett MD at [facility] Tissue Left: Chest BARD DAVOL [id number] 06/16/2023 [id number] / / [id number] Lumbar Fusion Hardware Insurance MEDICARE PART A AND B [facility] MEDICAID MEDICARE PART A AND B [facility] MEDICAID Advance Directives For more information, please contact: [phone] * Full Code (Latest Code Status on File) Date Activated Date Inactivated Comments 12/14/2021 5:21 PM 12/21/2021 6:25 PM * Full Code Date Activated Date Inactivated Comments 12/14/2021 8:36 AM 12/14/2021 5:21 PM Care Teams Dress Designer Relationship Specialty Start Date End Date Saul Fitch DO [address] [facility] [address] [place] [id number] PCP - General Internal Medicine 10/26/21
--- OUTSIDE RECORDS SUMMARY | 2024-06-10 16:02 | XMS_ITS | Referral Summary ---
Author Organization [facility] Address [address] [place] [address] Care Team Providers Care Program Review Director Name Role Phone Dieudonne Maxwell MD Primary Care Provider [phone] Source Comments [facility] Affiliates and Associated Physician Practices is amultiple site organization consisting of ambulatory clinics and hospital sitesin [place], [place], [place] and [place]. This disclosure is being madepursuant to the Care Everywhere program and may not contain all information available regarding this patient. Last updated 18.[facility] Social History Tobacco Use Types Packs/Day Years Used Date Smoking Tobacco: Never Assessed Sex and Gender Information Value Date Recorded Sex Assigned at Not on file Gender Identity Not on file Sexual Orientation Not on file Last Filed Vital Signs Vital Sign Reading Time Taken Comments Blood Pressure 110/69 06/10/2015 12:31 PM PRESSURE TESTER OPERATOR Pulse 84 06/10/2015 12:31 PM PRESSURE TESTER OPERATOR Temperature 36.9 C (98.4 F) 06/10/2015 12:31 PM PRESSURE TESTER OPERATOR Respiratory Rate 14 06/10/2015 12:31 PM PRESSURE TESTER OPERATOR Oxygen Saturation 97% 06/10/2015 12:31 PM PRESSURE TESTER OPERATOR Inhaled Oxygen Concentration - - Weight 65.8 kg (145 lb) 06/10/2015 12:31 PM PRESSURE TESTER OPERATOR Height 175.3 cm (5' 9 ) 06/10/2015 12:31 PM PRESSURE TESTER OPERATOR Body Mass Index 21.41 06/10/2015 12:31 PM PRESSURE TESTER OPERATOR Plan of Treatment Not on file Care Teams Program Review Director Relationship Specialty Start Date End Date Dieudonne Maxwell MD [address] [place] [address] PCP - General 05/20/18
--- OUTSIDE RECORDS SUMMARY | 2024-06-10 16:02 | XMS_ITS | Patient Health Summary ---
Author Organization [facility] Address [address] [place] [address] Care Team Providers Care Tester Regulator Name Role Phone Dieudonne Maxwell MD Primary Care Provider [phone] Note from [facility],non-owned Affiliates and Associated Physician Practices is amultiple site organization consisting of ambulatory clinics and hospital sitesin [place], [place], [place] and [place]. This disclosure is being madepursuant to the Care Everywhere program and may not contain all information available regarding this patient. Last updated 18.[facility] Social History Tobacco Use Types Packs/Day Years Used Date Smoking Tobacco: Never Assessed Sex and Gender Information Value Date Recorded Sex Assigned at Not on file Gender Identity Not on file Sexual Orientation Not on file Last Filed Vital Signs Vital Sign Reading Time Taken Comments Blood Pressure 110/69 06/10/2015 12:31 PM BUSINESS DEVELOPMENT OFFICER Pulse 84 06/10/2015 12:31 PM BUSINESS DEVELOPMENT OFFICER Temperature 36.9 C (98.4 F) 06/10/2015 12:31 PM BUSINESS DEVELOPMENT OFFICER Respiratory Rate 14 06/10/2015 12:31 PM BUSINESS DEVELOPMENT OFFICER Oxygen Saturation 97% 06/10/2015 12:31 PM BUSINESS DEVELOPMENT OFFICER Inhaled Oxygen Concentration - - Weight 65.8 kg (145 lb) 06/10/2015 12:31 PM BUSINESS DEVELOPMENT OFFICER Height 175.3 cm (5' 9 ) 06/10/2015 12:31 PM BUSINESS DEVELOPMENT OFFICER Body Mass Index 21.41 06/10/2015 12:31 PM BUSINESS DEVELOPMENT OFFICER Procedures * BASIC METABOLIC PANEL (CALCIUM TOTAL)(Performed [...] CBC W AUTO DIFFERENTIAL (04/12/2015 2:53 AM BUSINESS DEVELOPMENT OFFICER) Only the most recent of16 resultswithin the time period is included. WBC 5.0 3.5 - 10.5 10 3/uL [facility] RBC 3.52(L) 3.90 - 5.00 10 6/uL [facility] Hemoglobin 11.4(L) 12.0 - 15.5 g/dL [facility] Hematocrit 33.7(L) 35.0 - 45.0 % [facility] MCV 95.7 81.0 - 97.0 fL [facility] MCH 32.4 28.0 - 34.0 pg [facility] MCHC 33.8 32.0 - 36.0 g/dL [facility] Platelet Count 275 150 - 400 10 3/uL [facility] RDW-SD 47.0 36.0 - 50.0 fL [facility] RDW-CV 13.4 11.2 - 14.8 % [facility] MPV 10.4 9.3 - 12.8 fL [facility] Neutrophils % 50.1 35.0 - 70.0 % [facility] Lymphocytes % 36.7 19.7 - 55.1 % [facility] Monocytes % 8.6 3.0 - 15.0 % [facility] Eosinophils % 4.2 0.0 - 6.0 % [facility] Basophil % 0.4 0.0 - 1.5 % [facility] Neutrophils Absolute 2.5 1.6 - 7.0 10 3/uL [facility] Lymphocyte Absolute 1.8 0.8 - 2.9 10 3/uL [facility] Monocytes Absolute 0.43 0.14 - 0.66 10 3/uL [facility] Eosinophils Absolute 0.21 0.00 - 0.22 10 3/uL [facility] Basophils Absolute 0.02 0.00 - 0.06 10 3/uL [facility] Immature Granulocytes % 0.0 0.0 - 1.0 % [facility] Blood specimen (specimen) BLOOD SPECIMEN / Unknown 04/12/2015 2:53 AM BUSINESS DEVELOPMENT OFFICER 04/12/2015 3:17 AM BUSINESS DEVELOPMENT OFFICER Eduardo Sin MD LAB - HEMATOLOGY ORD ERABLES Performing Organization Address [facility] Co de Phone Number [address] [phone] * (ABNORMAL) BASIC METABOLIC PANEL (CALCIUM TOTAL) (04/12/2015 2:53 AM BUSINESS DEVELOPMENT OFFICER) Only the most recent of7 resultswithin the time period is included. BUN 7 7 - 26 mg/dL [facility] Creatinine 0.7 0.6 - 1.2 mg/dL [facility] Sodium 141 136 - 145 mmol/L [facility] Potassium 4.1 3.5 - 4.5 mmol/L [facility] Chloride 105 98 - 107 mmol/L [facility] CO2 29 22 - 29 mmol/L [facility] Glucose 139(H) 70 - 115 mg/dL [facility] Calcium 9.0 8.4 - 10.2 mg/dL [facility] Anion Gap 11 8 - 18 [facility] BUN/Creatinine Ratio 10 7 - 23 [facility] Osmolality Calculated 277 270 - 300 mOsm/kg [facility] eGFR >60 >60 mL/min/1.7 3 m2 [facility] Blood specimen (specimen) BLOOD SPECIMEN / Unknown 04/12/2015 2:53 AM BUSINESS DEVELOPMENT OFFICER 04/12/2015 3:17 AM BUSINESS DEVELOPMENT OFFICER Any Santos MD LAB - CHEMISTRY ORDERABLES Performing Organization Address [facility]/ZIP Co de Phone Number [address] [phone] * CULTURE AFB+SMEAR (04/09/2015 10:14 AM BUSINESS DEVELOPMENT OFFICER) Culture Acid Fast Bacilli No Growth of Acid Fast bacilli after 8 weeks. [facility] AFB Smear No Acid Fast bacilli seen on direct smear. [facility] Bone tissue specimen (specimen) 04/09/2015 10:14 AM BUSINESS DEVELOPMENT OFFICER 04/09/2015 10:14 AM BUSINESS DEVELOPMENT OFFICER Narrative [facility] - 06/06/2015 9:33 AM BUSINESS DEVELOPMENT OFFICER Right mandible tissue Specimen Type->Bone Any Santos MD LAB - MICROBIOLO GY ORDERABLES Performing Organization Address [facility] de Phone Number [address] [phone] * CULTURE FUNGUS OTHER+FUNGUS SMEAR (04/09/2015 10:14 AM BUSINESS DEVELOPMENT OFFICER) Culture Fungus-Other No Growth Fungi. [facility] Fungus Smear No Fungi seen. [facility] Bone tissue specimen (specimen) (Unspecified) 04/09/2015 10:14 AM BUSINESS DEVELOPMENT OFFICER 04/09/2015 10:14 AM BUSINESS DEVELOPMENT OFFICER Narrative [facility] - 05/10/2015 4:00 PM BUSINESS DEVELOPMENT OFFICER Right mandible tissue Specimen Type->Bone Any Santos MD LAB - MICROBIOLO GY ORDERABLES Performing Organization Address [facility] Co de Phone Number [address] [phone] * (ABNORMAL) CULTURE AEROBIC (04/09/2015 9:30 AM BUSINESS DEVELOPMENT OFFICER) Only the most recent of2 resultswithin the time period is included. Culture Aerobic STREPTOCOCCUS SALIVARIUS(A) [facility] Comment:Light Growth Strepto coccus Salivarius Culture Aerobic STREPTOCOCCUS MITIS/ORALIS(A) [facility] Comment:Light Growth STREPTO COCCUS MITIS/ORALIS Gram Stain Many Red Blood Cells [facility] Gram Stain Few Polymorphonuclear Cells [facility] Gram Stain Rare Gram positive cocci in pairs [facility] Comment:called and read back to Mandy 04/09/15 1153 Gram Stain [facility] Comment:called and read back to Dr. Deras 04/09/15 1215 Fluid specimen (specimen) 04/09/2015 9:30 AM BUSINESS DEVELOPMENT OFFICER 04/09/2015 9:40 AM BUSINESS DEVELOPMENT OFFICER Narrative [facility] - 04/13/2015 10:35 AM BUSINESS DEVELOPMENT OFFICER Right mandible body fluid Specimen Type->Body Fluid [...] - MICROBIOLO GY ORDERABLES Performing Organization Address [facility] Co de Phone Number [address] [phone] * CULTURE ANAEROBE (04/09/2015 9:30 AM BUSINESS DEVELOPMENT OFFICER) Only the most recent of2 resultswithin the time period is included. Culture Anaerobic No Growth Anaerobes. [facility] Culture Anaerobic AEROBIC GROWTH COMPATIBLE WITH ROUTINE CULTURE. [facility] Tissue 04/09/2015 9:30 AM BUSINESS DEVELOPMENT OFFICER 04/09/2015 9:40 AM BUSINESS DEVELOPMENT OFFICER Narrative [facility] - 04/17/2015 12:14 PM BUSINESS DEVELOPMENT OFFICER Right mandible tissue Specimen Type->Tissue Any Santos MD LAB - MICROBIOLO GY ORDERABLES Performing Organization Address [facility] Co de Phone Number [address] [phone] * PATHOLOGY TISSUE (04/09/2015 8:45 AM BUSINESS DEVELOPMENT OFFICER) Surgical Pathology Tissue CLINICAL HISTORY: Osteomyelitis of [...] were determined by the Histopathology Laboratory of [facility]. Some of these tests were developed [...] by Gayle Browning MD. Electronically signed 04/12/2015 [facility] ([facility]) Other (qualifier value) 04/09/2015 8:45 AM BUSINESS DEVELOPMENT OFFICER 04/09/2015 9:40 AM BUSINESS DEVELOPMENT OFFICER Narrative [facility] ([facility]) - 04/12/2015 4:36 PM BUSINESS DEVELOPMENT OFFICER PROBLEM LIST: Patient Active Problem List: Osteomyelitis of mandible PRE-OP DIAGNOSIS: Osteomyelitis of the mandible . OPERATIVE PROCEDURE / FINDINGS: Procedure(s): BIOPSY OF THE RIGHT MANDIBLE POST-OP DIAGNOSIS: * No post-op diagnosis entered * Collection Date->04/09/15 Collection Time-> 8:45 AM Specimen A->Soft Tissue, Other Right mandible tissue Winston Barriga MD LAB - PATHOLOGY/CYTO LOGY ORDERABLES [facility] ([facility]) * PATHOLOGY/GENETICS HISTORICAL-ONBASE (04/09/2015) 04/09/2015 Narrative [facility] - 04/13/2015 11:10 AM BUSINESS DEVELOPMENT OFFICER Historical Provider LAB - CHEMISTRY O RDERABLES Performing Organization Address [facility] Co de Phone Number [facility] [address] * T3 FREE (04/08/2015 7:38 AM BUSINESS DEVELOPMENT OFFICER) T3 Free 2.8 1.7 - 3.7 pg/mL [facility] Blood specimen (specimen) BLOOD SPECIMEN / Unknown 04/08/2015 7:38 AM BUSINESS DEVELOPMENT OFFICER 04/08/2015 9:35 AM BUSINESS DEVELOPMENT OFFICER Any Santos MD LAB - CHEMISTRY ORDERABLES Performing Organization Address [facility] Co de Phone Number [address] [phone] * (ABNORMAL) VANCOMYCIN LEVEL TROUGH (04/08/2015 7:38 AM BUSINESS DEVELOPMENT OFFICER) Vancomycin Trough 2.9(L) 10.0 - 20.0 mcg/mL [facility] Blood specimen (specimen) BLOOD SPECIMEN / Unknown 04/08/2015 7:38 AM BUSINESS DEVELOPMENT OFFICER 04/08/2015 7:46 AM BUSINESS DEVELOPMENT OFFICER Any Santos MD LAB - CHEMISTRY ORDERABLES Performing Organization Address [facility] Co de Phone Number [address] [phone] * XR PANOREX (04/07/2015 12:46 PM BUSINESS DEVELOPMENT OFFICER) Anatomical Region Laterality Modality Head Other Impressions 04/08/2015 6:05 PM BUSINESS DEVELOPMENT OFFICER Impression: Lytic focus in the right mandibular body compatible with osteomyelitis. Dictated by Jordan Michaud MD (Metallurgy Laboratory Technician). I, Dr. SARAY COPPOLA M.D. have personally reviewed and interpreted this examination/study. This report was electronically signed by SARAY COPPOLA M.D. on 04/08/2015 6:05 PM . Narrative 04/08/2015 6:05 PM BUSINESS DEVELOPMENT OFFICER EXAMINATION: Panorex HISTORY: mandibular osteomyelitis COMPARISON: No [...] with osteomyelitis. Dictated by Jordan Michaud MD (Metallurgy Laboratory Technician). I, Dr. SARAY COPPOLA M.D. have personally reviewed and interpreted thisexamination/study. This report was electronically signed by SARAY COPPOLA M.D. on 04/08/20156:05 PM . Any Santos MD DIAGNOSTIC IMAGI NG ORDERABLES * (ABNORMAL) C-REACTIVE PROTEIN (04/07/2015 10:46 AM BUSINESS DEVELOPMENT OFFICER) Only the most recent of2 resultswithin the time period is included. Pathologist [facility] C-Reactive Protein 1.9(H) <=0.5 mg/dL [facility] Blood specimen (specimen) BLOOD SPECIMEN / Unknown 04/07/2015 10:46 AM BUSINESS DEVELOPMENT OFFICER 04/07/2015 10:52 AM BUSINESS DEVELOPMENT OFFICER Any Santos MD LAB - CHEMISTRY ORDERABLES [address] [phone] * (ABNORMAL) THYROID PEROXIDASE ANTIBODY (04/07/2015 10:46 AM BUSINESS DEVELOPMENT OFFICER) Thyroid Peroxidase TPO Antibody 62(H) 0 - 34 IU/mL [facility] ([facility]) Blood specimen (specimen) BLOOD SPECIMEN / Unknown 04/07/2015 10:46 AM BUSINESS DEVELOPMENT OFFICER 04/08/2015 9:36 AM BUSINESS DEVELOPMENT OFFICER Narrative [facility] - 04/10/2015 6:39 AM BUSINESS DEVELOPMENT OFFICER Performed at: - [address] [id number] Natural Resource Manager: Adin Salazar PhD, Phone: [phone] Any Santos MD LAB - CHEMISTRY ORDERABLES [facility] ([facility]) * (ABNORMAL) ERYTHROCYTE SEDIMENTATION RATE (04/07/2015 10:46 AM BUSINESS DEVELOPMENT OFFICER) Only the most recent of2 resultswithin the time period is included. Erythrocyte Sedimentation Rate Westergren 22(H) 0 - 20 MM/HR [facility] Comment: ########################################################################## # Please Note: New age specific reference ranges have been implemented. # ########################################################################## Blood specimen (specimen) BLOOD SPECIMEN / Unknown 04/07/2015 10:46 AM BUSINESS DEVELOPMENT OFFICER 04/07/2015 10:52 AM BUSINESS DEVELOPMENT OFFICER Any Santos MD LAB - HEMATOLOGY ORDERABLES [address] [phone] * MRI ORBITS OR FACE WWO CONTRAST (04/06/2015 9:02 PM BUSINESS DEVELOPMENT OFFICER) Anatomical Region Laterality Modality Head Other Impressions 04/07/2015 7:21 PM BUSINESS DEVELOPMENT OFFICER IMPRESSION: 1. Small abscess occupying a defect [...] 7:21 PM . Narrative 04/07/2015 7:21 PM BUSINESS DEVELOPMENT OFFICER EXAMINATION: Magnetic resonance imaging (MRI) of the [...] MR ORDERABLES * TSH (04/06/2015 2:44 AM BUSINESS DEVELOPMENT OFFICER) TSH 4.499 0.350 - 4.940 uIU/mL [facility] Blood specimen (specimen) BLOOD SPECIMEN / Unknown 04/06/2015 2:44 AM BUSINESS DEVELOPMENT OFFICER 04/06/2015 3:05 AM BUSINESS DEVELOPMENT OFFICER Eduardo Sin MD LAB - CHEMISTRY ORDE JUAN MIGUEL Performing Organization Address [facility]/ZIP Co de Phone Number [address] [phone] * T4 FREE (04/06/2015 2:44 AM BUSINESS DEVELOPMENT OFFICER) T4 Free 1.0 0.7 - 1.5 ng/dL [facility] Blood specimen (specimen) BLOOD SPECIMEN / Unknown 04/06/2015 2:44 AM BUSINESS DEVELOPMENT OFFICER 04/06/2015 6:27 AM BUSINESS DEVELOPMENT OFFICER Any Santos MD LAB - CHEMISTRY ORDERABLES Performing Organization Address [facility] Co de Phone Number [address] [phone] * (ABNORMAL) DRUG ABUSE PANEL 10-20+ETHANOL URINE NO CONFIRM (04/06/2015 1:38 AM BUSINESS DEVELOPMENT OFFICER) Pathologist [facility] Amphetamines Screen Urine Negative Negative : < 1000 ng/mL [facility] Barbiturates Screen Urine Negative Negative : < 200 ng/mL [facility] Benzodiazepine Screen Urine Positive(A) Negative : < 200 ng/mL [facility] Comment: Positive urine benzodiazepine screening results should be confirmed by another generally accepted non-immunological method such as gas chromatography or mass spectrometry. Opiates Urine Positive(A) Negative : < 300 ng/mL [facility] Comment: Positive urine opiate screening results should be confirmed by another generally accepted non-immunological method such as gas chromatography or mass spectrometry. Cocaine Metabolites Urine Negative Negative : < 300 ng/mL [facility] Phencyclidine Screen Urine Negative Negative : < 25 ng/ml [facility] Cannabinoids Screen Urine Positive(A) Negative : <50 ng/mL [facility] Comment: Positive urine cannabinoids (THC) screening results should be confirmed by another generally accepted non-immunological method such as gas chromatography or mass spectrometry. Methadone Screen Urine Negative Negative : < 300 ng/mL [facility] Urine specimen (specimen) URINE / Unknown 04/06/2015 1:38 AM BUSINESS DEVELOPMENT OFFICER 04/06/2015 1:48 AM BUSINESS DEVELOPMENT OFFICER Narrative [facility] - 04/06/2015 2:05 AM BUSINESS DEVELOPMENT OFFICER The Urine Toxicology Screening Panel does not screen for Propoxyphene, Meprobamate, Carisoprodol, Trazodone, votp-sbs-oztpllg medications and/or volatiles (Acetone, Isopropanol, Methanol or Ethylene Glycol). Ethanol, Salicylate, Acetaminophen, Tricyclic Antidepressants and several therapeutic drugs may be individually assayed in serum or plasma specimen. Toxicology testing by the [facility] is an aid to medical diagnosis and treatment of patients. No documented chain of custody was maintained. Results are intended to be used for clinical purposes only. Any Santos MD LAB - URINE CHEM ISTRY ORDERABLES Performing Organization Address [facility] Co de Phone Number [address] [phone] * EKG 12-LEAD (04/06/2015 12:00 AM BUSINESS DEVELOPMENT OFFICER) EKG [facility] Comment: Exam Date/Time: Apr 06 [...] previous ECGs available Confirmed by Ella TIPTON, UELALIA ([id number]), international editorial producer MAT EMERSON ([id number]) on 04/19/2015 12:44:17 PM Referred By: REFERRING NO Confirmed By:EULALIA TIPTON M.D. 04/06/2015 Any Santos MD ECG ORDERABLES Performing Organization Address [facility] Co de Phone Number [facility] * CULTURE BLOOD (04/05/2015 10:45 PM BUSINESS DEVELOPMENT OFFICER) Only the most recent of2 resultswithin the time period is included. Culture Blood No Growth at 5 days [facility] Blood specimen (specimen) 04/05/2015 10:45 PM BUSINESS DEVELOPMENT OFFICER 04/05/2015 11:00 PM BUSINESS DEVELOPMENT OFFICER Eduardo Sin MD LAB - MICROBIOLOGY O RDERABLES Performing Organization Address City/State/[facility] Co de Phone Number [facility] [address] [place] [address] * (ABNORMAL) COMPREHENSIVE METABOLIC PANEL (04/05/2015 10:30 PM BUSINESS DEVELOPMENT OFFICER) BUN 14 7 - 26 mg/dL [facility] Creatinine 0.6 0.6 - 1.2 mg/dL [facility] Sodium 138 136 - 145 mmol/L [facility] Potassium 3.5 3.5 - 4.5 mmol/L [facility] Chloride 100 98 - 107 mmol/L [facility] CO2 29 22 - 29 mmol/L [facility] Glucose 145(H) 70 - 115 mg/dL [facility] Calcium 9.0 8.4 - 10.2 mg/dL [facility] Protein Total 6.2 6.0 - 8.3 g/dL [facility] Albumin 3.4 3.4 - 5.0 g/dL [facility] Bilirubin Total 0.4 0.2 - 1.2 mg/dL [facility] Alkaline Phosphatase 84 40 - 150 Units/L [facility] ALT 8 0 - 55 Units/L [facility] AST 8 5 - 34 Units/L [facility] Anion Gap 13 8 - 18 [facility] BUN/Creatinine Ratio 23 7 - 23 [facility] Osmolality Calculated 275 270 - 300 mOsm/kg [facility] Albumin/Globulin Ratio 1.2 1.1 - 2.3 [facility] eGFR >60 >60 mL/min/1.7 3 m2 [facility] Blood specimen (specimen) BLOOD SPECIMEN / Unknown 04/05/2015 10:30 PM BUSINESS DEVELOPMENT OFFICER 04/05/2015 10:59 PM BUSINESS DEVELOPMENT OFFICER Eduardo Sin MD LAB - CHEMISTRY BENITA BULL[facility] Organization Address City/State/ZIP Co de Phone Number [address] [phone] * XR CHEST 1VW PORTABLE (04/05/2015 9:49 PM BUSINESS DEVELOPMENT OFFICER) Anatomical Region Laterality Modality Chest Other Impressions 04/06/2015 6:04 PM BUSINESS DEVELOPMENT OFFICER Impression: No acute pulmonary process. There is [...] 6:04 PM . Narrative 04/06/2015 6:04 PM BUSINESS DEVELOPMENT OFFICER Exam: Portable chest, one view. Date: 04/05/2015 [...] . Eduardo Sin MD DIAGNOSTIC IMAGING O [facility] Care Teams Tester Regulator Relationship Specialty Start Date End Date Dieudonne Maxwell MD [address] [place] [id number] PCP - General 05/20/18
[2024-06-10 17:32] LABS: Erythrocyte Sedimentation Rate 72 mm/hr (0-20)
[2024-06-10 17:59] LABS: Rheumatoid Factor < 12.0 IU/ML (<12)
[2024-06-10 18:08] LABS: Creatine Kinase 21 U/L (30-135); Magnesium 1.7 mg/dL (1.6-2.3); Uric Acid 3.3 mg/dL (2.5-7.5)
[2024-06-10 18:10] LABS: Vitamin D 25 Hydroxy 25.5 ng/mL
[2024-06-10 19:01] LABS: Folic Acid 5.3 ng/mL (2.76->20)
[2024-06-10 19:28] LABS: Hemoglobin A1C 5.7 % (<5.7)
[2024-06-11 07:34] LABS: SS-A <1.0 NEG AI (<1.0 NEG); SS-B <1.0 NEG AI (<1.0 NEG)
[2024-06-11 12:58] LABS: Protein, Total 7.1 g/dL (6.1-8.1)
[2024-06-12 11:22] LABS: Creatinine, Random Urine 65 mg/dL (20-275); Total Prot/Creat ratio mg/mg 0.108 (0.024-0.184); Total Protein/Creatinine Ratio 108 mg/g creat (24-184)
[2024-06-12 16:04] LABS: Cyclic Citrullinated Peptide <16 UNITS
[2024-06-12 20:58] LABS: Albumin 3.3 g/dL (3.8-4.8); Alpha 1 Globulin 0.7 g/dL (0.2-0.3); Alpha 2 Globulin 1.4 g/dL (0.5-0.9); Beta 1 Globulin 0.5 g/dL (0.4-0.6); Gamma Globulin 0.8 g/dL (0.8-1.7)
[2024-06-15 07:39] LABS: Hepatitis C RNA, Quant PCR <15 NOT DETECTED IU/mL (NOT DETECTED)
[2024-06-15 10:44] LABS: Vitamin B1 12 nmol/L (8-30)
[2024-06-15 14:48] LABS: Vitamin B6 4.8 ng/mL (2.1-21.7)
== END 2024-06-10 13:44 | disposition home or self-care (01) ==
PROVIDERS: PCP Family Medicine; Visit Provider Internal Medicine Rheumatology
DX: M19.042 Primary osteoarthritis, left hand (principal); M19.041 Primary osteoarthritis, right hand; M19.032 Primary osteoarthritis, left wrist; M19.031 Primary osteoarthritis, right wrist; M19.072 Primary osteoarthritis, left ankle and foot; M19.071 Primary osteoarthritis, right ankle and foot; M19.012 Primary osteoarthritis, left shoulder; M19.011 Primary osteoarthritis, right shoulder; M17.0 Bilateral primary osteoarthritis of knee; M25.462 Effusion, left knee; M25.461 Effusion, right knee; E83.42 Hypomagnesemia; E53.8 Deficiency of other specified B group vitamins; M35.00 Sjogren syndrome, unspecified; D50.9 Iron deficiency anemia, unspecified; M06.9 Rheumatoid arthritis, unspecified; G62.9 Polyneuropathy, unspecified; R53.83 Other fatigue; M19.90 Unspecified osteoarthritis, unspecified site; M79.10 Myalgia, unspecified site; R73.09 Other abnormal glucose; Z79.899 Other long term (current) drug therapy; Z13.1 Encounter for screening for diabetes mellitus; Z51.81 Encounter for therapeutic drug level monitoring; Z11.59 Encounter for screening for other viral diseases
CPT/HCPCS: 36415; 73030; 73070; 73100; 73120; 73502; 73560; 73600; 73620; 82306; 82550; 82570; 82728; 82746; 83036; 83735; 84155; 84156; 84165; 84166; 84207; 84425; 84550; 85652; 86038; 86039; 86140; 86200; 86235; 86430; 87522

== ENCOUNTER 2024-06-24 12:31 | Emergency (ER) | payer MEDICARE, OTHER, SELFPAY ==
[2024-06-24] VITALS (9 sets, daily range): BP systolic 132–159; BP diastolic 65–79; PULSE 65–101; RESP 10–20; TEMP 36.5–37.3; O2SAT 97–100
--- NOTE | ~2024-06-24 | US_ITS ---
EXAMINATION: US venous doppler LE RT DATE: 06/24/2024 14:07 INDICATION: Right lower limb swelling. TECHNIQUE: Grayscale ultrasound images without and with compression and Doppler ultrasound images of the right lower extremity veins were obtained. COMPARISON: None. FINDINGS: The visualized portions of right common femoral vein, profunda (deep) femoral vein, femoral vein, pop liteal vein, peroneal veins, posterior tibial veins, and greater saphenous vein outflow are patent. IMPRESSION: 1. No deep venous thrombosis. Reviewed, dictated and finalized at location B.
--- NOTE | ~2024-06-24 | XR_ITS ---
EXAMINATION: XR chest 2V DATE: 06/24/2024 13:10 INDICATION: Shortness of breath. TECHNIQUE: Frontal and lateral views of the chest were obtained. COMPARISON: Chest 2 views 05/14/2024 FINDINGS: There is no pneumonia, pleural effusion, or pneumothorax. The heart size is normal. There i s a benign bone island in left humeral head. IMPRESSION: 1. No acute cardiopulmonary disease. Reviewed, dictated and finalized at location B.
--- NOTE | ~2024-06-24 | CT_ITS ---
EXAMINATION: CTA chest PE protocol DATE: 06/24/2024 15:27 INDICATION: Dyspnea. TECHNIQUE: Computed tomography angiography (CTA) of the chest was performed with 100 mL Omnipaque-350 intravenous contrast timed to evaluate the pulmonary arteries. Coronal maximum intensity projection 3D-reconstructions were created by the technologist. Automated exposure control and iterative reconst ruction technique were employed. The dose-length product was 397.38 mGy-cm. COMPARISON: Chest CT 02/01/2022 FINDINGS: There are changes of left lower lobectomy. There is mild emphysema. There is mild atelectas is bilaterally. Again seen are a few scattered 2-3 mm nodules in the lungs, likely benign. No pleural effusion. There are nodules in the thyroid measuring up to 7 mm, likely not clinically significant. The heart size is normal. No pericardial effusion. There are coronary artery calcifications. There is no pulmonary embolus. There are gallstones in the gallbladder, which is normal in size. There is sev ere cervical spondylosis and moderate thoracic spondylosis. IMPRESSION: 1. No pulmonary embolus. 2. Mild emphysema. 3. Left lower lobectomy. Reviewed, dictated and finalized at location B.
--- NOTE | 2024-06-24 12:34 | ECG_ITS ---
Test Date: 2024-06-24 12:49:16 Measurements Intervals [place] Rate: 89 P: 83 FL: 133 QRS: 68 QRSD: 93 T: 59 QT: 353 QTc: 431 Interpretive Statements SINUS RHYTHM Compared to ECG 05/14/2024 11:16:21 No significant changes Electronically Signed On 06-24-2024 13:53:23 CDT by Pallavi Forbes M.D.
[2024-06-24 12:56] LABS: Basophils Absolute Auto 0.1 K/mm3 (0.0-0.1); Basophils Percent Auto 0.5 % (0.2-1.2); Eosinophils Percent Auto 0.3 % (0-4.4); Hematocrit 36.2 % (37.0-47.0); Hemoglobin 11.6 g/dL (12.0-15.0); Immature Granulocyte Absolute 0.04 K/mm3 (0.00-0.031); Immature Granulocyte Percent A 0.4 % (0-0.5); Lymphocytes Absolute Auto 1.71 K/mm3 (0.9-3.2); Lymphocytes Percent Auto 15.3 % (18.3-44.2); Mean Corpuscular Hemoglobin 29.2 pg (26-34); Mean Corpuscular Volume 91.2 fl (80-100); Mean Platelet Volume 9.1 fl (7.4-10.4); Monocytes Absolute Auto 0.7 K/mm3 (0.1-0.6); Monocytes Percent Auto 6.5 % (2.6-8.5); Neutrophils Absolute Auto 8.6 K/mm3 (1.3-6.7); Platelet Count Result 598 k/mm3 (150-375); Red Blood Count 3.97 M/mm3 (4.2-5.4); Red Cell Distribution Width 13.5 % (11.5-14.5); White Blood Count 11.2 K/mm3 (4.5-10.0)
[2024-06-24 13:05] LABS: Alanine Aminotransferase 15 U/L (6-35); Albumin Level 4.3 g/dL (3.5-5.1); Alkaline Phosphatase 102 U/L (38-126); Anion Gap 10 mmol/L (4-12); Aspartate Amino Transferase 18 U/L (14-36); Bilirubin,Total 0.3 mg/dL (0.2-1.3); Blood Urea Nitrogen 12 mg/dL (7-17); Calcium 9.5 mg/dL (8.4-10.2); Carbon Dioxide 28 mmol/L (22-30); Chloride 99 mmol/L (98-107); Estimated CRCL calculation 92 ml/min; Estimated Glomerular Filt Rate > 60; Glucose 120 mg/dL (65-110); Potassium 4.1 mmol/L (3.4-5.0); Sodium 137 mmol/L (137-145)
--- OUTSIDE RECORDS SUMMARY | 2024-06-24 13:49 | XMS_ITS | Clinical Summary ---
Author Organization [facility] Address [address] [place] [address] Care Team Providers Care French Binder Name Role Phone Unavailable Primary Care Provider [...]
--- OUTSIDE RECORDS SUMMARY | 2024-06-24 13:49 | XMS_ITS | Encounter Summary ---
Author Organization [facility] Address [address] [place] [address] Phone Care Team Providers Care Chemical Manager Name Role Phone Saul Fitch Primary Care Provider [phone] Harvey Wilson MD Unavailable [phone] Wily Bassett MD Unavailable [phone] Paulie Lai MD Unavailable [phone] Eb Cardoso MD Unavailable [phone] Ernesto Reddy MD Unavailable [phone] Naomi Bay MD Unavailable [phone] Paula Jarvis NP Unavailable [phone] Unknown, Notinfile Primary Care Provider Unavail able Encounter Details Date Type Department Care Team (Latest Contact Info) Description 12/14/2021 Orders Only [facility] Scanning, Provider Social History Tobacco Use Types Packs/Day Years Used Date Smoking Tobacco: Never Assessed Comments Unknown Sex and Gender Information Value Date Recorded Sex Assigned at Not on file Legal 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 [address] [place] [address] Surgeon Cardiothoracic Surgery 01/25/22 Paulie Lai MD [address] [facility] [address] [place] [address] Dish Person Critical Care Med 01/25/22 Eb Cardoso MD [address] [place], [place] [id number] Dish Person Critical Care Med 01/25/22 Ernesto Reddy MD [address] DIV MEDICAL ONCOLOGY, JUN 7A, 7B, [address] [place] [address] Medical Oncologist/Companion Medical Oncology 01/25/22 Naomi Bay MD [address] [place] [address] Radiation Oncologist Radiation Oncology 01/31/22 Paula Jarvis NP [address] [facility] [address] [place] [address] Nurse Practitioner Radiation Oncology 07/18/22 documented as of this encounter
--- OUTSIDE RECORDS SUMMARY | 2024-06-24 13:49 | XMS_ITS | Encounter Summary ---
Author Organization [facility] Address [address] [place] [address] Phone Care Team Providers Care Bench Assembly Inspector Name Role Phone Saul Fitch Primary Care Provider [phone] Harvey Wilson MD Unavailable [phone] Wily Bassett MD Unavailable [phone] Paulie Lai MD Unavailable [phone] Eb Cardoso MD Unavailable [phone] Ernesto Reddy MD Unavailable [phone] Naomi Bay MD Unavailable [phone] Paula Jarvis NP Unavailable Unknown, Notinfile Primary Care Provider Unavail able Encounter Details Date Type Department Care Team (Latest Contact Info) Description 11/22/2021 Orders Only [facility] Scanning, Provider Social History Tobacco Use Types Packs/Day Years Used Date Smoking Tobacco: Never Assessed Comments Unknown Sex and Gender Information Value Date Recorded Sex Assigned at Not on file 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 Gender Identity Not on file Sexual [...] on filedocumented in this encounter Care Teams Bench Assembly Inspector Relationship Specialty Start Date End Date Saul Fitch DO PCP - General Internal Medicine 01/18/22 01/21/24 Unknown, Notinfile PCP - General 01/22/24 Harvey Wilson MD Medical Oncologist Hematology 01/25/22 Wily Bassett MD [address] [facility] [address] [place] [address] Surgeon Cardiothoracic Surgery 01/25/22 Paulie Lai MD [address] [facility] [address] [place] [address] Armed Security Professional Critical Care Med 01/25/22 Eb Cardoso MD [address] [place], [place] [id number] Armed Security Professional Critical Care Med 01/25/22 Ernesto Reddy MD [address] DIV MEDICAL ONCOLOGY, JUN 7A, 7B, [address] [address] Medical Oncologist/Glove Machine Operator Medical Oncology 01/25/22 Naomi Bay MD [address] [place] [address] Radiation Oncologist Radiation Oncology 01/31/22 Paula Jarvis NP [address] [facility] [address] [place] [address] Nurse Practitioner Radiation Oncology 07/18/22 documented as of this encounter
--- OUTSIDE RECORDS SUMMARY | 2024-06-24 13:49 | XMS_ITS | Clinical Summary ---
Author Organization [facility] Address [address], [facility] [address] [place] [address] Phone Care Team Providers Care Sports Administrator Name Role Phone Dieudonne Maxwell MD Primary Care Provider [phone] Allergies Active Allergy Reactions Criticality Noted Date [...] Heart Attack Father Heart Attack Sister fatal [place] Heart Disease Sister Relation Name Status Comments [...] to Health Maintenance Insurance MEDICARE Care Teams Sports Administrator Relationship Specialty Start Date End Date Dieudonne Maxwell MD [address] [place], [place] [id number] PCP - General Internal Medicine 11/19/17
--- OUTSIDE RECORDS SUMMARY | 2024-06-24 13:49 | XMS_ITS | Encounter Summary ---
Author Organization [facility] Address [address] [place] [address] Phone Care Team Providers Care Cartridge Feeder Name Role Phone Saul Fitch Primary Care Provider [phone] Harvey Wilson MD Unavailable [phone] Wily Bassett MD Unavailable [phone] Paulie Lai MD Unavailable [phone] Eb Cardoso MD Unavailable [phone] Ernesto Reddy MD Unavailable [phone] Naomi Bay MD Unavailable [phone] Paula Jarvis NP Unavailable [phone] Unknown, Notinfile Primary Care Provider Unavail able Encounter Details Date Type Department Care Team (Latest Contact Info) Description 11/13/2021 Orders Only [facility] Scanning, Provider Social History Tobacco Use Types Packs/Day Years Used Date Smoking Tobacco: Never Assessed Comments Unknown Sex and Gender Information Value Date Recorded Sex Assigned at Not on file 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 Gender Identity Not on file Sexual [...] on filedocumented in this encounter Care Teams Cartridge Feeder Relationship Specialty Start Date End Date Saul Fitch DO PCP - General Internal Medicine 01/18/22 01/21/24 Unknown, Notinfile PCP - General 01/22/24 Harvey Wilson MD Medical Oncologist Hematology 01/25/22 Wily Bassett MD [address] [facility] [address] [place] [address] Surgeon Cardiothoracic Surgery 01/25/22 Paulie Lai MD [address] [facility] [address] [place] [address] Tray Delivery Aide Critical Care Med 01/25/22 Eb Cardoso MD [address] [place], [place] [id number] Tray Delivery Aide Critical Care Med 01/25/22 Ernesto Reddy MD [address] DIV MEDICAL ONCOLOGY, JUN 7A, 7B, [address] [place] [address] Medical Oncologist/Reinforced Steel Placing Supervisor Medical Oncology 01/25/22 Naomi Bay MD [address] [place] [address] Radiation Oncologist Radiation Oncology 01/31/22 Paula Jarvis NP [address] [facility] [address] [place] [address] Nurse Practitioner Radiation Oncology 07/18/22 documented as of this encounter
--- OUTSIDE RECORDS SUMMARY | 2024-06-24 13:49 | XMS_ITS | Encounter Summary ---
Author Organization [facility] Address [address] [place] [address] Phone Care Team Providers Care Oyster Shipper Name Role Phone Saul Fitch Primary Care Provider [phone] Harvey Wilson MD Unavailable [phone] Wily Bassett MD Unavailable [phone] Paulie Lai MD Unavailable [phone] Eb Cardoso MD Unavailable [phone] Ernesto Reddy MD Unavailable [phone] Naomi Bay MD Unavailable [phone] Paula Jarvis NP Unavailable [phone] Unknown, Notinfile Primary Care Provider Unavail able Encounter Details Date Type Department Care Team (Latest Contact Info) Description 10/26/2021 Orders Only [facility] Scanning, Provider Social History Tobacco Use Types Packs/Day Years Used Date Smoking Tobacco: Never Assessed Comments Unknown Sex and Gender Information Value Date Recorded Sex Assigned at Not on file 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 Gender Identity Not on file Sexual Orientation [...] on filedocumented in this encounter Care Teams Oyster Shipper Relationship Specialty Start Date End Date Saul Fitch DO PCP - General Internal Medicine 01/18/22 01/21/24 Unknown, Notinfile PCP - General 01/22/24 Harvey Wilson MD Medical Oncologist Hematology 01/25/22 Wily Bassett MD [address] [facility] [address] [place] [address] Surgeon Cardiothoracic Surgery 01/25/22 Paulie Lai MD [address] [facility] [address] [place] [address] General Operator Critical Care Med 01/25/22 Eb Cardoso MD [address] [place], [place] [id number] General Operator Critical Care Med 01/25/22 Ernesto Reddy MD [address] DIV MEDICAL ONCOLOGY, JUN 7A, 7B, [address] [place] [address] Medical Oncologist/Funeral Arrangement Director Medical Oncology 01/25/22 Naomi Bay MD [address] [place] [address] Radiation Oncologist Radiation Oncology 01/31/22 Paula Jarvis NP [address] [facility] [address] [place] [address] Nurse Practitioner Radiation Oncology 07/18/22 documented as of this encounter
--- OUTSIDE RECORDS SUMMARY | 2024-06-24 13:49 | XMS_ITS | Continuity of Care Document ---
Author Organization [facility] Address [address] [place] [address] [address] [place] [address] Phone Care Team Providers Care Lead Systems Developer Name Role Phone Sanford OD, Alverto Unavailable Unavailable Advance Directives Directive Yes / No Effective Date File Name No Information Encounters Encounter Description Practice Location Reason(s) For Visit Diagnoses Date Provider Providers Copied on Encounter [facility], [address], [place], [place], [id number], [place] tel:[phone] [facility] No Information Apr-1 5-200 5 Sanford OD Alverto. [address], [place], [address], [place]. tel:[phone] Family History Family Member Type Diagnosis Age [...]
--- OUTSIDE RECORDS SUMMARY | 2024-06-24 13:50 | XMS_ITS | Clinical Summary ---
Author Organization [facility] 2 Address [address] [facility] [place] [address] Care Team Providers Care Cornice Maker Name Role Phone Harvey Wilson MD Unavailable [phone] Wily Bassett MD Unavailable [phone] Paulie Lai MD Unavailable [phone] Eb Cardoso MD Unavailable [phone] BarryErnesto hernandez MD Unavailable [phone] Naomi Bay MD Unavailable [phone] Paula Jarvis NP Unavailable [phone] Unknown, Notinfile Primary Care Provider Unavail able Allergies Active Allergy Reactions Criticality Noted Date Comments Sulfa (Sulfonamide Antibiotics) Unknown,Swelling Medium 10/31/2013 Swelling Sulfamethoxazole-Tri methoprim Flushing (skin),Unknown,Hives Medium 10/31/2013 Eyes close and well, 104 fever, welts and bumps all kiln remover Hives Medications ALPRAZolam (XANAX) 1 mg [...] disease 12/17/2021 Acute respiratory failure with hypoxia Atelectasis of left lung 12/16/2021 Pneumothorax on left 12/16/2021 Encounters Date Type Department Care Team Description 06/16/2024 11:00 AM COMPOSITION TILE LAYER Office Visit [facility] Oncology [facility] Floor [address] [place] [address] Ernesto Reddy MD Primary cancer of left lower lobe of lung (HCC) (Primary Dx); 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) Discharge Disposition: Discharge to home or self care 05/01/2024 Documentation [facility] Oncology [address] [facility] Floor 1, [address] [place] [address] Karen Sylvester from Last 3 Months Immunizations [...] History Medical History Date Comments Colon cancer (HCC) Family History Medical History Relation Name [...] of Binge Drinking Not on file 01/13 [facility] - Occupational Stress Questionnaire Answer Date Recorded Do you feel stress - tense, restless, nervous, or anxious, or unable to sleep at night because your mind is troubled all the time - these days? Very much 01/26/2022 Comments No Sex and Gender Information Value Date Recorded Sex Assigned at Not on file Legal Sex Female 2:06 PM COMPOSITION TILE LAYER Gender Identity Not on file Sexual Orientation Not on file Obstetrics History Last Filed Vital Signs Vital Sign Reading Time Taken Comments Blood Pressure 143/86 06/16/2024 10:12 AM COMPOSITION TILE LAYER Pulse 106 06/16/2024 10:12 AM COMPOSITION TILE LAYER Temperature 36.2 C (97.2 F) 06/16/2024 10:12 AM COMPOSITION TILE LAYER Respiratory Rate 18 06/16/2024 10:12 AM COMPOSITION TILE LAYER Oxygen Saturation 97% 06/16/2024 10:12 AM COMPOSITION TILE LAYER Inhaled Oxygen Concentration - - Weight 72.8 kg (160 lb 9.6 oz) 06/16/2024 10:12 AM COMPOSITION TILE LAYER Height 171 cm (5' 7.32 ) 11/20/2022 1:26 PM CDT Body Mass Index 24.91 11/20/2022 1:26 PM CDT Plan of Treatment [...] Cancer Screening-Colonoscopy 12/03/20222012 Influenza Vaccine (#1) 2023 , 02/20/2022, 04/24/2021, Additional history exists Procedures Procedure Name Priority Date/Time Associated Diagnosis Comments EGFR Routine 06/16/2024 10:00 AM COMPOSITION TILE LAYER Primary cancer of left lower lobe of lung (HCC) 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) DIFFERENTIAL AUTO Routine 06/16/2024 10:00 AM COMPOSITION TILE LAYER Primary cancer of left lower lobe of lung (HCC) 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) CBC WITH AUTO DIFFERENTIAL Routine 06/16/2024 10:00 AM COMPOSITION TILE LAYER Primary cancer of left lower lobe of lung (HCC) 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) COMPREHENSIVE METABOLIC PANEL Routine 06/16/2024 10:00 AM COMPOSITION TILE LAYER Primary cancer of left lower lobe of lung (HCC) 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 73 m2 Comment: Interpretive Data Reference Interval Normal >/= 90 mL/min/1.73m2 Mildly decreased* 60 - 89 mL/min/1.73m2 Mildly to moderately decreased 45 - 59 mL/min/1.73m2 Moderately to severely decreased 30 - 44 mL/min/1.73m2 Severely decreased 15 - 29 mL/min/1.73m2 Kidney Failure < 15 mL/min/1.73m2 *Relative to young adult level Estimated glomerular filtration rate is determined by the 2020 CKD-EPI equation recommended by the National Kidney Foundation (A Unifying Approach to GFR Estimation: Recommendations of the NKF-ASK Task Force on Reassessing the Inclusion of Race in Diagnosing Kidney Disease, JASN 2020). The CKD-EPI equation should not be used for patients with unstable renal function and has not been validated in children and those over 70. Current interpretive data was last reviewed 2021. Blood 06/16/2024 10:0 0 AM COMPOSITION TILE LAYER 06/16/2024 10:05 AM COMPOSITION TILE LAYER Ernesto Reddy MD LAB BLOOD ORDERABLES Cyndi jenniffer Result [facility] Department [place] [address] * (ABNORMAL) Differential, auto (06/16/2024 10:00 AM COMPOSITION TILE LAYER) Neutrophil abs 9.0(H) 1.5 - 6.5 K/cumm Comment:Testing performed by : [facility], [address] [place] [phone] Lymphocyte abs 1.7 0.8 - 3.3 K/cumm [facility] Comment:Testing performed by : [facility], [address] [place] [phone] Monocyte abs 0.8 0.2 - 0.8 K/cumm [facility] Comment:Testing performed by : [facility], [address] [place] [phone] Eosinophil abs 0.0 0.0 - 0.5 K/cumm [facility] Comment:Testing performed by : [facility], [address] [place] [phone] Basophil abs 0.1 0.0 - 0.1 K/cumm [facility] Comment:Testing performed by : [facility], [address] [place] [phone] Neutrophil pct 77.0 % [facility] Comment: Interpretive Data Percent cell count reference ranges are not reported, since discordance with absolute values may lead to misinterpretation of CBC data. Current Interpretive Data was last revised on 2017. Testing performed by: [facility], [address] [place] [phone] Lymphocyte pct 14.4 % [facility] Comment: Interpretive Data Percent cell count reference ranges are not reported, since discordance with absolute values may lead to misinterpretation of CBC data. Current Interpretive Data was last revised on 2017. Testing performed by: [facility], [address] [place] [phone] Monocyte pct 7.2 % [facility] Comment: Interpretive Data Percent cell count reference ranges are not reported, since discordance with absolute values may lead to misinterpretation of CBC data. Current Interpretive Data was last revised on 2017. Testing performed by: [facility], [address] [place] [phone] Eosinophil pct 0.4 % [facility] Comment: Interpretive Data Percent cell count reference ranges are not reported, since discordance with absolute values may lead to misinterpretation of CBC data. Current Interpretive Data was last revised on 2017. Testing performed by: [facility], [address] [place] [phone] Basophil pct 1.0 % [facility] Comment: Interpretive Data Percent cell count reference ranges are not reported, since discordance with absolute values may lead to misinterpretation of CBC data. Current Interpretive Data was last revised on 2017. Testing performed by: [facility], [address] [place] [phone] Blood 06/16/2024 10:0 0 AM COMPOSITION TILE LAYER 06/16/2024 10:03 AM COMPOSITION TILE LAYER us Ernesto Reddy MD LAB BLOOD ORDERABLES Cyndi jenniffer Result [facility] Department [place] [address] * (ABNORMAL) CBC with auto differential (06/16/2024 10:00 AM COMPOSITION TILE LAYER) WBC 11.6(H) 3.8 - 9.9 K/cumm Comment:Testing performed by : [facility], [address] [place] [address] Hgb 11.7(L) 11.9 - 15.5 g/dL [facility] Comment:Testing performed by : [facility], [address] [place] [address] Hct 35.2(L) 35.6 - 45.5 % [facility] Comment:Testing performed by : [facility], [address] [place] [address] Plt 699(H) 150 - 400 K/cumm [facility] Comment:Testing performed by : [facility], [address] [place] [address] MPV 7.5 6.8 - 10.4 fL [facility] Comment:Testing performed by : [facility], [address] [place] [address] RBC 4.02 3.90 - 5.20 M/cumm [facility] Comment:Testing performed by : [facility], [address] [place] [address] MCV 87.6 81.3 - 96.4 fL [facility] Comment:Testing performed by : [facility], [address] [place] [address] MCH 29.1 27.1 - 33.3 pg [facility] Comment:Testing performed by : [facility], [address] [place] [address] MCHC 33.2 32.3 - 35.7 g/dL [facility] Comment:Testing performed by : [facility], [address] [place] [phone] RDW CV 13.6 11.1 - 14.9 % [facility] Comment:Testing performed by : [facility], [address] [place] [phone] NRBC abs 0.00 0.00 - 0.01 K/cumm [facility] Comment:Testing performed by : [facility], [address] [place] [phone] Blood 06/16/2024 10:0 0 AM COMPOSITION TILE LAYER 06/16/2024 10:03 AM COMPOSITION TILE LAYER Ernesto Reddy MD LAB BLOOD ORDERABLES Cyndi l Result [facility] Department [place] [address] * (ABNORMAL) Comprehensive metabolic panel (06/16/2024 10:00 AM COMPOSITION TILE LAYER) Sodium 138 135 - 145 mmol/L Potassium, pl 4.3 3.3 - 4.9 mmol/L [facility] Chloride 97 97 - 110 mmol/L [facility] CO2 31 22 - 32 mmol/L [facility] Anion gap 10 2 - 15 mmol/L [facility] BUN 13 6 - 25 mg/dL [facility] Creatinine 0.49(L) 0.60 - 1.10 mg/dL [facility] Glucose 129 70 - 199 mg/dL [facility] Comment: Interpretive Data Fasting glucose >/= 126 mg/dl is diagnostic for diabetes. Fasting is defined as no caloric intake for at least 8 hours. Fasting glucose between 100 mg/dl to 125 mg/dl is diagnostic of prediabetes. In a patient with classic symptoms of hyperglycemia or hyperglycemic crisis, a random glucose >/= 200 mg/dl is diagnostic for diabetes. In the absence of unequivocal hyperglycemia, results should be confirmed by repeat testing. The classification and Diagnosis of Diabetes Diabetes Care 202; 46: S19-S40. Current interpretive data was last revised 2022. Calcium 10.0 8.5 - 10.3 mg/dL [facility] Bilirubin, total 0.2 0.1 - 1.2 mg/dL [facility] Protein, pl 7.8 6.5 - 8.5 g/dL [facility] Albumin 4.0 3.5 - 5.0 g/dL [facility] Alk phos 104 40 - 130 Units/L [facility] ALT 8 7 - 45 Units/L [facility] AST 13 10 - 45 Units/L [facility] Blood 06/16/2024 10:0 0 AM COMPOSITION TILE LAYER 06/16/2024 10:05 AM COMPOSITION TILE LAYER us Ernesto Reddy MD LAB BLOOD ORDERABLES Cyndi l Result [facility] Department [place] [address] * CT Chest Abdomen W Contrast (05/01/2024 11:42 AM COMPOSITION TILE LAYER) Anatomical Region Laterality Modality Body N/A Computed Tomogra phy 05/01/2024 12:1 7 PM COMPOSITION TILE LAYER Impressions 05/01/2024 12:17 PM COMPOSITION TILE LAYER 1. Postoperative changes of left lower lobectomy. Stable subcentimeter pulmonary nodules. 2. No evidence of disease progression in the chest and abdomen. Electronically signed by: Anna Urena M.D. Narrative 05/01/2024 12:17 PM COMPOSITION TILE LAYER EXAMINATION: Computed tomography of the chest and [...] esult * POCT creatinine (05/01/2024 11:20 AM COMPOSITION TILE LAYER) Creatinine POC 0.7 0.6 - 1.1 mg/dL Blood 05/01/2024 11:2 0 AM COMPOSITION TILE LAYER 05/01/2024 11:20 AM COMPOSITION TILE LAYER us Ernesto Reddy MD LAB POCT ORDERABLES - DEV ICE Final Result Performing Organization Address City/State/[facility] Co de Phone Number [facility] Department [place] [address] * COLONOSCOPY (12/03/2012 12:00 AM CDT) Anatomical Region Laterality Modality Other Narrative 12/03/2012 12:00 AM CDT Ordered by an unspecified provider. Procedure Note ProviderReginaldo MD - 12/03/2012 12:00 AM CDT PROCEDURE REPORT Patient: LESLEE OLIVIER Account: [id number] Room No: : 1960 Patient Type: SDS [...] Recently Relevant to Health Maintenance Insurance MEDICARE [facility] MEDICARE ID[facility] Care Teams Cornice Maker Relationship Specialty Start Date End Date Unknown, Notinfile PCP - General 01/22/24 Harvey Wilson MD Medical Oncologist Hematology 01/25/22 Wily Bassett MD [address] [facility] [address] [place] [address] Surgeon Cardiothoracic Surgery 01/25/22 Paulie Lai MD [address] [facility] [address] [place] [address] Second Grade Teacher Critical Care Med 01/25/22 Eb Cardoso MD [address] [place] [address] Second Grade Teacher Critical Care Med 01/25/22 Ernesto Reddy MD [address] [facility], [address] [place] [address] Medical Oncologist/Engraver Wood Medical Oncology 01/25/22 Naomi Bay MD [address] [place] [address] Radiation Oncologist Radiation Oncology 01/31/22 Paula Jarvis NP [address] [place] [address] Nurse Practitioner Radiation Oncology 07/18/22
--- OUTSIDE RECORDS SUMMARY | 2024-06-24 13:50 | XMS_ITS | Encounter Summary ---
Author Organization [facility] Healthcare Address [address] [place] [address] Care Team Providers Care Cube Machine Tender Name Role Phone Saul Fitch DO Primary Care Provider [phone] Harvey Wilson MD Unavailable [phone] Wily Bassett MD Unavailable [phone] Paulie Lai MD Unavailable [phone] Eb Cardoso MD Unavailable [phone] Ernesto Reddy MD Unavailable [phone] Naomi Bay MD Unavailable [phone] Paula Jarvis NP Unavailable [phone] Unknown, Notinfile Primary Care Provider Unavail able Encounter Details Date Type Department Care Team (Late st Contact Info) Description 01/23/[address] [facility] [address] [place] [address] Shaina Huynh RN Social History Tobacco Use Types Packs/Day Years Used Date Smoking Tobacco: Every Day Cigarettes AUDIT-C Answer Date Recorded Q1: How often do you have a drink containing alc ohol? Monthly or less 01/26/2022 Average Number of Drinks Not on file 022 Frequency of Binge Drinking Not on file 01/13 [facility] [place] of Occupat ional Health - Occupational Stress Questionnaire Answer Date Recorded Do you feel stress - tense, restless, nervous, or anxious, or unable to sleep at night because your mind is troubled all the time - these days? 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 Gender Identity Not on file Sexual Orientation Not on file documented as of this encounter Plan of Treatment Not on file documented as of this encounter Visit Diagnoses Not on filedocumented in this encounter Care Teams Cube Machine Tender Relationship Specialty Start Date End Date Saul Fitch DO PCP - General Internal Medicine 01/18/22 01/21/24 Unknown, Notinfile PCP - General 01/22/24 Harvey Wilson MD Medical Oncologist Hematology 01/25/22 Wily Bassett MD [address] [facility] [address] [place] [address] Surgeon Cardiothoracic Surgery 01/25/22 Paulie Lai MD [address] [facility] [address] [place] [address] Rejected Items Clerk Critical Care Med 01/25/22 Eb Cardoso MD [address] [place] [address] Rejected Items Clerk Critical Care Med 01/25/22 Ernesto Reddy MD [address] [facility] MED[facility], [address] [place] [address] Medical Oncologist/Inbound Sales Representative Medical Oncology 01/25/22 Naomi Bay MD [address] [facility] [address] [place] [address] Radiation Oncologist Radiation Oncology 01/31/22 Paula Jarvis NP [address] [facility] [address] [place] [address] Nurse Practitioner Radiation Oncology 07/18/22 documented as of this encounter
--- OUTSIDE RECORDS SUMMARY | 2024-06-24 13:50 | XMS_ITS | Patient Health Summary ---
Author Organization [facility] [employer] Address [address] [place] [address] Care Team Providers Care Boat Garnisher Name Role Phone Dieudonne Maxwell MD Primary Care Provider [phone] Note from [facility],non-owned Affiliates and Associated Physician Practices is amultiple site organization consisting of ambulatory clinics and hospital sitesin [place], [place], [place] and [place]. This disclosure is being madepursuant to the Care Everywhere program and may not contain all information available regarding this patient. Last updated 18.[facility] Social History Tobacco Use Types Packs/Day Years Used Date Smoking Tobacco: Never Assessed Sex and Gender Information Value Date Recorded Sex Assigned at Not on file Gender Identity Not on file Sexual Orientation Not on file Last Filed Vital Signs Vital Sign Reading Time Taken Comments Blood Pressure 110/69 06/10/2015 12:31 PM GENERATOR OPERATOR STRA[employer]AR Pulse 84 06/10/2015 12:31 PM GENERATOR OPERATOR [employer]EV[employer]AR Temperature 36.9 C (98.4 F) 06/10/2015 12:31 PM GENERATOR OPERATOR [employer]EV[employer]AR Respiratory Rate 14 06/10/2015 12:31 PM GENERATOR OPERATOR STRA[employer]EVEL [employer]AR Oxygen Saturation 97% 06/10/2015 12:31 PM GENERATOR OPERATOR STRAIGHT BEVEL GEAR Inhaled Oxygen Concentration - - Weight 65.8 kg (145 lb) 06/10/2015 12:31 PM GENERATOR OPERATOR STRAIGHT BEVEL GEAR Height 175.3 cm (5' 9 ) 06/10/2015 12:31 PM GENERATOR OPERATOR [employer]EV[employer]AR Body Mass Index 21.41 06/10/2015 12:31 PM GENERATOR OPERATOR STRA[employer] BEVEL [employer]AR Procedures * BASIC METABOLIC PANEL (CALCIUM TOTAL)(Performed [...] CBC W AUTO DIFFERENTIAL (04/12/2015 2:53 AM GENERATOR OPERATOR STRAIGHT BEVEL GEAR) Only the most recent of16 resultswithin the time period is included. WBC 5.0 3.5 - 10.5 10 3/uL [facility] RBC 3.52(L) 3.90 - 5.00 10 6/uL [facility] Hemoglobin 11.4(L) 12.0 - 15.5 g/dL [facility] Hematocrit 33.7(L) 35.0 - 45.0 % [facility] MCV 95.7 81.0 - 97.0 fL [facility] MCH 32.4 28.0 - 34.0 pg [facility] MCHC 33.8 32.0 - 36.0 g/dL [facility] Platelet Count 275 150 - 400 10 3/uL [facility] RDW-SD 47.0 36.0 - 50.0 fL [facility] RDW-CV 13.4 11.2 - 14.8 % [facility] MPV 10.4 9.3 - 12.8 fL [facility] Neutrophils % 50.1 35.0 - 70.0 % [facility] Lymphocytes % 36.7 19.7 - 55.1 % [facility] Monocytes % 8.6 3.0 - 15.0 % [facility] Eosinophils % 4.2 0.0 - 6.0 % [facility] Basophil % 0.4 0.0 - 1.5 % [facility] Neutrophils Absolute 2.5 1.6 - 7.0 10 3/uL [facility] Lymphocyte Absolute 1.8 0.8 - 2.9 10 3/uL [facility] Monocytes Absolute 0.43 0.14 - 0.66 10 3/uL [facility] Eosinophils Absolute 0.21 0.00 - 0.22 10 3/uL [facility] Basophils Absolute 0.02 0.00 - 0.06 10 3/uL [facility] Immature Granulocytes % 0.0 0.0 - 1.0 % [facility] Blood specimen (specimen) BLOOD SPECIMEN / Unknown 04/12/2015 2:53 AM GENERATOR OPERATOR [employer]AR 04/12/2015 3:17 AM GENERATOR OPERATOR [employer]EVEL [employer]AR Eduardo Sin MD LAB - HEMATOLOGY ORD ERABLES Performing Organization Address [facility] Co de Phone Number [address] [phone] * (ABNORMAL) BASIC METABOLIC PANEL (CALCIUM TOTAL) (04/12/2015 2:53 AM GENERATOR OPERATOR STRAIGHT [employer]EVEL GEAR) Only the most recent of7 resultswithin the time period is included. BUN 7 7 - 26 mg/dL [facility] Creatinine 0.7 0.6 - 1.2 mg/dL [facility] Sodium 141 136 - 145 mmol/L [facility] Potassium 4.1 3.5 - 4.5 mmol/L [facility] Chloride 105 98 - 107 mmol/L [facility] CO2 29 22 - 29 mmol/L [facility] Glucose 139(H) 70 - 115 mg/dL [facility] Calcium 9.0 8.4 - 10.2 mg/dL [facility] Anion Gap 11 8 - 18 [facility] BUN/Creatinine Ratio 10 7 - 23 [facility] Osmolality Calculated 277 270 - 300 mOsm/kg [facility] eGFR >60 >60 mL/min/1.7 3 m2 [facility] Blood specimen (specimen) BLOOD SPECIMEN / Unknown 04/12/2015 2:53 AM GENERATOR OPERATOR [employer] 04/12/2015 3:17 AM GENERATOR OPERATOR [employer]AR Any Santos MD LAB - CHEMISTRY ORDERABLES Performing Organization Address [facility]/ZIP Co de Phone Number [address] [phone] * CULTURE AFB+SMEAR (04/09/2015 10:14 AM GENERATOR OPERATOR [employer]) Culture Acid Fast Bacilli No Growth of Acid Fast bacilli after 8 weeks. [facility] AFB Smear No Acid Fast bacilli seen on direct smear. [facility] Bone tissue specimen (specimen) 04/09/2015 10:14 AM GENERATOR OPERATOR [employer]AR 04/09/2015 10:14 AM GENERATOR OPERATOR [employer]EV[employer]AR Narrative [facility] - 06/06/2015 9:33 AM GENERATOR OPERATOR [employer] Right mandible tissue Specimen Type->Bone Any Santos MD LAB - MICROBIOLO GY ORDERABLES Performing Organization Address [facility] de Phone Number [address] [phone] * CULTURE FUNGUS OTHER+FUNGUS SMEAR (04/09/2015 10:14 AM GENERATOR OPERATOR [employer]) Culture Fungus-Other No Growth Fungi. [facility] Fungus Smear No Fungi seen. [facility] Bone tissue specimen (specimen) (Unspecified) 04/09/2015 10:14 AM GENERATOR OPERATOR [employer]AR 04/09/2015 10:14 AM GENERATOR OPERATOR [employer]EV[employer]AR Narrative [facility] - 05/10/2015 4:00 PM GENERATOR OPERATOR [employer] Right mandible tissue Specimen Type->Bone Any Santos MD LAB - MICROBIOLO GY ORDERABLES Performing Organization Address [facility] Co de Phone Number [address] [phone] * (ABNORMAL) CULTURE AEROBIC (04/09/2015 9:30 AM GENERATOR OPERATOR [employer]AR) Only the most recent of2 resultswithin the time period is included. Culture Aerobic STREPTOCOCCUS SALIVARIUS(A) [facility] Comment:Light Growth Strepto coccus Salivarius Culture Aerobic STREPTOCOCCUS MITIS/ORALIS(A) [facility] Comment:Light Growth STREPTO COCCUS MITIS/ORALIS Gram Stain Many Red Blood Cells [facility] Gram Stain Few Polymorphonuclear Cells [facility] Gram Stain Rare Gram positive cocci in pairs [facility] Comment:called and read back to Mandy 04/09/15 1153 Gram Stain [facility] Comment:called and read back to Dr. Deras 04/09/15 1215 Fluid specimen (specimen) 04/09/2015 9:30 AM GENERATOR OPERATOR [employer]AR 04/09/2015 9:40 AM GENERATOR OPERATOR [employer]AR Narrative [facility] - 04/13/2015 10:35 AM GENERATOR OPERATOR [employer]AR Right mandible body fluid Specimen Type->Body Fluid [...] - MICROBIOLO GY ORDERABLES Performing Organization Address [facility] Co de Phone Number [address] [phone] * CULTURE ANAEROBE (04/09/2015 9:30 AM GENERATOR OPERATOR [employer]AR) Only the most recent of2 resultswithin the time period is included. Culture Anaerobic No Growth Anaerobes. [facility] Culture Anaerobic AEROBIC GROWTH COMPATIBLE WITH ROUTINE CULTURE. [facility] Tissue 04/09/2015 9:30 AM GENERATOR OPERATOR [employer]AR 04/09/2015 9:40 AM GENERATOR OPERATOR [employer]EV[employer] GEAR Narrative [facility] - 04/17/2015 12:14 PM GENERATOR OPERATOR STRA[employer]AR Right mandible tissue Specimen Type->Tissue Any Santos MD LAB - MICROBIOLO GY ORDERABLES Performing Organization Address [facility] Co de Phone Number [address] [phone] * PATHOLOGY TISSUE (04/09/2015 8:45 AM GENERATOR OPERATOR STRA[employer] BEVEL GEAR) Surgical Pathology Tissue CLINICAL HISTORY: Osteomyelitis of [...] were determined by the Histopathology [facility] of [facility]. Some of these tests were developed by [...] by Gayle Browning MD. Electronically signed 04/12/2015 [facility] Other (qualifier value) 04/09/2015 8:45 AM GENERATOR OPERATOR STRA[employer]EVEL GEAR 04/09/2015 9:40 AM GENERATOR OPERATOR STRAIGHT BEVEL GEAR Narrative [facility] ([facility]) - 04/12/2015 4:36 PM GENERATOR OPERATOR STRA[employer] BEVEL GEAR PROBLEM LIST: Patient Active Problem List: Osteomyelitis of mandible PRE-OP DIAGNOSIS: Osteomyelitis of the mandible . OPERATIVE PROCEDURE / FINDINGS: Procedure(s): BIOPSY OF THE RIGHT MANDIBLE POST-OP DIAGNOSIS: * No post-op diagnosis entered * Collection Date->04/09/15 Collection Time-> 8:45 AM Specimen A->Soft Tissue, Other Right mandible tissue Winston Barriga MD LAB - PATHOLOGY/CYTO LOGY ORDERABLES [facility]) * PATHOLOGY/GENETICS HISTORICAL-ONBASE (04/09/2015) 04/09/2015 Narrative [facility] - 04/13/2015 11:10 AM GENERATOR OPERATOR STRAIGHT BEVEL GEAR Historical Provider LAB - CHEMISTRY O RDERABLES Performing Organization Address [facility] Co de Phone Number [facility] [address] * T3 FREE (04/08/2015 7:38 AM GENERATOR OPERATOR STRA[employer]EV[employer] GEAR) T3 Free 2.8 1.7 - 3.7 pg/mL [facility] Blood specimen (specimen) BLOOD SPECIMEN / Unknown 04/08/2015 7:38 AM GENERATOR OPERATOR [employer] GEAR 04/08/2015 9:35 AM GENERATOR OPERATOR STRAIGHT BEVEL GEAR Any Santos MD LAB - CHEMISTRY ORDERABLES Performing Organization Address [facility] Co de Phone Number [address] [phone] * (ABNORMAL) VANCOMYCIN LEVEL TROUGH (04/08/2015 7:38 AM GENERATOR OPERATOR STRA[employer]EV[employer] GEAR) Vancomycin Trough 2.9(L) 10.0 - 20.0 mcg/mL [facility] Blood specimen (specimen) BLOOD SPECIMEN / Unknown 04/08/2015 7:38 AM GENERATOR OPERATOR STRA[employer] BEVEL GEAR 04/08/2015 7:46 AM GENERATOR OPERATOR STRAIGHT BEVEL GEAR Any Santos MD LAB - CHEMISTRY ORDERABLES Performing Organization Address [facility] Co de Phone Number [address] [phone] * XR PANOREX (04/07/2015 12:46 PM GENERATOR OPERATOR STRAIGHT BEVEL GEAR) Anatomical Region Laterality Modality Head Other Impressions 04/08/2015 6:05 PM GENERATOR OPERATOR STRAIGHT BEVEL GEAR Impression: Lytic focus in the right mandibular body compatible with osteomyelitis. Dictated by Jordan Michaud MD (Military Technician). I, Dr. SARAY COPPOLA M.D. have personally reviewed and interpreted this examination/study. This report was electronically signed by SARAY COPPOLA M.D. on 04/08/2015 6:05 PM . Narrative 04/08/2015 6:05 PM GENERATOR OPERATOR STRAIGHT BEVEL GEAR EXAMINATION: Panorex HISTORY: mandibular osteomyelitis COMPARISON: No [...] with osteomyelitis. Dictated by Jordan Michaud MD (Military Technician). I, Dr. SARAY COPPOLA M.D. have personally reviewed and interpreted thisexamination/study. This report was electronically signed by SARAY COPPOLA M.D. on 04/08/20156:05 PM . Any Santos MD DIAGNOSTIC IMAGI NG ORDERABLES * (ABNORMAL) C-REACTIVE PROTEIN (04/07/2015 10:46 AM GENERATOR OPERATOR STRAIGHT BEVEL GEAR) Only the most recent of2 resultswithin the time period is included. Pathologist [facility] C-Reactive Protein 1.9(H) <=0.5 mg/dL [facility] Blood specimen (specimen) BLOOD SPECIMEN / Unknown 04/07/2015 10:46 AM GENERATOR OPERATOR STRAIGHT BEVEL GEAR 04/07/2015 10:52 AM GENERATOR OPERATOR STRAIGHT BEVEL GEAR Any Santos MD LAB - CHEMISTRY ORDERABLES [address] [phone] * (ABNORMAL) THYROID PEROXIDASE ANTIBODY (04/07/2015 10:46 AM GENERATOR OPERATOR STRAIGHT BEVEL GEAR) Thyroid Peroxidase TPO Antibody 62(H) 0 - 34 IU/mL [facility] Blood specimen (specimen) BLOOD SPECIMEN / Unknown 04/07/2015 10:46 AM GENERATOR OPERATOR STRAIGHT BEVEL GEAR 04/08/2015 9:36 AM GENERATOR OPERATOR STRAIGHT BEVEL GEAR Narrative [facility] - 04/10/2015 6:39 AM GENERATOR OPERATOR STRAIGHT BEVEL GEAR Performed at: - [address] [id number] Corporate Communications Manager: Adin Salazar PhD, Phone: [phone] Any Santos MD LAB - CHEMISTRY ORDERABLES [facility] * (ABNORMAL) ERYTHROCYTE SEDIMENTATION RATE (04/07/2015 10:46 AM GENERATOR OPERATOR STRAIGHT BEVEL GEAR) Only the most recent of2 resultswithin the time period is included. Erythrocyte Sedimentation Rate Westergren 22(H) 0 - 20 MM/HR [facility] Comment: ########################################################################## # Please Note: New age specific reference ranges have been implemented. # ########################################################################## Blood specimen (specimen) BLOOD SPECIMEN / Unknown 04/07/2015 10:46 AM GENERATOR OPERATOR STRAIGHT BEVEL GEAR 04/07/2015 10:52 AM GENERATOR OPERATOR STRAIGHT BEVEL GEAR Any Santos MD LAB - HEMATOLOGY ORDERABLES [address] [phone] * MRI ORBITS OR FACE WWO CONTRAST (04/06/2015 9:02 PM GENERATOR OPERATOR STRAIGHT BEVEL GEAR) Anatomical Region Laterality Modality Head Other Impressions 04/07/2015 7:21 PM GENERATOR OPERATOR STRAIGHT BEVEL GEAR IMPRESSION: 1. Small abscess occupying a defect [...] 7:21 PM . Narrative 04/07/2015 7:21 PM GENERATOR OPERATOR STRAIGHT BEVEL GEAR EXAMINATION: Magnetic resonance imaging (MRI) of the [...] MR ORDERABLES * TSH (04/06/2015 2:44 AM GENERATOR OPERATOR STRAIGHT BEVEL GEAR) TSH 4.499 0.350 - 4.940 uIU/mL [facility] Blood specimen (specimen) BLOOD SPECIMEN / Unknown 04/06/2015 2:44 AM GENERATOR OPERATOR STRAIGHT BEVEL GEAR 04/06/2015 3:05 AM GENERATOR OPERATOR STRAIGHT BEVEL GEAR Eduardo Sin MD LAB - CHEMISTRY ORDE JUAN MIGUEL Performing Organization Address [facility]/ZIP Co de Phone Number [address] [phone] * T4 FREE (04/06/2015 2:44 AM GENERATOR OPERATOR STRAIGHT BEVEL GEAR) T4 Free 1.0 0.7 - 1.5 ng/dL [facility] Blood specimen (specimen) BLOOD SPECIMEN / Unknown 04/06/2015 2:44 AM GENERATOR OPERATOR STRAIGHT BEVEL GEAR 04/06/2015 6:27 AM GENERATOR OPERATOR STRAIGHT BEVEL GEAR Any Santos MD LAB - CHEMISTRY ORDERABLES Performing Organization Address [facility] Co de Phone Number [address] [phone] * (ABNORMAL) DRUG ABUSE PANEL 10-20+ETHANOL URINE NO CONFIRM (04/06/2015 1:38 AM GENERATOR OPERATOR STRAIGHT BEVEL GEAR) Pathologist [facility] Amphetamines Screen Urine Negative Negative : < 1000 ng/mL [facility] Barbiturates Screen Urine Negative Negative : < 200 ng/mL [facility] Benzodiazepine Screen Urine Positive(A) Negative : < 200 ng/mL [facility] Comment: Positive urine benzodiazepine screening results should be confirmed by another generally accepted non-immunological method such as gas chromatography or mass spectrometry. Opiates Urine Positive(A) Negative : < 300 ng/mL [facility] Comment: Positive urine opiate screening results should be confirmed by another generally accepted non-immunological method such as gas chromatography or mass spectrometry. Cocaine Metabolites Urine Negative Negative : < 300 ng/mL [facility] Phencyclidine Screen Urine Negative Negative : < 25 ng/ml [facility] Cannabinoids Screen Urine Positive(A) Negative : <50 ng/mL [facility] Comment: Positive urine cannabinoids (THC) screening results should be confirmed by another generally accepted non-immunological method such as gas chromatography or mass spectrometry. Methadone Screen Urine Negative Negative : < 300 ng/mL [facility] Urine specimen (specimen) URINE / Unknown 04/06/2015 1:38 AM GENERATOR OPERATOR STRAIGHT BEVEL GEAR 04/06/2015 1:48 AM GENERATOR OPERATOR STRAIGHT BEVEL GEAR Narrative [facility] - 04/06/2015 2:05 AM GENERATOR OPERATOR STRAIGHT BEVEL GEAR The Urine Toxicology Screening Panel does not screen for Propoxyphene, Meprobamate, Carisoprodol, Trazodone, ksil-tdl-qlgijnn medications and/or volatiles (Acetone, Isopropanol, Methanol or Ethylene Glycol). Ethanol, Salicylate, Acetaminophen, Tricyclic Antidepressants and several therapeutic drugs may be individually assayed in serum or plasma specimen. Toxicology testing by the [facility] is an aid to medical diagnosis and treatment of patients. No documented chain of custody was maintained. Results are intended to be used for clinical purposes only. Any Santos MD LAB - URINE CHEM ISTRY ORDERABLES Performing Organization Address [facility] Co de Phone Number [address] [phone] * EKG 12-LEAD (04/06/2015 12:00 AM GENERATOR OPERATOR STRAIGHT BEVEL GEAR) EKG [facility] Comment: Exam Date/Time: Apr 06 [...] available Confirmed by Ella TIPTON, EULALIA ([id number]), leather heel breaster MAT EMERSON ([id number]) on 04/19/2015 12:44:17 PM Referred By: REFERRING NO Confirmed By:EULALIA TIPTON M.D. 04/06/2015 Any Santos MD ECG ORDERABLES Performing Organization Address [facility] Co de Phone Number [facility] * CULTURE BLOOD (04/05/2015 10:45 PM GENERATOR OPERATOR STRAIGHT BEVEL GEAR) Only the most recent of2 resultswithin the time period is included. Culture Blood No Growth at 5 days [facility] Blood specimen (specimen) 04/05/2015 10:45 PM GENERATOR OPERATOR STRAIGHT BEVEL GEAR 04/05/2015 11:00 PM GENERATOR OPERATOR STRAIGHT BEVEL GEAR Eduardo Sin MD LAB - MICROBIOLOGY O RDERABLES Performing Organization Address City/State/[facility] Co de Phone Number [facility] [address] [place] [address] * (ABNORMAL) COMPREHENSIVE METABOLIC PANEL (04/05/2015 10:30 PM GENERATOR OPERATOR STRAIGHT BEVEL GEAR) BUN 14 7 - 26 mg/dL [facility] Creatinine 0.6 0.6 - 1.2 mg/dL [facility] Sodium 138 136 - 145 mmol/L [facility] Potassium 3.5 3.5 - 4.5 mmol/L [facility] Chloride 100 98 - 107 mmol/L [facility] CO2 29 22 - 29 mmol/L [facility] Glucose 145(H) 70 - 115 mg/dL [facility] Calcium 9.0 8.4 - 10.2 mg/dL [facility] Protein Total 6.2 6.0 - 8.3 g/dL [facility] Albumin 3.4 3.4 - 5.0 g/dL [facility] Bilirubin Total 0.4 0.2 - 1.2 mg/dL [facility] Alkaline Phosphatase 84 40 - 150 Units/L [facility] ALT 8 0 - 55 Units/L [facility] AST 8 5 - 34 Units/L [facility] Anion Gap 13 8 - 18 [facility] BUN/Creatinine Ratio 23 7 - 23 [facility] Osmolality Calculated 275 270 - 300 mOsm/kg [facility] Albumin/Globulin Ratio 1.2 1.1 - 2.3 [facility] eGFR >60 >60 mL/min/1.7 3 m2 [facility] Blood specimen (specimen) BLOOD SPECIMEN / Unknown 04/05/2015 10:30 PM GENERATOR OPERATOR STRAIGHT BEVEL GEAR 04/05/2015 10:59 PM GENERATOR OPERATOR STRAIGHT BEVEL GEAR Eduardo Sin MD LAB - CHEMISTRY EBNITA BULLARD [facility] Organization Address City/State/ZIP Co de Phone Number [address] [phone] * XR CHEST 1VW PORTABLE (04/05/2015 9:49 PM GENERATOR OPERATOR STRAIGHT BEVEL GEAR) Anatomical Region Laterality Modality Chest Other Impressions 04/06/2015 6:04 PM GENERATOR OPERATOR STRAIGHT BEVEL GEAR Impression: No acute pulmonary process. There is [...] 6:04 PM . Narrative 04/06/2015 6:04 PM GENERATOR OPERATOR STRAIGHT BEVEL GEAR Exam: Portable chest, one view. Date: 04/05/2015 [...] . Eduardo Sin MD DIAGNOSTIC IMAGING O [facility] Care Teams Boat Garnisher Relationship Specialty Start Date End Date Dieudonne Maxwell MD [address] [place] [id number] PCP - General 05/20/18
--- OUTSIDE RECORDS SUMMARY | 2024-06-24 13:50 | XMS_ITS | Clinical Summary ---
Author Organization [facility] Address [address] [place] [address] Phone Care Team Providers Care Energy Sales Broker Name Role Phone Saul Fitch Primary Care Provider [phone] Allergies Active Allergy Reactions Criticality Noted Date [...] Tablet 2 Active naloxone (NARCAN) 4 mg/spray [place], Non-Aerosol EMERGENCY USE ONLY: Administer 1 spray [...] 11/03/2021 Immunizations Immunization Administration Dates Next Due (MagMe)(12 YR UP) COVID-19 VACCINE - EMERGENCY USE AUTHORIZATION, MRNA, [id number](PF) 30 MCG/0.3 ML IM SUSP 11/18/2020,10/27/2020 Influenza [...] 11/18/2020, 10/27/2020 Medical Devices Implanted Type Area Supervisor Toy Parts Former Device Identifier Shelf Expiration Date Model / Serial / Lot Sealant Progel Pleural 4ml [id number] - [id number] Implanted:Qty: 1 on 12/14/2021 by Wily Bassett MD at [facility] Tissue Left: Chest BARD DAVOL [id number] 06/16/2023 [id number] / / [id number] Lumbar Fusion Hardware Insurance MEDICARE PART A AND B [facility] MEDICAID MEDICARE PART A AND B [facility] MEDICAID Advance Directives For more information, please contact: [phone] * Full Code (Latest Code Status on File) Date Activated Date Inactivated Comments 12/14/2021 5:21 PM 12/21/2021 6:25 PM * Full Code Date Activated Date Inactivated Comments 12/14/2021 8:36 AM 12/14/2021 5:21 PM Care Teams Energy Sales Broker Relationship Specialty Start Date End Date Saul Fitch DO [address] [facility] [address] [place] [phone] PCP - General Internal Medicine 10/26/21
--- OUTSIDE RECORDS SUMMARY | 2024-06-24 13:50 | XMS_ITS | Referral Summary ---
Author Organization [facility] Address [address] [place] [address] Care Team Providers Care Returns Supervisor Name Role Phone Dieudonne Maxwell MD Primary Care Provider [phone] Source Comments [facility],non-university hospital Affiliates and Associated Physician Practices is amultiple site organization consisting of ambulatory clinics and hospital sitesin [place], [place], [place] and [place]. This disclosure is being madepursuant to the Care Everywhere program and may not contain all information available regarding this patient. Last updated 18.[facility] [employer] Social History Tobacco Use Types Packs/Day Years Used Date Smoking Tobacco: Never Assessed Sex and Gender Information Value Date Recorded Sex Assigned at Not on file Gender Identity Not on file Sexual Orientation Not on file Last Filed Vital Signs Vital Sign Reading Time Taken Comments Blood Pressure 110/69 06/10/2015 12:31 PM [facility] Pulse 84 06/10/2015 12:31 PM [facility] Temperature 36.9 C (98.4 F) 06/10/2015 12:31 PM [facility] Respiratory Rate 14 06/10/2015 12:31 PM [facility] Oxygen Saturation 97% 06/10/2015 12:31 PM [facility] Inhaled Oxygen Concentration - - Weight 65.8 kg (145 lb) 06/10/2015 12:31 PM [facility] Height 175.3 cm (5' 9 ) 06/10/2015 12:31 PM [facility] Body Mass Index 21.41 06/10/2015 12:31 PM [facility] Plan of Treatment Not on file Care Teams Returns Supervisor Relationship Specialty Start Date End Date Dieudonne Maxwell MD [address] [place] [address] PCP - General 05/20/18
--- OUTSIDE RECORDS SUMMARY | 2024-06-24 13:50 | XMS_ITS | Clinical Summary ---
Author Organization [facility] Address [address] [place] [address] Care Team Providers Care Professor Of French Name Role Phone Dieudonne Maxwell MD Primary Care Provider [phone] Source Comments [facility] Affiliates and Associated Physician Practices is amultiple site organization consisting of ambulatory clinics and hospital sitesin [place], [place], [place] and [place]. This disclosure is being madepursuant to the Care Everywhere program and may not contain all information available regarding this patient. Last updated 18.[facility] Social History Tobacco Use Types Packs/Day Years Used Date Smoking Tobacco: Never Assessed Sex and Gender Information Value Date Recorded Sex Assigned at Not on file Gender Identity Not on file Sexual Orientation Not on file Last Filed Vital Signs Vital Sign Reading Time Taken Comments Blood Pressure 110/69 06/10/2015 12:31 PM COFFEE BREAK ATTENDANT Pulse 84 06/10/2015 12:31 PM COFFEE BREAK ATTENDANT Temperature 36.9 C (98.4 F) 06/10/2015 12:31 PM COFFEE BREAK ATTENDANT Respiratory Rate 14 06/10/2015 12:31 PM COFFEE BREAK ATTENDANT Oxygen Saturation 97% 06/10/2015 12:31 PM COFFEE BREAK ATTENDANT Inhaled Oxygen Concentration - - Weight 65.8 kg (145 lb) 06/10/2015 12:31 PM COFFEE BREAK ATTENDANT Height 175.3 cm (5' 9 ) 06/10/2015 12:31 PM COFFEE BREAK ATTENDANT Body Mass Index 21.41 06/10/2015 12:31 PM COFFEE BREAK ATTENDANT Plan of Treatment Health Maintenance Due [...] to complete this topic MENINGOCOCCAL (Group B) VACC INE SHARED DECISION-MAKING Aged Out No longer eligibl e based on patient's age to complete this topic MENINGOCOCCAL GROUPS A/C/Y/W VACCINE Aged Out No longer eligible b ased on patient's age to complete this topic PNEUMOCOCCAL VACCINE Aged Out No long er eligible based on patient's age to complete this topic Care Teams Professor Of French Relationship Specialty Start Date End Date Dieudonne Maxwell MD [address] [place] [address] PCP - General 05/20/18
--- OUTSIDE RECORDS SUMMARY | 2024-06-24 13:50 | XMS_ITS ---
Author Organization [facility] Address [address] [facility] [place] [address] Care Team Providers Care Regional Merchandising Manager Name Role Phone Harvey Wilson MD Unavailable [phone] Wily Bassett MD Unavailable [phone] Paulie Lai MD Unavailable [phone] Eb Cardoso MD Unavailable [phone] Ernesto Reddy MD Unavailable [phone] Naomi Bay MD Unavailable Paula Jarvis NP Unavailable [phone] Unknown, Notinfile Primary Care Provider Unavail able [...] 12/17/2021 Acute respiratory failure with hypoxia 2 Atelectasis of left lung 12/16/2021 Pneumothorax on [...]
--- OUTSIDE RECORDS SUMMARY | 2024-06-24 13:50 | XMS_ITS | Referral Summary ---
Author Organization [facility] 2 Address [address] [place] [address] Care Team Providers Care Software Sales Consultant Name Role Phone Harvey Wilson MD Unavailable [phone] Wily Bassett MD Unavailable [phone] Paulie Lai MD Unavailable [phone] Eb Cardoso MD Unavailable [phone] Ernesto Reddy MD Unavailable [phone] Naomi Bay MD Unavailable [phone] Paula Jarvis NP Unavailable [phone] Unknown, Notinfile Primary Care Provider Unavail able Encounters Date Type Department Care Team Description 06/16/2024 9:45 AM ESCAPE WHEEL TOOTH CUTTER Lab [facility] - Lab Collection [address] [place] [address] 5 [place] [address] Primary cancer of left lower lobe of lung (HCC); 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) 06/16/2024 11:00 AM ESCAPE WHEEL TOOTH CUTTER Office Visit [facility] [address] [place] [address] 5 [place] [address] Ernesto Reddy MD Primary cancer of left lower lobe of lung (HCC) (Primary Dx); 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); Smoking history; Multiple lung nodules on CT 06/16/2024 10:00 AM ESCAPE WHEEL TOOTH CUTTER Lab [facility] Lab [address] [facility] Floor [address] [place] [address] 05/26/2024 Orders Only [facility] [address] [facility] 8th [place] [address] Fletcher Espinal MD Chronic obstructive pulmonary disease, unspecified COPD type (HCC) (Primary Dx) 05/01/2024 Documentation [facility] [address] [facility] Floor 1, [address] [place] [address] Karen Sylvester 05/01/2024 11:05 AM ESCAPE WHEEL TOOTH CUTTER - 05/01/2024 11:59 PM ESCAPE WHEEL TOOTH CUTTER Hospital Encounter [facility] [address] [place] [address] Ernesto Reddy MD Primary cancer of left lower lobe of lung (HCC); 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) Discharge Disposition: Discharge to home or self care from Last 3 Months Allergies Active Allergy Reactions Criticality Noted Date Comments Sulfa (Sulfonamide Antibiotics) Unknown,Swelling Medium 10/31/2013 Swelling Sulfamethoxazole-Tri methoprim Flushing (skin),Unknown,Hives Medium 10/31/2013 Eyes close and well, 104 fever, welts and bumps all senior structural 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 Very much 01/26/2022 Comments No Sex and Gender Information Value Date Recorded Sex Assigned at Not on file Legal Sex Female 2:06 PM ESCAPE WHEEL TOOTH CUTTER Gender Identity Not on file Sexual Orientation Not on file Last Filed Vital Signs Vital Sign Reading Time Taken Comments Blood Pressure 143/86 06/16/2024 10:12 AM ESCAPE WHEEL TOOTH CUTTER Pulse 106 06/16/2024 10:12 AM ESCAPE WHEEL TOOTH CUTTER Temperature 36.2 C (97.2 F) 06/16/2024 10:12 AM ESCAPE WHEEL TOOTH CUTTER Respiratory Rate 18 06/16/2024 10:12 AM ESCAPE WHEEL TOOTH CUTTER Oxygen Saturation 97% 06/16/2024 10:12 AM ESCAPE WHEEL TOOTH CUTTER Inhaled Oxygen Concentration - - Weight 72.8 kg (160 lb 9.6 oz) 06/16/2024 10:12 AM ESCAPE WHEEL TOOTH CUTTER Height 171 cm (5' 7.32 ) 11/20/2022 1:26 PM CDT Body Mass Index 24.91 11/20/2022 1:26 PM CDT Plan of Treatment Not on file Procedures Procedure Name Priority Date/Time Associated Diagnosis Comments EGFR Routine 06/16/2024 10:00 AM ESCAPE WHEEL TOOTH CUTTER Primary cancer of left lower lobe of lung (HCC) 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) DIFFERENTIAL AUTO Routine 06/16/2024 10:00 AM ESCAPE WHEEL TOOTH CUTTER Primary cancer of left lower lobe of lung (HCC) 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) CBC WITH AUTO DIFFERENTIAL Routine 06/16/2024 10:00 AM ESCAPE WHEEL TOOTH CUTTER Primary cancer of left lower lobe of lung (HCC) 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) COMPREHENSIVE METABOLIC PANEL Routine 06/16/2024 10:00 AM ESCAPE WHEEL TOOTH CUTTER Primary cancer of left lower lobe of lung (HCC) 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 73 m2 Comment: [...] of Race in Diagnosing Kidney Disease, JASN 202). The CKD-EPI equation should not be used for patients with unstable renal function and has not been validated in children and those over 70. Current interpretive data was last reviewed 2021. Blood 06/16/2024 10:0 0 AM ESCAPE WHEEL TOOTH CUTTER 06/16/2024 10:05 AM ESCAPE WHEEL TOOTH CUTTER us Ernesto Reddy MD LAB BLOOD ORDERABLES Cyndi abad Result [facility] Department [place] [address] * (ABNORMAL) Differential, auto (06/16/2024 10:00 AM ESCAPE WHEEL TOOTH CUTTER) Neutrophil abs 9.0(H) 1.5 - 6.5 K/cumm Comment:Testing performed by : [facility], [address] [place] [phone] Lymphocyte abs 1.7 0.8 - 3.3 K/cumm [facility] Comment:Testing performed by : [facility], [address] [place] [phone] Monocyte abs 0.8 0.2 - 0.8 K/cumm [facility] Comment:Testing performed by : [facility], [address] [place], [place] [phone] Eosinophil abs 0.0 0.0 - 0.5 K/cumm [facility] Comment:Testing performed by : [facility], [address] [place] [phone] Basophil abs 0.1 0.0 - 0.1 K/cumm [facility] Comment:Testing performed by : [facility], [address] [place] [phone] Neutrophil pct 77.0 % [facility] Comment: Interpretive Data Percent cell count reference ranges are not reported, since discordance with absolute values may lead to misinterpretation of CBC data. Current Interpretive Data was last revised on 2017. Testing performed by: [facility], [address] [place] [phone] Lymphocyte pct 14.4 % [facility] Comment: Interpretive Data Percent cell count reference ranges are not reported, since discordance with absolute values may lead to misinterpretation of CBC data. Current Interpretive Data was last revised on 2017. Testing performed by: [facility], [address] [place] [phone] Monocyte pct 7.2 % [facility] Comment: Interpretive Data Percent cell count reference ranges are not reported, since discordance with absolute values may lead to misinterpretation of CBC data. Current Interpretive Data was last revised on 2017. Testing performed by: [facility], [address] [place] [phone] Eosinophil pct 0.4 % [facility] Comment: Interpretive Data Percent cell count reference ranges are not reported, since discordance with absolute values may lead to misinterpretation of CBC data. Current Interpretive Data was last revised on 2017. Testing performed by: [facility], [address] [place] [phone] Basophil pct 1.0 % [facility] Comment: Interpretive Data Percent cell count reference ranges are not reported, since discordance with absolute values may lead to misinterpretation of CBC data. Current Interpretive Data was last revised on 2017. Testing performed by: [facility], [address] [place] [address] Blood 06/16/2024 10:0 0 AM ESCAPE WHEEL TOOTH CUTTER 06/16/2024 10:03 AM ESCAPE WHEEL TOOTH CUTTER us Ernesto Reddy MD LAB BLOOD ORDERABLES Cyndi l Result [facility] One [facility] Department [place] [address] * (ABNORMAL) CBC with auto differential (06/16/2024 10:00 AM ESCAPE WHEEL TOOTH CUTTER) WBC 11.6(H) 3.8 - 9.9 K/cumm Comment:Testing performed by : [facility], [address] [place] [address] Hgb 11.7(L) 11.9 - 15.5 g/dL [facility] Comment:Testing performed by : [facility], [address] [place] [address] Hct 35.2(L) 35.6 - 45.5 % [facility] Comment:Testing performed by : [facility], [address] [place] [address] Plt 699(H) 150 - 400 K/cumm [facility] Comment:Testing performed by : [facility], [address] [place] [address] MPV 7.5 6.8 - 10.4 fL [facility] Comment:Testing performed by : [facility], [address] [place] [address] RBC 4.02 3.90 - 5.20 M/cumm [facility] Comment:Testing performed by : [facility], [address] [place], [place] [phone] MCV 87.6 81.3 - 96.4 fL [facility] Comment:Testing performed by : [facility], [address] [place] [address] MCH 29.1 27.1 - 33.3 pg [facility] Comment:Testing performed by : [facility], [address] [place] [address] MCHC 33.2 32.3 - 35.7 g/dL [facility] Comment:Testing performed by : [facility], [address] [place], [place] [phone] RDW CV 13.6 11.1 - 14.9 % [facility] Comment:Testing performed by : [facility], [address] [place] [address] NRBC abs 0.00 0.00 - 0.01 K/cumm [facility] Comment:Testing performed by : [facility], [address] [place] [address] Blood 06/16/2024 10:0 0 AM ESCAPE WHEEL TOOTH CUTTER 06/16/2024 10:03 AM ESCAPE WHEEL TOOTH CUTTER us Ernesto Reddy MD LAB BLOOD ORDERABLES Cyndi l Result [facility] Department [place] [address] * (ABNORMAL) Comprehensive metabolic panel (06/16/2024 10:00 AM ESCAPE WHEEL TOOTH CUTTER) Sodium 138 135 - 145 mmol/L Potassium, pl 4.3 3.3 - 4.9 mmol/L [facility] Chloride 97 97 - 110 mmol/L [facility] CO2 31 22 - 32 mmol/L [facility] Anion gap 10 2 - 15 mmol/L [facility] BUN 13 6 - 25 mg/dL [facility] Creatinine 0.49(L) 0.60 - 1.10 mg/dL [facility] Glucose 129 70 - 199 mg/dL [facility] Comment: Interpretive Data Fasting glucose >/= 126 [...] 2022. Calcium 10.0 8.5 - 10.3 mg/dL [facility] Bilirubin, total 0.2 0.1 - 1.2 mg/dL [facility] Protein, pl 7.8 6.5 - 8.5 g/dL [facility] Albumin 4.0 3.5 - 5.0 g/dL [facility] Alk phos 104 40 - 130 Units/L [facility] ALT 8 7 - 45 Units/L [facility] AST 13 10 - 45 Units/L [facility] Blood 06/16/2024 10:0 0 AM ESCAPE WHEEL TOOTH CUTTER 06/16/2024 10:05 AM ESCAPE WHEEL TOOTH CUTTER us Ernesto Reddy MD LAB BLOOD ORDERABLES Cyndi l Result [facility] One [facility] [place] [address] * CT Chest Abdomen W Contrast (05/01/2024 11:42 AM ESCAPE WHEEL TOOTH CUTTER) Anatomical Region Laterality Modality Body N/A Computed Tomogra phy 05/01/2024 12:1 7 PM ESCAPE WHEEL TOOTH CUTTER Impressions 05/01/2024 12:17 PM ESCAPE WHEEL TOOTH CUTTER 1. Postoperative changes of left lower lobectomy. Stable subcentimeter pulmonary nodules. 2. No evidence of disease progression in the chest and abdomen. Electronically signed by: Anna Urena M.D. Narrative 05/01/2024 12:17 PM ESCAPE WHEEL TOOTH CUTTER EXAMINATION: Computed tomography of the chest and [...] by: Anna Urena M.D. Ernesto Reddy MD [facility] [place]EDURES Final R esult * POCT creatinine (05/01/2024 11:20 AM ESCAPE WHEEL TOOTH CUTTER) Creatinine POC 0.7 0.6 - 1.1 mg/dL Blood 05/01/2024 11:2 0 AM ESCAPE WHEEL TOOTH CUTTER 05/01/2024 11:20 AM ESCAPE WHEEL TOOTH CUTTER us Ernesto Reddy MD LAB POCT ORDERABLES - DEV ICE Final Result [facility] Department [place] [address] * COLONOSCOPY (12/03/2012 12:00 AM CDT) Anatomical Region Laterality Modality Other Narrative 12/03/2012 12:00 AM CDT Ordered by an unspecified provider. Procedure Note ProviderReginaldo MD - 12/03/2012 12:00 AM CDT PROCEDURE REPORT Patient: LESLEE OLIVIER Account: [id number] Room No: : 1960 Patient Type: SDS [...] Recently Relevant to Health Maintenance Insurance MEDICARE [facility] [employer] [facility] Care Teams Software Sales Consultant Relationship Specialty Start Date End Date Unknown, Notinfile PCP - General 01/22/24 Harvey Wilson MD Medical Oncologist Hematology 01/25/22 Wily Bassett MD [facility] [address] [facility] [address] [place] [address] Surgeon Cardiothoracic Surgery 01/25/22 Paulie Lai MD [address] [facility] [address] [place] [address] Senior Advocate Critical Care Med 01/25/22 Eb Cardoso MD [address] [place] [address] Senior Advocate Critical Care Med 01/25/22 Ernesto Reddy MD [address] DIV IM MEDICAL ONCOLOGY, [address] [place] [address] Medical Oncologist/Investigation Clerk Medical Oncology 01/25/22 Naomi Bay MD [address] [place] [address] Radiation Oncologist Radiation Oncology 01/31/22 Paula Jarvis NP [address] [place] [address] Nurse Practitioner Radiation Oncology 07/18/22
--- OUTSIDE RECORDS SUMMARY | 2024-06-24 13:50 | XMS_ITS | Encounter Summary ---
Author Organization [facility] Address [address] [place] [address] Care Team Providers Care Charging Board Operator Name Role Phone Saul Fitch DO Primary Care Provider [phone] Harvey Wilson MD Unavailable [phone] Wily Bassett MD Unavailable [phone] Paulie Lai MD Unavailable [phone] Eb Cardoso MD Unavailable [phone] Ernesto Reddy MD Unavailable [phone] Naomi Bay MD Unavailable [phone] Paula Jarvis NP Unavailable [phone] Unknown, Notinfile Primary Care Provider Unavail able Encounter Details Date Type Department Care Team (Late st Contact Info) Description 10/23/2022 Telephone [facility] [address] [place] [address] Shaina Huynh RN Social History Tobacco Use Types Packs/Day Years Used Date Smoking Tobacco: Every Day Cigarettes AUDIT-C Answer Date Recorded Q1: How often do you have a drink containing alc ohol? Monthly or less 01/26/2022 Average Number of Drinks Not on file 022 Frequency of Binge Drinking Not on file 01/13 [facility] of Occupat ional Health - Occupational Stress Questionnaire Answer Date Recorded Do you feel stress - tense, restless, nervous, or anxious, or unable to sleep at night because your mind is troubled all the time - these days? Very much 01/26/2022 Comments No Sex and Gender Information Value Date Recorded Sex Assigned at Not on file Legal Sex Female 2:06 PM LEGAL RESEARCHER Gender Identity Not on file Sexual Orientation Not on file documented as of this encounter Plan of Treatment Not on file documented as of this encounter Visit Diagnoses Not on filedocumented in this encounter Care Teams Charging Board Operator Relationship Specialty Start Date End Date Saul Fitch DO PCP - General Internal Medicine 01/18/22 01/21/24 Unknown, Notinfile PCP - General 01/22/24 Harvey Wilson MD Medical Oncologist Hematology 01/25/22 Wily Bassett MD [address] [facility] [address] [place] [address] Surgeon Cardiothoracic Surgery 01/25/22 Paulie Lai MD [address] [facility] [address] [place] [address] Financial Sales Associate Critical Care Med 01/25/22 Eb Cardoso MD [address] [place] [address] Financial Sales Associate Critical Care Med 01/25/22 Ernesto Reddy MD [address] [facility] DIV MEDICAL ONCOLOGY, [address]A, [address] [place] [address] Medical Oncologist/Director Internal Communications Medical Oncology 01/25/22 Naomi Bay MD [address] [facility] [place] [address] [place] [address] Radiation Oncologist Radiation Oncology 01/31/22 Paula Jarvis NP [address] [facility] [address] [place] [address] Nurse Practitioner Radiation Oncology 07/18/22 documented as of this encounter
[2024-06-24 14:02] LABS: Prothrombin Time 13.9 Seconds (11.1-14.7)
[2024-06-24 14:03] LABS: Partial Thromboplastin Time 32.7 Seconds (22.3-36.8)
[2024-06-24 14:08] LABS: Fractional Inspired Oxygen 21 %; HCO3 VBG 23.1 mEq/l (24.0-30.0); PO2 VBG 94.2 mmHg (35.0-45.0)
[2024-06-24 14:10] LABS: PCO2 VBG 28.5 mmHg (42.0-48.0)
[2024-06-24 14:11] LABS: Device ROOM AIR; pH VBG 7.526 (7.300-7.400)
[2024-06-24 14:12] LABS: D Dimer 1.05 ug/mL (<0.48)
[2024-06-24 14:13] LABS: NT Pro B Type Natriuretic Pept 130 pg/mL (19.9-100); Troponin I < 0.012 ng/mL (0.000-0.034)
--- OUTSIDE RECORDS SUMMARY | 2024-06-24 14:25 | XMS_ITS | Encounter Summary ---
Author Organization [facility] Address [address] [place] [address] Phone Care Team Providers Care Stitcher Hand Name Role Phone Saul Fitch Primary Care Provider [phone] Harvey Wilson MD Unavailable [phone] Wily Bassett MD Unavailable [phone] Paulie Lai MD Unavailable [phone] Eb Cardoso MD Unavailable [phone] Ernesto Reddy MD Unavailable [phone] Naomi Bay MD Unavailable [phone] Paula Jarvis NP Unavailable [phone] Unknown, Notinfile Primary Care Provider Unavail able Encounter Details Date Type Department Care Team (Latest Contact Info) Description 11/13/2021 Orders Only [facility] Scanning, Provider Social History Tobacco Use Types Packs/Day Years Used Date Smoking Tobacco: Never Assessed Comments Unknown Sex and Gender Information Value Date Recorded Sex Assigned at Not on file Legal Sex Female 2:06 PM SITE OPERATIONS MANAGER Gender Identity Not on file Sexual Orientation [...] on filedocumented in this encounter Care Teams Stitcher Hand Relationship Specialty Start Date End Date Saul Fitch DO PCP - General Internal Medicine 01/18/22 01/21/24 Unknown, Notinfile PCP - General 01/22/24 Harvey Wilson MD Medical Oncologist Hematology 01/25/22 Wily Bassett MD [address] [facility] [address] [place] [address] Surgeon Cardiothoracic Surgery 01/25/22 Paulie Lai MD [address] [facility] [address] [place] [address] Felt Cutting Machine Operator Critical Care Med 01/25/22 Eb Cardoso MD [address] [place], [place] [address] Felt Cutting Machine Operator Critical Care Med 01/25/22 rEnesto Reddy MD [address] DIV MEDICAL ONCOLOGY, [address]A, [address]B, [address] [place] [address] Medical Oncologist/Welding Machine Operator Resistance Medical Oncology 01/25/22 Naomi Bay MD [email or web address] [place] [address] Radiation Oncologist Radiation Oncology 01/31/22 Paula Jarvis NP [address] [facility] [address] [place] [address] Nurse Practitioner Radiation Oncology 07/18/22 documented as of this encounter
--- OUTSIDE RECORDS SUMMARY | 2024-06-24 14:26 | XMS_ITS | Encounter Summary ---
Author Organization [facility] Address [address] [place] [address] Phone Care Team Providers Care Head Golf Coach Name Role Phone Saul Fitch Primary Care Provider [phone] Harvey Wilson MD Unavailable [phone] Wily Bassett MD Unavailable [phone] Paulie Lai MD Unavailable [phone] Eb Cardoso MD Unavailable [phone] Ernesto Reddy MD Unavailable [phone] Naomi Bay MD Unavailable [phone] Paula Jarvis NP Unavailable [phone] Unknown, Notinfile Primary Care Provider Unavail able Encounter Details Date Type Department Care Team (Latest Contact Info) Description 10/26/2021 Orders Only [facility] Scanning, Provider Social History Tobacco Use Types Packs/Day Years Used Date Smoking Tobacco: Never Assessed Comments Unknown Sex and Gender Information Value Date Recorded Sex Assigned at Not on file Legal Sex Female 2:06 PM DIRECTOR OF DIGITAL TECHNOLOGY Gender Identity Not on file Sexual Orientation [...] on filedocumented in this encounter Care Teams Head Golf Coach Relationship Specialty Start Date End Date Saul Fitch DO PCP - General Internal Medicine 01/18/22 01/21/24 Unknown, Notinfile PCP - General 01/22/24 Harvey Wilson MD Medical Oncologist Hematology 01/25/22 Wily Bassett MD [address] [facility] [address] [place] [address] Surgeon Cardiothoracic Surgery 01/25/22 Paulie Lai MD [address] [facility] [address] [place] [address] Visitor Information Assistant Critical Care Med 01/25/22 Eb Cardoso MD [address] [place], [place] [id number] Visitor Information Assistant Critical Care Med 01/25/22 Ernesto Reddy MD [address] DIV MEDICAL ONCOLOGY, J[address] 7A, 7B, 7[place] [address] Medical Oncologist/Childbirth And Infant Care Teacher Medical Oncology 01/25/22 Naomi Bay MD [address] [place] [address] Radiation Oncologist Radiation Oncology 01/31/22 Paula Jarvis NP [address] [facility] [address] [place] [address] Nurse Practitioner Radiation Oncology 07/18/22 documented as of this encounter
--- OUTSIDE RECORDS SUMMARY | 2024-06-24 14:26 | XMS_ITS ---
Author Organization [facility] 2 Address [address] [facility] [place] [address] Care Team Providers Care Test Rack Operator Name Role Phone Harvey Wilson MD Unavailable [phone] Wily Bassett MD Unavailable [phone] Paulie Lai MD Unavailable [phone] Eb Cardoso MD Unavailable [phone] Ernesto Reddy MD Unavailable [phone] Naomi Bay MD Unavailable Paula Jarvis NP Unavailable [phone] Unknown, Notinfile Primary Care Provider Unavail able [...]
--- OUTSIDE RECORDS SUMMARY | 2024-06-24 14:26 | XMS_ITS | Encounter Summary ---
Author Organization [facility] Address [address] [place] [address] Care Team Providers Care Advisory Services Associate Name Role Phone Saul Fitch DO Primary Care Provider [phone] Harvey Wilson MD Unavailable [phone] Wily Bassett MD Unavailable [phone] Paulie Lai MD Unavailable [phone] Eb Cardoso MD Unavailable [phone] Ernesto Reddy MD Unavailable [phone] Naomi Bay MD Unavailable [phone] Paula aJrvis NP Unavailable [phone] Unknown, Notinfile Primary Care Provider Unavail able Encounter Details Date Type Department Care Team (Late st Contact Info) Description 01/23/2023 Telephone [facility] [address] [place] [address] Shaina Huynh RN Social History Tobacco Use Types Packs/Day Years Used Date Smoking Tobacco: Every Day Cigarettes AUDIT-C Answer Date Recorded Q1: How often do you have a drink containing alc ohol? Monthly or less 01/26/2022 Average Number of Drinks Not on file 022 Frequency of Binge Drinking Not on file 01/13 [facility] of Occupat ional Health - Occupational Stress Questionnaire Answer Date Recorded Do you feel stress - tense, restless, nervous, or anxious, or unable to sleep at night because your mind is troubled all the time - these days? Very much 01/26/2022 Comments No Sex and Gender Information Value Date Recorded Sex Assigned at Not on file Legal Sex Female 2:06 PM [employer] OFFICER Gender Identity Not on file Sexual Orientation Not on file documented as of this encounter Plan of Treatment Not on file documented as of this encounter Visit Diagnoses Not on filedocumented in this encounter Care Teams Advisory Services Associate Relationship Specialty Start Date End Date Saul Fitch DO PCP - General Internal Medicine 01/18/22 01/21/24 Unknown, Notinfile PCP - General 01/22/24 Harvey Wilson MD Medical Oncologist Hematology 01/25/22 Wily Bassett MD [address] [facility] [address] [place] [address] Surgeon Cardiothoracic Surgery 01/25/22 Paulie Lai MD [address] [facility] [address] [place] [address] Metal Riveting Machine Operator Critical Care Med 01/25/22 Eb Cardoso MD [address] [place] [address] Metal Riveting Machine Operator Critical Care Med 01/25/22 Ernesto Reddy MD [address] [facility] DIV MEDICAL ONCOLOGY, JUN 7A, 7B, [address] [address] Medical Oncologist/First Dyer Medical Oncology 01/25/22 Naomi Bay MD [address] [facility] [address] [place] [address] Radiation Oncologist Radiation Oncology 01/31/22 Paula Jarvis NP [address] [facility] [address] [place] [address] Nurse Practitioner Radiation Oncology 07/18/22 documented as of this encounter
--- OUTSIDE RECORDS SUMMARY | 2024-06-24 14:26 | XMS_ITS | Clinical Summary ---
Author Organization [facility] 2 Address [address] [facility] [place] [address] Care Team Providers Care Poultry Inseminator Name Role Phone Harvey Wilson MD Unavailable [phone] Wily Bassett MD Unavailable [phone] Paulie Lai MD Unavailable [phone] Eb Cardoso MD Unavailable BarryErnesto hernandez MD Unavailable [phone] Naomi Bay MD Unavailable [phone] Paula Jarvis NP Unavailable [phone] Unknown, Notinfile Primary Care Provider Unavail able Allergies Active Allergy Reactions Criticality Noted Date Comments Sulfa (Sulfonamide Antibiotics) Unknown,Swelling Medium 10/31/2013 Swelling Sulfamethoxazole-Tri methoprim Flushing (skin),Unknown,Hives Medium 10/31/2013 Eyes close and well, 104 fever, welts and bumps all asbestos remover Hives Medications ALPRAZolam (XANAX) 1 mg [...] Department Care Team Description 06/16/2024 11:00 AM SCHEDULE ANNOUNCER Office Visit [facility] Oncology 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) 05/26/2024 Orders Only [facility] Pulmonary [address] [facility] 8th [place] [address] Fletcher Espinal MD Chronic obstructive pulmonary disease, unspecified COPD type (HCC) (Primary Dx) 05/01/2024 11:05 AM SCHEDULE ANNOUNCER - 05/01/2024 11:59 PM SCHEDULE ANNOUNCER Hospital Encounter [facility] [address] [place] [address] Ernesto Reddy MD Primary cancer of left lower lobe of lung (HCC); 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 Very much 01/26/2022 Comments No Sex and Gender Information Value Date Recorded Sex Assigned at Not on file Legal Sex Female 2:06 PM SCHEDULE ANNOUNCER Gender Identity Not on file Sexual Orientation Not on file Obstetrics History Last Filed Vital Signs Vital Sign Reading Time Taken Comments Blood Pressure 143/86 06/16/2024 10:12 AM SCHEDULE ANNOUNCER Pulse 106 06/16/2024 10:12 AM SCHEDULE ANNOUNCER Temperature 36.2 C (97.2 F) 06/16/2024 10:12 AM SCHEDULE ANNOUNCER Respiratory Rate 18 06/16/2024 10:12 AM SCHEDULE ANNOUNCER Oxygen Saturation 97% 06/16/2024 10:12 AM SCHEDULE ANNOUNCER Inhaled Oxygen Concentration - - Weight 72.8 kg (160 lb 9.6 oz) 06/16/2024 10:12 AM SCHEDULE ANNOUNCER Height 171 cm (5' 7.32 ) 11/20/2022 [...] Diagnosis Comments EGFR Routine 06/16/2024 10:00 AM SCHEDULE ANNOUNCER Primary cancer of left lower lobe of lung (HCC) 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) DIFFERENTIAL AUTO Routine 06/16/2024 10:00 AM SCHEDULE ANNOUNCER Primary cancer of left lower lobe of lung (HCC) 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) CBC WITH AUTO DIFFERENTIAL Routine 06/16/2024 10:00 AM SCHEDULE ANNOUNCER Primary cancer of left lower lobe of lung (HCC) 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) COMPREHENSIVE METABOLIC PANEL Routine 06/16/2024 10:00 AM SCHEDULE ANNOUNCER Primary cancer of left lower lobe of lung (HCC) 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 73 m2 Comment: [...] reviewed 2021. Blood 06/16/2024 10:0 0 AM SCHEDULE ANNOUNCER 06/16/2024 10:05 AM SCHEDULE ANNOUNCER Ernesto Reddy MD LAB BLOOD ORDERABLES Cyndi jenniffer Result [facility] [place] [address] * (ABNORMAL) Differential, auto (06/16/2024 10:00 AM SCHEDULE ANNOUNCER) Neutrophil abs 9.0(H) 1.5 - 6.5 K/cumm Comment:Testing performed by : [facility], [address] [place] [phone] Lymphocyte abs 1.7 0.8 - 3.3 K/cumm [facility] Comment:Testing performed by : [facility], [address] [place] [phone] Monocyte abs 0.8 0.2 - 0.8 K/cumm [facility] Comment:Testing performed by : [facility], [address] [place] [phone] Eosinophil abs 0.0 0.0 - 0.5 K/cumm [facility] Comment:Testing performed by : [facility], [address] [place] [phone] Basophil abs 0.1 0.0 - 0.1 K/cumm [facility] Comment:Testing performed by : [facility], [address] [place] [phone] Neutrophil pct 77.0 % [facility] Comment: Interpretive Data Percent cell count reference ranges are not reported, since discordance with absolute values may lead to misinterpretation of CBC data. Current Interpretive Data was last revised on 2017. Testing performed by: [facility], [address] [place] [phone] Lymphocyte pct 14.4 % [facility] Comment: Interpretive Data Percent cell count reference ranges are not reported, since discordance with absolute values may lead to misinterpretation of CBC data. Current Interpretive Data was last revised on 2017. Testing performed by: [facility], [address] [place] [phone] Monocyte pct 7.2 % [facility] Comment: Interpretive Data Percent cell count reference ranges are not reported, since discordance with absolute values may lead to misinterpretation of CBC data. Current Interpretive Data was last revised on 2017. Testing performed by: [facility], [address] [place] [phone] Eosinophil pct 0.4 % [facility] Comment: Interpretive Data Percent cell count reference ranges are not reported, since discordance with absolute values may lead to misinterpretation of CBC data. Current Interpretive Data was last revised on 2017. Testing performed by: [facility], [address] [place] [phone] Basophil pct 1.0 % [facility] Comment: Interpretive Data Percent cell count reference ranges are not reported, since discordance with absolute values may lead to misinterpretation of CBC data. Current Interpretive Data was last revised on 2017. Testing performed by: [facility], [address] [place] [phone] Blood 06/16/2024 10:0 0 AM SCHEDULE ANNOUNCER 06/16/2024 10:03 AM SCHEDULE ANNOUNCER us Ernesto Reddy MD LAB BLOOD ORDERABLES Cyndi jenniffer Result [facility] [place] [address] * (ABNORMAL) CBC with auto differential (06/16/2024 10:00 AM SCHEDULE ANNOUNCER) WBC 11.6(H) 3.8 - 9.9 K/cumm Comment:Testing performed by : [facility], [address] [place] [address] Hgb 11.7(L) 11.9 - 15.5 g/dL [facility] Comment:Testing performed by : [facility], [address] [place] [address] Hct 35.2(L) 35.6 - 45.5 % [facility] Comment:Testing performed by : [facility], [address] [place] [address] Plt 699(H) 150 - 400 K/cumm [facility] Comment:Testing performed by : [facility], [address] [place] [address] MPV 7.5 6.8 - 10.4 fL [facility] Comment:Testing performed by : [facility], [address] [place] [address] RBC 4.02 3.90 - 5.20 M/cumm [facility] Comment:Testing performed by : [facility], [address] [place] [address] MCV 87.6 81.3 - 96.4 fL [facility] Comment:Testing performed by : [facility], [address] [place] [address] MCH 29.1 27.1 - 33.3 pg [facility] Comment:Testing performed by : [facility], [address] [place] [address] MCHC 33.2 32.3 - 35.7 g/dL [facility] Comment:Testing performed by : [facility], [address] [place] [phone] RDW CV 13.6 11.1 - 14.9 % [facility] Comment:Testing performed by : [facility], [address] [place] [phone] NRBC abs 0.00 0.00 - 0.01 K/cumm [facility] Comment:Testing performed by : [facility], [address] [place] [phone] Blood 06/16/2024 10:0 0 AM SCHEDULE ANNOUNCER 06/16/2024 10:03 AM SCHEDULE ANNOUNCER Ernesto Reddy MD LAB BLOOD ORDERABLES Cyndi l Result [facility] [address] [facility] [place] [address] * (ABNORMAL) Comprehensive metabolic panel (06/16/2024 10:00 AM SCHEDULE ANNOUNCER) Sodium 138 135 - 145 mmol/L Potassium, pl 4.3 3.3 - 4.9 mmol/L [facility] Chloride 97 97 - 110 mmol/L [facility] CO2 31 22 - 32 mmol/L [facility] Anion gap 10 2 - 15 mmol/L [facility] BUN 13 6 - 25 mg/dL [facility] Creatinine 0.49(L) 0.60 - 1.10 mg/dL [facility] Glucose 129 70 - 199 mg/dL [facility] Comment: Interpretive Data Fasting glucose [...] 2022. Calcium 10.0 8.5 - 10.3 mg/dL [facility] Bilirubin, total 0.2 0.1 - 1.2 mg/dL [facility] Protein, pl 7.8 6.5 - 8.5 g/dL [facility] Albumin 4.0 3.5 - 5.0 g/dL [facility] Alk phos 104 40 - 130 Units/L [facility] ALT 8 7 - 45 Units/L [facility] AST 13 10 - 45 Units/L [facility] Blood 06/16/2024 10:0 0 AM SCHEDULE ANNOUNCER 06/16/2024 10:05 AM SCHEDULE ANNOUNCER us Ernesto Reddy MD LAB BLOOD ORDERABLES Cyndi l Result [facility] [place] [address] * CT Chest Abdomen W Contrast (05/01/2024 11:42 AM SCHEDULE ANNOUNCER) Anatomical Region Laterality Modality Body N/A Computed Tomogra phy 05/01/2024 12:1 7 PM SCHEDULE ANNOUNCER Impressions 05/01/2024 12:17 PM SCHEDULE ANNOUNCER 1. Postoperative changes of left lower lobectomy. Stable subcentimeter pulmonary nodules. 2. No evidence of disease progression in the chest and abdomen. Electronically signed by: Anna Urena M.D. Narrative 05/01/2024 12:17 PM SCHEDULE ANNOUNCER EXAMINATION: Computed tomography of the chest and [...] esult * POCT creatinine (05/01/2024 11:20 AM SCHEDULE ANNOUNCER) Creatinine POC 0.7 0.6 - 1.1 mg/dL Blood 05/01/2024 11:2 0 AM SCHEDULE ANNOUNCER 05/01/2024 11:20 AM SCHEDULE ANNOUNCER us Ernesto Reddy MD LAB POCT ORDERABLES - DEV ICE Final Result Performing Organization Address City/State/[facility] Co de Phone Number [facility] Department [place] [address] * COLONOSCOPY (12/03/2012 12:00 AM CDT) Anatomical Region Laterality Modality Other Narrative 12/03/2012 12:00 AM CDT Ordered by an unspecified provider. Procedure Note ProviderReginaldo MD - 12/03/2012 12:00 AM CDT PROCEDURE REPORT Patient: LESLEE OLIVIER Account: [id number] Room No: : 1960 Patient Type: SDS [...] Recently Relevant to Health Maintenance Insurance [facility] MEDICARE [facility] Care Teams Poultry Inseminator Relationship Specialty Start Date End Date Unknown, Notinfile PCP - General 01/22/24 Harvey Wilson MD Medical Oncologist Hematology 01/25/22 Wily Bassett MD [address] [facility] [address] [place] [address] Surgeon Cardiothoracic Surgery 01/25/22 Paulie Lai MD [address] [facility] [address] [place] [address] President Ergonomic Consulting Critical Care Med 01/25/22 Eb Cardoso MD [address] [place] [address] President Ergonomic Consulting Critical Care Med 01/25/22 Ernesto Reddy MD [address] [facility] MEDICAL ONCOLOGY, [address]A, 7B, [address] [address] Medical Oncologist/Athletic Gear Custodian Medical Oncology 01/25/22 Naomi Bay MD [address] [place] [address] Radiation Oncologist Radiation Oncology 01/31/22 Paula Jarvis NP [address] [place] [address] Nurse Practitioner Radiation Oncology 07/18/22
--- OUTSIDE RECORDS SUMMARY | 2024-06-24 14:26 | XMS_ITS | Encounter Summary ---
Author Organization [facility] Healthcare Address [address] [place] [address] Care Team Providers Care Recreation Specialist Name Role Phone Saul Fitch DO Primary Care Provider [phone] Harvey Wilson MD Unavailable [phone] Wily Bassett MD Unavailable [phone] Paulie Lai MD Unavailable [phone] Eb Cardoso MD Unavailable [phone] Ernesto Reddy MD Unavailable [phone] Naomi Bay MD Unavailable [phone] Paula Jarvis NP Unavailable [phone] Unknown, Notinfile Primary Care Provider Unavail able Encounter Details Date Type Department Care Team (Late st Contact Info) Description 10/23/2022 Telephone [facility] [address] [place] [address] Shaina Huynh RN Social History Tobacco Use Types Packs/Day Years Used Date Smoking Tobacco: Every Day Cigarettes AUDIT-C Answer Date Recorded Q1: How often do you have a drink containing alc ohol? Monthly or less 01/26/2022 Average Number of Drinks Not on file 022 Frequency of Binge Drinking Not on file 01/13 [facility] [place] of Occupat ional Health - Occupational Stress Questionnaire Answer Date Recorded Do you feel stress - tense, restless, nervous, or anxious, or unable to sleep at night because your mind is troubled all the time - these days? Very much 01/26/2022 Comments No Sex and Gender Information Value Date Recorded Sex Assigned at Not on file Legal Sex Female 2:06 PM PATIENT SERVICES ASSISTANT Gender Identity Not on file Sexual Orientation Not on file documented as of this encounter Plan of Treatment Not on file documented as of this encounter Visit Diagnoses Not on filedocumented in this encounter Care Teams Recreation Specialist Relationship Specialty Start Date End Date Saul Fitch DO PCP - General Internal Medicine 01/18/22 01/21/24 Unknown, Notinfile PCP - General 01/22/24 Harvey Wilson MD Medical Oncologist Hematology 01/25/22 Wily Bassett MD [address] [facility] [address] [place] [address] Surgeon Cardiothoracic Surgery 01/25/22 Paulie Lai MD [address] [facility] [address] [place] [address] Lead Caster Critical Care Med 01/25/22 Eb Cardoso MD [address] [place] [address] Lead Caster Critical Care Med 01/25/22 Ernesto Reddy MD [address] [facility] MEDICAL ONCOLOGY, J[address]A, 7B, [address] [address] Medical Oncologist/Care Coordination Manager Medical Oncology 01/25/22 Naomi Bay MD [address] [facility] [address] [place] [address] Radiation Oncologist Radiation Oncology 01/31/22 Paula Jarvis NP [address] [facility] [address] [place] [address] Nurse Practitioner Radiation Oncology 07/18/22 documented as of this encounter
--- OUTSIDE RECORDS SUMMARY | 2024-06-24 14:26 | XMS_ITS | Clinical Summary ---
Author Organization [facility] [employer] Address [address] [place] [address] Care Team Providers Care Product Support Sales Representative Name Role Phone Dieudonne Maxwell MD Primary Care Provider Source Comments [facility] [employer],non-[facility] Affiliates and Associated Physician Practices is amultiple site organization consisting of ambulatory clinics and hospital sitesin [place], [place], [place] and [place]. This disclosure is being madepursuant to the Care Everywhere program and may not contain all information available regarding this patient. Last updated 18.[facility] [employer] Social History Tobacco Use Types Packs/Day Years Used Date Smoking Tobacco: Never Assessed Sex and Gender Information Value Date Recorded Sex Assigned at Not on file Gender Identity Not on file Sexual Orientation Not on file Last Filed Vital Signs Vital Sign Reading Time Taken Comments Blood Pressure 110/69 06/10/2015 12:31 PM INFLATED PAD BUFFER Pulse 84 06/10/2015 12:31 PM INFLATED PAD BUFFER Temperature 36.9 C (98.4 F) 06/10/2015 12:31 PM INFLATED PAD BUFFER Respiratory Rate 14 06/10/2015 12:31 PM INFLATED PAD BUFFER Oxygen Saturation 97% 06/10/2015 12:31 PM INFLATED PAD BUFFER Inhaled Oxygen Concentration - - Weight 65.8 kg (145 lb) 06/10/2015 12:31 PM INFLATED PAD BUFFER Height 175.3 cm (5' 9 ) 06/10/2015 12:31 PM INFLATED PAD BUFFER Body Mass Index 21.41 06/10/2015 12:31 PM INFLATED PAD BUFFER Plan of Treatment Health Maintenance Due Date [...] age to complete this topic Care Teams Product Support Sales Representative Relationship Specialty Start Date End Date Dieudonne Maxwell MD [address] [place] [address] PCP - General 05/20/18
--- OUTSIDE RECORDS SUMMARY | 2024-06-24 14:26 | XMS_ITS | Continuity of Care Document ---
Author Organization [facility] Address [id number] [place] [address] [address] [place] [address] Phone Care Team Providers Care Exercise Physiologist Certified Name Role Phone Sanford OD, Alverto Unavailable Unavailable Advance Directives Directive Yes / No Effective Date File Name No Information Encounters Encounter Description Practice Location Reason(s) For Visit Diagnoses Date Provider Providers Copied on Encounter [facility], [address], [place], [place], [id number], [place] tel:[phone] [facility] No Information Apr-1 5-200 5 Sanford OD Alverto. [address] , [address], [place], [address], [place]. tel:[phone] Family History Family Member Type Diagnosis Age At Onset No Information Payers Payer name Insurance type Covered libertarian ID Authoriza tion(s) No Information Social History [...]
--- OUTSIDE RECORDS SUMMARY | 2024-06-24 14:26 | XMS_ITS | Encounter Summary ---
Author Organization [facility] Address [address] [place] [address] Phone Care Team Providers Care Channel Man Name Role Phone Saul Fitch Primary Care Provider [phone] Harvey Wilson MD Unavailable [phone] Wily Bassett MD Unavailable [phone] Paulie Lai MD Unavailable [phone] Eb Cardoso MD Unavailable [phone] Ernesto Reddy MD Unavailable [phone] Naomi Bay MD Unavailable [phone] Paula Jarvis NP Unavailable [phone] Unknown, Notinfile Primary Care Provider Unavail able Encounter Details Date Type Department Care Team (Latest Contact Info) Description 12/14/2021 Orders Only [facility] Scanning, Provider Social History Tobacco Use Types Packs/Day Years Used Date Smoking Tobacco: Never Assessed Comments Unknown Sex and Gender Information Value Date Recorded Sex Assigned at Not on file Legal Sex Female 2:06 PM SOFTWARE LEAD Gender Identity Not on file Sexual Orientation [...] on filedocumented in this encounter Care Teams Channel Man Relationship Specialty Start Date End Date Saul Fitch DO PCP - General Internal Medicine 01/18/22 01/21/24 Unknown, Notinfile PCP - General 01/22/24 Harvey Wilson MD Medical Oncologist Hematology 01/25/22 Wily Bassett MD [address] [place] [address] Surgeon Cardiothoracic Surgery 01/25/22 Paulie Lai MD [address] [facility] [address] [place] [address] Print Cutter Critical Care Med 01/25/22 Eb Cardoso MD [address] [place], [place] [id number] Print Cutter Critical Care Med 01/25/22 Ernesto Reddy MD [address] MEDICAL ONCOLOGY, [address], [address]B, [address] [place] [address] Medical Oncologist/Director Of Education Medical Oncology 01/25/22 Naomi Bay MD [address] [place] [address] Radiation Oncologist Radiation Oncology 01/31/22 Paual Jarvis NP [address] [facility] [address] [address] [place] [address] Nurse Practitioner Radiation Oncology 07/18/22 documented as of this encounter
--- OUTSIDE RECORDS SUMMARY | 2024-06-24 14:26 | XMS_ITS | Patient Health Summary ---
Author Organization [facility] [employer] Address [address] [place] [address] Care Team Providers Care Tube Mounter Name Role Phone Dieudonne Maxwell MD Primary Care Provider Note from [facility],non-owned Affiliates and Associated Physician Practices is amultiple site organization consisting of ambulatory clinics and hospital sitesin [place], [place], [place] and [place]. This disclosure is being madepursuant to the Care Everywhere program and may not contain all information available regarding this patient. Last updated 18.[facility] [employer] Social History Tobacco Use Types Packs/Day Years Used Date Smoking Tobacco: Never Assessed Sex and Gender Information Value Date Recorded Sex Assigned at Not on file Gender Identity Not on file Sexual Orientation Not on file Last Filed Vital Signs Vital Sign Reading Time Taken Comments Blood Pressure 110/69 06/10/2015 12:31 PM PAROLE DIRECTOR Pulse 84 06/10/2015 12:31 PM PAROLE DIRECTOR Temperature 36.9 C (98.4 F) 06/10/2015 12:31 PM PAROLE DIRECTOR Respiratory Rate 14 06/10/2015 12:31 PM PAROLE DIRECTOR Oxygen Saturation 97% 06/10/2015 12:31 PM PAROLE DIRECTOR Inhaled Oxygen Concentration - - Weight 65.8 kg (145 lb) 06/10/2015 12:31 PM PAROLE DIRECTOR Height 175.3 cm (5' 9 ) 06/10/2015 12:31 PM PAROLE DIRECTOR Body Mass Index 21.41 06/10/2015 12:31 PM PAROLE DIRECTOR Procedures * BASIC METABOLIC PANEL (CALCIUM TOTAL)(Performed [...] CBC W AUTO DIFFERENTIAL (04/12/2015 2:53 AM PAROLE DIRECTOR) Only the most recent of16 resultswithin the [...] BLOOD SPECIMEN / Unknown 04/12/2015 2:53 AM PAROLE DIRECTOR 04/12/2015 3:17 AM PAROLE DIRECTOR Eduardo Sin MD LAB - HEMATOLOGY ORD ERABLES Performing Organization Address [facility] Co de Phone Number [address] [phone] * (ABNORMAL) BASIC METABOLIC PANEL (CALCIUM TOTAL) (04/12/2015 2:53 AM PAROLE DIRECTOR) Only the most recent of7 resultswithin the [...] HOSPITAL Anion Gap 11 8 - 18 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 BUN/Creatinine Ratio 10 7 - 23 [facility] Osmolality Calculated 277 270 - 300 mOsm/kg [facility] eGFR >60 >60 mL/min/1.7 3 m2 [facility] Blood specimen (specimen) BLOOD SPECIMEN / Unknown 04/12/2015 2:53 AM PAROLE DIRECTOR 04/12/2015 3:17 AM PAROLE DIRECTOR Any Santos MD LAB - CHEMISTRY ORDERABLES Performing Organization Address [facility]/ZIP Co de Phone Number [address] [phone] * CULTURE AFB+SMEAR (04/09/2015 10:14 AM PAROLE DIRECTOR) Culture Acid Fast Bacilli No Growth of Acid Fast bacilli after 8 weeks. [facility] AFB Smear No Acid Fast bacilli seen on direct smear. [facility] Bone tissue specimen (specimen) 04/09/2015 10:14 AM PAROLE DIRECTOR 04/09/2015 10:14 AM PAROLE DIRECTOR Narrative [facility] - 06/06/2015 9:33 AM PAROLE DIRECTOR Right mandible tissue Specimen Type->Bone Any Santos MD LAB - MICROBIOLO GY ORDERABLES Performing Organization Address [facility] de Phone Number [address] [phone] * CULTURE FUNGUS OTHER+FUNGUS SMEAR (04/09/2015 10:14 AM PAROLE DIRECTOR) Culture Fungus-Other No Growth Fungi. [facility] Fungus Smear No Fungi seen. [facility] Bone tissue specimen (specimen) (Unspecified) 04/09/2015 10:14 AM PAROLE DIRECTOR 04/09/2015 10:14 AM PAROLE DIRECTOR Narrative [facility] - 05/10/2015 4:00 PM PAROLE DIRECTOR Right mandible tissue Specimen Type->Bone Any Santos MD LAB - MICROBIOLO GY ORDERABLES Performing Organization Address [facility] Co de Phone Number [address] [phone] * (ABNORMAL) CULTURE AEROBIC (04/09/2015 9:30 AM PAROLE DIRECTOR) Only the most recent of2 resultswithin the [...] 1215 Fluid specimen (specimen) 04/09/2015 9:30 AM PAROLE DIRECTOR 04/09/2015 9:40 AM PAROLE DIRECTOR Narrative [facility] - 04/13/2015 10:35 AM PAROLE DIRECTOR Right mandible body fluid Specimen Type->Body Fluid [...] - MICROBIOLO GY ORDERABLES Performing Organization Address [facility] Co de Phone Number [address] [phone] * CULTURE ANAEROBE (04/09/2015 9:30 AM PAROLE DIRECTOR) Only the most recent of2 resultswithin the time period is included. Culture Anaerobic No Growth Anaerobes. [facility] Culture Anaerobic AEROBIC GROWTH COMPATIBLE WITH ROUTINE CULTURE. [facility] Tissue 04/09/2015 9:30 AM PAROLE DIRECTOR 04/09/2015 9:40 AM PAROLE DIRECTOR Narrative [facility] - 04/17/2015 12:14 PM PAROLE DIRECTOR Right mandible tissue Specimen Type->Tissue Any Santos MD LAB - MICROBIOLO GY ORDERABLES Performing Organization Address [facility] Co de Phone Number [address] [phone] * PATHOLOGY TISSUE (04/09/2015 8:45 AM PAROLE DIRECTOR) Surgical Pathology Tissue CLINICAL HISTORY: Osteomyelitis of [...] were determined by the Histopathology [facility] of [facility]. Some of these tests were developed [...] by Gayle Browning MD. Electronically signed 04/12/2015 [facility] ([facility]) Other (qualifier value) 04/09/2015 8:45 AM PAROLE DIRECTOR 04/09/2015 9:40 AM PAROLE DIRECTOR Narrative [facility] ([facility]) - 04/12/2015 4:36 PM PAROLE DIRECTOR PROBLEM LIST: Patient Active Problem List: Osteomyelitis of mandible PRE-OP DIAGNOSIS: Osteomyelitis of the mandible . OPERATIVE PROCEDURE / FINDINGS: Procedure(s): BIOPSY OF THE RIGHT MANDIBLE POST-OP DIAGNOSIS: * No post-op diagnosis entered * Collection Date->04/09/15 Collection Time-> 8:45 AM Specimen A->Soft Tissue, Other Right mandible tissue Winston Barriga MD LAB - PATHOLOGY/CYTO LOGY ORDERABLES [facility] ([facility]) * PATHOLOGY/GENETICS HISTORICAL-ONBASE (04/09/2015) 04/09/2015 Narrative [facility] - 04/13/2015 11:10 AM PAROLE DIRECTOR Historical Provider LAB - CHEMISTRY O RDERABLES Performing Organization Address [facility] Co de Phone Number [facility] [address] * T3 FREE (04/08/2015 7:38 AM PAROLE DIRECTOR) T3 Free 2.8 1.7 - 3.7 pg/mL [facility] Blood specimen (specimen) BLOOD SPECIMEN / Unknown 04/08/2015 7:38 AM PAROLE DIRECTOR 04/08/2015 9:35 AM PAROLE DIRECTOR Any Santos MD LAB - CHEMISTRY ORDERABLES Performing Organization Address [facility] [place] Co de Phone Number [address] [phone] * (ABNORMAL) VANCOMYCIN LEVEL TROUGH (04/08/2015 7:38 AM PAROLE DIRECTOR) Vancomycin Trough 2.9(L) 10.0 - 20.0 mcg/mL [facility] Blood specimen (specimen) BLOOD SPECIMEN / Unknown 04/08/2015 7:38 AM PAROLE DIRECTOR 04/08/2015 7:46 AM PAROLE DIRECTOR Any Santos MD LAB - CHEMISTRY ORDERABLES Performing Organization Address [facility] Co de Phone Number [address] [phone] * XR PANOREX (04/07/2015 12:46 PM PAROLE DIRECTOR) Anatomical Region Laterality Modality Head Other Impressions 04/08/2015 6:05 PM PAROLE DIRECTOR Impression: Lytic focus in the right mandibular body compatible with osteomyelitis. Dictated by Jordan Michaud MD (Piano Maker). I, Dr. SARAY COPPOLA M.D. have personally reviewed and interpreted this examination/study. This report was electronically signed by SARAY COPPOLA M.D. on 04/08/2015 6:05 PM . Narrative 04/08/2015 6:05 PM PAROLE DIRECTOR EXAMINATION: Panorex HISTORY: mandibular osteomyelitis COMPARISON: No [...] with osteomyelitis. Dictated by Jordan Michaud MD (Piano Maker). I, Dr. SARAY COPPOLA M.D. have personally reviewed and interpreted thisexamination/study. This report was electronically signed by SARAY COPPOLA M.D. on 04/08/20156:05 PM . Any Santos MD DIAGNOSTIC IMAGI NG ORDERABLES * (ABNORMAL) C-REACTIVE PROTEIN (04/07/2015 10:46 AM PAROLE DIRECTOR) Only the most recent of2 resultswithin the time period is included. Pathologist [facility] C-Reactive Protein 1.9(H) <=0.5 mg/dL [facility] Blood specimen (specimen) BLOOD SPECIMEN / Unknown 04/07/2015 10:46 AM PAROLE DIRECTOR 04/07/2015 10:52 AM PAROLE DIRECTOR Any Santos MD LAB - CHEMISTRY ORDERABLES [address] [phone] * (ABNORMAL) THYROID PEROXIDASE ANTIBODY (04/07/2015 10:46 AM PAROLE DIRECTOR) Thyroid Peroxidase TPO Antibody 62(H) 0 - 34 IU/mL [facility] ([facility]) Blood specimen (specimen) BLOOD SPECIMEN / Unknown 04/07/2015 10:46 AM PAROLE DIRECTOR 04/08/2015 9:36 AM PAROLE DIRECTOR Narrative [facility]) - 04/10/2015 6:39 AM PAROLE DIRECTOR Performed at: - [address] [id number] Hourly Shift: Adin Salazar PhD, Phone: [phone] Any Santos MD LAB - CHEMISTRY ORDERABLES [facility] ([facility]) * (ABNORMAL) ERYTHROCYTE SEDIMENTATION RATE (04/07/2015 10:46 AM PAROLE DIRECTOR) Only the most recent of2 resultswithin the time period is included. Erythrocyte Sedimentation Rate Westergren 22(H) 0 - 20 MM/HR [facility] Comment: ########################################################################## # Please Note: New age specific reference ranges have been implemented. # ########################################################################## Blood specimen (specimen) BLOOD SPECIMEN / Unknown 04/07/2015 10:46 AM PAROLE DIRECTOR 04/07/2015 10:52 AM PAROLE DIRECTOR Any Santos MD LAB - HEMATOLOGY ORDERABLES [address] [phone] * MRI ORBITS OR FACE WWO CONTRAST (04/06/2015 9:02 PM PAROLE DIRECTOR) Anatomical Region Laterality Modality Head Other Impressions 04/07/2015 7:21 PM PAROLE DIRECTOR IMPRESSION: 1. Small abscess occupying a defect [...] 7:21 PM . Narrative 04/07/2015 7:21 PM PAROLE DIRECTOR EXAMINATION: Magnetic resonance imaging (MRI) of the [...] MR ORDERABLES * TSH (04/06/2015 2:44 AM PAROLE DIRECTOR) TSH 4.499 0.350 - 4.940 uIU/mL [facility] Blood specimen (specimen) BLOOD SPECIMEN / Unknown 04/06/2015 2:44 AM PAROLE DIRECTOR 04/06/2015 3:05 AM PAROLE DIRECTOR Eduardo Sin MD LAB - CHEMISTRY ORDE JUAN MIGUEL Performing Organization Address [facility]/ZIP Co de Phone Number [address] [phone] * T4 FREE (04/06/2015 2:44 AM PAROLE DIRECTOR) T4 Free 1.0 0.7 - 1.5 ng/dL [facility] Blood specimen (specimen) BLOOD SPECIMEN / Unknown 04/06/2015 2:44 AM PAROLE DIRECTOR 04/06/2015 6:27 AM PAROLE DIRECTOR Any Santos MD LAB - CHEMISTRY ORDERABLES Performing Organization Address [facility] Co de Phone Number [address] [phone] * (ABNORMAL) DRUG ABUSE PANEL 10-20+ETHANOL URINE NO CONFIRM (04/06/2015 1:38 AM PAROLE DIRECTOR) Pathologist [facility] Amphetamines Screen Urine Negative Negative : < [...] (specimen) URINE / Unknown 04/06/2015 1:38 AM PAROLE DIRECTOR 04/06/2015 1:48 AM PAROLE DIRECTOR Narrative [facility] - 04/06/2015 2:05 AM PAROLE DIRECTOR The Urine Toxicology Screening Panel does not screen for Propoxyphene, Meprobamate, Carisoprodol, Trazodone, hwmf-kko-dzcdruy medications and/or volatiles (Acetone, Isopropanol, Methanol or Ethylene Glycol). Ethanol, Salicylate, Acetaminophen, Tricyclic Antidepressants and several therapeutic drugs may be individually assayed in serum or plasma specimen. Toxicology testing by the [facility] is an aid to medical diagnosis and treatment of patients. No documented chain of custody was maintained. Results are intended to be used for clinical purposes only. Any Santos MD LAB - URINE CHEM ISTRY ORDERABLES Performing Organization Address [facility] Co de Phone Number [address] [phone] * EKG 12-LEAD (04/06/2015 12:00 AM PAROLE DIRECTOR) EKG [facility] Comment: Exam Date/Time: Apr 06 2015 [...] available Confirmed by Ella TIPTON, EULALIA ([id number]), graphics editor MAT EMERSON ([id number]) on 04/19/2015 12:44:17 PM Referred By: REFERRING NO Confirmed By:EULALIA TIPTON M.D. 04/06/2015 Any Santos MD ECG ORDERABLES Performing Organization Address [facility] Co de Phone Number [facility] * CULTURE BLOOD (04/05/2015 10:45 PM PAROLE DIRECTOR) Only the most recent of2 resultswithin the time period is included. Culture Blood No Growth at 5 days [facility] Blood specimen (specimen) 04/05/2015 10:45 PM PAROLE DIRECTOR 04/05/2015 11:00 PM PAROLE DIRECTOR Eduardo Sin MD LAB - MICROBIOLOGY O RDERABLES Performing Organization Address City/State/[facility] Co de Phone Number [facility] [address] [place] [address] * (ABNORMAL) COMPREHENSIVE METABOLIC PANEL (04/05/2015 10:30 PM PAROLE DIRECTOR) BUN 14 7 - 26 mg/dL [facility] [...] HOSPITAL Anion Gap 13 8 - 18 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 BUN/Creatinine Ratio 23 7 - 23 [facility] Osmolality Calculated 275 270 - 300 mOsm/kg [facility] Albumin/Globulin Ratio 1.2 1.1 - 2.3 [facility] eGFR >60 >60 mL/min/1.7 3 m2 [facility] Blood specimen (specimen) BLOOD SPECIMEN / Unknown 04/05/2015 10:30 PM PAROLE DIRECTOR 04/05/2015 10:59 PM PAROLE DIRECTOR Eduardo Sin MD LAB - CHEMISTRY BENITA BULLARD [facility] Organization Address City/State/ZIP Co de Phone Number [address] [phone] * XR CHEST 1VW PORTABLE (04/05/2015 9:49 PM PAROLE DIRECTOR) Anatomical Region Laterality Modality Chest Other Impressions 04/06/2015 6:04 PM PAROLE DIRECTOR Impression: No acute pulmonary process. There is [...] 6:04 PM . Narrative 04/06/2015 6:04 PM PAROLE DIRECTOR Exam: Portable chest, one view. Date: 04/05/2015 [...] . Eduardo Sin MD DIAGNOSTIC IMAGING O [facility] Care Teams Tube Mounter Relationship Specialty Start Date End Date Dieudonne Maxwell MD [address] [place] [id number] PCP - General 05/20/18
--- OUTSIDE RECORDS SUMMARY | 2024-06-24 14:26 | XMS_ITS | Clinical Summary ---
Author Organization [facility] Address [address] [place] [address] Care Team Providers Care Fire Chief Name Role Phone Unavailable Primary Care Provider [...]
--- OUTSIDE RECORDS SUMMARY | 2024-06-24 14:26 | XMS_ITS | Referral Summary ---
Author Organization [facility] Address [address] [place] [address] Care Team Providers Care Document Photographer Name Role Phone Dieudonne Maxwell MD Primary Care Provider [phone] Source Comments [facility] Affiliates and Associated Physician Practices is amultiple site organization consisting of ambulatory clinics and hospital sitesin [place], [place], [place] and [place]. This disclosure is being madepursuant to the Care Everywhere program and may not contain all information available regarding this patient. Last updated 18.[facility] [employer] Social History Tobacco Use Types Packs/Day Years Used Date Smoking Tobacco: Never Assessed Sex and Gender Information Value Date Recorded Sex Assigned at Not on file Gender Identity Not on file Sexual Orientation Not on file Last Filed Vital Signs Vital Sign Reading Time Taken Comments Blood Pressure 110/69 06/10/2015 12:31 PM COMPLAINT ADJUSTER Pulse 84 06/10/2015 12:31 PM COMPLAINT ADJUSTER Temperature 36.9 C (98.4 F) 06/10/2015 12:31 PM COMPLAINT ADJUSTER Respiratory Rate 14 06/10/2015 12:31 PM COMPLAINT ADJUSTER Oxygen Saturation 97% 06/10/2015 12:31 PM COMPLAINT ADJUSTER Inhaled Oxygen Concentration - - Weight 65.8 kg (145 lb) 06/10/2015 12:31 PM COMPLAINT ADJUSTER Height 175.3 cm (5' 9 ) 06/10/2015 12:31 PM COMPLAINT ADJUSTER Body Mass Index 21.41 06/10/2015 12:31 PM COMPLAINT ADJUSTER Plan of Treatment Not on file Care Teams Document Photographer Relationship Specialty Start Date End Date Dieudonne Maxwell MD [address] [place] [address] PCP - General 05/20/18
--- OUTSIDE RECORDS SUMMARY | 2024-06-24 14:26 | XMS_ITS | Referral Summary ---
Author Organization [facility] 2 Address [address] [place] [address] Care Team Providers Care Under Cutter Name Role Phone Harvey Wilson MD Unavailable [phone] Wily Bassett MD Unavailable [phone] Paulie Lai MD Unavailable [phone] Eb Cardoso MD Unavailable [phone] Ernesto Reddy MD Unavailable [phone] Naomi Bay MD Unavailable [phone] Paula Jarvis NP Unavailable [phone] Unknown, Notinfile Primary Care Provider Unavail able Encounters Date Type Department Care Team Description 06/16/2024 9:45 AM OPTICAL INSTRUMENT INSPECTOR Lab [facility] - Lab Collection [address] [place] [address] 5 [place] [address] Primary cancer of left lower lobe of lung (HCC); 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) 06/16/2024 11:00 AM OPTICAL INSTRUMENT INSPECTOR Office Visit [facility] Oncology [address] [place] [address] 5 [place] [id number] Ernesto Reddy MD Primary cancer of left lower lobe of lung (HCC) (Primary Dx); 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); Smoking history; Multiple lung nodules on CT 06/16/2024 10:00 AM OPTICAL INSTRUMENT INSPECTOR Lab [facility] Oncology Lab [address] [facility] Floor 5 [place] [address] 05/26/2024 Orders Only [facility] Pulmonary [address] [facility] 8th [place] [address] Fletcher Espinal MD Chronic obstructive pulmonary disease, unspecified COPD type (HCC) (Primary Dx) 05/01/2024 Documentation [facility] [address] [facility] Floor 1, [address] [place] [address] Karen Sylvester 05/01/2024 11:05 AM OPTICAL INSTRUMENT INSPECTOR - 05/01/2024 11:59 PM OPTICAL INSTRUMENT INSPECTOR Hospital Encounter [facility] [address] [place] [address] Ernesto Reddy MD Primary cancer of left lower lobe of lung (HCC); 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) Discharge Disposition: Discharge to home or self care from Last 3 Months Allergies Active Allergy Reactions Criticality Noted Date Comments Sulfa (Sulfonamide Antibiotics) Unknown,Swelling Medium 10/31/2013 Swelling Sulfamethoxazole-Tri methoprim Flushing (skin),Unknown,Hives Medium 10/31/2013 Eyes close and well, 104 fever, welts and bumps 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 Very much 01/26/2022 Comments No Sex and Gender Information Value Date Recorded Sex Assigned at Not on file Legal Sex Female 2:06 PM OPTICAL INSTRUMENT INSPECTOR Gender Identity Not on file Sexual Orientation Not on file Last Filed Vital Signs Vital Sign Reading Time Taken Comments Blood Pressure 143/86 06/16/2024 10:12 AM OPTICAL INSTRUMENT INSPECTOR Pulse 106 06/16/2024 10:12 AM OPTICAL INSTRUMENT INSPECTOR Temperature 36.2 C (97.2 F) 06/16/2024 10:12 AM OPTICAL INSTRUMENT INSPECTOR Respiratory Rate 18 06/16/2024 10:12 AM OPTICAL INSTRUMENT INSPECTOR Oxygen Saturation 97% 06/16/2024 10:12 AM OPTICAL INSTRUMENT INSPECTOR Inhaled Oxygen Concentration - - Weight 72.8 kg (160 lb 9.6 oz) 06/16/2024 10:12 AM OPTICAL INSTRUMENT INSPECTOR Height 171 cm (5' 7.32 ) 11/20/2022 1:26 PM CDT Body Mass Index 24.91 11/20/2022 1:26 PM CDT Plan of Treatment Not on file Procedures Procedure Name Priority Date/Time Associated Diagnosis Comments EGFR Routine 06/16/2024 10:00 AM OPTICAL INSTRUMENT INSPECTOR Primary cancer of left lower lobe of lung (HCC) 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) DIFFERENTIAL AUTO Routine 06/16/2024 10:00 AM OPTICAL INSTRUMENT INSPECTOR Primary cancer of left lower lobe of lung (HCC) 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) CBC WITH AUTO DIFFERENTIAL Routine 06/16/2024 10:00 AM OPTICAL INSTRUMENT INSPECTOR Primary cancer of left lower lobe of lung (HCC) 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) COMPREHENSIVE METABOLIC PANEL Routine 06/16/2024 10:00 AM OPTICAL INSTRUMENT INSPECTOR Primary cancer of left lower lobe of lung (HCC) 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 73 m2 Comment: [...] reviewed 2021. Blood 06/16/2024 10:0 0 AM OPTICAL INSTRUMENT INSPECTOR 06/16/2024 10:05 AM OPTICAL INSTRUMENT INSPECTOR us Ernesto Reddy MD LAB BLOOD ORDERABLES Cyndi abad Result [facility] [place] [address] * (ABNORMAL) Differential, auto (06/16/2024 10:00 AM OPTICAL INSTRUMENT INSPECTOR) Neutrophil abs 9.0(H) 1.5 - 6.5 K/cumm Comment:Testing performed by : [facility], [address] [place] [phone] Lymphocyte abs 1.7 0.8 - 3.3 K/cumm [facility] Comment:Testing performed by : [facility], [address] [place] [phone] Monocyte abs 0.8 0.2 - 0.8 K/cumm [facility] Comment:Testing performed by : [facility], [address] [place], [place] [phone] Eosinophil abs 0.0 0.0 - 0.5 K/cumm [facility] Comment:Testing performed by : [facility], [address] [place] [phone] Basophil abs 0.1 0.0 - 0.1 K/cumm [facility] Comment:Testing performed by : [facility], [address] [place] [phone] Neutrophil pct 77.0 % [facility] Comment: Interpretive Data Percent cell count reference ranges are not reported, since discordance with absolute values may lead to misinterpretation of CBC data. Current Interpretive Data was last revised on 2017. Testing performed by: [facility], [address] [place] [phone] Lymphocyte pct 14.4 % [facility] Comment: Interpretive Data Percent cell count reference ranges are not reported, since discordance with absolute values may lead to misinterpretation of CBC data. Current Interpretive Data was last revised on 2017. Testing performed by: [facility], [address] [place] [phone] Monocyte pct 7.2 % [facility] Comment: Interpretive Data Percent cell count reference ranges are not reported, since discordance with absolute values may lead to misinterpretation of CBC data. Current Interpretive Data was last revised on 2017. Testing performed by: [facility], [address] [place] [phone] Eosinophil pct 0.4 % [facility] Comment: Interpretive Data Percent cell count reference ranges are not reported, since discordance with absolute values may lead to misinterpretation of CBC data. Current Interpretive Data was last revised on 2017. Testing performed by: [facility], [address] [place] [phone] Basophil pct 1.0 % [facility] Comment: Interpretive Data Percent cell count reference ranges are not reported, since discordance with absolute values may lead to misinterpretation of CBC data. Current Interpretive Data was last revised on 2017. Testing performed by: [facility], [address] [place] [address] Blood 06/16/2024 10:0 0 AM OPTICAL INSTRUMENT INSPECTOR 06/16/2024 10:03 AM OPTICAL INSTRUMENT INSPECTOR us Ernesto Reddy MD LAB BLOOD ORDERABLES Cyndi l Result [facility] [place] [address] * (ABNORMAL) CBC with auto differential (06/16/2024 10:00 AM OPTICAL INSTRUMENT INSPECTOR) WBC 11.6(H) 3.8 - 9.9 K/cumm Comment:Testing performed by : [facility], [address] [place] [address] Hgb 11.7(L) 11.9 - 15.5 g/dL [facility] Comment:Testing performed by : [facility], [address] [place] [address] Hct 35.2(L) 35.6 - 45.5 % [facility] Comment:Testing performed by : [facility], [address] [place] [address] Plt 699(H) 150 - 400 K/cumm [facility] Comment:Testing performed by : [facility], [address] [place] [address] MPV 7.5 6.8 - 10.4 fL [facility] Comment:Testing performed by : [facility], [address] [place] [address] RBC 4.02 3.90 - 5.20 M/cumm [facility] Comment:Testing performed by : [facility], [address] [place], [place] [phone] MCV 87.6 81.3 - 96.4 fL [facility] Comment:Testing performed by : [facility], [address] [place] [address] MCH 29.1 27.1 - 33.3 pg [facility] Comment:Testing performed by : [facility], [address] [place] [address] MCHC 33.2 32.3 - 35.7 g/dL [facility] Comment:Testing performed by : [facility], [address] [place], [place] [phone] RDW CV 13.6 11.1 - 14.9 % [facility] Comment:Testing performed by : [facility], [address] [place] [address] NRBC abs 0.00 0.00 - 0.01 K/cumm [facility] Comment:Testing performed by : [facility], [address] [place] [address] Blood 06/16/2024 10:0 0 AM OPTICAL INSTRUMENT INSPECTOR 06/16/2024 10:03 AM OPTICAL INSTRUMENT INSPECTOR us Ernesto Reddy MD LAB BLOOD ORDERABLES Cyndi l Result [facility] [place] [address] * (ABNORMAL) Comprehensive metabolic panel (06/16/2024 10:00 AM OPTICAL INSTRUMENT INSPECTOR) Sodium 138 135 - 145 mmol/L Potassium, pl 4.3 3.3 - 4.9 mmol/L [facility] Chloride 97 97 - 110 mmol/L [facility] CO2 31 22 - 32 mmol/L [facility] Anion gap 10 2 - 15 mmol/L [facility] BUN 13 6 - 25 mg/dL [facility] Creatinine 0.49(L) 0.60 - 1.10 mg/dL [facility] Glucose 129 70 - 199 mg/dL [facility] Comment: Interpretive Data Fasting glucose [...] 2022. Calcium 10.0 8.5 - 10.3 mg/dL [facility] Bilirubin, total 0.2 0.1 - 1.2 mg/dL [facility] Protein, pl 7.8 6.5 - 8.5 g/dL [facility] Albumin 4.0 3.5 - 5.0 g/dL [facility] Alk phos 104 40 - 130 Units/L [facility] ALT 8 7 - 45 Units/L [facility] AST 13 10 - 45 Units/L [facility] Blood 06/16/2024 10:0 0 AM OPTICAL INSTRUMENT INSPECTOR 06/16/2024 10:05 AM OPTICAL INSTRUMENT INSPECTOR us Ernesto Reddy MD LAB BLOOD ORDERABLES Cyndi l Result [facility] Department [place] [address] * CT Chest Abdomen W Contrast (05/01/2024 11:42 AM OPTICAL INSTRUMENT INSPECTOR) Anatomical Region Laterality Modality Body N/A Computed Tomogra phy 05/01/2024 12:1 7 PM OPTICAL INSTRUMENT INSPECTOR Impressions 05/01/2024 12:17 PM OPTICAL INSTRUMENT INSPECTOR 1. Postoperative changes of left lower lobectomy. Stable subcentimeter pulmonary nodules. 2. No evidence of disease progression in the chest and abdomen. Electronically signed by: Anna Urena M.D. Narrative 05/01/2024 12:17 PM OPTICAL INSTRUMENT INSPECTOR EXAMINATION: Computed tomography of the chest and [...] by: Anna Urena M.D. Ernesto Reddy MD [facility] CT PROCEDURES Final R esult * POCT creatinine (05/01/2024 11:20 AM OPTICAL INSTRUMENT INSPECTOR) Creatinine POC 0.7 0.6 - 1.1 mg/dL Blood 05/01/2024 11:2 0 AM OPTICAL INSTRUMENT INSPECTOR 05/01/2024 11:20 AM OPTICAL INSTRUMENT INSPECTOR us Ernesto Reddy MD LAB POCT ORDERABLES - DEV ICE Final Result [facility] [place] [address] * COLONOSCOPY (12/03/2012 12:00 AM CDT) Anatomical Region Laterality Modality Other Narrative 12/03/2012 12:00 AM CDT Ordered by an unspecified provider. Procedure Note ProviderReginaldo MD - 12/03/2012 12:00 AM CDT PROCEDURE REPORT Patient: LESLEE OLIVIER Account: [id number] Room No: : 1960 Patient Type: SDS [...] Relevant to Health Maintenance Insurance MEDICARE [facility] MEDICARE [facility] Care Teams Under Cutter Relationship Specialty Start Date End Date Unknown, Notinfile PCP - General 01/22/24 Harvey Wilson MD Medical Oncologist Hematology 01/25/22 Wily Bassett MD [facility] [address] [facility] [address] [place] [address] Surgeon Cardiothoracic Surgery 01/25/22 Paulie Lai MD [address] [facility] [address] [place] [address] Fruit Grading Supervisor Critical Care Med 01/25/22 Eb Cardoso MD [address] [place] [address] Fruit Grading Supervisor Critical Care Med 01/25/22 Ernesto Reddy MD [address] DIV IM MEDICAL ONCOLOGY, [address], [address]B, [address] [place] [address] Medical Oncologist/Support Services Rep Medical Oncology 01/25/22 Naomi Bay MD [address] [place] [address] Radiation Oncologist Radiation Oncology 01/31/22 Paula Jarvis NP [address] [place] [address] Nurse Practitioner Radiation Oncology 07/18/22
--- OUTSIDE RECORDS SUMMARY | 2024-06-24 14:26 | XMS_ITS | Clinical Summary ---
Author Organization [facility] Address [address] [place] [address] Phone Care Team Providers Care Freelance Makeup Artist Name Role Phone Saul Fitch Primary Care Provider [phone] Allergies Active Allergy Reactions Criticality Noted Date [...] Tablet 2 Active naloxone (NARCAN) 4 mg/spray [place], Non-Aerosol EMERGENCY USE ONLY: Administer 1 spray [...] 11/03/2021 Immunizations Immunization Administration Dates Next Due ([employer])(12 YR UP) COVID-19 VACCINE - EMERGENCY USE AUTHORIZATION, MRNA, [id number](PF) 30 MCG/0.3 ML IM SUSP 11/18/2020,10/27/2020 Influenza [...] Health Maintenance Due Date Last Done Comments DTAP/TDAP/TD VACCINES (1 - Tdap) 1980 CERVICAL [...] 11/18/2020, 10/27/2020 Medical Devices Implanted Type Area Executive Chairman Of The Board Device Identifier Shelf Expiration Date Model / Serial / Lot Sealant Progel Pleural 4ml [id number] - [id number] Implanted:Qty: 1 on 12/14/2021 by Wily Bassett MD at [facility] Tissue Left: Chest BARD DAVOL [id number] 06/16/2023 [id number] / / [id number] Lumbar Fusion Hardware Insurance MEDICARE PART A AND B [facility] MEDICAID MEDICARE PART A AND B [facility] MEDICAID Advance Directives For more information, please contact: [phone] * Full Code (Latest Code Status on File) Date Activated Date Inactivated Comments 12/14/2021 5:21 PM 12/21/2021 6:25 PM * Full Code Date Activated Date Inactivated Comments 12/14/2021 8:36 AM 12/14/2021 5:21 PM Care Teams Freelance Makeup Artist Relationship Specialty Start Date End Date Saul Fitch DO [address] [facility] [address] [facility] [address] [place] [address] PCP - General Internal Medicine 10/26/21
--- OUTSIDE RECORDS SUMMARY | 2024-06-24 14:26 | XMS_ITS | Encounter Summary ---
Author Organization [facility] Address [address] [place] [address] Phone Care Team Providers Care Manager Banking Name Role Phone Saul Fitch Primary Care Provider [phone] Harvey Wilson MD Unavailable [phone] Wily Bassett MD Unavailable [phone] Paulie Lai MD Unavailable [phone] Eb Cardoso MD Unavailable [phone] Ernesto Reddy MD Unavailable [phone] Naomi Bay MD Unavailable [phone] Paula Jarvis NP Unavailable [phone] Unknown, Notinfile Primary Care Provider Unavail able Encounter Details Date Type Department Care Team (Latest Contact Info) Description 11/22/2021 Orders Only [facility] Scanning, Provider Social History Tobacco Use Types Packs/Day Years Used Date Smoking Tobacco: Never Assessed Comments Unknown Sex and Gender Information Value Date Recorded Sex Assigned at Not on file Legal Sex Female 2:06 PM TANK OFFICER Gender Identity Not on file Sexual [...] on filedocumented in this encounter Care Teams Manager Banking Relationship Specialty Start Date End Date Saul Fitch DO PCP - General Internal Medicine 01/18/22 01/21/24 Unknown, Notinfile PCP - General 01/22/24 Harvey Wilson MD Medical Oncologist Hematology 01/25/22 Wily Bassett MD [address] [facility] [address] [place] [address] Surgeon Cardiothoracic Surgery 01/25/22 Paulie Lai MD [address] [facility] [address] [place] [address] Senior Web Analyst Critical Care Med 01/25/22 Eb Cardoso MD [address] [place], [place] [id number] Senior Web Analyst Critical Care Med 01/25/22 Ernesto Reddy MD [address] DIV MEDICAL ONCOLOGY, [address]A, [address]B, [address] [place] [address] Medical Oncologist/Brickmason Supervisor Medical Oncology 01/25/22 Naomi Bay MD [address] [place] [address] Radiation Oncologist Radiation Oncology 01/31/22 Paula Jarvis NP [address] [facility] [address] [place] [address] Nurse Practitioner Radiation Oncology 07/18/22 documented as of this encounter
--- NOTE | 2024-06-24 14:30 | PC.NURSE ---
Pt called out in pain. RN made MD aware. No new orders at this time.
[2024-06-24 14:36] LABS: Influenza A QL RT-PCR Negative (Negative); Influenza B QL RT-PCR Negative (Negative); RSV RNA, RT-PCR Negative (Negative); SARS-CoV-2 RNA PCR Negative (Negative)
--- NOTE | 2024-06-24 16:18 | ED_ITS ---
HPI - General Adult General Chief complaint: Shortness of Breath/Dyspnea Stated complaint: don't feel right and sob x4d Time Seen by Provider: 06/24/24 12:56 History of Present Illness HPI narrative: This is a 63-year-old female with a history of chronic pain/fibromyalgia presenting with multiple complaints. Her 1st complaint is total body pain. She says she hurts all over her body. This is different from her typical neck and shoulder pain. She has recently seen a clinical cytogenetics director who diagnosed with fibromyalgia and started her on Cymbalta. She is very hesitant to take this medication. She notes that yesterday she developed swelling of her foot. She also has subjective shortness of breath for the last several days. She denies fevers chills productive cough chest pain abdominal pain or abdominal urinary symptoms. Related Data Home Medications ?Medication ?Instructions ?Recorded ?Confirmed ?Last Taken ?Type morphine 15 mg tablet,extended 15 mg PO Q12H 03/06/19 01/03/23 Unknown History release tizanidine 4 mg tablet 4 mg PO BID PRN Pain 01/26/21 01/03/23 Unknown History prochlorperazine maleate 5 mg 5 mg PO BID PRN Nausea 09/18/22 01/03/23 Unknown History tablet morphine 15 mg immediate release 15 mg PO 02/24/24 Unknown History tablet Allergies Allergy/AdvReac Type Severity Reaction Status Date / Time Sulfa (Sulfonamide Allergy Unknown Hives Verified 05/14/24 09:48 Antibiotics) sulfamethoxazole (From AdvReac Hives Verified 05/14/24 09:48 Bactrim) trimethoprim (From Bactrim) AdvReac Hives Verified 05/14/24 09:48 PMFSH Past Medical History Medical History Degenerative lumbar disc JOSE on CPAP Adenocarcinoma, lung Chronic constipation Tobacco abuse ADD (attention deficit disorder) Adult hypothyroidism Anxiety Benign essential hypertension Chronic low back pain Chronic obstructive pulmonary disease, unspecified Surgical History Surgical History S/P lobectomy of lung History of bladder surgery sling tie up H/O Spinal surgery x2 H/O: hysterectomy Family History Family History Grandparent Family history of malignant neoplasm Other Cerebrovascular accident Family history of arthritis Social History Social History Smoking packs per day: 1 Smoking cigarettes per day: 20.0 Years smoked: 48 Smoking pack-years: 48.00 Smoking status: Current every day smoker Tobacco type: cigarettes Second hand tobacco smoke exposure: Yes Additional smoking assessment comments: 2 PPD X 20 YRS, DOWN TO 10 CIGARETTES/DAY NOW Alcohol intake: former Substance use: current Substance use type: marijuana Other substance usage details: Daily Lack of Transportation: No Lack of Food: Never True Current Housing: I Do Not Have Housing Concerned About Future Housing: No Difficulty Paying Gas/Electric Bills: No Difficulty Paying for Meds: No Currently Unemployed: No Education: High School Diploma/GED Difficulty w/ Childcare or Family Care: YES Living arrangements: with family Spiritual care concerns: No Exam 2 Narrative: APPEARANCE: Patient appears emotionally upset. Head: atraumatic. EYES: EOMI, NOSE: Atraumatic NECK: Trachea midline RESPIRATORY: No increased rate of breathing, clear to auscultation CARDIOVASCULAR: RRR, no peripheral edema ABDOMINAL: Non-distended soft nontender MUSCULOSKELETAl: No obvious deformities NEURO: Alert. Moving 4/4 extremities SKIN:: Warm, dry. Normal color PSYCHIATRIC: Normal affect Course Vital Signs Vital signs: Vital Signs Pulse Rate 99 06/24/24 12:43 Respiratory Rate 10 L 06/24/24 12:43 Blood Pressure 157/78 H 06/24/24 12:43 Pulse Oximetry 99 06/24/24 12:43 Temperature 99 F 06/24/24 13:01 Pulse Rate 76 06/24/24 15:51 Respiratory Rate 20 06/24/24 15:51 Blood Pressure 145/78 H 06/24/24 15:51 Pulse Oximetry 99 06/24/24 15:51 Oxygen Delivery Room Air 06/24/24 13:01 Medical Decision Making [facility] Narrative Medical decision making narrative: -Course: 63-year-old female with chronic pain syndrome presenting with multiple complaints. She is reporting swelling of her ankles although I cannot appreciate those. DVT was ruled out with venous ultrasound. CT PE without any evidence of PE pneumonia or other causes of dyspnea. Objectively she is not in any respiratory distress with a normal respiratory rate and good saturations. Patient's symptoms most likely result of her pain syndrome. Patient's pain will be treated with a the pain dosing of ketamine. On re-evaluation the ketamine was highly effective. Her pain is improved and she is sitting upright in bed. She is requesting food. She will be discharged follow-up with her pain specialist. -DDX includes but is not limited to: DVT PE pneumonia viral syndrome anxiety chronic pain -Co-morbidities complicating care: Chronic pain syndrome, anxiety -Social determinants of health: Disabled due to chronic pain for her entire adult life Vital Signs Vital Signs: Vital Signs Pulse Rate 99 06/24/24 12:43 Respiratory Rate 10 L 06/24/24 12:43 Blood Pressure 157/78 H 06/24/24 12:43 Pulse Oximetry 99 06/24/24 12:43 Temperature 99 F 06/24/24 13:01 Pulse Rate 76 06/24/24 15:51 Respiratory Rate 20 06/24/24 15:51 Blood Pressure 145/78 H 06/24/24 15:51 Pulse Oximetry 99 06/24/24 15:51 Oxygen Delivery Room Air 06/24/24 13:01 Lab Data 06/24/24 12:52 06/24/24 12:52 Labs: Lab Results 06/24/24 06/24/24 Range/Units 12:52 13:52 WBC 11.2 H (4.5-10.0) K/mm3 RBC 3.97 L (4.2-5.4) M/mm3 Hgb 11.6 L (12.0-15.0) g/dL Hct 36.2 L (37.0-47.0) % MCV 91.2 (80-100) fl MCH 29.2 (26-34) pg MCHC 32.0 (32-36) g/dl RDW 13.5 (11.5-14.5) % Plt Count 598 H (150-375) k/mm3 MPV 9.1 (7.4-10.4) fl Immature Gran % (Auto) 0.4 (0-0.5) % Neut % (Auto) 77.0 H (45.5-73.1) % Lymph % (Auto) 15.3 L (18.3-44.2) % [place] % (Auto) 6.5 (2.6-8.5) % Eos % (Auto) 0.3 (0-4.4) % Baso % (Auto) 0.5 (0.2-1.2) % Lymph # (Auto) 1.71 (0.9-3.2) K/mm3 [place]born # (Auto) 0.7 H (0.1-0.6) K/mm3 Eos # (Auto) 0.0 (0-0.3) K/mm3 Baso # (Auto) 0.1 (0.0-0.1) K/mm3 Abs Immat Gran (auto) 0.04 H (0.00-0.031) K/mm3 Absolute Neuts (auto) 8.6 H (1.3-6.7) K/mm3 Absolute Nucleated RBC 0.000 (0.0-0.012) K/mm3 Nucleated RBC % 0.0 (0.0-0.2) % PT 13.9 (11.1-14.7) Seconds INR 1.0 APTT 32.7 (22.3-36.8) Seconds D-Dimer 1.05 H (<0.48) ug/mL Sodium 137 (137-145) mmol/L Potassium 4.1 (3.4-5.0) mmol/L Chloride 99 (98-107) mmol/L Carbon Dioxide 28 (22-30) mmol/L Anion Gap 10 (4-12) mmol/L BUN 12 (7-17) mg/dL Creatinine 0.56 L (0.7-1.0) mg/dL Estim Creat Clear Calc 92 ml/min Estimated GFR > 60 (59 - ) Glucose 120 H (65-110) mg/dL Calcium 9.5 (8.4-10.2) mg/dL Total Bilirubin 0.3 (0.2-1.3) mg/dL AST 18 (14-36) U/L ALT 15 (6-35) U/L Alkaline Phosphatase 102 (38-126) U/L Troponin I < 0.012 (0.000-0.034) ng/mL NT-Pro-B Natriuret Pep 130 H (19.9-100) pg/mL Total Protein 8.0 (6.3-8.2) g/dL Albumin 4.3 (3.5-5.1) g/dL Influenza A (RT-PCR) Negative (Negative) Influenza B (RT-PCR) Negative (Negative) RSV (RT-PCR) Negative (Negative) SARS-CoV-2 RNA (RT-PCR) Negative (Negative) ABG Data ABG results: 06/24/24 13:52 VBG pH 7.526 H* VBG pCO2 28.5 L* VBG pO2 94.2 H VBG HCO3 23.1 L O2 Delivery Device Room air O2 Liters/Min Not Reportable FiO2 21 Discharge Plan Discharge Clinical Impression: Acute dyspnea, Chronic pain Patient Disposition: Home, Self-Care Condition: Stable Instructions: Antibiotic Form, Fibromyalgia (ED) Additional Instructions: You were seen in the emergency department for shortness of breath. Her workup here was reassuring we did not find any cause of your pain difficulty breathing other than your pain. Please follow-up with your primary care physician and paintings restorer for further management. If you develop any new or worsening symptoms please return to the ED. Patient Language: Nepalese Prescriptions: No Action morphine 15 mg tablet extended release 15 mg PO Q12H tizanidine 4 mg tablet 4 mg PO BID PRN (Reason: Pain) morphine 15 mg tablet 15 mg PO naloxone [Narcan] 4 mg/actuation spray,non-aerosol 4 mg intranasal Q2-3M PRN (Reason: opioid overdose) Qty: 2 1RF Rx Instructions: spray 1 dose into ONE nostril; alternate nostrils w each dose until help arrives albuterol sulfate 0.63 mg/3 mL solution for nebulization See Rx Instructions .ROUTE .COMPLEX Qty: 75 0RF Dose Instruction: INHALE 3MLS EVERY 4-6 HOURS NEEDED FOR SHORTNESS OF BREATH OR WHEEZING Rx Instructions: INHALE 3MLS EVERY 4-6 HOURS NEEDED FOR SHORTNESS OF BREATH OR WHEEZING albuterol sulfate 90 mcg/actuation HFA aerosol inhaler See Rx Instructions .ROUTE .COMPLEX Qty: 51 1RF Dose Instruction: INHALE 1 PUFF BY MOUTH EVERY 4 HOURS NEEDED FOR SHORTNESS OF BREATH OR WHEEZING. Rx Instructions: INHALE 1 PUFF BY MOUTH EVERY 4 HOURS NEEDED FOR SHORTNESS OF BREATH OR WHEEZING. prochlorperazine maleate 5 mg tablet 5 mg PO BID PRN (Reason: Nausea) ondansetron 4 mg tablet,disintegrating 4 mg PO Q6H PRN (Reason: nausea and vomiting) Qty: 10 0RF ropinirole 2 mg tablet See Rx Instructions .ROUTE .COMPLEX Qty: 180 1RF Dose Instruction: TAKE 1 TABLET BY MOUTH TWICE DAILY Rx Instructions: TAKE 1 TABLET BY MOUTH TWICE DAILY PRN Linzess 145 mcg capsule 145 mcg PO DAILY Qty: 30 4RF fluticasone propionate 50 mcg/actuation spray,suspension See Rx Instructions .ROUTE .COMPLEX Qty: 48 0RF Dose Instruction: SHAKE LIQUID AND USE 2 SPRAYS IN EACH NOSTRIL DAILY Rx Instructions: SHAKE LIQUID AND USE 2 SPRAYS IN EACH NOSTRIL DAILY prednisone 20 mg tablet 40 mg PO DAILY Qty: 10 0RF amoxicillin-pot clavulanate 875-125 mg tablet 1 tablet PO BID Qty: 14 0RF zolpidem [Ambien] 10 mg tablet 10 mg PO QHS PRN (Reason: insomnia) Qty: 30 1RF montelukast 10 mg tablet See Rx Instructions .ROUTE .COMPLEX Qty: 90 1RF Dose Instruction: TAKE 1 TABLET BY MOUTH DAILY Rx Instructions: TAKE 1 TABLET BY MOUTH DAILY lisinopril-hydrochlorothiazide 10-12.5 mg tablet See Rx Instructions .ROUTE .COMPLEX Qty: 90 1RF Dose Instruction: TAKE 1 TABLET BY MOUTH DAILY Rx Instructions: TAKE 1 TABLET BY MOUTH DAILY rosuvastatin 10 mg tablet See Rx Instructions .ROUTE .COMPLEX Qty: 90 1RF Dose Instruction: TAKE 1 TABLET BY MOUTH DAILY Rx Instructions: TAKE 1 TABLET BY MOUTH DAILY potassium chloride 20 mEq tablet extended release See Rx Instructions .ROUTE .COMPLEX Qty: 90 1RF Dose Instruction: TAKE 1 TABLET BY MOUTH DAILY Rx Instructions: TAKE 1 TABLET BY MOUTH DAILY levothyroxine 50 mcg tablet See Rx Instructions .ROUTE .COMPLEX Qty: 90 1RF Dose Instruction: TAKE 1 TABLET BY MOUTH DAILY Rx Instructions: TAKE 1 TABLET BY MOUTH DAILY dextroamphetamine-amphetamine [Adderall XR] 30 mg capsule,extended release 24hr 30 mg PO QAM Qty: 30 0RF alprazolam 1 mg tablet 1 mg PO TID PRN (Reason: anxiety) Qty: 80 0RF Breztri Aerosphere 160-9-4.8 mcg/actuation HFA aerosol inhaler See Rx Instructions .ROUTE .COMPLEX Qty: 10.7 0RF Dose Instruction: INHALE 2 PUFFS BY MOUTH TWICE DAILY Rx Instructions: INHALE 2 PUFFS BY MOUTH TWICE DAILY Follow-up/Referrals: Aldo Hanley MD [Primary Care Provider] -
[2024-06-24] MEDS: KETAMINE HCL IV CONT (17:18)
[2024-06-24] MEDS: SODIUM CHLORIDE 0.9% IV CONT (17:18)
== END 2024-06-24 18:33 | disposition home or self-care (01) ==
PROVIDERS: Emergency Provider Emergency Medicine; PCP Family Medicine
DX: R06.00 Dyspnea, unspecified (principal); G89.4 Chronic pain syndrome; Z20.822 Contact with and (suspected) exposure to COVID-19; I10 Essential (primary) hypertension; J44.9 Chronic obstructive pulmonary disease, unspecified; E03.9 Hypothyroidism, unspecified; M79.7 Fibromyalgia; G47.33 Obstructive sleep apnea (adult) (pediatric); F41.9 Anxiety disorder, unspecified; F98.8 Other specified behavioral and emotional disorders with onset usually occurring in childhood and adolescence; F17.210 Nicotine dependence, cigarettes, uncomplicated; Z85.118 Personal history of other malignant neoplasm of bronchus and lung; Z90.2 Acquired absence of lung [part of]; Z90.710 Acquired absence of both cervix and uterus; Z79.899 Other long term (current) drug therapy
CPT/HCPCS: 36415; 71046; 71275; 80053; 82803; 83880; 84484; 85025; 85380; 85610; 85730; 87637; 93005; 93971; 96374; 99284; Q9967

== ENCOUNTER 2024-08-12 12:46 | Outpatient (CLI) | payer MEDICARE, MEDICAID, SELFPAY ==
--- NOTE | ~2024-08-12 | MR_ITS ---
MRI of the cervical spine Clinical History: Pain, numbness and tingling Technique: Axial T2-weighted and gradient images, and sagittal T1-weighted, T2-weighted, and STIR kelly ges were acquired. Findings: No fracture identified. There is minimal grade 1 retrolisthesis of C5 over C6. No suspiciou s bone marrow signal abnormality seen. At C2-C3, there is no disc bulge or herniation. No spinal canal stenosis, cord compression, or neural foraminal narrowing. At C3-C4, there is minimal disc bulge. No spinal canal stenosis, cord compression, or definite neural foraminal narrowing. At C4-C5, there is no disc bulge or herniation. No spinal canal stenosis, cord compression, or left n eural foraminal narrowing. Possible minimal right neural foraminal narrowing. At C5-C6, there is advanced degenerative disc narrowing. Disc osteophyte complex results in mild bernard l stenosis without jeremias cord compression. There is severe bilateral neural foraminal narrowing, righ t worse than left. At C6-C7, there is advanced degenerative disc narrowing with mild disc osteophyte convex. No jeremias ca nal stenosis or cord compression. There is probable bilateral neural foraminal narrowing. Paravertebral soft tissues are unremarkable. No abnormal signal seen in the spinal cord. Impression: Moderate degenerative spondylosis at C5-C6 and C6-C7, as detailed above. Reviewed, dictated and finalized at [facility]. Impression: Moderate degenerative spondylosis at C5-C6 and C6-C7, as detailed above.
--- NOTE | ~2024-08-12 | MR_ITS ---
MRI of the lumbar spine Clinical History: Pain Technique: Axial T2-weighted images, and sagittal T1-weighted, T2-weighted, and T2 fat-sat images wer e acquired. Findings: There is no fracture of the lumbar spine. There is 3 mm retrolisthesis of L4 over L5. There is interbody diffusion devices at the L5-S1 disc space. No suspicious bone marrow signal abnormality seen. At L1-L2, there is no disc bulge or herniation. There is moderate facet hypertrophy. No central canal stenosis or neural foraminal narrowing. At L2-L3, there is minimal disc bulge with moderate facet hypertrophy. No central canal stenosis. The re is mild bilateral neural foraminal narrowing. At L3-L4, there is no disc bulge or herniation. There is advanced facet arthropathy. No central canal stenosis. There is moderate bilateral neural foraminal narrowing. At L4-L5, there is advanced degenerative distended with diffuse disc bulge and moderate facet arthrop athy. No central canal stenosis. There is moderate to advanced bilateral neural foraminal narrowing. At L5-S1, there is posterior decompression without disc bulge or herniation. No spinal canal stenosis or definite neural foraminal narrowing. Paravertebral soft tissues are unremarkable. Impression: Mild degenerative spondylosis. Postoperative change at the L5-S1 level, as detailed above. Reviewed, dictated and finalized at [facility]. Impression: Mild degenerative spondylosis. Postoperative change at the L5-S1 level, as detailed above.
--- OUTSIDE RECORDS SUMMARY | 2024-08-12 13:45 | XMS_ITS | Clinical Summary ---
Author Organization [facility] Address [address], [facility] [address] [place] [address] Phone Care Team Providers Care Retail Sales Advisor Name Role Phone Dieudonne Maxwell MD Primary Care Provider Allergies Active Allergy Reactions [...] Heart Attack Father Heart Attack Sister fatal [place] Heart Disease Sister Relation Name Status Comments [...] Virus (HCV) Screening 1960 TdaP Immunization 1960 Cologuard 09/28/2011 Immunochemical Fecal Occult Blood 09/28/2011 Pneumococcal Immunization (5 0+ years) (1 of 1 - PCV) 09/28/2011 Zoster Immunization (1 of 2) 09/28/2011 Colonoscopy 05/15/2023 05/15/2018 Colorectal Cancer Screening 05/15/2023 Influenza Immunization (#1) 2023 05/2013, 02/24/2014 SARS-COV-2 Immunization ( season) 2023 11/18/2020, [...] to Health Maintenance Insurance MEDICARE Care Teams Retail Sales Advisor Relationship Specialty Start Date End Date Dieudonne Maxwell MD PCP - General Internal Medicine 11/19/17
--- OUTSIDE RECORDS SUMMARY | 2024-08-12 13:45 | XMS_ITS | Clinical Summary ---
Author Organization [facility] Address [address] [place] [address] Care Team Providers Care Stenocaptioner Name Role Phone Unavailable Primary Care Provider [...] Screening with HPV 09/28/1991 Mammogram Screening 2001 Pneumococcal Vaccine: 50+ Ye ars (1 of 1 - PCV) 09/28/2011 Zoster Vaccines (1 of 2) 09/28/2011 COVID-19 Vaccine (2023-2 5 season) 2023 RSV Immunization or 60+ Years (1 - [...]
--- OUTSIDE RECORDS SUMMARY | 2024-08-12 13:45 | XMS_ITS | Encounter Summary ---
Author Organization [facility] Address [address] [place] [address] Care Team Providers Care Adjunct Art History Instructor Name Role Phone Saul Fitch DO Primary Care Provider [phone] Harvey Wilson MD Unavailable [phone] Wily Bassett MD Unavailable [phone] Paulie Lai MD Unavailable [phone] Eb Cardoso MD Unavailable [phone] Ernesto Reddy MD Unavailable [phone] Naomi Bay MD Unavailable [phone] Paula Jarvis NP Unavailable [phone] Unknown, Notinfile Primary Care Provider Unavail able Encounter Details Date Type Department Care Team (Late st Contact Info) Description 10/23/2022 Telephone [facility] [address] [place] [address] Shaina Ferro, HARMEET Social History Tobacco Use Types Packs/Day Years Used Date Smoking Tobacco: Every Day Cigarettes AUDIT-C Answer Date Recorded Q1: How often do you have a drink containing alc ohol? Monthly or less 01/26/2022 Average Number of Drinks Not on file 022 Frequency of Binge Drinking Not on file 01/13 [facility] [place] of Occupat ional Health - Occupational Stress Questionnaire Answer Date Recorded Do you feel stress - tense, restless, nervous, or anxious, or unable to sleep at night because your mind is troubled all the time - these days? 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 Gender Identity Not on file Sexual Orientation Not on file documented as of this encounter Plan of Treatment Not on file documented as of this encounter Visit Diagnoses Not on filedocumented in this encounter Care Teams Adjunct Art History Instructor Relationship Specialty Start Date End Date Saul Fitch DO PCP - General Internal Medicine 01/18/22 01/21/24 Unknown, Notinfile PCP - General 01/22/24 Harvey Wilson MD Medical Oncologist Hematology 01/25/22 Wily Bassett MD [address] [facility] [address] [place] [address] Surgeon Cardiothoracic Surgery 01/25/22 Paulie Lai MD [address] [facility] [address] [place] [address] Safety Belt Installer Critical Care Med 01/25/22 Eb Cardoso MD [address] [place] [address] Safety Belt Installer Critical Care Med 01/25/22 Ernesto Reddy MD [address] [facility] [address] [place] [address] Medical Oncologist/Mandrel Maker Medical Oncology 01/25/22 Naomi Bay MD [address] [facility] [address] [place] [address] Radiation Oncologist Radiation Oncology 01/31/22 Paula Jarvis NP [address] [facility] [address] [place] [address] Nurse Practitioner Radiation Oncology 07/18/22 documented as of this encounter
--- OUTSIDE RECORDS SUMMARY | 2024-08-12 13:45 | XMS_ITS | Clinical Summary ---
Author Organization [facility] Address [address] [place] [address] Care Team Providers Care Para Professional Name Role Phone Dieudonne Maxwell MD Primary Care Provider [phone] Source Comments [facility],non-[facility] Affiliates and Associated Physician Practices is amultiple site organization consisting of ambulatory clinics and hospital sitesin [place] and [place]. This disclosure is being madepursuant to the Care Everywhere program and may not contain all information available regarding this patient. 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 Gender Identity Not on file Sexual Orientation Not on file Last Filed Vital Signs Vital Sign Reading Time Taken Comments Blood Pressure 110/69 06/10/2015 12:31 PM CERTIFIED REHABILITATION COUNSELOR Pulse 84 06/10/2015 12:31 PM CERTIFIED REHABILITATION COUNSELOR Temperature 36.9 C (98.4 F) 06/10/2015 12:31 PM CERTIFIED REHABILITATION COUNSELOR Respiratory Rate 14 06/10/2015 12:31 PM CERTIFIED REHABILITATION COUNSELOR Oxygen Saturation 97% 06/10/2015 12:31 PM CERTIFIED REHABILITATION COUNSELOR Inhaled Oxygen Concentration - - Weight 65.8 kg (145 lb) 06/10/2015 12:31 PM CERTIFIED REHABILITATION COUNSELOR Height 175.3 cm (5' 9 ) 06/10/2015 12:31 PM CERTIFIED REHABILITATION COUNSELOR Body Mass Index 21.41 06/10/2015 12:31 PM CERTIFIED REHABILITATION COUNSELOR Plan of Treatment Health Maintenance Due Date [...] VACCINE (1 - 2023-2 5 season) 2023 DEPRESSION SCREENING 04/15/2024 INFLUENZA VACCINE (Season Ended) 2024 Respiratory Syncytial Virus (RSV) Vaccine Pt: or [...] on patient's age to complete this topic Insurance MEDICARE MEDICAID - OUT OF STATE Care Teams Para Professional Relationship Specialty Start Date End Date Dieudonne Maxwell MD [address] [place] [address] PCP - General 05/20/18
--- OUTSIDE RECORDS SUMMARY | 2024-08-12 13:45 | XMS_ITS | Clinical Summary ---
Author Organization [facility] Address [address] [place] [address] Phone Care Team Providers Care Disbursing Agent Name Role Phone Saul Fitch Primary Care Provider [phone] Allergies Active Allergy Reactions Criticality Noted Date [...] Tablet 2 Active naloxone (NARCAN) 4 mg/spray [place], Non-Aerosol EMERGENCY USE ONLY: Administer 1 spray [...] 11/03/2021 Immunizations Immunization Administration Dates Next Due (Chromatik)(12 YR UP) COVID-19 VACCINE - EMERGENCY USE AUTHORIZATION, MRNA, [id number](PF) 30 MCG/0.3 ML IM SUSP 11/18/2020,10/27/2020 Influenza [...] Comments DTAP/TDAP/TD VACCINES (1 - Tdap) 1980 HPV/Cotest (21-29) 1982 CERVICAL CANCER SCREENING 09/28/1991 HPV/Cotest (30-65) 09/28/1991 PAP SMEAR 09/28/1991 BREAST CANCER SCREENING 2001 FIT-DNA Q 3 years 2006 FIT/FOBT Q 1 year 2006 Flex Sig/CT Colonography Q 5 years 2006 ZOSTER VACCINE (1 of 2) 09/28/2011 RSV VACCINE (60+ or ) (1 - Risk 60-74 years 1-dose series) 2021 COLORECTAL SCREENING 12/03/2022 12/03/2012 Colorectal Cancer Screening 12/03/2022 INFLUENZA VACCINE (#1) 2023 , 02/20/2022, 04/24/2021, Additional history exists COVID-19 Vaccine ( - 2023-2 5 season) 2023 11/18/2020, 10/27/2020 Medical Devices Implanted Type Area City Mail Carrier Device Identifier Shelf Expiration Date Model / Serial / Lot Sealant Progel Pleural 4ml [id number] - [id number] Implanted:Qty: 1 on 12/14/2021 by Wily Bassett MD at [facility] Tissue Left: Chest BARD DAVOL [id number] 06/16/2023 [id number] / / [id number] Lumbar Fusion Hardware Insurance MEDICARE PART A AND B [facility] MEDICAID MEDICARE PART A AND B [facility] MEDICAID Advance Directives For more information, please contact: [phone] * Full Code (Latest Code Status on File) Date Activated Date Inactivated Comments 12/14/2021 5:21 PM 12/21/2021 6:25 PM * Full Code Date Activated Date Inactivated Comments 12/14/2021 8:36 AM 12/14/2021 5:21 PM Care Teams Disbursing Agent Relationship Specialty Start Date End Date Saul Fitch DO [address] [facility] [address] [facility] [address] [place] [address] PCP - General Internal Medicine 10/26/21
--- OUTSIDE RECORDS SUMMARY | 2024-08-12 13:45 | XMS_ITS | Encounter Summary ---
Author Organization [facility] Address [address] [place] [address] Phone Care Team Providers Care Zinc Miner Name Role Phone Saul Fitch Primary Care Provider [phone] Harvey Wilson MD Unavailable [phone] Wily Bassett MD Unavailable [phone] Paulie Lai MD Unavailable [phone] Eb Cardoso MD Unavailable [phone] Ernesto Reddy MD Unavailable [phone] Naomi Bay MD Unavailable [phone] Paula Jarvis NP Unavailable [phone] Unknown, Notinfile Primary Care Provider Unavail able Encounter Details Date Type Department Care Team (Latest Contact Info) Description 12/14/2021 Orders Only [facility] Scanning, Provider Social History Tobacco Use Types Packs/Day Years Used Date Smoking Tobacco: Never Assessed Comments Unknown Sex and Gender Information Value Date Recorded Sex Assigned at Not on file 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 Gender Identity Not on file Sexual [...] on filedocumented in this encounter Care Teams Zinc Miner Relationship Specialty Start Date End Date Saul Fitch DO PCP - General Internal Medicine 01/18/22 01/21/24 Unknown, Notinfile PCP - General 01/22/24 Harvey Wilson MD Medical Oncologist Hematology 01/25/22 Wily Bassett MD [address] [facility] [address] [place] [address] Surgeon Cardiothoracic Surgery 01/25/22 Paulie Lai MD [address] [facility] [address] [place] [address] Dental Secretary Critical Care Med 01/25/22 Eb Cardoso MD [address] [place], [place] [id number] Dental Secretary Critical Care Med 01/25/22 Ernesto Reddy MD [address] DIV MEDICAL ONCOLOGY, JUN 7A, 7B, 7[place] [address] Medical Oncologist/Drive In Theater Attendant Medical Oncology 01/25/22 Naomi Bay MD [address] [place] [address] Radiation Oncologist Radiation Oncology 01/31/22 Paula Jarvis NP [address] [facility] [address] [place] [address] Nurse Practitioner Radiation Oncology 07/18/22 documented as of this encounter
--- OUTSIDE RECORDS SUMMARY | 2024-08-12 13:45 | XMS_ITS | Clinical Summary ---
Author Organization [facility] 2 Address [address] [facility] [place] [address] Care Team Providers Care Transportation Manager Name Role Phone Harvey Wilson MD Unavailable [phone] Wily Bassett MD Unavailable [phone] Paulie Lai MD Unavailable [phone] Eb Cardoso MD Unavailable [phone] BarryErnesto hernandez MD Unavailable [phone] Naomi Bay MD Unavailable [phone] Paula Jarvis NP Unavailable Unknown, Notinfile Primary Care Provider Unavail able Allergies Active Allergy Reactions Criticality Noted Date Comments Sulfa (Sulfonamide Antibiotics) Unknown,Swelling Medium 10/31/2013 Swelling Sulfamethoxazole-Tri methoprim Flushing (skin),Unknown,Hives Medium 10/31/2013 Eyes close and well, 104 fever, welts and bumps 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 Medications ALPRAZolam (XANAX) 1 mg [...] Department Care Team Description 06/16/2024 11:00 AM OUTREACH PROFESSIONAL Office Visit [facility] On[facility] Floor 5 [place] [address] Ernesto Reddy MD Primary cancer of left lower lobe of lung (HCC) (Primary Dx); 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); Smoking history; Multiple lung nodules on CT 06/16/2024 10:00 AM OUTREACH PROFESSIONAL Lab [facility] Lab [address] [facility] Floor 5 [place] [address] 06/16/2024 9:45 AM OUTREACH PROFESSIONAL Lab [facility] - Lab Collection [address] [facility] Floor 5 [place] [address] Primary cancer of left lower lobe of lung (HCC); 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) 05/26/2024 Orders Only [facility] Pulmonary [address] [facility] Advanced Medicine 8th [place] [address] [place] [address] Fletcher Espinal MD Chronic obstructive pulmonary disease, unspecified COPD type (HCC) (Primary Dx) from Last 3 Months Immunizations Immunization Administration [...] of Binge Drinking Not on file 01/13 [facility] of Occupat ional Health - Occupational Stress Questionnaire Answer Date Recorded Do you feel stress - tense, restless, nervous, or anxious, or unable to sleep at night because your mind is troubled all the time - these days? Very much 01/26/2022 Comments No Sex and Gender Information Value Date Recorded Sex Assigned at Not on file Legal Sex Female 2:06 PM OUTREACH PROFESSIONAL Gender Identity Not on file Sexual Orientation Not on file Obstetrics History Last Filed Vital Signs Vital Sign Reading Time Taken Comments Blood Pressure 143/86 06/16/2024 10:12 AM OUTREACH PROFESSIONAL Pulse 106 06/16/2024 10:12 AM OUTREACH PROFESSIONAL Temperature 36.2 C (97.2 F) 06/16/2024 10:12 AM OUTREACH PROFESSIONAL Respiratory Rate 18 06/16/2024 10:12 AM OUTREACH PROFESSIONAL Oxygen Saturation 97% 06/16/2024 10:12 AM OUTREACH PROFESSIONAL Inhaled Oxygen Concentration - - Weight 72.8 kg (160 lb 9.6 oz) 06/16/2024 10:12 AM OUTREACH PROFESSIONAL Height 171 cm (5' 7.32 ) 11/20/2022 [...] Diagnosis Comments EGFR Routine 06/16/2024 10:00 AM OUTREACH PROFESSIONAL Primary cancer of left lower lobe of lung (HCC) 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) DIFFERENTIAL AUTO Routine 06/16/2024 10: 00 AM OUTREACH PROFESSIONAL Primary cancer of left lower lobe of lung (HCC) 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 73 m2 Comment: [...] reviewed 2021. Blood 06/16/2024 10:0 0 AM OUTREACH PROFESSIONAL 06/16/2024 10:05 AM OUTREACH PROFESSIONAL us Ernesto Reddy MD LAB BLOOD ORDERABLES Cyndi abad Result [facility] One [facility] Department [place] [address] * (ABNORMAL) Differential, auto (06/16/2024 10:00 AM OUTREACH PROFESSIONAL) Neutrophil abs 9.0(H) 1.5 - 6.5 K/cumm Comment:Testing performed by : [facility], [address] [place] [address] Lymphocyte abs 1.7 0.8 - 3.3 K/cumm CERNER BJ Comment:Testing performed by : [facility], [address] [place] [address] Monocyte abs 0.8 0.2 - 0.8 K/cumm CERNER BJ Comment:Testing performed by : [facility], [address] [place] [address] Eosinophil abs 0.0 0.0 - 0.5 K/cumm CERNER BJ Comment:Testing performed by : [facility], [address] [place] [phone] Basophil abs 0.1 0.0 - 0.1 K/cumm CERNER BJ Comment:Testing performed by : [facility], [address] [place] [phone] Neutrophil pct 77.0 % CERNER BJ Comment: Interpretive Data Percent cell count reference ranges are not reported, since discordance with absolute values may lead to misinterpretation of CBC data. Current Interpretive Data was last revised on 2017. Testing performed by: [facility], [address] [place] [phone] Lymphocyte pct 14.4 % CERNER BJ Comment: Interpretive Data Percent cell count reference ranges are not reported, since discordance with absolute values may lead to misinterpretation of CBC data. Current Interpretive Data was last revised on 2017. Testing performed by: [facility], [address] [place], [place] [phone] Monocyte pct 7.2 % [facility] Comment: Interpretive Data Percent cell count reference ranges are not reported, since discordance with absolute values may lead to misinterpretation of CBC data. Current Interpretive Data was last revised on 2017. Testing performed by: [facility], [address] [place] [phone] Eosinophil pct 0.4 % [facility] Comment: Interpretive Data Percent cell count reference ranges are not reported, since discordance with absolute values may lead to misinterpretation of CBC data. Current Interpretive Data was last revised on 2017. Testing performed by: [facility], [address] [place], [place] [phone] Basophil pct 1.0 % [facility] Comment: Interpretive Data Percent cell count reference ranges are not reported, since discordance with absolute values may lead to misinterpretation of CBC data. Current Interpretive Data was last revised on 2017. Testing performed by: [facility], [address] [place] [address] Blood 06/16/2024 10:0 0 AM OUTREACH PROFESSIONAL 06/16/2024 10:03 AM OUTREACH PROFESSIONAL Ernesto Reddy MD LAB BLOOD ORDERABLES Cyndi abad Result [facility] One [facility] Department [place] [address] * (ABNORMAL) CBC with auto differential (06/16/2024 10:00 AM OUTREACH PROFESSIONAL) WBC 11.6(H) 3.8 - 9.9 K/cumm Comment:Testing performed by : [facility], [address] [place] [address] Hgb 11.7(L) 11.9 - 15.5 g/dL [facility] Comment:Testing performed by : [facility], [address] [place] [address] Hct 35.2(L) 35.6 - 45.5 % [facility] Comment:Testing performed by : [facility], [address] [place], [place] [phone] Plt 699(H) 150 - 400 K/cumm CERSALUD BJ Comment:Testing performed by : [facility], [address] [place], [place] [phone] MPV 7.5 6.8 - 10.4 fL CERSALUD BJ Comment:Testing performed by : [facility], [address] [place], [place] [phone] RBC 4.02 3.90 - 5.20 M/cumm CERSALUD BJ Comment:Testing performed by : [facility], [address] [place], [place] [phone] MCV 87.6 81.3 - 96.4 fL CERSALUD BJ Comment:Testing performed by : [facility], [address] [place], [place] [phone] MCH 29.1 27.1 - 33.3 pg CERSALUD BJ Comment:Testing performed by : [facility], [address] [place], [place] [phone] MCHC 33.2 32.3 - 35.7 g/dL CERNER BJ Comment:Testing performed by : [facility], [address] [place] [address] RDW CV 13.6 11.1 - 14.9 % CERSALUD BJ Comment:Testing performed by : [facility], [address] [place], [place] [phone] NRBC abs 0.00 0.00 - 0.01 K/cumm CERSALUD BJ Comment:Testing performed by : [facility], [address] [place] [address] Blood 06/16/2024 10:0 0 AM OUTREACH PROFESSIONAL 06/16/2024 10:03 AM OUTREACH PROFESSIONAL us Ernesto Reddy MD LAB BLOOD ORDERABLES Cyndi l Result [facility] One [facility] Department of Laboratories [place] [id number] * (ABNORMAL) Comprehensive metabolic panel (06/16/2024 10:00 AM OUTREACH PROFESSIONAL) Sodium 138 135 - 145 mmol/L Potassium, pl 4.3 3.3 - 4.9 mmol/L [facility] Chloride 97 97 - 110 mmol/L [facility] CO2 31 22 - 32 mmol/L [facility] Anion gap 10 2 - 15 mmol/L [facility] BUN 13 6 - 25 mg/dL [facility] Creatinine 0.49(L) 0.60 - 1.10 mg/dL [facility] Glucose 129 70 - 199 mg/dL [facility] Comment: Interpretive Data Fasting glucose >/= [...] classification and Diagnosis of Diabetes Diabetes Care 2021; 46: S19-S40. Current interpretive data was last revised 2022. Calcium 10.0 8.5 - 10.3 mg/dL [facility] Bilirubin, total 0.2 0.1 - 1.2 mg/dL [facility] Protein, pl 7.8 6.5 - 8.5 g/dL [facility] Albumin 4.0 3.5 - 5.0 g/dL [facility] Alk phos 104 40 - 130 Units/L [facility] ALT 8 7 - 45 Units/L [facility] AST 13 10 - 45 Units/L [facility] Blood 06/16/2024 10:0 0 AM OUTREACH PROFESSIONAL 06/16/2024 10:05 AM OUTREACH PROFESSIONAL us Ernesto Reddy MD LAB BLOOD ORDERABLES Cyndi l Result [facility] One [facility] Department [place] [address] * COLONOSCOPY (12/03/2012 12:00 AM CDT) Anatomical Region Laterality Modality Other Narrative 12/03/2012 12:00 AM CDT Ordered by an unspecified provider. Procedure Note Provider, MD Reginaldo - 12/03/2012 12:00 AM CDT PROCEDURE REPORT Patient: LESLEE OLIVIER Account: [id number] Room No: : 1960 Patient Type: SDS [...] Recently Relevant to Health Maintenance Insurance MEDICARE [facility] MEDICARE [facility] Address: [address] [address] [place] [address] [facility] Care Teams Transportation Manager Relationship Specialty Start Date End Date Unknown, Notinfile PCP - General 01/22/24 Harvey Wilson MD Medical Oncologist Hematology 01/25/22 Wily Bassett MD [address] [place] [address] Surgeon Cardiothoracic Surgery 01/25/22 Paulie Lai MD [address] [place] [address] Auditor Appraiser Critical Care Med 01/25/22 Eb Cardoso MD [address] [place] [address] Auditor Appraiser Critical Care Med 01/25/22 Ernesto Reddy MD [address] IM MEDICAL ONCOLOGY, JUN 7A, 7B, 7C [place] [address] Medical Oncologist/Paramedic Supervisor Medical Oncology 01/25/22 Naomi Bay MD [address] [place] [address] Radiation Oncologist Radiation Oncology 01/31/22 Paula Jarvis NP [address] [place] [address] Nurse Practitioner Radiation Oncology 07/18/22
--- OUTSIDE RECORDS SUMMARY | 2024-08-12 13:45 | XMS_ITS | Encounter Summary ---
Author Organization [facility] Address [address] [place] [address] Phone Care Team Providers Care Utility Sales And Service Manager Name Role Phone Saul Fitch Primary Care Provider Harvey Wilson MD Unavailable [phone] Wily Bassett MD Unavailable [phone] Paulie Lai MD Unavailable [phone] Eb Cardoso MD Unavailable [phone] Ernesto Reddy MD Unavailable [phone] Naomi Bay MD Unavailable [phone] Paula Jarvis NP Unavailable [phone] Unknown, Notinfile Primary Care Provider Unavail able Encounter Details Date Type Department Care Team (Latest Contact Info) Description 11/13/2021 Orders Only [facility] Scanning, Provider Social History Tobacco Use Types Packs/Day Years Used Date Smoking Tobacco: Never Assessed Comments Unknown Sex and Gender Information Value Date Recorded Sex Assigned at Not on file 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 Gender Identity Not on file Sexual [...] on filedocumented in this encounter Care Teams Utility Sales And Service Manager Relationship Specialty Start Date End Date Saul Fitch DO PCP - General Internal Medicine 01/18/22 01/21/24 Unknown, Notinfile PCP - General 01/22/24 Harvey Wilson MD Medical Oncologist Hematology 01/25/22 Wily Bassett MD [address] [facility] [address] [place] [address] Surgeon Cardiothoracic Surgery 01/25/22 Paulie Lai MD [address] [facility] [address] [place] [address] Cocoa Butter Filter Operator Critical Care Med 01/25/22 Eb Cardoso MD [address] [place], [place] [address] Cocoa Butter Filter Operator Critical Care Med 01/25/22 Ernesto Reddy MD [address] DIV MEDICAL ONCOLOGY, JUN 7A, 7B, [address] [place] [address] Medical Oncologist/Stock Preparation Operator Medical Oncology 01/25/22 Naomi Bay MD [address] [place] [address] Radiation Oncologist Radiation Oncology 01/31/22 Paula Jarvis NP [address] [facility] [address] [place] [address] Nurse Practitioner Radiation Oncology 07/18/22 documented as of this encounter
--- OUTSIDE RECORDS SUMMARY | 2024-08-12 13:45 | XMS_ITS | Encounter Summary ---
Author Organization [facility] Address [address] [place] [address] Care Team Providers Care Body And Fender Worker Name Role Phone Saul Fitch DO Primary Care Provider [phone] Harvey Wilson MD Unavailable [phone] Wily Bassett MD Unavailable [phone] Paulie Lai MD Unavailable [phone] Eb Cardoso MD Unavailable [phone] Ernesto Reddy MD Unavailable [phone] Naomi Bay MD Unavailable [phone] Paula Jarvis NP Unavailable [phone] Unknown, Notinfile Primary Care Provider Unavail able Encounter Details Date Type Department Care Team (Late st Contact Info) Description 01/23/2023 Telephone [facility] [address] [place] [address] Shaina Ferro, HARMEET Social History Tobacco Use Types Packs/Day Years Used Date Smoking Tobacco: Every Day Cigarettes AUDIT-C Answer Date Recorded Q1: How often do you have a drink containing alc ohol? Monthly or less 01/26/2022 Average Number of Drinks Not on file 022 Frequency of Binge Drinking Not on file 01/13 [facility] of Occupat ional Health - Occupational Stress Questionnaire Answer Date Recorded Do you feel stress - tense, restless, nervous, or anxious, or unable to sleep at night because your mind is troubled all the time - these days? 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 Gender Identity Not on file Sexual Orientation Not on file documented as of this encounter Plan of Treatment Not on file documented as of this encounter Visit Diagnoses Not on filedocumented in this encounter Care Teams Body And Fender Worker Relationship Specialty Start Date End Date Saul Fitch DO PCP - General Internal Medicine 01/18/22 01/21/24 Unknown, Notinfile PCP - General 01/22/24 Harvey Wilson MD Medical Oncologist Hematology 01/25/22 Wily Bassett MD [address] [facility] [address] [place] [address] Surgeon Cardiothoracic Surgery 01/25/22 Paulie Lai MD [address] [facility] [address] [place] [address] Nuclear Physicist Critical Care Med 01/25/22 Eb Cardoso MD [address] [place] [address] Nuclear Physicist Critical Care Med 01/25/22 Ernesto Reddy MD [address] [facility] DIV MEDICAL ONCOLOGY, JUN 7A, 7B, [address] [place] [address] Medical Oncologist/Toy Assembler Medical Oncology 01/25/22 Naomi Bay MD [address] [facility] [address] [place] [address] Radiation Oncologist Radiation Oncology 01/31/22 Paula Jarvis NP [address] [facility] [address] [place] [address] Nurse Practitioner Radiation Oncology 07/18/22 documented as of this encounter
--- OUTSIDE RECORDS SUMMARY | 2024-08-12 13:45 | XMS_ITS ---
Author Organization [facility] 2 Address [address] [place] [address] Care Team Providers Care Flux Plant Operator Name Role Phone Harvey Wilson MD Unavailable [phone] Wily Bassett MD Unavailable [phone] Paulie Lai MD Unavailable [phone] Eb Cardoso MD Unavailable [phone] Ernesto Reddy MD Unavailable [phone] Naomi Bay MD Unavailable [phone] Paula Jarvis NP Unavailable [phone] Unknown, Notinfile Primary Care Provider Unavail able [...]
--- OUTSIDE RECORDS SUMMARY | 2024-08-12 13:45 | XMS_ITS | Encounter Summary ---
Author Organization [facility] Address [address] [place] [address] Phone Care Team Providers Care Incident Response Lead Name Role Phone Saul Fitch Primary Care Provider [phone] Harvey Wilson MD Unavailable [phone] Wily Bassett MD Unavailable [phone] Paulie Lai MD Unavailable [phone] Eb Cardoso MD Unavailable [phone] Ernesto Reddy MD Unavailable [phone] Naomi Bay MD Unavailable [phone] Palua Jarvis NP Unavailable [phone] Unknown, Notinfile Primary Care Provider Unavail able Encounter Details Date Type Department Care Team (Latest Contact Info) Description 11/22/2021 Orders Only [facility] Scanning, Provider Social History Tobacco Use Types Packs/Day Years Used Date Smoking Tobacco: Never Assessed Comments Unknown Sex and Gender Information Value Date Recorded Sex Assigned at Not on file Legal Sex Female 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 PM 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 Gender Identity Not on file Sexual Orientation [...] on filedocumented in this encounter Care Teams Incident Response Lead Relationship Specialty Start Date End Date Saul Fitch DO PCP - General Internal Medicine 01/18/22 01/21/24 Unknown, Notinfile PCP - General 01/22/24 Harvey Wilson MD Medical Oncologist Hematology 01/25/22 Wily Bassett MD [address] [facility] [address] [place] [address] Surgeon Cardiothoracic Surgery 01/25/22 Paulie Lai MD [address] [facility] [address] [place] [address] Corporate Trainer Critical Care Med 01/25/22 Eb Cardoso MD [address] [place], [place] [id number] Corporate Trainer Critical Care Med 01/25/22 Ernesto Reddy MD [address] DIV MEDICAL ONCOLOGY, JUN 7A, 7B, [address] [place] [address] Medical Oncologist/Dry Press Operator Helper Medical Oncology 01/25/22 Naomi Bay MD [address] [place] [address] Radiation Oncologist Radiation Oncology 01/31/22 Paula Jarvis NP [address] [facility] [address] [place] [address] Nurse Practitioner Radiation Oncology 07/18/22 documented as of this encounter
--- OUTSIDE RECORDS SUMMARY | 2024-08-12 13:45 | XMS_ITS | Encounter Summary ---
Author Organization [facility] Address [address] [place] [address] Phone Care Team Providers Care Processing Talc And Borate Supervisor Name Role Phone Saul Fitch Primary Care Provider [phone] Harvey Wilson MD Unavailable [phone] Wily Bassett MD Unavailable [phone] Paulie Lai MD Unavailable [phone] Eb Cardoso MD Unavailable Ernesto Reddy MD Unavailable [phone] Naomi Bay MD Unavailable [phone] Paula Jarvis NP Unavailable [phone] Unknown, Notinfile Primary Care Provider Unavail able Encounter Details Date Type Department Care Team (Latest Contact Info) Description 10/26/2021 Orders Only [facility] Scanning, Provider Social History Tobacco Use Types Packs/Day Years Used Date Smoking Tobacco: Never Assessed Comments Unknown Sex and Gender Information Value Date Recorded Sex Assigned at Not on file Legal Sex Female 2:06 PM 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 CLERK Gender Identity Not on file Sexual Orientation [...] on filedocumented in this encounter Care Teams Processing Talc And Borate Supervisor Relationship Specialty Start Date End Date Saul Fitch DO PCP - General Internal Medicine 01/18/22 01/21/24 Unknown, Notinfile PCP - General 01/22/24 Harvey Wilson MD Medical Oncologist Hematology 01/25/22 Wily Bassett MD [address] [facility] [address] [place] [address] Surgeon Cardiothoracic Surgery 01/25/22 Paulie Lai MD [address] [facility] [address] [place] [address] Shrimp Peeling Machine Tender Critical Care Med 01/25/22 Eb Cardoso MD [address] [place], [place] [id number] Shrimp Peeling Machine Tender Critical Care Med 01/25/22 Ernesto Reddy MD [address] DIV MEDICAL ONCOLOGY, [address], [address], [address] [place] [address] Medical Oncologist/Classroom Instructor Medical Oncology 01/25/22 Naomi Bay MD [address] [place] [address] Radiation Oncologist Radiation Oncology 01/31/22 Paula Jarvis NP [address] [facility] [address] [place] [address] Nurse Practitioner Radiation Oncology 07/18/22 documented as of this encounter
--- OUTSIDE RECORDS SUMMARY | 2024-08-12 13:45 | XMS_ITS | Referral Summary ---
Author Organization [facility] Address [address] [place] [address] Care Team Providers Care Explosive Man Name Role Phone Harvey Wilson MD Unavailable [phone] Wily Bassett MD Unavailable [phone] Paulie Lai MD Unavailable [phone] Eb Cardoso MD Unavailable [phone] Ernesto Reddy MD Unavailable [phone] Naomi Bay MD Unavailable [phone] Paula Jarvis NP Unavailable [phone] Unknown, Notinfile Primary Care Provider Unavail able Encounters Date Type Department Care Team Description 06/16/2024 9:45 AM FRUIT SORTER Lab [facility] - Lab Collection [address] [place] [id number] Primary cancer of left lower lobe of lung (HCC); 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 Floor 5 [place] [address] 05/26/2024 Orders Only [facility] Pulmonary [address] [facility] Advanced Medicine 8th [place] [address] [place] [address] Fletcher Espinal MD Chronic obstructive pulmonary disease, unspecified COPD type (HCC) (Primary Dx) from Last 3 Months Allergies Active Allergy Reactions Criticality Noted Date Comments Sulfa (Sulfonamide Antibiotics) Unknown,Swelling Medium 10/31/2013 Swelling Sulfamethoxazole-Tri methoprim Flushing (skin),Unknown,Hives Medium 10/31/2013 Eyes close and well, 104 fever, welts and bumps 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 Very much 01/26/2022 Comments No Sex and Gender Information Value Date Recorded Sex Assigned at Not on file Legal Sex Female 2:06 PM FRUIT SORTER Gender Identity Not on file Sexual Orientation Not on file Last Filed Vital Signs Vital Sign Reading Time Taken Comments Blood Pressure 143/86 06/16/2024 10:12 AM FRUIT SORTER Pulse 106 06/16/2024 10:12 AM FRUIT SORTER Temperature 36.2 C (97.2 F) 06/16/2024 10:12 AM FRUIT SORTER Respiratory Rate 18 06/16/2024 10:12 AM FRUIT SORTER Oxygen Saturation 97% 06/16/2024 10:12 AM FRUIT SORTER Inhaled Oxygen Concentration - - Weight 72.8 kg (160 lb 9.6 oz) 06/16/2024 10:12 AM FRUIT SORTER Height 171 cm (5' 7.32 ) 11/20/2022 1:26 PM CDT Body Mass Index 24.91 11/20/2022 1:26 PM CDT Plan of Treatment Not on file Procedures Procedure Name Priority Date/Time Associated Diagnosis Comments EGFR Routine 06/16/2024 10:00 AM FRUIT SORTER Primary cancer of left lower lobe of lung (HCC) 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) DIFFERENTIAL AUTO Routine 06/16/2024 10: 00 AM FRUIT SORTER Primary cancer of left lower lobe of lung (HCC) 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 73 m2 Comment: [...] reviewed 2021. Blood 06/16/2024 10:0 0 AM FRUIT SORTER 06/16/2024 10:05 AM FRUIT SORTER us Ernesto Reddy MD LAB BLOOD ORDERABLES Cyndi abad Result [facility] One [facility] Department [place] [address] * (ABNORMAL) Differential, auto (06/16/2024 10:00 AM FRUIT SORTER) Neutrophil abs 9.0(H) 1.5 - 6.5 K/cumm Comment:Testing performed by : [facility], [address] [place] [phone] Lymphocyte abs 1.7 0.8 - 3.3 K/cumm CERSALUD [facility] Comment:Testing performed by : [facility], [address] [place] [phone] Monocyte abs 0.8 0.2 - 0.8 K/cumm [facility]ERS[facility] Comment:Testing performed by : [facility], [address] [place] [phone] Eosinophil abs 0.0 0.0 - 0.5 K/cumm [facility]ERS[facility] Comment:Testing performed by : [facility], [address] [place] [phone] Basophil abs 0.1 0.0 - 0.1 K/cumm [facility]ERS[facility] Comment:Testing performed by : [facility], [address] [place] [phone] Neutrophil pct 77.0 % [facility] Comment: Interpretive Data Percent cell count reference ranges are not reported, since discordance with absolute values may lead to misinterpretation of CBC data. Current Interpretive Data was last revised on 2017. Testing performed by: [facility], [address] [place] [phone] Lymphocyte pct 14.4 % [facility] Comment: Interpretive Data Percent cell count reference ranges are not reported, since discordance with absolute values may lead to misinterpretation of CBC data. Current Interpretive Data was last revised on 2017. Testing performed by: [facility], [address] [place] [phone] Monocyte pct 7.2 % [facility] Comment: Interpretive Data Percent cell count reference ranges are not reported, since discordance with absolute values may lead to misinterpretation of CBC data. Current Interpretive Data was last revised on 2017. Testing performed by: [facility], [address] [place] [phone] Eosinophil pct 0.4 % [facility] Comment: Interpretive Data Percent cell count reference ranges are not reported, since discordance with absolute values may lead to misinterpretation of CBC data. Current Interpretive Data was last revised on 2017. Testing performed by: [facility], [address] [place] [phone] Basophil pct 1.0 % [facility] Comment: Interpretive Data Percent cell count reference ranges are not reported, since discordance with absolute values may lead to misinterpretation of CBC data. Current Interpretive Data was last revised on 2017. Testing performed by: [facility], [address] [place] [phone] Blood 06/16/2024 10:0 0 AM FRUIT SORTER 06/16/2024 10:03 AM FRUIT SORTER Ernesto Reddy MD LAB BLOOD ORDERABLES Cyndi l Result [facility] One [facility] Department [place] [address] * (ABNORMAL) CBC with auto differential (06/16/2024 10:00 AM FRUIT SORTER) WBC 11.6(H) 3.8 - 9.9 K/cumm Comment:Testing performed by : [facility], [address] [place] [address] Hgb 11.7(L) 11.9 - 15.5 g/dL CERNER [facility] Comment:Testing performed by : [facility], [address] [place] [address] Hct 35.2(L) 35.6 - 45.5 % [facility] Comment:Testing performed by : [facility], [address] [place] [address] Plt 699(H) 150 - 400 K/cumm [facility] Comment:Testing performed by : [facility], [address] [place] [address] MPV 7.5 6.8 - 10.4 fL [facility] Comment:Testing performed by : [facility], [address] [place] [address] RBC 4.02 3.90 - 5.20 M/cumm [facility] Comment:Testing performed by : [facility], [address] [place] [address] MCV 87.6 81.3 - 96.4 fL [facility] Comment:Testing performed by : [facility], [address] [place] [address] MCH 29.1 27.1 - 33.3 pg [facility] Comment:Testing performed by : [facility], [address] [place] [address] MCHC 33.2 32.3 - 35.7 g/dL [facility] Comment:Testing performed by : [facility], [address] [place] [phone] RDW CV 13.6 11.1 - 14.9 % [facility] Comment:Testing performed by : [facility], [address] [place] [address] NRBC abs 0.00 0.00 - 0.01 K/cumm [facility] Comment:Testing performed by : [facility], [address] [place] [address] Blood 06/16/2024 10:0 0 AM FRUIT SORTER 06/16/2024 10:03 AM FRUIT SORTER us Ernesto Reddy MD LAB BLOOD ORDERABLES Cyndi l Result [facility] One [facility] Department [place] [address] * (ABNORMAL) Comprehensive metabolic panel (06/16/2024 10:00 AM FRUIT SORTER) Sodium 138 135 - 145 mmol/L Potassium, pl 4.3 3.3 - 4.9 mmol/L [facility] Chloride 97 97 - 110 mmol/L [facility] CO2 31 22 - 32 mmol/L [facility] Anion gap 10 2 - 15 mmol/L [facility] BUN 13 6 - 25 mg/dL [facility] Creatinine 0.49(L) 0.60 - 1.10 mg/dL [facility] Glucose 129 70 - 199 mg/dL [facility] Comment: Interpretive Data Fasting glucose >/= [...] 2022. Calcium 10.0 8.5 - 10.3 mg/dL [facility] Bilirubin, total 0.2 0.1 - 1.2 mg/dL [facility] Protein, pl 7.8 6.5 - 8.5 g/dL [facility] Albumin 4.0 3.5 - 5.0 g/dL [facility] Alk phos 104 40 - 130 Units/L CERNER [facility] ALT 8 7 - 45 Units/L C[facility] AST 13 10 - 45 Units/L [facility] Blood 06/16/2024 10:0 0 AM FRUIT SORTER 06/16/2024 10:05 AM FRUIT SORTER us Ernesto Reddy MD LAB BLOOD ORDERABLES Cydni l Result [facility] One [facility] Department [place] [address] * COLONOSCOPY (12/03/2012 12:00 AM CDT) Anatomical Region Laterality Modality Other Narrative 12/03/2012 12:00 AM CDT Ordered by an unspecified provider. Procedure Note ProviderReginaldo MD - 12/03/2012 12:00 AM CDT PROCEDURE REPORT Patient: LESLEE OLIVIER Account: [id number] Room No: : 1960 Patient [facility]: [facility] Attend.: Alverto Perry D.O. Admit Date: [...] in the left lateral decubitus position, [facility] of Anesthesiology. Digital rectal examination was [...] Recently Relevant to Health Maintenance Insurance MEDICARE [place] MEDICARE [facility] Care Teams Explosive Man Relationship Specialty Start Date End Date Unknown, Notinfile PCP - General 01/22/24 Harvey Wilson MD Medical Oncologist Hematology 01/25/22 Wily Bassett MD [address] [facility] [address] [place] [address] Surgeon Cardiothoracic Surgery 01/25/22 Paulie Lai MD [address] [facility] [address] [place] [address] Relay Worker Critical Care Med 01/25/22 Eb Cardoso MD [address] [place] [address] Relay Worker Critical Care Med 01/25/22 Ernesto Reddy MD [address] IM MEDICAL ONCOLOGY, [address]A, [address]B, [address] [place] [address] Medical Oncologist/Claims Agent Right Of Way Medical Oncology 01/25/22 Naomi Bay MD [address] [place] [address] Radiation Oncologist Radiation Oncology 01/31/22 Paula Jarvis NP [address] [place] [address] Nurse Practitioner Radiation Oncology 07/18/22
--- OUTSIDE RECORDS SUMMARY | 2024-08-12 13:45 | XMS_ITS | Continuity of Care Document ---
Author Organization [facility] Address [id number] [place] [address] [address] [place] [address] Phone Care Team Providers Care Quality Engineer Medical Device Name Role Phone Sanford OD, Alverto Unavailable Unavailable Advance Directives Directive Yes / No Effective Date File Name No Information Encounters Encounter Description Practice Location Reason(s) For Visit Diagnoses Date Provider Providers Copied on Encounter [facility], [address], [place], [place], [id number], [place] tel:[phone] [facility] No Information Apr-1 5-200 5 Sanford OD Alverto. [address] , [address], [place], [address], [place]. tel:[phone] Family History Family Member Type Diagnosis Age At Onset No Information Payers Payer name Insurance type Covered democrat ID Authoriza tion(s) No Information Social History [...]
== END 2024-08-12 12:47 | disposition home or self-care (01) ==
PROVIDERS: PCP Family Medicine; Visit Provider Internal Medicine Rheumatology
DX: M47.816 Spondylosis without myelopathy or radiculopathy, lumbar region (principal); M51.87 Other intervertebral disc disorders, lumbosacral region; Z96.89 Presence of other specified functional implants
CPT/HCPCS: 72141; 72148

== ENCOUNTER 2025-03-03 16:51 | Outpatient (CLI) | payer MEDICARE, MEDICAID, SELFPAY ==
[2025-03-03 17:17] LABS: Hematocrit 40.2 % (37.0-47.0); Hemoglobin 12.9 g/dL (12.0-15.0); Mean Corpuscular HGB Conc 32.1 g/dl (32-36); Mean Corpuscular Hemoglobin 31.5 pg (26-34); Mean Corpuscular Volume 98.3 fl (80-100); Platelet Count Result 334 k/mm3 (150-375); Red Blood Count 4.09 M/mm3 (4.2-5.4); White Blood Count 8.8 K/mm3 (4.5-10.0)
[2025-03-03 17:42] LABS: Alanine Aminotransferase 18 U/L (6-35); Albumin Level 4.1 g/dL (3.5-5.1); Alkaline Phosphatase 69 U/L (38-126); Anion Gap 7 mmol/L (4-12); Aspartate Amino Transferase 20 U/L (14-36); Bilirubin,Total 0.3 mg/dL (0.2-1.3); Blood Urea Nitrogen 17 mg/dL (7-17); Calcium 8.8 mg/dL (8.4-10.2); Carbon Dioxide 29 mmol/L (22-30); Chloride 102 mmol/L (98-107); Estimated Glomerular Filt Rate > 60; Glucose 89 mg/dL (65-110); Potassium 4.2 mmol/L (3.4-5.0); Sodium 138 mmol/L (137-145); Total Protein 6.8 g/dL (6.3-8.2)
[2025-03-03 18:24] LABS: Thyroid Stimulating Hormone 3.480 uIU/mL (0.465-4.680)
[2025-03-03 18:43] LABS: Vitamin B12 364.0 pg/mL (239-931)
== END 2025-03-03 16:52 | disposition home or self-care (01) ==
PROVIDERS: PCP Family Medicine; Visit Provider Family Medicine
DX: E03.9 Hypothyroidism, unspecified (principal); Z79.899 Other long term (current) drug therapy; F41.9 Anxiety disorder, unspecified; F98.8 Other specified behavioral and emotional disorders with onset usually occurring in childhood and adolescence; Z86.79 Personal history of other diseases of the circulatory system; E55.9 Vitamin D deficiency, unspecified; I10 Essential (primary) hypertension
CPT/HCPCS: 36415; 80053; 82306; 82607; 84443; 85027

== ENCOUNTER 2025-03-08 11:48 | Outpatient (CLI) | payer MEDICARE, OTHER, SELFPAY ==
--- OUTSIDE RECORDS SUMMARY | 2025-03-08 13:51 | XMS_ITS | Encounter Summary ---
Author Organization [facility] Address [address] [place] [address] Phone Care Team Providers Care Youth Officer Name Role Phone Saul Fitch Primary Care Provider [phone] Harvey Wilson MD Unavailable [phone] Wily Bassett MD Unavailable [phone] Paulie Lai MD Unavailable [phone] Eb Cardoso MD Unavailable [phone] Ernesto Reddy MD Unavailable [phone] Naomi Bay MD Unavailable [phone] Paula Jarvis NP Unavailable [phone] Unknown, Notinfile Primary Care Provider Unavail able Aldo Hanley MD Primary Care Provider [phone] Encounter Details Date Type Department Care Team (Latest Contact Info) Description 10/26/2021 Orders Only [facility] Scanning, Provider Social History Tobacco Use Types Packs/Day Years Used Date Smoking Tobacco: Never Assessed Comments Unknown Sex and Gender Information Value Date Recorded Sex Assigned at Not on file Legal Sex Female 2:06 PM [employer] Gender Identity Not on file Sexual Orientation [...] on filedocumented in this encounter Care Teams Youth Officer Relationship Specialty Start Date End Date Saul Fitch DO PCP - General Internal Medicine 01/18/22 01/21/24 Unknown, Notinfile PCP - General 01/22/24 10/28/24 Aldo Hanley MD [address] [place] [address] PCP - General Family Practice 10/29/24 Harvey Wilson MD Medical Oncologist Hematology 01/25/22 Wily Bassett MD [address] [facility] [address] [place] [address] Surgeon Cardiothoracic Surgery 01/25/22 Paulie Lai MD [address] [facility] [address] [place] [address] Addressing Machine Operator Critical Care Med 01/25/22 Eb Cardoso MD [address] [place] [address] Addressing Machine Operator Critical Care Med 01/25/22 Ernesto Reddy MD [address] [place] [address] Medical Oncologist/Hematologis t Medical Oncology 01/25/22 Naomi Bay MD [address] [facility] [address] [place] [address] Radiation Oncologist Radiation Oncology 01/31/22 Paula Jarvis NP [address] [facility] [address] [place] [address] Nurse Practitioner Radiation Oncology 07/18/22 documented as of this encounter
--- OUTSIDE RECORDS SUMMARY | 2025-03-08 13:51 | XMS_ITS | Clinical Summary ---
Author Organization [facility] Address [address] [place] [address] Care Team Providers Care Tree Farmer Name Role Phone Dieudonne Maxwell MD Primary Care Provider [phone] Source Comments [facility],non-[facility] Affiliates and Associated Physician Practices is amultiple site organization consisting of ambulatory clinics and hospital sitesin [place], [place], [place] and [place]. This disclosure is being madepursuant to the Care Everywhere program and may not contain all information available regarding this patient. Last updated 18.[facility] [employer] Social History Tobacco Use Types Packs/Day Years Used Date Smoking Tobacco: Never Assessed Comments Unknown Sex and Gender Information Value Date Recorded Sex Assigned at Not on file Legal Sex Female 9:53 AM BATON TWIRLER Gender Identity Not on file Sexual Orientation Not on file Last Filed Vital Signs Vital Sign Reading Time Taken Comments Blood Pressure 110/69 06/10/2015 12:31 PM BATON TWIRLER Pulse 84 06/10/2015 12:31 PM BATON TWIRLER Temperature 36.9 C (98.4 F) 06/10/2015 12:31 PM BATON TWIRLER Respiratory Rate 14 06/10/2015 12:31 PM BATON TWIRLER Oxygen Saturation 97% 06/10/2015 12:31 PM BATON TWIRLER Inhaled Oxygen Concentration - - Weight 65.8 kg (145 lb) 06/10/2015 12:31 PM BATON TWIRLER Height 175.3 cm (5' 9) 06/10/2015 12:31 PM BATON TWIRLER Body Mass Index 21.41 06/10/2015 12:31 PM BATON TWIRLER Plan of Treatment Health Maintenance Due Date Last Done Comments COLOGUARD (AGES 45-75) - COL ON CA SCREENING 1960 COLON MONITORING 1961 COLONOSCOPY - COLON CA SCREENING 1961 CT COLONOGRAPHY - COLON CA SCREENING 1960 Colorectal Cancer Screening 1960 FIT - COLON CA SCREENING 1961 FLEX SIG - COLON CA SCREENING 1961 LIPID TESTING 1961 MAMMOGRAM 1961 HIV SCREENING 1976 HEPATITIS C SCREENING 09/23/1979 DTAP/TDAP/TD VACCINES (1 - Tdap) 1980 PAP SMEAR 1982 Cervical Cancer Screening 09/28/1991 PAP with HPV 09/28/1991 PNEUMOCOCCAL VACCINE 50+ (1 of 1 - PCV) 09/28/2011 ZOSTER VACCINE (1 of 2) 09/28/2011 DEPRESSION SCREENING 04/15/2024 COVID-19 VACCINE (1 - 2024-2 6 season) 2024 INFLUENZA VACCINE (#1) 2024 Respiratory Syncytial Virus (RSV) Vaccine Pt: [...] MEDICAID - OUT OF STATE Care Teams Tree Farmer Relationship Specialty Start Date End Date Dieudonne Maxwell MD [address] [place] [address] PCP - General 05/20/18
--- OUTSIDE RECORDS SUMMARY | 2025-03-08 13:51 | XMS_ITS | Encounter Summary ---
Author Organization [facility] Healthcare Address [address] [place] [address] Care Team Providers Care Exercise Specialist Name Role Phone Saul Fitch DO Primary Care Provider [phone] Harvey Wilson MD Unavailable [phone] Wily Bassett MD Unavailable [phone] Paulie Lai MD Unavailable [phone] Eb Cardoso MD Unavailable [phone] Ernesto Reddy MD Unavailable [phone] Naomi Bay MD Unavailable [phone] Paula Jarvis NP Unavailable [phone] Unknown, Notinfile Primary Care Provider Unavail able Aldo Hanley MD Primary Care Provider [phone] Encounter Details Date Type Department Care Team (Late st Contact Info) Description 10/23/2022 Telephone [facility] [address] [place] [address] Shaina Ferro, HARMEET Social History Tobacco Use Types Packs/Day Years Used Date Smoking Tobacco: Every Day Cigarettes AUDIT-C Answer Date Recorded Q1: How often do you have a drink containing alc ohol? Monthly or less 01/26/2022 Average Number of Drinks Not on file 022 Frequency of Binge Drinking Not on file 01/13 [facility] [place] of Occupat ional Health - Occupational Stress Questionnaire Answer Date Recorded Do you feel stress - tense, restless, nervous, or anxious, or unable to sleep at night because your mind is troubled all the time - these days? Very much 01/26/2022 Comments No Sex and Gender Information Value Date Recorded Sex Assigned at Not on file Legal Sex Female 2:06 PM RN PROGRESSIVE CARE Gender Identity Not on file Sexual Orientation Not on file documented as of this encounter Plan of Treatment Not on file documented as of this encounter Visit Diagnoses Not on filedocumented in this encounter Care Teams Exercise Specialist Relationship Specialty Start Date End Date Yogesh Fitchvianney PCP - General Internal Medicine 01/18/22 01/21/24 Unknown, Notinfile PCP - General 01/22/24 10/28/24 Aldo Hanley MD [address] [place], [place] [address] PCP - General Family Practice 10/29/24 Harvey Wilson MD Medical Oncologist Hematology 01/25/22 Wily Bassett MD [address] [facility] [address] [place] [address] Surgeon Cardiothoracic Surgery 01/25/22 Paulie Lai MD [address] [facility] [address] [place] [address] Broadband Installer Critical Care Med 01/25/22 Eb Cardoso MD [address] [place] [address] Broadband Installer Critical Care Med 01/25/22 Ernesto Reddy MD [address] [place] [address] Medical Oncologist/Hematologis t Medical Oncology 01/25/22 Naomi Bay MD [address] [facility] [address] [place] [address] Radiation Oncologist Radiation Oncology 01/31/22 Paula Jarvis NP [address] [facility] [address] [place], [place] [address] Nurse Practitioner Radiation Oncology 07/18/22 documented as of this encounter
--- OUTSIDE RECORDS SUMMARY | 2025-03-08 13:51 | XMS_ITS | Encounter Summary ---
Author Organization [facility] Address [address] [place] [address] Phone Care Team Providers Care Staffing Mgr Name Role Phone Saul Fitch Primary Care Provider [phone] Harvey Wilson MD Unavailable [phone] Wily Bassett MD Unavailable [phone] Paulie Lai MD Unavailable [phone] Eb Cardoso MD Unavailable [phone] Ernesto Reddy MD Unavailable [phone] Naomi Bay MD Unavailable [phone] Paula Jarvis NP Unavailable [phone] Unknown, Notinfile Primary Care Provider Unavail able Aldo Hanley MD Primary Care Provider [phone] Encounter Details Date Type Department Care Team (Latest Contact Info) Description 12/14/2021 Orders Only [facility] Scanning, Provider Social History Tobacco Use Types Packs/Day Years Used Date Smoking Tobacco: Never Assessed Comments Unknown Sex and Gender Information Value Date Recorded Sex Assigned at Not on file Legal Sex Female 2:06 PM GRAPHIC ART SALES REPRESENTATIVE Gender Identity Not on file Sexual Orientation [...] on filedocumented in this encounter Care Teams Staffing Mgr Relationship Specialty Start Date End Date Saul Fitch DO PCP - General Internal Medicine 01/18/22 01/21/24 Unknown, Notinfile PCP - General 01/22/24 10/28/24 Aldo Hanley MD [address] [place] [address] PCP - General Family Practice 10/29/24 Harvey Wilson MD Medical Oncologist Hematology 01/25/22 Wily aBssett MD [address] [facility] [address] [place] [address] Surgeon Cardiothoracic Surgery 01/25/22 Paulie Lai MD [address] [facility] [address] [place] [address] Scarfer Operator Critical Care Med 01/25/22 Eb Cardoso MD [address] [place] [address] Scarfer Operator Critical Care Med 01/25/22 Ernesto Reddy MD [address] [place] [address] Medical Oncologist/Hematologis t Medical Oncology 01/25/22 Naomi Bay MD [address] [facility] [address] [place] [address] Radiation Oncologist Radiation Oncology 01/31/22 Paula Jarvis NP [address] [facility] [address] [place] [address] Nurse Practitioner Radiation Oncology 07/18/22 documented as of this encounter
--- OUTSIDE RECORDS SUMMARY | 2025-03-08 13:51 | XMS_ITS | Clinical Summary ---
Author Organization [facility] Address [address], [facility] [address] [place] [address] Phone Care Team Providers Care Utility Worker Woolen Mill Name Role Phone Dieudonne Maxwell MD Primary Care Provider [phone] Allergies Active Allergy Reactions Criticality Noted Date [...] Heart Attack Father Heart Attack Sister fatal ID Heart Disease Sister Relation Name Status Comments [...] P M CDT Height 175.3 cm (5' 9) 09/16/2018 2:44 PM CDT Body Mass Index 21.65 09/16/2018 2:44 PM CDT Plan of Treatment Health Maintenance Due Date Last Done Comments Hepatitis C Virus (HCV) Screening 1960 TdaP Immunization 1960 Pap Smear 1982 Medicare Initial AWV [id number] 09/13/1989 Cervical Cancer Screening (CCS) 09/28/1991 HPV/Cotest 09/28/1991 Cologuard 2006 Immunochemical Fecal Occult Blood 2006 Pneumococcal Immunization (5 0+ years) (1 of 1 - PCV) 09/28/2011 Zoster Immunization (1 of 2) 09/28/2011 Colonoscopy 05/15/2023 05/15/2018 Colorectal Cancer Screening 05/15/2023 Influenza Immunization (#1) 12/14/202405/2013, 02/24/2014 SARS-COV-2 Immunization ( season) 2024 11/18/2020, 10/28/2020 Respiratory Syncytial Virus (RSV) Immunization (Adult) (1 - 1-dose 75+ series) 2036 Hepatitis B Immunization Aged Out No longer eligible based on patient's age to complete this topic Human Papillomavirus (HPV) Immunization Aged Out No longer eligible b ased [...] to Health Maintenance Insurance MEDICARE Care Teams Utility Worker [place]en Mill Relationship Specialty Start Date End Date Dieudonne Maxwell MD PCP - General Internal Medicine 11/19/17
--- OUTSIDE RECORDS SUMMARY | 2025-03-08 13:51 | XMS_ITS ---
Author Organization [facility] Address [address] [facility] [place] [address] Care Team Providers Care Engineer Remote Control Diesel Name Role Phone Harvey Wilson MD Unavailable [phone] Wily Bassett MD Unavailable [phone] Paulie Lai MD Unavailable [phone] bE Cardoso MD Unavailable [phone] Ernesto Reddy MD Unavailable [phone] Naomi Bay MD Unavailable Paula Jarvis NP Unavailable [phone] Aldo Hanley MD Primary Care Provider [phone] Active Problems Problem Noted Date Diagnosed Date [...] Dose Automatic Entry Manual Entr y DLP 3,813 mGycm 3,813 mGycm 0 mGycm
--- OUTSIDE RECORDS SUMMARY | 2025-03-08 13:51 | XMS_ITS | Encounter Summary ---
Author Organization [facility] Healthcare Address [address] [place] [address] Care Team Providers Care Battery Assembler Plastic Name Role Phone Saul Fitch DO Primary Care Provider [phone] Harvey Wilson MD Unavailable [phone] Wily Bassett MD Unavailable [phone] Paulie Lai MD Unavailable [phone] Eb Cardoso MD Unavailable [phone] Ernesto Reddy MD Unavailable Naomi Bay MD Unavailable [phone] Paula aJrvis NP Unavailable [phone] Unknown, Notinfile Primary Care Provider Unavail able Aldo Hanley MD Primary Care Provider [phone] Encounter Details Date Type Department Care Team (Late st Contact Info) Description 01/23/2023 Telephone [facility] [address] [place] [address] Shaina Ferro, HARMEET Social History Tobacco Use Types Packs/Day Years Used Date Smoking Tobacco: Every Day Cigarettes AUDIT-C Answer Date Recorded Q1: How often do you have a drink containing alc ohol? Monthly or less 01/26/2022 Average Number of Drinks Not on file 022 Frequency of Binge Drinking Not on file 01/13 [facility] [place] of Occupat ional Health - Occupational Stress Questionnaire Answer Date Recorded Do you feel stress - tense, restless, nervous, or anxious, or unable to sleep at night because your mind is troubled all the time - these days? Very much 01/26/2022 Comments No Sex and Gender Information Value Date Recorded Sex Assigned at Not on file Legal Sex Female 2:06 PM NEWS DIRECTOR Gender Identity Not on file Sexual Orientation Not on file documented as of this encounter Plan of Treatment Not on file documented as of this encounter Visit Diagnoses Not on filedocumented in this encounter Care Teams Battery Assembler Plastic Relationship Specialty Start Date End Date Yogesh Fitchvianney PCP - General Internal Medicine 01/18/22 01/21/24 Unknown, Notinfile PCP - General 01/22/24 10/28/24 Aldo Hanley MD [address] [place], [place] [address] PCP - General Family Practice 10/29/24 Harvey Wilson MD Medical Oncologist Hematology 01/25/22 Wily Bassett MD [address] [facility] [address] [place] [address] Surgeon Cardiothoracic Surgery 01/25/22 Paulie Lai MD [address] [facility] [address] [place] [address] Crystal Grinder Critical Care Med 01/25/22 Eb Cardoso MD [address] [place] [address] Crystal Grinder Critical Care Med 01/25/22 Ernesto Reddy MD [address] [place] [address] Medical Oncologist/Hematologis t Medical Oncology 01/25/22 Naomi Bay MD [address] [facility] [address] [place] [address] Radiation Oncologist Radiation Oncology 01/31/22 Paula Jarvis NP [address] [facility] [address] [place], [place] [address] Nurse Practitioner Radiation Oncology 07/18/22 documented as of this encounter
--- OUTSIDE RECORDS SUMMARY | 2025-03-08 13:51 | XMS_ITS | Clinical Summary ---
Author Organization [facility] Address [address] [place] [address] Care Team Providers Care Carpenters Helper Name Role Phone Unavailable Primary Care Provider [...] Vaccines (1 of 2) 09/28/2011 COVID-19 Vaccine (2024-2 6 season) 2024 Influenza Adult (#1) 2025 RSV Immunization or 60+ Years (1 - 1-dose 75+ series) 2036 Hepatitis A Vaccines Aged Out No long er eligible based on patient's age to complete this topic Meningococcal B Vaccine Aged Out No l onger eligible based on patient's age to complete this topic Meningococcal Vaccine Aged Out No zana veronica eligible based on patient's age to complete this topic RSV Immunizations Under 20 Months Aged Out No longer eligible based on patient's age to complete this topic
--- OUTSIDE RECORDS SUMMARY | 2025-03-08 13:51 | XMS_ITS | Encounter Summary ---
Author Organization [facility] Address [address] [place] [address] Phone Care Team Providers Care Credit Administration Manager Name Role Phone Saul Fitch Primary Care Provider [phone] Harvey Wilson MD Unavailable [phone] Wily Bassett MD Unavailable [phone] Paulie Lai MD Unavailable [phone] Eb Cardoso MD Unavailable [phone] Ernesto Reddy MD Unavailable [phone] Naomi Bay MD Unavailable [phone] Paula Jarvis NP Unavailable [phone] Unknown, Notinfile Primary Care Provider Unavail able Aldo Hanley MD Primary Care Provider [phone] Encounter Details Date Type Department Care Team (Latest Contact Info) Description 11/22/2021 Orders Only [facility] Scanning, Provider Social History Tobacco Use Types Packs/Day Years Used Date Smoking Tobacco: Never Assessed Comments Unknown Sex and Gender Information Value Date Recorded Sex Assigned at Not on file Legal Sex Female 2:06 PM MANGLE TENDER CLOTH Gender Identity Not on file Sexual Orientation [...] on filedocumented in this encounter Care Teams Credit Administration Manager Relationship Specialty Start Date End Date Saul Fitch DO PCP - General Internal Medicine 01/18/22 01/21/24 Unknown, Notinfile PCP - General 01/22/24 10/28/24 Aldo Hanley MD [address] [place] [address] PCP - General Family Practice 10/29/24 Harvey Wilson MD Medical Oncologist Hematology 01/25/22 Wily Bassett MD [address] [facility] [address] [place] [address] Surgeon Cardiothoracic Surgery 01/25/22 Paulie Lai MD [address] [facility] [address] [place] [address] Field Mechanic Critical Care Med 01/25/22 Eb Cardoso MD [address] [place] [address] Field Mechanic Critical Care Med 01/25/22 Ernesto Reddy MD [address] [place] [address] Medical Oncologist/Hematologis t Medical Oncology 01/25/22 Naomi Bay MD [address] [facility] [address] [place] [address] Radiation Oncologist Radiation Oncology 01/31/22 Paula Jarvis NP [address] [facility] [address] [place] [address] Nurse Practitioner Radiation Oncology 07/18/22 documented as of this encounter
--- OUTSIDE RECORDS SUMMARY | 2025-03-08 13:51 | XMS_ITS | Clinical Summary ---
Author Organization [facility] Address [address] [place] [address] Phone Care Team Providers Care Maxillofacial Prosthodontist Name Role Phone Saul Fitch DO Primary Care Provider [phone] Allergies Active Allergy Reactions Criticality Noted Date [...] Tablet 2 Active naloxone (NARCAN) 4 mg/spray [place], Non-Aerosol EMERGENCY USE ONLY: Administer 1 spray [...] 11/03/2021 Immunizations Immunization Administration Dates Next Due ([employer])(12 YR UP) COVID-19 VACCINE - EMERGENCY USE AUTHORIZATION, MRNA, [id number](PF) 30 MCG/0.3 ML IM SUSP 11/18/2020,10/27/2020 Influenza [...] 3:13 PM CDT Height 175.3 cm (5' 9) 01/16/2022 3:13 PM CDT Body Mass Index 22.3 01/16/2022 3:13 PM CDT Plan of Treatment Health Maintenance Due Date Last Done Comments Pre-Diabetes and Diabetes Screening 1961 DTAP/TDAP/TD VACCINES (1 - Tdap) 1980 HPV/Cotest (21-29) 1982 CERVICAL CANCER SCREENING 09/28/1991 HPV/Cotest (30-65) 09/28/1991 PAP SMEAR 09/28/1991 BREAST CANCER SCREENING 2001 FIT-DNA Q 3 years 2006 FIT/FOBT Q 1 year 2006 Flex Sig/CT Colonography Q 5 years 2006 RSV VACCINE (60+ or ) (1 - Risk 50-74 years 1-dose series) 09/28/2011 ZOSTER VACCINE (1 of 2) 09/28/2011 COLORECTAL SCREENING 12/03/2022 12/03/2012 Colorectal Cancer Screening 12/03/2022 INFLUENZA VACCINE (#1) 2024 , 02/20/2022, 04/24/2021, Additional history exists COVID-19 Vaccine (3 - 2024-2 6 season) 2024 11/18/2020, 10/27/2020 Medical Devices Implanted Type Area Fuel Technician Device Identifier Shelf Expiration Date Model / Serial / Lot Sealant Progel Pleural 4ml [id number] - [id number] Implanted:Qty: 1 on 12/14/2021 by Wily Bassett MD at [facility] Tissue Left: Chest BARD DAVOL [id number] 06/16/2023 [id number] / / [id number] Lumbar Fusion Hardware Insurance MEDICARE PART A AND B [facility] MEDICAID MEDICARE PART A AND B [facility] MEDICAID Advance Directives For more information, please contact: [phone] * Full Code (Latest Code Status on File) Date Activated Date Inactivated Comments 12/14/2021 5:21 PM 12/21/2021 6:25 PM * Full Code Date Activated Date Inactivated Comments 12/14/2021 8:36 AM 12/14/2021 5:21 PM Care Teams Maxillofacial Prosthodontist Relationship Specialty Start Date End Date Saul Fitch DO [address] [facility] [address] [facility] [address] [place] [address] PCP - General Internal Medicine 10/26/21
--- OUTSIDE RECORDS SUMMARY | 2025-03-08 13:51 | XMS_ITS | Encounter Summary ---
Author Organization [facility] Address [address] [place] [address] Phone Care Team Providers Care Electric Arc Furnace Operator Name Role Phone Saul Fitch Primary Care Provider [phone] Harvey Wilson MD Unavailable [phone] Wily Bassett MD Unavailable [phone] Paulie Lai MD Unavailable [phone] Eb Cardoso MD Unavailable [phone] Ernesto Reddy MD Unavailable [phone] Naomi Bay MD Unavailable [phone] Paula Jarvis NP Unavailable [phone] Unknown, Notinfile Primary Care Provider Unavail able Aldo Hanley MD Primary Care Provider [phone] Encounter Details Date Type Department Care Team (Latest Contact Info) Description 11/13/2021 Orders Only [facility] Scanning, Provider Social History Tobacco Use Types Packs/Day Years Used Date Smoking Tobacco: Never Assessed Comments Unknown Sex and Gender Information Value Date Recorded Sex Assigned at Not on file Legal Sex Female 2:06 PM DOCTOR CHIROPRACTIC Gender Identity Not on file Sexual Orientation [...] on filedocumented in this encounter Care Teams Electric Arc Furnace Operator Relationship Specialty Start Date End Date Saul Fitch DO PCP - General Internal Medicine 01/18/22 01/21/24 Unknown, Notinfile PCP - General 01/22/24 10/28/24 Aldo Hanley MD [address] [place] [address] PCP - General Family Practice 10/29/24 Harvey Wilson MD Medical Oncologist Hematology 01/25/22 Wily Bassett MD [address] [facility] [address] [place] [address] Surgeon Cardiothoracic Surgery 01/25/22 Paulie Lai MD [address] [facility] [address] [place] [address] Sprinkler Truck Driver Critical Care Med 01/25/22 Eb Cardoso MD [address] [place] [address] Sprinkler Truck Driver Critical Care Med 01/25/22 Ernesto Reddy MD [address] [place] [address] Medical Oncologist/Hematologis t Medical Oncology 01/25/22 Naomi Bay MD [address] [facility] [address] [place] [address] Radiation Oncologist Radiation Oncology 01/31/22 Paula Jarvis NP [address] [facility] [address] [place] [address] Nurse Practitioner Radiation Oncology 07/18/22 documented as of this encounter
--- OUTSIDE RECORDS SUMMARY | 2025-03-08 13:51 | XMS_ITS | Clinical Summary ---
Author Organization [facility] 2 Address [address] [facility] [place] [address] Care Team Providers Care Residential Supervisor Name Role Phone Harvey Wilson MD Unavailable [phone] Wily Bassett MD Unavailable [phone] Paulie Lai MD Unavailable [phone] Eb Cardoso MD Unavailable [phone] BarryErnesto hernandez MD Unavailable [phone] Naomi Bay MD Unavailable Paula Jarvis NP Unavailable [phone] Aldo Hanley MD Primary Care Provider [phone] Allergies Active Allergy Reactions Criticality Noted Date Comments Sulfa (Sulfonamide Antibiotics) Unknown,Swelling Medium 10/31/2013 Swelling Sulfamethoxazole-Tri methoprim Flushing (skin),Unknown,Hives Medium 10/31/2013 Eyes close and well, 104 fever, welts and bumps all house mover supervisor Hives Medications ALPRAZolam (XANAX) 1 mg tablet [...] Binge Drinking Not on file 01/13 [facility] [place] of Occupat ional Health - Occupational Stress Questionnaire Answer Date Recorded Do you feel stress - tense, restless, nervous, or anxious, or unable to sleep at night because your mind is troubled all the time - these days? Very much 01/26/2022 Comments No Sex and Gender Information Value Date Recorded Sex Assigned at Not on file Legal Sex Female 2:06 PM VISUAL SUPERVISOR Gender Identity Not on file Sexual Orientation Not on file Last Filed Vital Signs Vital Sign Reading Time Taken Comments Blood Pressure 147/87 11/03/2024 10:48 AM CDT Pulse 88 11/03/2024 10:48 AM CDT Temperature 36.4 C (97.6 F) 11/03/2024 10:48 AM CDT Respiratory Rate 18 11/03/2024 10:48 AM CDT Oxygen Saturation 98% 11/03/2024 10:48 AM CDT Inhaled Oxygen Concentration - - Weight 75.8 kg (167 lb 3.2 oz) 11/03/2024 10:48 AM CDT Height 171 cm (5' 7.32) 11/20/2022 1:26 PM CDT Body Mass Index 25.94 11/20/2022 1:26 PM CDT Plan of Treatment [...] Colon Cancer Screening-Colonoscopy 12/03/20222012 Influenza Vaccine (#1) 2024 , 02/20/2022, 04/24/2021, Additional history exists Procedures Procedure Name Priority Date/Time Associated Diagnosis Comments COLONOSCOPY 12/03/2012 12:00 AM CDT from Last 3 Months or Most Recently Relevant to Health Maintenance Results * COLONOSCOPY (12/03/2012 12:00 AM CDT) Anatomical Region Laterality Modality Other Narrative 12/03/2012 12:00 AM CDT Ordered by an unspecified provider. Procedure Note Provider, MD Reginaldo - 12/03/2012 12:00 AM CDT PROCEDURE REPORT Patient: LESLEE OLIVIER Account: [id number] Room No: : 1960 Patient Type: [facility] Attend.: Alverto Perry D.O. Admit [...] theprocedure well without any immediate complications. Lexii Stuart/mariaelena TD: 12/04/2012 03:42 CC: Dr. Maxwell Authenticated by Alverto Perry DO On 12/06/2012 09:56:26 AM us Historical Provider ENDOSCOPY PROCEDURES Cyndi l Result from Last 3 Months or Most Recently Relevant to Health Maintenance Insurance MEDICARE IDPA MEDICARE IDPA Care Teams Residential Supervisor Relationship Specialty Start Date End Date Aldo Hanley MD [address] [place] [address] PCP - General Family Practice 10/29/24 Harvey Wilson MD Medical Oncologist Hematology 01/25/22 Wily Bassett MD [id number] [place] [address] Surgeon Cardiothoracic Surgery 01/25/22 Paulie Lai MD [address] [facility] [address] [place] [address] Postie Critical Care Med 01/25/22 Eb Cardoso MD [address] [place] [address] Postie Critical Care Med 01/25/22 Ernesto Reddy MD [address] [place] [address] Medical Oncologist/Hematologis t Medical Oncology 01/25/22 Naomi Bay MD [address] [facility] [place] [address] Radiation Oncologist Radiation Oncology 01/31/22 Paula Jarvis NP [address] [facility] [address] [place] [address] Nurse Practitioner Radiation Oncology 07/18/22
[2025-03-08 15:28] LABS: Hemoglobin A1C 5.6 % (<5.7)
== END 2025-03-08 11:49 | disposition home or self-care (01) ==
PROVIDERS: PCP Family Medicine; Visit Provider Family Medicine
DX: R73.03 Prediabetes (principal)
CPT/HCPCS: 36415; 83036